=== PATIENT | female | born 1970 | race Hispanic/Latino ===

== ENCOUNTER 2019-04-11 18:42 | Emergency (ER) | payer OTHER ==
--- OUTSIDE RECORDS SUMMARY | 2019-04-11 18:44 | XMS REPORT ---
:1970 Author Organization eClinicalWorks Care Team Providers Name Role Phone Mak Flores Provider Role Unavailable Allergies, Adverse Reactions, Alerts Substance Reaction Event Type N.K.D.A. Info Not Available Non Drug Allergy Problems Problem Type Condition Code Onset Dates Condition Status Problem HTN, goal below 130/80 I10 Active Problem Type 2 diabetes mellitus with other E11.69 Active specified complication, unspecified whether insurance verifier insulin use Problem Mixed hyperlipidemia E78.2 Active Problem Chronic hepatitis C without hepatic B18.2 Active coma Problem Generalized anxiety disorder F41.1 Active Problem Body mass index (BMI) 40.0-44.9, Z68.41 Active adult Problem 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 prior episode Problem Panic disorder [episodic paroxysmal F41.0 Active anxiety] Problem Morbid (severe) obesity due to E66.01 Active excess calories Assessment Morbid (severe) obesity due to E66.01 Active excess calories Assessment Chronic hepatitis C without hepatic B18.2 Active coma Assessment Body mass index (BMI) 40.0-44.9, Z68.41 Active adult Assessment Panic disorder [episodic paroxysmal F41.0 Active anxiety] Assessment HTN, goal below 130/80 I10 Active Assessment 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 prior episode Assessment Mixed hyperlipidemia E78.2 Active Assessment Generalized anxiety disorder F41.1 Active Assessment Type 2 diabetes mellitus with other E11.69 Active specified complication, unspecified whether senior living insulin use Medications Medication Code Code Instructions Start End Status Dosage System Date Date Amlodipine ND 68104471823 10 MG Orally Active 1 tablet Besylate Once a day Benazepril HCl [facility] 56435270625 40 MG Orally Active 1 tablet Once a day Alprazolam ND 93011606927 1 MG Orally Active 1 tablet three times a day Tradjenta ND 89554495567 5 MG Orally Once Active 1 tablet a day Atorvastatin [facility] 18428366508 10 MG Orally Active 1 tablet Calcium Once a day Results No Known Results Summary Purpose eClinicalWorks Submission
--- OUTSIDE RECORDS SUMMARY | 2019-04-11 18:44 | XMS REPORT ---
[...] other E11.69 Active specified complication, unspecified whether nursing home insulin use Assessment Acute cystitis without hematuria N30.00 Active Assessment Dysuria R30.0 Active Problem Mixed hyperlipidemia E78.2 Active Problem Chronic hepatitis C without hepatic B18.2 Active coma Problem Generalized anxiety disorder F41.1 Active Problem Body mass index (BMI) 40.0-44.9, Z68.41 Active adult Problem 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 prior episode Problem Panic disorder [episodic paroxysmal F41.0 Active anxiety] Problem Morbid (severe) obesity due to E66.01 Active excess calories Medications Medication Code Code Instructions Start End Status Dosage System Date Date Atorvastatin [facility] 56561506756 10 MG Orally Active 1 tablet Calcium Once a day Macrobid [facility] 52006183395 100 MG Orally Jan 30, Feb 04, Active 1 capsule BID 2018 2018 at bedtime with food Pyridium [facility] 40211286205 200 MG Orally Jan 30, Feb 01, Active 1 tablet Three times a 2018 2018 after day meals Tradjenta [facility] 87138787045 5 MG Orally Active 1 tablet Once a day Benazepril HCl ND 26727524597 40 MG Orally Active 1 tablet Once a day Amlodipine ND 47584155777 10 MG Orally Active 1 tablet Besylate Once a day Alprazolam ND 79078103068 1 MG Orally Active 1 tablet three times a day Results No Known Results Summary Purpose eClinicalWorks Submission
--- OUTSIDE RECORDS SUMMARY | 2019-04-11 18:44 | XMS REPORT ---
:1970 Author Organization eClinicalWorks Care Team Providers Name Role Phone Mark Mak Provider Role Unavailable Allergies, Adverse Reactions, Alerts Substance Reaction Event Type N.K.D.A. Info Not Available Non Drug Allergy Problems Problem Type Condition Code Onset Dates Condition Status Problem Body mass index (BMI) 40.0-44.9, Z68.41 Active adult Problem Panic disorder [episodic paroxysmal F41.0 Active anxiety] Problem Morbid (severe) obesity due to E66.01 Active excess calories Problem 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 prior episode Assessment Body mass index (BMI) 40.0-44.9, Z68.41 Active adult Problem HTN, goal below 130/80 I10 Active Assessment Elevated alkaline phosphatase level R74.8 Active Assessment Routine gynecological examination Z01.419 Active Problem Osteoarthritis of multiple joints, M15.9 Active unspecified osteoarthritis type Problem Mixed hyperlipidemia E78.2 Active Problem Chronic hepatitis C without hepatic B18.2 Active coma Problem Type 2 diabetes mellitus with other E11.69 Active specified complication, unspecified whether parts counterman insulin use Problem Generalized anxiety disorder F41.1 Active Assessment 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 prior episode Assessment Screening mammogram, encounter for Z12.31 Active Assessment Morbid (severe) obesity due to E66.01 Active excess calories Assessment Chronic hepatitis C without hepatic B18.2 Active coma Assessment HTN, goal below 130/80 I10 Active Assessment Mixed hyperlipidemia E78.2 Active Assessment Generalized anxiety disorder F41.1 Active Assessment Type 2 diabetes mellitus with other E11.69 Active specified complication, unspecified whether parts counterman insulin use Assessment Osteoarthritis of multiple joints, M15.9 Active unspecified osteoarthritis type Assessment Panic disorder [episodic paroxysmal F41.0 Active anxiety] Medications Medication Code Code Instructions Start End Status Dosage System Date Date Tradjenta [facility] 60799915908 5 MG Orally Once Active 1 tablet a day Benazepril HCl [facility] 97712897794 40 MG Orally Active 1 tablet Once a day Alprazolam [facility] 06170908091 1 MG Orally Active 1 tablet three times a day Atorvastatin [facility] 51181628176 10 MG Orally Active 1 tablet Calcium Once a day Amlodipine [facility] 68293576692 10 MG Orally Active 1 tablet Besylate Once a day Results No Known Results Summary Purpose eClinicalWorks Submission
--- OUTSIDE RECORDS SUMMARY | 2019-04-11 18:44 | XMS REPORT ---
:1970 Author Organization eClinicalWorks Care Team Providers Name Role Phone FloresMak Provider Role Unavailable Allergies No Known Allergies Problems Problem Type Condition Code Onset Dates Condition Status Problem Body mass index (BMI) 40.0-44.9, Z68.41 Active adult Problem Panic disorder [episodic paroxysmal F41.0 Active anxiety] Problem Morbid (severe) obesity due to E66.01 Active excess calories Assessment Chronic hepatitis C without hepatic B18.2 Active coma Problem 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 prior episode Problem HTN, goal below 130/80 I10 Active Problem Osteoarthritis of multiple joints, M15.9 Active unspecified osteoarthritis type Problem Mixed hyperlipidemia E78.2 Active Problem Chronic hepatitis C without hepatic B18.2 Active coma Problem Type 2 diabetes mellitus with other E11.69 Active specified complication, unspecified whether assisted insulin use Problem Generalized anxiety disorder F41.1 Active Medications No Known Medications Results No Known Results Summary Purpose [employer] Submission
--- NOTE | 2019-04-11 20:19 | EDPHYS ---
Physician Documentation [facility] Name: Arleth Miner Age: 49 yrs Sex: Female : 1970 Arrival Date: 04/11/2019 Time: 18:47 Bed 9 Private MD: ED Physician Michael Blount HPI: 04/12 01:57 This 49 yrs old Female presents to ER via Ambulatory with complaints of Knee tw4 Pain. 01:57 The patient presents with pain, that is chronic. The complaints affect the right knee. tw4 01:58 Onset: The symptoms/episode began/occurred 1 month(s) ago. Modifying factors: The tw4 symptoms are alleviated by nothing. the symptoms are aggravated by nothing. Severity of symptoms: At their worst the symptoms were moderate, in the emergency department the symptoms. The patient has not experienced similar symptoms in the past. 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 - Social history:: Smoking status: . - Ebola Screening: : Patient negative for fever greater than or equal to 101.5 degrees Fahrenheit, and additional compatible Ebola Virus Disease symptoms Patient denies exposure to infectious person Patient denies travel to an Ebola-affected area in the 21 days before illness onset No symptoms or risks identified at this time. ROS: 04/12 01:58 Constitutional: Negative for fever, chills, and weight loss, Eyes: Negative for injury, tw4 pain, redness, and discharge, Cardiovascular: Negative for chest pain, palpitations, and edema, Respiratory: Negative for shortness of breath, cough, wheezing, and pleuritic chest pain, Abdomen/GI: Negative for abdominal pain, nausea, vomiting, diarrhea, and constipation, Skin: Negative for injury, rash, and discoloration, Neuro: Negative for headache, weakness, numbness, tingling, and seizure. MS/extremity: Positive for pain, Negative for acute changes, injury or acute deformity, abrasion, contusion, decreased range of motion, deformity, ecchymosis, erythema, puncture, rash. Exam: 01:58 Constitutional: This is a well developed, well nourished patient who is awake, alert, tw4 and in no acute distress. Head/Face: Normocephalic, atraumatic. Chest/axilla: Normal chest wall appearance and motion. Nontender with no deformity. No lesions are appreciated. Cardiovascular: Regular rate and rhythm with a normal S1 and S2. No gallops, murmurs, or rubs. Normal PMI, no JVD. No pulse deficits. Respiratory: Lungs have equal breath sounds bilaterally, clear to auscultation and percussion. No rales, rhonchi or wheezes noted. No increased work of breathing, no retractions or nasal flaring. Abdomen/GI: Soft, non-tender, with normal bowel sounds. No distension or tympany. No guarding or rebound. No evidence of tenderness throughout. MS/ Extremity: Pulses equal, no cyanosis. Neurovascular intact. Full, normal range of motion. 01:58 Musculoskeletal/extremity: Extremities: noted in the right knee: pain. Vital Signs: 04/11 19:32 BP 137 / 77; Pulse 93; Resp 16; Temp 98.2; Pulse Ox 95% on R/A; Weight 104.33 kg; iw Height 5 ft. 3 in. (160.02 cm); Pain 8/10; 19:32 Body Mass Index 40.74 (104.33 kg, 160.02 cm) iw MDM: 20:09 Patient medically screened. tw4 04/12 01:58 Differential diagnosis: dislocation. Data reviewed: vital signs, nurses notes. tw4 Counseling: I had a detailed discussion with the patient and/or guardian regarding: the historical points, exam findings, and any diagnostic results supporting the discharge/admit diagnosis. Special discussion: I discussed with the patient/guardian in detail that at this point there is no indication for admission to the hospital. It is understood, however, that if the symptoms persist or worsen the patient needs to return immediately for re-evaluation. Administered Medications: No medications were administered Disposition: 04/11/19 20:19 Discharged to Home. Impression: RHEUMATOID ARTHRITIS. - Condition is Stable. - Discharge Instructions: Arthritis. - Prescriptions for ketorolac 10 mg Oral tablet - take 1 tablet by ORAL route every 4 hours not to exceed 40 mg in 24hrs; 14 tablet. Medrol ([place]) 4 mg Oral Tablets, Dose Pack - take 1 tablet by ORAL route as directed - follow package instructions; 1 packet. - Medication Reconciliation Form, Thank You Letter, Antibiotic Education, Prescription Opioid Use form. - Follow up: Private Physician; When: Upon discharge from the Emergency Department; Reason: Recheck today's complaints, Continuance of care, Re-evaluation by your physician. - Problem is new. - Symptoms have improved. Signatures: Kamala Swanson RN RN aa1 Mar Nichols RN RN iw Michael Blount MD MD tw4 Corrections: (The following items were deleted from the chart) 04/11 20:25 20:19 04/11/2019 20:19 Discharged to Home. Impression: RHEUMATOID ARTHRITIS. Condition aa1 is Stable. Forms are Medication Reconciliation Form, Thank You Letter, Antibiotic Education, Prescription Opioid Use. Follow up: Private Physician; When: Upon discharge from the Emergency Department; Reason: Recheck today's complaints, Continuance of care, Re-evaluation by your physician. Problem is new. Symptoms have improved. tw4
--- NOTE | 2019-04-11 20:19 | ER ---
Nurse's Notes [facility] Name: Arleth Miner Age: 49 yrs Sex: Female : 1970 Arrival Date: 04/11/2019 Time: 18:47 Bed 9 Private MD: Diagnosis: RHEUMATOID ARTHRITIS Presentation: 04/11 19:28 Presenting complaint: Patient states: hx of arthritis, c/o mart knee pain and left wrist iw pain, is due to get in with pain management next month, is only taking tylenol arthritis at home per Dr. Flores, not helping. Transition of care: patient was not received from another setting of care. Onset of symptoms was March 30, 2019. Risk Assessment: Do you want to hurt yourself or someone else?. Initial Sepsis Screen: Does the patient meet any 2 criteria? No. Patient's initial sepsis screen is negative. Does the patient have a suspected source of infection? No. Patient's initial sepsis screen is negative. Care prior to arrival: None. 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 - Social history:: Smoking status: . - Ebola Screening: : Patient negative for fever greater than or equal to 101.5 degrees Fahrenheit, and additional compatible Ebola Virus Disease symptoms Patient denies exposure to infectious person Patient denies travel to an Ebola-affected area in the 21 days before illness onset No symptoms or risks identified at this time. Screenin:41 Abuse screen: Denies threats or abuse. Denies injuries from another. Nutritional iw screening: No deficits noted. Tuberculosis screening: No symptoms or risk factors identified. Fall Risk None identified. Assessment: 19:40 General: Appears in no apparent distress. Behavior is calm, cooperative. Pain: iw Complains of pain in right knee Pain currently is 8 out of 10 on a pain scale. Pain: Complains of pain in right knee. Pain: Complains of pain in left wrist. Neuro: Level of Consciousness is awake, alert, obeys commands, Oriented to person, place, time, situation, Moves all extremities. Full function. Cardiovascular: Patient's skin is warm and dry. Respiratory: Respiratory effort is even, unlabored, Respiratory pattern is regular, symmetrical. Derm: Skin is intact, is healthy with good turgor. Musculoskeletal: Range of motion: intact in all extremities. 20:24 Reassessment: Patient appears in no apparent distress at this time. Patient is alert, aa1 oriented x 3, equal unlabored respirations, skin warm/dry/pink. Discussed d/c \T\ f/u instructions with pt; denies questions or concerns at this time. Ambulatory to lobby with steady gait. Vital Signs: 19:32 BP 137 / 77; Pulse 93; Resp 16; Temp 98.2; Pulse Ox 95% on R/A; Weight 104.33 kg; iw Height 5 ft. 3 in. (160.02 cm); Pain 8/10; 19:32 Body Mass Index 40.74 (104.33 kg, 160.02 cm) iw ED Course: 18:47 Patient arrived in ED. mr 19:25 Michael Blount MD is Attending Physician. tw4 19:28 Mar Nichols, RN is Primary Nurse. iw 19:30 Triage completed. iw 19:40 Arm band placed on. iw 19:41 Patient has correct armband on for positive identification. iw 19:41 No provider procedures requiring assistance completed. Patient did not have IV access iw during this emergency room visit. Administered Medications: No medications were administered Outcome: 20:19 Discharge ordered by . tw4 20:24 Discharged to home ambulatory, with family. aa1 20:24 Condition: good 20:24 Discharge instructions given to patient, family, Instructed on discharge instructions, follow up and referral plans. medication usage, Demonstrated understanding of instructions, follow-up care, medications, Prescriptions given X 2. 20:25 Patient left the ED. aa1 Signatures: Kamala Swanson RN RN aa1 Juanjose, Mar Cota, RN Michael Chavez MD MD tw4
[2019-04-12 02:36] VITALS: BP 137/77; TEMP 98.2; O2SAT 95
== END 2019-04-11 20:25 | disposition home or self-care (01) ==
LOC: ER 18:42
DX: M06.9 Rheumatoid arthritis, unspecified (principal); I10 Essential (primary) hypertension; E78.5 Hyperlipidemia, unspecified; E11.9 Type 2 diabetes mellitus without complications
CPT/HCPCS: 99282

== ENCOUNTER 2019-05-18 08:08 | Day surgery (SDC) | payer OTHER ==
[2019-05-17 12:49] LABS: Absolute Lymphocytes (CBC) 3.7 K/uL (0.7-4.9); Basophils % 0.7 % (0-1.3); Hematocrit 38.6 % (36.0-45.0); Lymphocytes % 28.1 % (15.3-44.8); MPV 7.6 fL (7.6-11.3); RBC Red Blood Cell Count 4.73 M/uL (3.86-4.86)
[2019-05-17 13:09] LABS: Potassium 3.9 mmol/L (3.5-5.1)
--- NOTE | 2019-05-17 13:10 | RAD REPORT ---
EXAM DESCRIPTION: Carlos Enrique Wiggins (2 Views)05/17/2019 1:03 pm CLINICAL HISTORY: Preop for hernia repair COMPARISON: None FINDINGS: The lungs appear clear of acute infiltrate. The heart is normal size IMPRESSION: No acute abnormalities displayed
--- NOTE | 2019-05-17 13:17 | EKG ---
Test Date: 2019-05-17 Test Time: 12:37:39 Route Rider: LINETTE MEASUREMENT RESULTS: Intervals: Rate: 74 RI: 146 QRSD: 90 QT: 400 QTc: 444 [place]: P: 44 RI: 146 QRS: 47 T: 34 INTERPRETIVE STATEMENTS: Normal sinus rhythm Normal ECG No previous ECG available for comparison Electronically Signed On 05-17-19 13:16:09 PATIENT RELATIONS COORDINATOR by Harry Bose
--- OUTSIDE RECORDS SUMMARY | 2019-05-18 08:28 | XMS REPORT ---
[...] other E11.69 Active specified complication, unspecified whether pinner printed circuit boards insulin use Problem Mixed hyperlipidemia E78.2 Active [...] Status Dosage System Date Date Amlodipine ND 36775488774 10 MG Orally Active 1 tablet Besylate Once a day Benazepril HCl [facility] 47559252819 40 MG Orally Active 1 tablet Once a day Alprazolam ND 51382493448 1 MG Orally Active 1 tablet three times a day Tradjenta ND 17320320499 5 MG Orally Once Active 1 tablet a day Atorvastatin [facility] 96891250218 10 MG Orally Active 1 tablet Calcium Once a day Results No Known Results Summary Purpose eClinicalWorks Submission
--- OUTSIDE RECORDS SUMMARY | 2019-05-18 08:28 | XMS REPORT ---
[...] E11.69 Active specified complication, unspecified whether senior care insulin use Problem Generalized anxiety disorder F41.1 Active Medications No Known Medications Results No Known Results Summary Purpose [employer] Submission
--- OUTSIDE RECORDS SUMMARY | 2019-05-18 08:28 | XMS REPORT ---
:1970 Author Organization eClinicalWorks Care Team Providers Name Role Phone Mark Mak Provider Role Unavailable Allergies, Adverse Reactions, Alerts Substance Reaction Event Type N.K.D.A. Info Not Available Non Drug Allergy Problems Problem Type Condition Code Onset Dates Condition Status Problem Chronic hepatitis C without hepatic B18.2 Active coma Problem Generalized anxiety disorder F41.1 Active Problem Mixed hyperlipidemia E78.2 Active Problem Fatty liver K76.0 Active Problem Primary osteoarthritis of right knee M17.11 Active Problem Periumbilical hernia K42.9 Active Problem HTN, goal below 130/80 I10 Active Problem Type 2 diabetes mellitus with other E11.69 Active specified complication, unspecified whether usp insulin use Problem Osteoarthritis of multiple joints, M15.9 Active unspecified osteoarthritis type Problem 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 prior episode Assessment Osteoarthritis of multiple joints, M15.9 Active unspecified osteoarthritis type Assessment Generalized anxiety disorder F41.1 Active Assessment Fatty liver K76.0 Active Assessment Periumbilical hernia K42.9 Active Problem Body mass index (BMI) 40.0-44.9, Z68.41 Active adult Assessment Panic disorder [episodic paroxysmal F41.0 Active anxiety] Problem Morbid (severe) obesity due to E66.01 Active excess calories Assessment Primary osteoarthritis of right knee M17.11 Active Problem Panic disorder [episodic paroxysmal F41.0 Active anxiety] Medications Medication Code Code Instructions Start End Status Dosage System Date Date Tradjenta [facility] 90428999857 5 MG Orally Once Active 1 tablet a day Benazepril HCl ND 52691842675 40 MG Orally Active 1 tablet Once a day Alprazolam ND 55161534943 1 MG Orally Active 1 tablet Twice a day PRN SEVERE ANXIETY Atorvastatin [facility] 45689882967 10 MG Orally Active 1 tablet Calcium Once a day Amlodipine ND 58022546088 10 MG Orally Active 1 tablet Besylate Once a day Results No Known Results Summary Purpose eClinicalWorks Submission
--- OUTSIDE RECORDS SUMMARY | 2019-05-18 08:28 | XMS REPORT ---
[...] other E11.69 Active specified complication, unspecified whether alf insulin use Assessment Acute cystitis without hematuria [...] End Status Dosage System Date Date Atorvastatin [facility] 16153525541 10 MG Orally Active 1 tablet Calcium Once a day Macrobid [facility] 31879042766 100 MG Orally Jan 30, Feb 04, Active 1 capsule BID 2018 2018 at bedtime with food Pyridium [facility] 49419127773 200 MG Orally Jan 30, Feb 01, Active 1 tablet Three times a 2018 2018 after day meals Tradjenta [facility] 34531697290 5 MG Orally Active 1 tablet Once a day Benazepril HCl ND 72283501530 40 MG Orally Active 1 tablet Once a day Amlodipine ND 43821841441 10 MG Orally Active 1 tablet Besylate Once a day Alprazolam ND 40815470130 1 MG Orally Active 1 tablet three times a day Results No Known Results Summary Purpose eClinicalWorks Submission
--- OUTSIDE RECORDS SUMMARY | 2019-05-18 08:28 | XMS REPORT ---
[...] other E11.69 Active specified complication, unspecified whether medical terminologist insulin use Problem Generalized anxiety disorder F41.1 [...] other E11.69 Active specified complication, unspecified whether medical terminologist insulin use Assessment Osteoarthritis of multiple joints, M15.9 Active unspecified osteoarthritis type Assessment Panic disorder [episodic paroxysmal F41.0 Active anxiety] Medications Medication Code Code Instructions Start End Status Dosage System Date Date Tradjenta [facility] 17548748807 5 MG Orally Once Active 1 tablet a day Benazepril HCl [facility] 81283186286 40 MG Orally Active 1 tablet Once a day Alprazolam [facility] 11031051254 1 MG Orally Active 1 tablet three times a day Atorvastatin [facility] 88663387059 10 MG Orally Active 1 tablet Calcium Once a day Amlodipine [facility] 25331271413 10 MG Orally Active 1 tablet Besylate Once a day Results No Known Results Summary Purpose eClinicalWorks Submission
--- OUTSIDE RECORDS SUMMARY | 2019-05-18 08:29 | XMS REPORT ---
:1970 Author Organization eClinicalWorks Care Team Providers Name Role Phone Mark Mak Provider Role Unavailable Allergies No Known Allergies [...] other E11.69 Active specified complication, unspecified whether snf insulin use Problem Osteoarthritis of multiple joints, M15.9 Active unspecified osteoarthritis type Problem 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 prior episode Problem Body mass index (BMI) 40.0-44.9, Z68.41 Active adult Assessment Type 2 diabetes mellitus with other E11.69 Active specified complication, unspecified whether termite control representative insulin use Problem Morbid (severe) obesity due to E66.01 Active excess calories Assessment Mixed hyperlipidemia E78.2 Active Problem Panic disorder [episodic paroxysmal F41.0 Active anxiety] Medications No Known Medications Results No Known Results Summary Purpose [employer] Submission
--- OUTSIDE RECORDS SUMMARY | 2019-05-18 08:29 | XMS REPORT ---
:1970 Author Organization eClinicalWorks Care Team Providers Name Role Phone Mak Flores Provider Role Unavailable Allergies, Adverse Reactions, Alerts Substance Reaction Event Type N.K.D.A. Info Not Available Non Drug Allergy Problems Problem Type Condition Code Onset Dates Condition Status Assessment Osteoarthritis of multiple joints, M15.9 Active unspecified osteoarthritis type Assessment Elevated alkaline phosphatase level R74.8 Active Problem Morbid (severe) obesity due to E66.01 Active excess calories Assessment Body mass index (BMI) 40.0-44.9, Z68.41 Active adult Problem Panic disorder [episodic paroxysmal F41.0 Active anxiety] Assessment Morbid (severe) obesity due to E66.01 Active excess calories Problem Chronic hepatitis C without hepatic B18.2 Active coma Problem Generalized anxiety disorder F41.1 Active Problem Mixed hyperlipidemia E78.2 Active Problem Fatty liver K76.0 Active Problem Primary osteoarthritis of right knee M17.11 Active Assessment Generalized anxiety disorder F41.1 Active Assessment 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 prior episode Problem Periumbilical hernia K42.9 Active Assessment Chronic hepatitis C without hepatic B18.2 Active coma Problem HTN, goal below 130/80 I10 Active Problem Type 2 diabetes mellitus with other E11.69 Active specified complication, unspecified whether fci insulin use Problem Osteoarthritis of multiple joints, M15.9 Active unspecified osteoarthritis type Problem 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 prior episode Assessment Mixed hyperlipidemia E78.2 Active Assessment Acute non-recurrent maxillary J01.00 Active sinusitis Assessment Panic disorder [episodic paroxysmal F41.0 Active anxiety] Assessment HTN, goal below 130/80 I10 Active Problem Body mass index (BMI) 40.0-44.9, Z68.41 Active adult Assessment Medicare annual wellness visit, Z00.00 Active subsequent Assessment Type 2 diabetes mellitus with other E11.69 Active specified complication, unspecified whether terminal operator insulin use Medications Medication Code Code Instructions Start End Status Dosage System Date Date Radhaty [facility] 79863265688 5 MG Orally Active 1 tablet Once a day MetFORMIN HCl ER [facility] 64722518030 500 MG Orally May 09, Active 1 tablet BID 2019 with evening meal Amoxicillin-Pot [facility] 08115937961 875-125 MG May 09, Apr, Active 1 tablet Clavulanate Orally every 12 2019 2019 hrs Atorvastatin [facility] 53271510354 10 MG Orally Active 1 tablet Calcium Once a day Benazepril HCl [facility] 07427689736 40 MG Orally Active 1 tablet Once a day Amlodipine [facility] 42280185154 10 MG Orally Active 1 tablet Besylate Once a day Alprazolam [facility] 76797590499 1 MG Orally Active 1 tablet Twice a day PRN SEVERE ANXIETY Prozac [facility] 02523615332 20 MG Orally May 09, Active 1 capsule Once a day 2019 Results No Known Results Summary Purpose eClinicalWorks Submission
--- OUTSIDE RECORDS SUMMARY | 2019-05-18 08:29 | XMS REPORT ---
:1970 Author Organization eClinicalWorks Care Team Providers Name Role Phone Kumar Mckeon Provider Role Unavailable Allergies No Known Allergies Problems Problem Type Condition Code Onset Dates Condition Status Problem Chronic hepatitis C without hepatic B18.2 Active coma Problem Generalized anxiety disorder F41.1 Active Problem Mixed hyperlipidemia E78.2 Active Problem Body mass index (BMI) 40.0-44.9, Z68.41 Active adult Problem Morbid (severe) obesity due to E66.01 Active excess calories Problem Panic disorder [episodic paroxysmal F41.0 Active anxiety] Problem Fatty liver K76.0 Active Problem Primary osteoarthritis of right knee M17.11 Active Problem Periumbilical hernia K42.9 Active Problem HTN, goal below 130/80 I10 Active Problem Type 2 diabetes mellitus with other E11.69 Active specified complication, unspecified whether intermission coordinator insulin use Problem Osteoarthritis of multiple joints, M15.9 Active unspecified osteoarthritis type Problem 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 prior episode Medications No Known Medications Results No Known Results Summary Purpose [facility] [employer] Submission
[2019-05-18] MEDS ORDERED: propofoL 200 MG/20 ML VIAL IV ONE (08:32)
[2019-05-18] MEDS ORDERED: GLYCOPYRROLATE 0.2 MG/ML SYR ONE ×2 (08:33→10:31)
[2019-05-18] MEDS ORDERED: LIDOCAINE 2% MPF 5 ML VIAL ONE (08:34)
[2019-05-18] MEDS ORDERED: FENTANYL CITR 250 MCG/5 ML ONE (08:34)
[2019-05-18] MEDS ORDERED: BUPIVACAINE 0.5% PF 10 ML VIAL ONE (08:34)
[2019-05-18] MEDS ORDERED: ONDANSETRON 4 MG/2 ML VIAL ONE ×2 (08:36→11:08)
[2019-05-18] MEDS ORDERED: MIDAZOLAM HCL 2 MG/2 ML INJ ONE (08:36)
[2019-05-18] MEDS ORDERED: ROCURONIUM 50 MG/5 ML VIAL IV ONE (08:36)
[2019-05-18] MEDS ORDERED: NEOSTIGMINE 1 MG/ML -5 ML ONE (08:36)
[2019-05-18] MEDS ORDERED: SCOPOLAMINE HYDROBROMIDE PATCH TD ONE (08:38)
[2019-05-18] MEDS ORDERED: NA CHLORIDE 0.9% 1,000 ML ONE (08:38)
[2019-05-18] MEDS ORDERED: CEFAZOLIN/SWI 1gm 1 GM/10 ML SYR ONE (08:38)
[2019-05-18] MEDS ORDERED: CEFAZOLIN SODIUM 1 GM/VIAL ONE (09:33)
[2019-05-18] MEDS ORDERED: EPHEDRINE SULF 50 MG/ML VIAL ONE (09:46)
[2019-05-18] MEDS: HYDROMORPHONE HCL 2 MG/ML inj ONE ×4 (10:50→11:07)
[2019-05-18] MEDS: MEPERIDINE HCL 50 MG/ML ONE ×2 (11:12→11:17)
[2019-05-18] MEDS: HYDROMORPHONE HCL 1 MG/ML INJ ONE ×2 (11:22→11:27)
[2019-05-18] MEDS ORDERED: HYDROCODONE/APAP 7.5/325 MG TAB ONE (12:52)
[2019-05-18 14:55] VITALS: BP 118/59; TEMP 97; O2SAT 95
--- NOTE | 2019-05-18 15:59 | OP ---
Date of Procedure: 05/18/2019 Surgeon: Bjorn Taylor MD Master In Chancery: LORENA Garcia. Preoperative Diagnosis: Incarcerated umbilical hernia. Postoperative Diagnosis: Incarcerated umbilical hernia with extensive omental adhesions. Procedure Performed: Laparoscopic repair of incarcerated umbilical hernia and lysis of adhesions. Estimated Fluid Loss: Minimal. Specimen: Hernia sac. Findings: As above. Anesthesia: General. Complications: None. Disposition: Patient tolerated the procedure in stable condition, taken to Recovery in good general condition. Procedure In Detail: Patient was brought to the OR and placed in supine position. General anesthesi a begun. Patient was prepped and draped in usual sterile fashion. Marcaine 0.5% was infiltrated loc ally. A 15-blade was used to make a 1 cm left upper quadrant incision, subcu tissue divided. Fascia was identified and divided. #1 Vicryl stay suture was placed. Peritoneal cavity was entered with s harp and blunt dissection. 12 mm trocar placed into the peritoneal cavity under direct vision. Pneu moperitoneum was established. 5 mm trocar placed in the left lower quadrant. Laparoscopy revealed i ncarcerated omentum into the supraumbilical hernia defect, which was approximately 3 cm in diameter. There were extensive omental adhesions inferiorly, omental in nature. LigaSure was used for approxi mately 15 minutes to take down all these extensive adhesions, allowed room for the mesh to be placed and then omentum from the hernia sac was reduced and then a 3 cm supraumbilical midline incision made . Subcutaneous tissue divided. Hernia sac identified and excised, sent to Pathology as specimen. T hen, primary closure of the hernia defect done with #1 PDS running suture. Then pneumoperitoneum ree stablished and then mesh Bard system with the balloon system 10 x 15 cm used in the standard fashion, secured with SorbiTack all the way around with complete coverage of the hernia defect site with at l east 3 cm coverage on all margins and then the balloon system removed with all parts intact and then peritoneal cavity examined. No evidence of bleeding or bowel injury appreciated. Subsequently, all trocars were removed under direct vision. Stay sutures were tied to each other to reapproximate fasc ial defect. Subcutaneous wounds were irrigated. Bleeding controlled with cautery and then 3-0 chrom ic used to approximate subcutaneous tissue and close the skin. Sterile dressing was applied. Patien t was awakened and taken to Recovery in good general condition. Discharge Note: The patient going to Day Surgery, then home when stable. Disposition: Home. Condition: Stable. Discharge Instructions: Resume home medications and diet. Activity as tolerated. No heavy lifting. Remove outer dressing in 2 days. Shower. Keep wound clean and dry. Tylenol No. 3 one tablet p.o. q.4 p.r.n. pain. Keep Steri-Strips on at all times. Abdominal binder as ordered. Incentive spirom etry as ordered. Follow up in my office in a week. Call for appointment. /MODL Voice ID: [id number] Report ID: [id number]
== END 2019-05-18 14:50 | disposition home or self-care (01) ==
LOC: OR 08:08
PROVIDERS: ATTEND Surgery
PROC: 0DNU4ZZ Release Omentum, Percutaneous Endoscopic Approach (ICD-10-PCS; 2019-05-18)
PROC: 0WUF4JZ Supplement Abdominal Wall with Synthetic Substitute, Percutaneous Endoscopic Approach (ICD-10-PCS; principal; 2019-05-18 09:00)
DX: K42.0 Umbilical hernia with obstruction, without gangrene (principal); E11.9 Type 2 diabetes mellitus without complications; I10 Essential (primary) hypertension; Z83.3 Family history of diabetes mellitus
CPT/HCPCS: 93005; 85025; 80048; 36415; 82947 ×2; 88302; 71046; 49653; 49329; J2704; J2250; J1170 ×2; J3010; J2175; J2710; J0690 ×2; J7030; J2405 ×2

== ENCOUNTER 2019-05-25 14:54 | Emergency (ER) | payer OTHER ==
--- OUTSIDE RECORDS SUMMARY | 2019-05-25 14:57 | XMS REPORT ---
[...] E11.69 Active specified complication, unspecified whether terminal worker insulin use Problem Generalized anxiety disorder F41.1 [...] E11.69 Active specified complication, unspecified whether terminal worker insulin use Assessment Osteoarthritis of multiple joints, M15.9 Active unspecified osteoarthritis type Assessment Panic disorder [episodic paroxysmal F41.0 Active anxiety] Medications Medication Code Code Instructions Start End Status Dosage System Date Date Tradjenta [facility] 50975735365 5 MG Orally Once Active 1 tablet a day Benazepril HCl [facility] 17581974310 40 MG Orally Active 1 tablet Once a day Alprazolam [facility] 70791373794 1 MG Orally Active 1 tablet three times a day Atorvastatin [facility] 05281294401 10 MG Orally Active 1 tablet Calcium Once a day Amlodipine [facility] 95520094594 10 MG Orally Active 1 tablet Besylate Once a day Results No Known Results Summary Purpose eClinicalWorks Submission
--- OUTSIDE RECORDS SUMMARY | 2019-05-25 14:57 | XMS REPORT ---
[...] E11.69 Active specified complication, unspecified whether termite treater insulin use Problem Mixed hyperlipidemia E78.2 Active [...] other E11.69 Active specified complication, unspecified whether shelter insulin use Medications Medication Code Code Instructions Start End Status Dosage System Date Date Amlodipine ND 72050157080 10 MG Orally Active 1 tablet Besylate Once a day Benazepril HCl [facility] 35564037686 40 MG Orally Active 1 tablet Once a day Alprazolam ND 93377346942 1 MG Orally Active 1 tablet three times a day Tradjenta ND 02510244073 5 MG Orally Once Active 1 tablet a day Atorvastatin [facility] 09067373517 10 MG Orally Active 1 tablet Calcium Once a day Results No Known Results Summary Purpose eClinicalWorks Submission
--- OUTSIDE RECORDS SUMMARY | 2019-05-25 14:57 | XMS REPORT ---
:1970 Author Organization eClinicalWorks Care Team Providers Name Role Phone aMk Flores Provider Role Unavailable Allergies, Adverse Reactions, Alerts Substance Reaction Event Type N.K.D.A. Info Not Available Non Drug Allergy Problems Problem Type Condition Code Onset Dates Condition Status Problem HTN, goal below 130/80 I10 Active Problem Type 2 diabetes mellitus with other E11.69 Active specified complication, unspecified whether fci insulin use Assessment Acute cystitis without hematuria [...] End Status Dosage System Date Date Atorvastatin [facility] 22061813725 10 MG Orally Active 1 tablet Calcium Once a day Macrobid [facility] 66132020502 100 MG Orally Jan 30, Feb 04, Active 1 capsule BID 2018 2018 at bedtime with food Pyridium [facility] 21867914446 200 MG Orally Jan 30, Feb 01, Active 1 tablet Three times a 2018 2018 after day meals Tradjenta [facility] 05915914516 5 MG Orally Active 1 tablet Once a day Benazepril HCl ND 49949585672 40 MG Orally Active 1 tablet Once a day Amlodipine ND 69429276516 10 MG Orally Active 1 tablet Besylate Once a day Alprazolam ND 63901904967 1 MG Orally Active 1 tablet three times a day Results No Known Results Summary Purpose eClinicalWorks Submission
--- OUTSIDE RECORDS SUMMARY | 2019-05-25 14:57 | XMS REPORT ---
[...] other E11.69 Active specified complication, unspecified whether custodial insulin use Problem Generalized anxiety disorder F41.1 Active Medications No Known Medications Results No Known Results Summary Purpose [employer] Submission
--- OUTSIDE RECORDS SUMMARY | 2019-05-25 14:58 | XMS REPORT ---
[...] other E11.69 Active specified complication, unspecified whether president commercial bank insulin use Problem Osteoarthritis of multiple joints, M15.9 Active unspecified osteoarthritis type Problem 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 prior episode Medications No Known Medications Results No Known Results Summary Purpose [employer] Submission
--- OUTSIDE RECORDS SUMMARY | 2019-05-25 14:58 | XMS REPORT ---
[...] other E11.69 Active specified complication, unspecified whether detention insulin use Problem Osteoarthritis of multiple joints, [...] End Status Dosage System Date Date Tradjenta [facility] 01589556408 5 MG Orally Once Active 1 tablet a day Benazepril HCl ND 38498097113 40 MG Orally Active 1 tablet Once a day Alprazolam ND 20353783746 1 MG Orally Active 1 tablet Twice a day PRN SEVERE ANXIETY Atorvastatin [facility] 32961092246 10 MG Orally Active 1 tablet Calcium Once a day Amlodipine ND 95035642738 10 MG Orally Active 1 tablet Besylate Once a day Results No Known Results Summary Purpose eClinicalWorks Submission
--- OUTSIDE RECORDS SUMMARY | 2019-05-25 14:58 | XMS REPORT ---
[...] other E11.69 Active specified complication, unspecified whether fdc insulin use Problem Osteoarthritis of multiple joints, M15.9 Active unspecified osteoarthritis type Problem 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 prior episode Problem Body mass index (BMI) 40.0-44.9, Z68.41 Active adult Assessment Type 2 diabetes mellitus with other E11.69 Active specified complication, unspecified whether long term care social worker insulin use Problem Morbid (severe) obesity due to E66.01 Active excess calories Assessment Mixed hyperlipidemia E78.2 Active Problem Panic disorder [episodic paroxysmal F41.0 Active anxiety] Medications No Known Medications Results No Known Results Summary Purpose [employer] Submission
--- OUTSIDE RECORDS SUMMARY | 2019-05-25 14:58 | XMS REPORT ---
[...] other E11.69 Active specified complication, unspecified whether continuous churn buttermaker insulin use Medications Medication Code Code Instructions Start End Status Dosage System Date Date Radhaty [facility] 63965069144 5 MG Orally Active 1 tablet Once a day MetFORMIN HCl ER [facility] 52922003129 500 MG Orally May 09, Active 1 tablet BID 2019 with evening meal Amoxicillin-Pot [facility] 32656044430 875-125 MG May 09, Apr, Active 1 tablet Clavulanate Orally every 12 2019 2019 hrs Atorvastatin [facility] 97472336773 10 MG Orally Active 1 tablet Calcium Once a day Benazepril HCl [facility] 35699657150 40 MG Orally Active 1 tablet Once a day Amlodipine [facility] 22459086229 10 MG Orally Active 1 tablet Besylate Once a day Alprazolam [facility] 86264814098 1 MG Orally Active 1 tablet Twice a day PRN SEVERE ANXIETY Prozac [facility] 12179874955 20 MG Orally May 09, Active 1 capsule Once a day 2019 Results No Known Results Summary Purpose eClinicalWorks Submission
[2019-05-25] MEDS ORDERED: NA CHLORIDE 0.9% 500 ML ONE (15:42)
[2019-05-25 15:51] LABS: Urine Blood 1+ (NEG); Urine Glucose NEGATIVE (NEG); Urine Protein NEGATIVE (NEG)
[2019-05-25 15:58] LABS: Absolute Lymphocytes (CBC) 4.3 K/uL (0.7-4.9); Basophils % 0.3 % (0-1.3); Hematocrit 37.4 % (36.0-45.0); Lymphocytes % 30.1 % (15.3-44.8); MPV 7.7 fL (7.6-11.3); RBC Red Blood Cell Count 4.58 M/uL (3.86-4.86)
[2019-05-25 16:00] LABS: Potassium 3.2 mmol/L (3.5-5.1)
--- NOTE | 2019-05-25 16:08 | RAD REPORT ---
EXAM DESCRIPTION: RAD - Chest Pa And Lat (2 Views) - 05/25/2019 3:47 pm CLINICAL HISTORY: COUGH Chest pain. COMPARISON: Chest Pa And Lat (2 Views) dated 05/17/2019; Abdomen Pelvis W Contrast dated 04/20/2019 FINDINGS: The lungs are clear. The heart is normal in size. No displaced fractures. IMPRESSION: No acute or concerning finding suspected.
[2019-05-25 16:29] LABS: Urine Bacteria <20 /HPF (<20); Urine RBC <5 /HPF (NONE SEEN); Urine Trichomonas PRESENT (NONE SEEN)
--- NOTE | 2019-05-25 16:48 | ER ---
Nurse's Notes [facility] Name: Arleth Miner Age: 49 yrs Sex: Female : 1970 Arrival Date: 05/25/2019 Time: 14:58 Bed 7 Private MD: Diagnosis: Unspecified abdominal pain;Trichomoniasis Presentation: 05/24 15:01 Chief complaint: Patient states: "I had a hernia repair last week and I've been waking aa5 up feeling hot like I am running a fever and I just feel weak like I have an infection". Coronavirus screen: The patient has NOT traveled to a country currently being monitored by the [facility] within the last 14 days. The patient has NOT had contact with any known and/or suspected case of coronavirus. Ebola Screen: Patient negative for fever greater than or equal to 101.5 degrees Fahrenheit, and additional compatible Ebola Virus Disease symptoms. Initial Sepsis Screen: Does the patient meet any 2 criteria? No. Patient's initial sepsis screen is negative. Does the patient have a suspected source of infection? No. Patient's initial sepsis screen is negative. Risk Assessment: Do you want to hurt yourself or someone else? Patient reports no desire to harm self or others. 15:01 Method Of Arrival: Ambulatory aa5 15:01 Acuity: ALANNA 3 aa5 16:59 Onset of symptoms is unknown. 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 - Social history:: Smoking status: Patient denies any tobacco usage or history of. Screenin:50 Abuse screen: Denies threats or abuse. Nutritional screening: No deficits noted. tw2 Tuberculosis screening: No symptoms or risk factors identified. Fall Risk None identified. Assessment: 15:30 General: Appears in no apparent distress. uncomfortable, Behavior is calm, cooperative, jl7 appropriate for age. Pain: Complains of pain in all over Pain currently is 8 out of 10 on a pain scale. Neuro: Level of Consciousness is awake, alert, obeys commands, Oriented to person, place, time, situation. Cardiovascular: Patient's skin is warm and dry. Respiratory: Airway is patent Respiratory effort is even, unlabored, Respiratory pattern is regular, symmetrical. Derm: Skin is pink, warm \\T\\ dry. 16:36 Reassessment: Patient appears in no apparent distress at this time. No changes from tw2 previously documented assessment. Patient and/or family updated on plan of care and expected duration. Pain level reassessed. Patient is alert, oriented x 3, equal unlabored respirations, skin warm/dry/pink. Vital Signs: 15:01 BP 136 / 87; Pulse 91; Resp 16 S; Temp 97.6(O); Pulse Ox 99% on R/A; Weight 108.86 kg aa5 (R); Height 5 ft. 3 in. (160.02 cm) (R); Pain 8/10; 16:35 BP 120 / 59; Pulse 81; Resp 17; Pulse Ox 100% on R/A; tw2 15:01 Body Mass Index 42.51 (108.86 kg, 160.02 cm) aa5 ED Course: 14:58 Patient arrived in ED. fj1 15:00 [facility] la1 15:00 Buddy Alvarenga MD is Attending Physician. la1 15:01 Arm band placed on. aa5 15:04 Triage completed. aa5 15:05 Bed in low position. Call light in reach. Side rails up X2. curing room supervisor on. Pulse tw2 ox on. NIBP on. 15:07 Sarah Gonzalez RN is Primary Nurse. jl7 15:38 Initial lab(s) drawn, by me, sent to lab. Urine collected: clean catch specimen, jb1 cloudy, abhinav colored, Flu and/or RSV swab sent to lab. Inserted saline lock: 22 gauge in left antecubital area, using aseptic technique. Blood collected. 15:39 Flu Sent. jb1 16:59 No provider procedures requiring assistance completed. IV discontinued, intact, jl7 bleeding controlled, No redness/swelling at site. Pressure dressing applied. Administered Medications: 16:06 Drug: NS 0.9% 500 ml Route: IV; Rate: bolus; Site: left antecubital; jl7 16:35 Follow up: IV Status: Completed infusion; IV Intake: 500ml jl7 Intake: 16:35 IV: 500ml; Total: 500ml. jl7 Outcome: 16:47 Discharge ordered by MD. la1 16:59 Discharged to home ambulatory. jl7 16:59 Condition: stable 16:59 Discharge instructions given to patient, family, Instructed on discharge instructions, follow up and referral plans. medication usage, safe sex practices, Demonstrated understanding of instructions, follow-up care, medications, Prescriptions given X 2. 17:00 Patient left the ED. jl7 Signatures: Juancarlos Logan jb1 Tsering Curtis, RN RN aa5 Rivera Sung, TAKER OFF DRYING KILN-C TAKER OFF DRYING KILN-Cla1 Aide Moreira RN RN tw2 Sarah Gonzalez RN RN jl7 Lul Rawls fj1
--- NOTE | 2019-05-25 16:48 | EDPHYS ---
Physician Documentation [facility] Name: Arleth Miner Age: 49 yrs Sex: Female : 1970 Arrival Date: 05/25/2019 Time: 14:58 Bed 7 Private MD: CATIA Physician Buddy Alvarenga HPI: 05/24 15:29 This 49 yrs old Female presents to ER via Ambulatory with complaints of Fever, la1 General Weakness. 15:29 The patient reports fever, not measured (subjective). Onset: The symptoms/episode la1 began/occurred yesterday. Modifying factors: recent sx. Associated signs and symptoms: Pertinent positives: abdominal pain, cough. Severity of symptoms: At their worst the symptoms were mild. The patient has not experienced similar symptoms in the past. pt reports hernia repair with Dr Taylor last Tuesday, has had abd pain since the sx. Reports waking up at night feeling "warm" the last few days. Also reports cough for the last week. . [employer]: 15:04 LMP N/A - Hysterectomy aa5 Historical: - Allergies: 15:04 No Known Allergies; aa5 - Home Meds: 16:02 alprazolam 1 mg Oral Tb24 as needed [Active]; amlodipine 10 mg tab 1 tab once daily tw2 [Active]; atorvastatin 10 mg Oral tab 1 tab once daily [Active]; benazepril 40 mg Oral tab 1 tab once daily [Active]; Tradjenta 5 mg Oral tab 1 tab once daily [Active]; - PMHx: 15:04 Diabetes - NIDDM; Hyperlipidemia; Hypertension; aa5 - PSHx: 15:04 ; Hysterectomy; Cholecystectomy; Appendectomy; aa5 - Immunization history:: Adult Immunizations up to date. - Social history:: Smoking status: Patient denies any tobacco usage or history of. ROS: 15:31 Eyes: Negative for injury, pain, redness, and discharge, ENT: Negative for injury, la1 pain, and discharge, Neck: Negative for injury, pain, and swelling, Cardiovascular: Negative for chest pain, palpitations, and edema. 15:31 Back: Negative for injury and pain, MS/Extremity: Negative for injury and deformity, Skin: Negative for injury, rash, and discoloration, Neuro: Negative for headache, weakness, numbness, tingling, and seizure. 15:31 Constitutional: Positive for malaise, subjective fever. 15:31 Respiratory: Positive for cough, with no reported sputum. 15:31 Abdomen/GI: Positive for abdominal pain. Exam: 15:32 Constitutional: This is a well developed, well nourished patient who is awake, alert, la1 and in no acute distress. Head/Face: Normocephalic, atraumatic. Eyes: Pupils equal round and reactive to light, extra-ocular motions intact. Cornea within normal limits. Periorbital areas with no swelling, redness, or edema. ENT: Mucous membranes moist. Neck: Trachea midline, Chest/axilla: Normal chest wall appearance and motion. Nontender with no deformity. No lesions are appreciated. Cardiovascular: Regular rate and rhythm with a normal S1 and S2. No gallops, murmurs, or rubs. Normal PMI, no JVD. No pulse deficits. Respiratory: Lungs have equal breath sounds bilaterally, clear to auscultation Abdomen/GI: Soft, non-tender, with normal bowel sounds. No distension or tympany. No guarding or rebound. No evidence of tenderness throughout. Back: No spinal tenderness. No costovertebral tenderness. Full range of motion. MS/ Extremity: Pulses equal, no cyanosis. Neurovascular intact. Full, normal range of motion. 15:32 Skin: Wound recheck: surgical wounds x 3 to abd without redness, swelling, or drainage. No surrounding cellulitis. Abd soft and non-tender. Vital Signs: 15:01 BP 136 / 87; Pulse 91; Resp 16 S; Temp 97.6(O); Pulse Ox 99% on R/A; Weight 108.86 kg aa5 (R); Height 5 ft. 3 in. (160.02 cm) (R); Pain 8/10; 16:35 BP 120 / 59; Pulse 81; Resp 17; Pulse Ox 100% on R/A; tw2 15:01 Body Mass Index 42.51 (108.86 kg, 160.02 cm) aa5 MDM: 15:05 Patient medically screened. reed 16:45 Differential diagnosis: bacterial infection, pneumonia UTI, gastroenteritis, surgical la1 complication/infection. Data reviewed: vital signs, nurses notes, lab test result(s), radiologic studies, I have discussed the patient's presentation/case with the attending Emergency Department Physician; and as a result, I will discharge patient. Data interpreted: Pulse oximetry: on room air is 100 %. Interpretation: normal. Counseling: I had a detailed discussion with the patient and/or guardian regarding: the historical points, exam findings, and any diagnostic results supporting the discharge/admit diagnosis, lab results, radiology results, the need for outpatient follow up, a general surgeon, to return to the emergency department if symptoms worsen or persist or if there are any questions or concerns that arise at home. Special discussion: Based on the patient's Hx, exam, and Dx evaluation, there is no indication for emergent surgery or inpatient Tx. It is understood by the patient/guardian that if the Sx's persist or worsen they need to return immediately for re-evaluation. ED course: pt feeling better after fluids, no abd tenderness, incisions do not show signs of infection. Pt tolerating fluids PO, not in too much pain, states pain is primarily caused by the process of sitting up. 05/24 15:21 Order name: CBC with Diff la1 05/24 15:21 Order name: BMP la1 05/24 15:21 Order name: Flu la1 05/24 15:42 Order name: Urine Dipstick--Ancillary (enter results) eb 05/24 15:42 Order name: Urine --Ancillary (enter results) eb 05/24 15:52 Order name: Urine --Ancillary; Complete Time: 16:14 EDMS 05/24 15:21 Order name: Chest Pa And Lat (2 Views) XRAY 1 05/24 15:52 Order name: Urine Dipstick-Ancillary; Complete Time: 15:58 EDMS 05/24 15:58 Order name: Urine Microscopic Only la1 05/24 16:01 Order name: Basic Metabolic Panel; Complete Time: 16:14 EDMS 05/24 16:08 Order name: CBC with Automated Diff; Complete Time: 16:14 EDMS 05/24 16:11 Order name: RAD; Complete Time: 16:14 EDMS 05/24 16:21 Order name: Influenza Screen (A ; Complete Time: 16:37 EDMS 05/24 16:30 Order name: Urine Microscopic Only; Complete Time: 16:37 EDMS 05/24 15:21 Order name: IV; Complete Time: 15:38 la1 05/24 15:21 Order name: Urine Dipstick-Ancillary (obtain specimen); Complete Time: 15:39 la1 05/24 15:21 Order name: Urine Test (obtain specimen); Complete Time: 15:39 la1 Administered Medications: 16:06 Drug: NS 0.9% 500 ml Route: IV; Rate: bolus; Site: left antecubital; jl7 16:35 Follow up: IV Status: Completed infusion; IV Intake: 500ml jl7 Disposition: 05/25/19 16:47 Discharged to Home. Impression: Unspecified abdominal pain, Trichomoniasis. - Condition is Stable. - Discharge Instructions: Abdominal Pain, Adult, Trichomoniasis, Hernia, Adult, [id number]. - Prescriptions for Metronidazole 500 mg Oral Tablet - take 1 tablet by ORAL route every 12 hours for 7 days; 14 tablet. Medrol ([place]) 4 mg Oral Tablets, Dose Pack - take 1 tablet by ORAL route as directed - follow package instructions; 1 packet. - Medication Reconciliation Form, Thank You Letter, Antibiotic Education form. - Follow up: Private Physician; When: 2 - 3 days; Reason: Recheck today's complaints, Re-evaluation by your physician. Follow up: Emergency Department; When: As needed; Reason: Worsening of condition. - Problem is new. - Symptoms have improved. Addendum: 05/28/2019 07:32 Co-signature as Attending Physician, Buddy Alvarenga MD I agree with the assessment and c soto plan of care. Signatures: Dispatcher [employer] Buddy Sanofrd MD MD cha Calderon, Audri, RN RN aa5 Rivera Sung, DITCHING MACHINE ENGINEER-C DITCHING MACHINE ENGINEER-Cla1 Aide Moreira RN RN tw2 Sarah Gonzalez RN RN jl7 Corrections: (The following items were deleted from the chart) 05/24 17:00 16:47 05/25/2019 16:47 Discharged to Home. Impression: Unspecified abdominal pain; jl7 Trichomoniasis. Condition is Stable. Forms are Medication Reconciliation Form, Thank You Letter, Antibiotic Education, Prescription Opioid Use. Follow up: Private Physician; When: 2 - 3 days; Reason: Recheck today's complaints, Re-evaluation by your physician. Follow up: Emergency Department; When: As needed; Reason: Worsening of condition. Problem is new. Symptoms have improved. la1
[2019-05-25 17:08] VITALS: TEMP 97.6
[2019-05-25 17:09] VITALS: BP 120/59; O2SAT 100
== END 2019-05-25 17:00 | disposition home or self-care (01) ==
LOC: ER 14:54
DX: A59.9 Trichomoniasis, unspecified (principal); R10.9 Unspecified abdominal pain
CPT/HCPCS: 87088; 85025; 87086; 80048; 36415; 81025; 87804 ×2; 71046; 99284; J7040; 81003; 81015

== ENCOUNTER 2019-07-09 14:54 | Observation (INO) | payer OTHER ==
--- OUTSIDE RECORDS SUMMARY | 2019-07-09 14:56 | XMS REPORT ---
:1970 Author Organization [employer] Care Team Providers Name Role Phone Mark Mak Provider Role Unavailable Allergies, Adverse Reactions, Alerts Substance Reaction Event Type N.K.D.A. 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 prior episode Assessment Body mass index (BMI) 40.0-44.9, Z68.41 Active adult Problem HTN, goal below 130/80 I10 Activ e Assessment Elevated alkaline phosphatase level R74.8 Active Assessment Routine gynecological examination Z01.419 Active Problem Osteoarthritis of multiple joints, M15.9 Active unspecified osteoarthritis type Problem Mixed hyperlipidemia E78.2 Active Problem Chronic hepatitis C without hepatic B18.2 Active coma Problem Type 2 diabetes mellitus with other E11.69 Active specified complication, unspecified whether longterm insulin use Problem Generalized anxiety disorder F41.1 Active Assessment 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 prior episode Assessment Screening mammogram, encounter for Z12.31 Active Assessment Morbid (severe) obesity due to E66.01 Active excess calories Assessment Chronic hepatitis C without hepatic B18.2 Active coma Assessment HTN, goal below 130/80 I10 Activ e Assessment Mixed hyperlipidemia E78.2 Active Assessment Generalized anxiety disorder F41.1 Active Assessment Type 2 diabetes mellitus with other E11.69 Active specified complication, unspecified whether longterm insulin use Assessment Osteoarthritis of multiple joints, M15.9 Active unspecified osteoarthritis type Assessment Panic disorder [episodic paroxysmal F41.0 Active anxiety] Medications Medication Code Code Instructions Start End Status Dosage System Date Date Tradjenta [facility] 24988182304 5 MG Orally Once Active 1 tablet a day Benazepril HCl [facility] 17678942211 40 MG Orally Active 1 tablet Once a day Alprazolam [facility] 20637203788 1 MG Orally Active 1 tab let three times a day Atorvastatin [facility] 59306782110 10 MG Orally Active 1 tablet Calcium Once a day Amlodipine [facility] 08261715496 10 MG Orally Active 1 ta blet Besylate Once a day Results No Known Results Summary Purpose [employer] Submission
--- OUTSIDE RECORDS SUMMARY | 2019-07-09 14:56 | XMS REPORT ---
:1970 Author Organization [employer] Care Team Providers Name Role Phone Mark Mak Provider Role Unavailable Allergies, Adverse Reactions, Alerts Substance Reaction Event Type N.K.D.A. Info Not Available Non Drug Allergy Problems Problem Type Condition Code Onset Dates Condition Statu s Problem HTN, goal below 130/80 I10 Activ e Problem Type 2 diabetes mellitus with other E11.69 Active specified complication, unspecified whether laborer marine terminal insulin use Assessment Acute cystitis without hematuria [...] End Status Dosage System Date Date Atorvastatin [facility] 18553573621 10 MG Orally Active 1 tablet Calcium Once a day Macrobid [facility] 84673156999 100 MG Orally Jan 30, Feb 04, Active 1 cap martha BID 2018 2018 at bedtime with food Pyridium [facility] 05383738059 200 MG Orally Jan 30, Feb 01, Active 1 tab let Three times a 2018 2018 after day meals Tradjenta [facility] 52109128428 5 MG Orally Active 1 tabl et Once a day Benazepril HCl ND 78172490496 40 MG Orally Active 1 tablet Once a day Amlodipine ND 05154458891 10 MG Orally Active 1 ta blet Besylate Once a day Alprazolam ND 89382012962 1 MG Orally Active 1 tab let three times a day Results No Known Results Summary Purpose [employer] Submission
--- OUTSIDE RECORDS SUMMARY | 2019-07-09 14:56 | XMS REPORT ---
[...] other E11.69 Active specified complication, unspecified whether meterman insulin use Problem Mixed hyperlipidemia E78.2 Active [...] anxiety] Assessment HTN, goal below 130/80 I10 Activ e Assessment 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 prior episode Assessment Mixed hyperlipidemia E78.2 Active Assessment Generalized anxiety disorder F41.1 Active Assessment Type 2 diabetes mellitus with other E11.69 Active specified complication, unspecified whether half-way insulin use Medications Medication Code Code Instructions Start End Status Dosage System Date Date Amlodipine ND 62135353754 10 MG Orally Active 1 ta blet Besylate Once a day Benazepril HCl [facility] 31907672154 40 MG Orally Active 1 tablet Once a day Alprazolam ND 50983451578 1 MG Orally Active 1 tab let three times a day Tradjenta ND 02328963804 5 MG Orally Once Active 1 tablet a day Atorvastatin ND 34689593773 10 MG Orally Active 1 tablet Calcium Once a day Results No Known Results Summary Purpose [employer]ClinicalWorks Submission
--- OUTSIDE RECORDS SUMMARY | 2019-07-09 14:57 | XMS REPORT ---
:1970 Author Organization [facility] Address [address] [place] [address] [address] [place] [address] Care Team Providers Name Role Phone Unavailable Unavailable Unavailable Problems Condition Condition Condition Status Onset Resolution Last Treatin g Comments Name Details Category Date Date Treatment Clinician Date HTN, goal HTN, goal Problem Active below below 130/80 130/80 Type 2 Type 2 Problem Active diabetes diabetes mellitus mellitus with other with other specified specified complicatio complicatio n, n, unspecified unspecified whether whether [facility] buttermaker insulin use insulin use Mixed Mixed Problem Active hyperlipide hyperlipide valentine valentine Chronic Chronic Problem Active hepatitis C hepatitis C without without hepatic hepatic coma coma Generalized Generalized Problem Active anxiety anxiety disorder disorder Body mass Body mass Problem Active index (BMI) index (BMI) 40.0-44.9, 40.0-44.9, adult adult Current Current Problem Active mild mild episode of episode of major major depressive depressive disorder disorder without without prior prior episode episode Panic Panic Problem Active disorder disorder [episodic [episodic paroxysmal paroxysmal anxiety] anxiety] Morbid Morbid Problem Active (severe) (severe) obesity due obesity due to excess to excess calories calories Osteoarthri Osteoarthri Problem Active tis of tis of multiple multiple joints, joints, unspecified unspecified osteoarthri osteoarthri tis type tis type Fatty liver Fatty liver Problem Active Primary Primary Problem Active osteoarthri osteoarthri tis of tis of right knee right knee Periumbilic Periumbilic Problem Active al hernia al hernia Allergies, Adverse Reactions, Alerts This patient has no known allergies or adverse reactions. Medications Ordered Filled Start Stop Current Ordering Indication Dosage Frequency Signature Comments Components Medication Medication Date Date Medication? Clinician (SIG) Name Name MetFORMIN MetFORMIN 2020-0 Yes Mak 1 tablet HCl ER HCl ER 2-19 Flores with 00:00: evening 00 meal Prozac Prozac 2020-0 Yes Mak 1 capsule 2-19 Flores 00:00: 00 Amoxicillin Amoxicillin 2020-0 2020- Yes Mak 1 tabl et -Pot -Pot 05-09 Flores Clavulanate Clavulanate 00:00: 00:00 00 :00 Amlodipine Amlodipine Yes Mak 1 tablet Besylate Besylate [facility] Benazepril Benazepril Yes Mak 1 tablet HCl HCl [facility] Alprazolam Alprazolam Yes Mak 1 tablet [facility] Tradjenta Tradjenta Yes Mak 1 tablet [facility] Atorvastati Atorvastati Yes Mak 1 table t n Calcium n Calcium Flores Encounters Start End Encounter Admission Attending Care Care Encounter Date/Time Date/Time Type Type Clinicians Facility Department ID 2019-06-06 2019-06-06 [facility] [id number] 11:11:00 11:11:00 [facility] 2019-05-09 2019-05-09 [facility] [id number] 16:00:00 16:00:00 [facility] 2019-05-07 2019-05-07 [facility] [id number] 09:48:00 09:48:00 [facility] 2019-05-04 2019-05-04 [facility] [id number] 10:56:00 10:56:00 [facility] 2019-04-30 2019-04-30 [facility] [id number] 10:30:00 10:30:00 [facility] 2019-02-27 2019-02-27 [facility] [id number] 16:15:00 16:15:00 [facility] 2019-02-12 2019-02-12 [facility] [id number] 16:00:00 16:00:00 [facility] 2019-01-30 2019-01-30 [facility] [id number] 11:30:00 11:30:00 [facility] 2019-01-15 2019-01-15 [facility] [id number] 15:30:00 15:30:00 [facility]
--- OUTSIDE RECORDS SUMMARY | 2019-07-09 14:57 | XMS REPORT ---
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
--- OUTSIDE RECORDS SUMMARY | 2019-07-09 14:57 | XMS REPORT ---
[...] episode Problem HTN, goal below 130/80 I10 Activ e Problem Osteoarthritis of multiple joints, M15.9 Active unspecified osteoarthritis type Problem Mixed hyperlipidemia E78.2 Active Problem Chronic hepatitis C without hepatic B18.2 Active coma Problem Type 2 diabetes mellitus with other E11.69 Active specified complication, unspecified whether continuous churn buttermaker insulin use Problem Generalized anxiety disorder F41.1 Active Medications No Known Medications Results No Known Results Summary Purpose [employer] Submission
--- OUTSIDE RECORDS SUMMARY | 2019-07-09 14:57 | XMS REPORT ---
[...] other E11.69 Active specified complication, unspecified whether health insurance sales agent insulin use Problem Osteoarthritis of multiple joints, [...] End Status Dosage System Date Date Tradjenta [facility] 53192946605 5 MG Orally Once Active 1 tablet a day Benazepril HCl ND 09637972577 40 MG Orally Active 1 tablet Once a day Alprazolam ND 48555146707 1 MG Orally Active 1 tab let Twice a day PRN SEVERE ANXIETY Atorvastatin ND 40222223836 10 MG Orally Active 1 tablet Calcium Once a day Amlodipine ND 58243461058 10 MG Orally Active 1 ta blet Besylate Once a day Results No Known Results Summary Purpose [employer]ClinicalWorks Submission
--- OUTSIDE RECORDS SUMMARY | 2019-07-09 14:57 | XMS REPORT ---
:1970 Author Organization [employer] Care Team Providers Name Role Phone Mak Flores Provider Role Unavailable Allergies, Adverse Reactions, Alerts Substance Reaction Event Type N.K.D.A. 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 prior episode Assessment Mixed hyperlipidemia E78.2 Active Assessment Acute non-recurrent maxillary J01.00 Active sinusitis Assessment Panic disorder [episodic paroxysmal F41.0 Active anxiety] Assessment HTN, goal below 130/80 I10 Activ e Problem Body mass index (BMI) 40.0-44.9, Z68.41 Active adult Assessment Medicare annual wellness visit, Z00.00 Active subsequent Assessment Type 2 diabetes mellitus with other E11.69 Active specified complication, unspecified whether medical terminologist insulin use Medications Medication Code Code Instructions Start End Status Dosage System Date Date [facility] 20421664037 5 MG Orally Active 1 tabl et Once a day MetFORMIN HCl [facility] 32558730173 500 MG Orally May 09, Activ e 1 tablet BID 2019 with evening meal Amoxicillin-Pot [facility] 68188738740 875-125 MG May 09, Apr, Active 1 tablet Clavulanate Orally every 12 2019 2020 hrs Atorvastatin [facility] 76071234506 10 MG Orally Active 1 tablet Calcium Once a day Benazepril HCl [facility] 64981138827 40 MG Orally Active 1 tablet Once a day Amlodipine [facility] 88667098305 10 MG Orally Active 1 ta blet Besylate Once a day Alprazolam [facility] 79301341772 1 MG Orally Active 1 tab let Twice a day PRN SEVERE ANXIETY Prozac [facility] 47504822837 20 MG Orally May 09, Active 1 capsu le Once a day 2019 Results No Known Results Summary Purpose [employer]Works Submission
--- OUTSIDE RECORDS SUMMARY | 2019-07-09 14:57 | XMS REPORT ---
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
--- OUTSIDE RECORDS SUMMARY | 2019-07-09 14:57 | XMS REPORT ---
[...] complication, unspecified whether snf insulin use Problem Morbid (severe) obesity due to E66.01 Active excess calories Assessment Mixed hyperlipidemia E78.2 Active Problem Panic disorder [episodic paroxysmal F41.0 Active anxiety] Medications No Known Medications Results No Known Results Summary Purpose [employer] Submission
[2019-07-09 15:38] LABS: Absolute Lymphocytes (CBC) 3.7 K/uL (0.7-4.9); Basophils % 1.1 % (0-1.3); Hematocrit 39.9 % (36.0-45.0); Lymphocytes % 30.4 % (15.3-44.8); MPV 8.1 fL (7.6-11.3); RBC Red Blood Cell Count 4.84 M/uL (3.86-4.86)
[2019-07-09 15:39] LABS: Protime INR 1.06
--- NOTE | 2019-07-09 15:52 | RAD REPORT ---
EXAM DESCRIPTION: Carlos Enrique Single View07/09/2019 3:39 pm CLINICAL HISTORY: Chest pain COMPARISON: May 2019 FINDINGS: The lungs appear clear of acute infiltrate. The heart is upper limits normal size IMPRESSION: No acute abnormalities displayed
[2019-07-09 15:57] LABS: ALT/SGPT 42 U/L (12-78); AST/SGOT 42 U/L (15-37); Albumin 3.4 g/dL (3.4-5.0); Alkaline Phosphatase 167 U/L (45-117); BUN Blood Urea Nitrogen 9 mg/dL (7-18); Bicarbonate 27 mmol/L (21-32); Bilirubin Direct 0.1 mg/dL (0-0.2); Bilirubin Total 0.4 mg/dL (0.2-1.0); Glucose Level 156 mg/dL (74-106); NT PRO-BNP 45 pg/mL (<125); Potassium 3.4 mmol/L (3.5-5.1); Protein, Total 8.7 g/dL (6.4-8.2); Sodium Level 141 mmol/L (136-145); Troponin (Emerg Dept Use Only) < 0.02 ng/mL (0.0-0.045)
--- NOTE | 2019-07-09 17:24 | RAD REPORT ---
EXAM DESCRIPTION: CT - Stone Protocol - 07/09/2019 4:34 pm CLINICAL HISTORY: Abdominal pain. COMPARISON: March 2020 TECHNIQUE: Computed axial tomography of the abdomen pelvis was obtained without oral or IV contrast. Lack of IV and oral contrast limits evaluation of solid organs, bowel, and vessels. Coronal reformat yanick images were obtained and reviewed. All CT scans are performed using dose optimization technique as appropriate and may include automated exposure control or mA/KV adjustment according to patient size. FINDINGS: A renal calculus is not seen. An ureteral calculus is not noted. A bladder calculus is not present. Fatty liver. Cholecystectomy 15 millimeter hypodense lesion pancreatic head Spleen, and adrenals appear grossly normal There is no evidence of diverticulitis. Spondylolysis L5. Mild anterior subluxation of L5 on S1. Hemangioma is suspected within the L1 vertebral body Postsurgical changes of an umbilical hernia repair IMPRESSION: Negative for a genitourinary calculus 15 millimeter hypodense lesion pancreatic head. Enhanced MRI the abdomen recommended
[2019-07-09] MEDS ORDERED: ENOXAPARIN 100 MG/ML SYR SQ ONE (17:56)
[2019-07-09] MEDS ORDERED: ASPIRIN 81 MG CHEWABLE TABLET ONE (17:56)
[2019-07-09] MEDS ORDERED: PROMETHAZINE INJ 25 MG/ML AMP ONE (18:06)
[2019-07-09] MEDS ORDERED: MORPHINE 4 MG/ML SYR ONE (18:06)
--- NOTE | 2019-07-09 18:08 | ER ---
Nurse's Notes [facility] Name: Arleth Miner Age: 49 yrs Sex: Female : 1970 Arrival Date: 07/09/2019 Time: 14:55 Bed 14 Private MD: Mak Flores Diagnosis: Chest pain, unspecified;Pain in right shoulder;Shortness of breath Presentation: 07/08 15:04 Chief complaint: Patient states: Mid-sternal chest pressure, intermittent since ph , states, " It started in my R shoulder and I thought it was my arthritis but then it moved to my chest." Also reports SOB, denies N/V or fever. Coronavirus screen: Patient denies a cough. Patient reports shortness of breath or difficulty breathing. Patient denies measured and/or subjective temperature greater than 100.4F prior to today's visit. Patient denies travel on a cruise ship or to a country the [facility] currently lists as an affected area. Patient denies contact with known and/or suspected case of COVID-19. Ebola Screen: No symptoms or risks identified at this time. Initial Sepsis Screen: Does the patient meet any 2 criteria? No. Patient's initial sepsis screen is negative. Does the patient have a suspected source of infection? No. Patient's initial sepsis screen is negative. Risk Assessment: Do you want to hurt yourself or someone else? Patient reports no desire to harm self or others. Onset of symptoms was July 09, 2019. 15:04 Method Of Arrival: Ambulatory ph 15:04 Acuity: ALANNA 3 ph Historical: - Allergies: 20:26 No Known Allergies; jb4 - Home Meds: 15:09 alprazolam 2 mg oral tab [Active]; amlodipine 10 mg tab 1 tab once daily [Active]; ph atorvastatin 10 mg Oral tab 1 tab once daily [Active]; benazepril 40 mg Oral tab 1 tab once daily [Active]; Tradjenta 5 mg Oral tab 1 tab once daily [Active]; - PMHx: 15:09 Diabetes - NIDDM; Hyperlipidemia; Hypertension; ph - PSHx: 15:09 ; Hysterectomy; Cholecystectomy; Appendectomy; ph - Immunization history:: Adult Immunizations unknown. - Social history:: Smoking status: Patient denies any tobacco usage or history of. Screenin:14 Abuse screen: Denies threats or abuse. Nutritional screening: No deficits noted. ll1 Tuberculosis screening: No symptoms or risk factors identified. Fall Risk IV access (20 points). Total Weinstein Fall Scale indicates No Risk (0-24 pts). Assessment: 15:12 General: Appears in no apparent distress. Behavior is calm, cooperative, appropriate ll1 for age. Pain: Complains of pain in mid chest Pain does not radiate. Quality of pain is described as pressure, Pain began night. Neuro: No deficits noted. Cardiovascular: Reports chest pain, shortness of breath, Heart tones S1 S2 Capillary refill < 3 seconds Clubbing of nail beds is absent JVD is absent Patient's skin is warm and dry. Pulses are all present. Chest pain is described as mild, quality is pressure, is located in anterior. Respiratory: Reports shortness of breath intermettant Breath sounds are clear bilaterally. Onset: The symptoms/episode began/occurred . 15:12 Musculoskeletal: Circulation, motion, and sensation intact. Capillary refill < 3 ll1 seconds, Reports pain in right shoulder. 16:16 Reassessment: Patient appears in no apparent distress at this time. No changes from ll1 previously documented assessment. Patient and/or family updated on plan of care and expected duration. Pain level reassessed. Patient is alert, oriented x 3, equal unlabored respirations, skin warm/dry/pink. 17:15 Reassessment: Patient appears in no apparent distress at this time. No changes from ll1 previously documented assessment. Patient and/or family updated on plan of care and expected duration. Pain level reassessed. Patient is alert, oriented x 3, equal unlabored respirations, skin warm/dry/pink. 18:05 Reassessment: Patient appears in no apparent distress at this time. No changes from ll1 previously documented assessment. Patient and/or family updated on plan of care and expected duration. Pain level reassessed. Patient is alert, oriented x 3, equal unlabored respirations, skin warm/dry/pink. Would prefer to wait until after MRI for pain and nausea medication. 19:12 Reassessment: Patient appears in no apparent distress at this time. Patient and/or jb4 family updated on plan of care and expected duration. Pain level reassessed. Patient is alert, oriented x 3, equal unlabored respirations, skin warm/dry/pink. 20:15 Reassessment: Patient appears in no apparent distress at this time. Patient and/or jb4 family updated on plan of care and expected duration. Pain level reassessed. Patient is alert, oriented x 3, equal unlabored respirations, skin warm/dry/pink. 20:48 Reassessment: Patient appears in no apparent distress at this time. Patient and/or jb4 family updated on plan of care and expected duration. Pain level reassessed. PT transferred upstairs via stretcher with tech. Pt denies SOB and reports pain is better. IV Saline Locked. Vital Signs: 15:04 Temp 97.6(TE); Weight 108.86 kg; Height 5 ft. 3 in. (160.02 cm); Pain 6/10; ph 15:15 BP 136 / 71; Pulse 89; Resp 17; Temp 97.6(TE); Pulse Ox 100% ; lt1 16:15 BP 128 / 61; Pulse 83; Resp 19; Pulse Ox 100% ; ll1 17:23 BP 131 / 76; Pulse 79; Resp 18; Pulse Ox 99% ; ll1 18:05 BP 127 / 65; Pulse 80; Resp 18; Pulse Ox 99% ; ll1 19:15 BP 136 / 78; Pulse 91; Resp 16; Pulse Ox 100% on R/A; jb4 20:15 BP 114 / 64; Pulse 73; Resp 16; Temp 97.0(TE); Pulse Ox 96% on R/A; Pain 2/10; jb4 15:04 Body Mass Index 42.51 (108.86 kg, 160.02 cm) ph Vitals: 16:15 Cardiac Rhythm Assessment Regular Sinus rhythm. ll1 ED Course: 14:55 Patient arrived in ED. am2 14:56 Mak Flores DO is Private Physician. am2 14:57 Kong Esparza, LYNNE is Primary Nurse. ll1 14:58 Ke[facility] Patino [facility]C [facility] snw 14:58 Vladimir Walters MD is Attending Physician. snw 15:06 Triage completed. ph 15:09 Arm band placed on Patient placed in an exam room, on a stretcher. ph 15:15 Patient has correct armband on for positive identification. Bed in low position. Call ll1 light in reach. Side rails up X 1. front desk monitor on. Pulse ox on. NIBP on. 15:15 Inserted saline lock: 20 gauge in right antecubital area, using aseptic technique. ll1 Blood collected. 15:25 No provider procedures requiring assistance completed. Patient maintains SpO2 ll1 saturation greater than 95% on room air. 15:39 XRAY Chest (1 view) In Process Unspecified. EDMS 16:34 CT Stone Protocol In Process Unspecified. EDMS 18:06 Geoffrey Cope DO is Hospitalizing Provider. snw 19:07 Mri Abdomen W/Wo Cont In Process Unspecified. EDMS 20:34 Patient admitted, IV remains in place. jb4 Administered Medications: 17:57 Drug: Aspirin Chewable Tablet 324 mg Route: PO; ll1 18:20 Follow up: Response: No adverse reaction ll1 17:57 Drug: Lovenox 1 mg/kg Route: Sub-Q; Site: left lower abdomen; ll1 18:20 Follow up: Response: No adverse reaction; RASS: Alert and Calm (0) ll1 19:14 Drug: Phenergan 12.5 mg Route: IVP; Site: right forearm; ll1 20:00 Follow up: Response: No adverse reaction; Nausea is decreased jb4 19:15 Drug: morphine 4 mg {Note: RASS 0.} Route: IVP; Site: right forearm; ll1 Outcome: 18:07 Decision to Hospitalize by Provider. snw 20:32 Admitted to Med/surg accompanied by tech, via wheelchair, room 217, with chart, Report jb4 called to LYNNE Gutierrez 20:32 Condition: stable 20:32 Discharge instructions given to patient, Instructed on the need for admit, Demonstrated understanding of instructions. 20:49 Patient left the ED. jb4 Signatures: Dispatcher [employer] EDIN Keyla Patino, ORDER PROCESSING CLERK-C ORDER PROCESSING CLERK-Csnw Malathi Hooker, RN RN Curly Hall RN RN jb4 Bozena Diego am2 Margot Kahn 1 Kong Esparza, RN RN ll1 Corrections: (The following items were deleted from the chart) 19:16 19:15 morphine 4 mg IVP in right forearm ll1 ll1 20:25 20:15 BP 114 / 64; Pulse 73bpm; Resp 16bpm; Pulse Ox 96% RA; jb4 jb4
--- NOTE | 2019-07-09 18:08 | EDPHYS ---
Physician Documentation [facility] Name: Arleth Miner Age: 49 yrs Sex: Female : 1970 Arrival Date: 07/09/2019 Time: 14:55 Bed 14 Private MD: Mak Flores ED Physician Vladimir Walters HPI: 07/08 16:31 This 49 yrs old Female presents to ER via Ambulatory with complaints of Chest snw Pain. 16:31 The patient or guardian reports chest pain that is located primarily in the right chest snw wall and right shoulder. Onset: 1 week(s) ago, and became persistent. The pain radiates to chest. Associated signs and symptoms: Pertinent positives: shortness of breath. The chest pain is described as clutching. Duration: The patient or guardian reports multiple episodes. Severity of pain: At its worst the pain was mild moderate. It is unknown whether or not the patient has had similar symptoms in the past. It is unknown whether or not the patient has recently seen a physician. Historical: - Allergies: 20:26 No Known Allergies; jb4 - Home Meds: 15:09 alprazolam 2 mg oral tab [Active]; amlodipine 10 mg tab 1 tab once daily [Active]; ph atorvastatin 10 mg Oral tab 1 tab once daily [Active]; benazepril 40 mg Oral tab 1 tab once daily [Active]; Tradjenta 5 mg Oral tab 1 tab once daily [Active]; - PMHx: 15:09 Diabetes - NIDDM; Hyperlipidemia; Hypertension; ph - PSHx: 15:09 ; Hysterectomy; Cholecystectomy; Appendectomy; ph - Immunization history:: Adult Immunizations unknown. - Social history:: Smoking status: Patient denies any tobacco usage or history of. ROS: 16:30 Constitutional: Negative for fever, chills, and weight loss, Eyes: Negative for injury, snw pain, redness, and discharge, ENT: Negative for injury, pain, and discharge, Neck: Negative for injury, pain, and swelling, Abdomen/GI: Negative for abdominal pain, nausea, vomiting, diarrhea, and constipation, Back: Negative for injury and pain, : Negative for injury, bleeding, discharge, and swelling, Skin: Negative for injury, rash, and discoloration, Neuro: Negative for headache, weakness, numbness, tingling, and seizure, Psych: Negative for depression, anxiety, suicide ideation, homicidal ideation, and hallucinations. 16:30 Cardiovascular: Positive for chest pain, of the right chest. 16:30 Respiratory: Positive for shortness of breath. 16:30 MS/extremity: Positive for pain, of the right shoulder and then to right chest. Exam: 16:29 Constitutional: This is a well developed, well nourished patient who is awake, alert, snw and in no acute distress. Head/Face: Normocephalic, atraumatic. Eyes: Pupils equal round and reactive to light, extra-ocular motions intact. Lids and lashes normal. Conjunctiva and sclera are non-icteric and not injected. Cornea within normal limits. Periorbital areas with no swelling, redness, or edema. ENT: Nares patent. No nasal discharge, no septal abnormalities noted. Tympanic membranes are normal and external auditory canals are clear. Oropharynx with no redness, swelling, or masses, exudates, or evidence of obstruction, uvula midline. Mucous membranes moist. Neck: Trachea midline, no thyromegaly or masses palpated, and no cervical lymphadenopathy. Supple, full range of motion without nuchal rigidity, or vertebral point tenderness. No Meningismus. Chest/axilla: Normal chest wall appearance and motion. Nontender with no deformity. No lesions are appreciated. Cardiovascular: Regular rate and rhythm with a normal S1 and S2. No gallops, murmurs, or rubs. Normal PMI, no JVD. No pulse deficits. Respiratory: Lungs have equal breath sounds bilaterally, clear to auscultation and percussion. No rales, rhonchi or wheezes noted. No increased work of breathing, no retractions or nasal flaring. Abdomen/GI: Soft, non-tender, with normal bowel sounds. No distension or tympany. No guarding or rebound. No evidence of tenderness throughout. Obese Back: No spinal tenderness. No costovertebral tenderness. Full range of motion. Skin: Warm, dry with normal turgor. Normal color with no rashes, no lesions, and no evidence of cellulitis. MS/ Extremity: Pulses equal, no cyanosis. Neurovascular intact. Full, normal range of motion. Neuro: Awake and alert, GCS 15, oriented to person, place, time, and situation. Cranial nerves II-XII grossly intact. Motor strength 5/5 in all extremities. Sensory grossly intact. Cerebellar exam normal. Normal gait. Psych: Awake, alert, with orientation to person, place and time. Behavior, mood, and affect are within normal limits. Vital Signs: 15:04 Temp 97.6(TE); Weight 108.86 kg; Height 5 ft. 3 in. (160.02 cm); Pain 6/10; ph 15:15 BP 136 / 71; Pulse 89; Resp 17; Temp 97.6(TE); Pulse Ox 100% ; lt1 16:15 BP 128 / 61; Pulse 83; Resp 19; Pulse Ox 100% ; ll1 17:23 BP 131 / 76; Pulse 79; Resp 18; Pulse Ox 99% ; ll1 18:05 BP 127 / 65; Pulse 80; Resp 18; Pulse Ox 99% ; ll1 19:15 BP 136 / 78; Pulse 91; Resp 16; Pulse Ox 100% on R/A; jb4 20:15 BP 114 / 64; Pulse 73; Resp 16; Temp 97.0(TE); Pulse Ox 96% on R/A; Pain 2/10; jb4 15:04 Body Mass Index 42.51 (108.86 kg, 160.02 cm) ph MDM: 14:59 Patient medically screened. snw 17:56 ECG:. The patient was given aspirin in the Emergency Department. ELYSSA Risk Score: 1 - snw Three or more CAD risk factors, 1- Known CAD, 1 - Recent [<24hrs] Severe Angina. Data reviewed: vital signs, nurses notes. Data interpreted: Pulse oximetry: on room air is 99 %. Interpretation: normal. Counseling: I had a detailed discussion with the patient and/or guardian regarding: the historical points, exam findings, and any diagnostic results supporting the discharge/admit diagnosis, lab results, radiology results, the need for further work-up and treatment in the hospital. Physician consultation: Geoffrey Cope DO was called at 17:58, was contacted at 17:59, regarding admission, to the telemetry unit. 17:59 ED course: pt with continued chest pain, shortness of breath. Pt spoke with Dr. Flores, formerly [facility] PCP, and was encouraged to increase dose of benzo and follow up in three months. On evaluation of right chest pain with radiation to shoulder, pt found to have 15mm hypodense area in pancreatic head, will MR for further eval.. 07/08 15:17 Order name: Basic Metabolic Panel; Complete Time: 16:09 snw 07/08 15:17 Order name: CBC with Diff; Complete Time: 15:50 snw 07/08 15:17 Order name: LFT's; Complete Time: 16:09 snw 07/08 15:17 Order name: Magnesium; Complete Time: 16:09 snw 07/08 15:17 Order name: NT PRO-BNP; Complete Time: 16:09 snw 07/08 15:17 Order name: PT-INR; Complete Time: 15:50 snw 07/08 15:17 Order name: Troponin (emerg Dept Use Only); Complete Time: 16:09 snw 07/08 15:17 Order name: XRAY Chest (1 view); Complete Time: 16:09 snw 07/08 15:17 Order name: TSH; Complete Time: 16:09 snw 07/08 16:24 Order name: CT Stone Protocol; Complete Time: 17:28 snw 07/08 18:42 Order name: Urine Dipstick--Ancillary (enter results); Complete Time: 20:03 bd 07/08 20:13 Order name: Troponin I EDAR 07/08 15:17 Order name: EKG; Complete Time: 15:18 snw 07/08 15:17 Order name: Cardiac monitoring; Complete Time: 15:20 snw 07/08 15:17 Order name: EKG - Nurse/Tech; Complete Time: 15:20 snw 07/08 15:17 Order name: IV Saline Lock; Complete Time: 15:20 snw 07/08 15:17 Order name: Labs collected and sent; Complete Time: 15:20 snw 07/08 15:17 Order name: O2 Per Protocol; Complete Time: 16:25 snw 07/08 15:17 Order name: O2 Sat Monitoring; Complete Time: 16:25 snw 07/08 17:33 Order name: Mri Abdomen W/Wo Cont; Complete Time: 20:03 EDMS 07/08 20:13 Order name: CONS Physician Consult EDMS 07/08 20:13 Order name: Echo with Doppler EDMS 07/08 20:13 Order name: EKG Electrocardiogram EDMS 07/08 20:13 Order name: EKG Electrocardiogram EDMS Administered Medications: 17:57 Drug: Aspirin Chewable Tablet 324 mg Route: PO; ll1 18:20 Follow up: Response: No adverse reaction ll1 17:57 Drug: Lovenox 1 mg/kg Route: Sub-Q; Site: left lower abdomen; ll1 18:20 Follow up: Response: No adverse reaction; RASS: Alert and Calm (0) ll1 19:14 Drug: Phenergan 12.5 mg Route: IVP; Site: right forearm; ll1 20:00 Follow up: Response: No adverse reaction; Nausea is decreased jb4 19:15 Drug: morphine 4 mg {Note: RASS 0.} Route: IVP; Site: right forearm; ll1 Disposition: 07/09/19 18:07 Hospitalization ordered by Geoffrey Cope for Observation. Preliminary diagnosis are Chest pain, unspecified, Pain in right shoulder, Shortness of breath. - Bed requested for Telemetry/MedSurg (observation). - Status is Observation. jb4 - Condition is Stable. - Problem is new. - Symptoms are unchanged. Addendum: 07/16/2019 07:08 Co-signature as Attending Physician, Vladimir Walters MD. r n Signatures: Dispatcher [employer] EDMS Keyla Patino, REAL ESTATE AGENCY PRINCIPAL-C REAL ESTATE AGENCY PRINCIPAL-Csnw Vladimir Walters MD MD rn Hall, Patricia, RN RN Aida Menjivar RN RN cg Ti Regalado, WATER GAS OPERATOR WATER GAS OPERATOR pm1 Curly Anderson RN RN jb4 Kong Esparza RN RN ll1 Corrections: (The following items were deleted from the chart) 07/09 19: 18:07 Hospitalization Ordered by Geoffrey Cope DO for Observation. Preliminary cg diagnosis is Chest pain, unspecified; Pain in right shoulder; Shortness of breath. Bed requested for Telemetry/MedSurg (observation). Status is Observation. Condition is Stable. Problem is new. Symptoms are unchanged. snw 20:49 20:17 07/09/2019 18:07 Hospitalization Ordered by Geoffrey Cope DO for Observation. jb4 Preliminary diagnosis is Chest pain, unspecified; Pain in right shoulder; Shortness of breath. Bed requested for Telemetry/MedSurg (observation). Status is Observation. Condition is Stable. Problem is new. Symptoms are unchanged. cg
[2019-07-09 19:34] LABS: Urine Blood TRACE (NEG); Urine Glucose NEGATIVE (NEG); Urine Protein NEGATIVE (NEG); Urine Specific Gravity 1.025 (1.005-1.030); Urine pH 5.5 (5.0-7.0)
--- NOTE | 2019-07-09 19:38 | RAD REPORT ---
EXAM DESCRIPTION: MRI - Mri Abdomen W/Wo Cont - 07/09/2019 7:07 pm CLINICAL HISTORY: Pancreatic mass COMPARISON: CT abdomen July 09, 2019 TECHNIQUE: Axial and coronal magnetic resonance imaging of the pancreas obtained. 20 cc MultiHance a dministered intravenously FINDINGS: 15 millimeter mass is present within the pancreatic head. It has high signal on T2 weighte d sequences. There does appear to be mild enhancement. A 2 millimeter nodular enhancement suspected The remainder of the pancreas is unremarkable. 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 Follow up MRI in 6 months recommen ded to assess stability
[2019-07-09] MEDS ORDERED: ALPRAZOLAM 0.25 MG TABLET PO PRN (20:08)
[2019-07-09] MEDS ORDERED: ACETAMINOPHEN 500 MG TAB PO PRN (20:08)
[2019-07-09] MEDS ORDERED: MORPHINE 4 MG/ML SYR IV PRN (20:08)
[2019-07-09 21:04] VITALS: O2SAT 96
[2019-07-09] MEDS: METOPROLOL TAR 50 MG TAB PO SCH (21:29)
[2019-07-09 21:39] VITALS: BMI 42.5
[2019-07-10 04:35] LABS: Absolute Lymphocytes (CBC) 4.7 K/uL (0.7-4.9); Basophils % 0.3 % (0-1.3); Hematocrit 36.5 % (36.0-45.0); Lymphocytes % 43.4 % (15.3-44.8); MPV 7.9 fL (7.6-11.3); RBC Red Blood Cell Count 4.45 M/uL (3.86-4.86)
[2019-07-10 04:47] LABS: BUN Blood Urea Nitrogen 9 mg/dL (7-18); Bicarbonate 29 mmol/L (21-32); Glucose Level 97 mg/dL (74-106); HDL Cholesterol 44 mg/dL (40-60); LDL Cholesterol, Calculated 75 (<130); Potassium 4.3 mmol/L (3.5-5.1); Sodium Level 142 mmol/L (136-145); Troponin I < 0.02 ng/mL (0.0-0.045)
--- NOTE | 2019-07-10 07:21 | EKG ---
Test Date: 2019-07-09 Test Time: 15:08:45 Brake Press Operator: ANTHONY MEASUREMENT RESULTS: Intervals: Rate: 89 PA: 146 QRSD: 92 QT: 378 QTc: 459 [place]stock: P: 29 PA: 146 QRS: 18 T: 32 INTERPRETIVE STATEMENTS: Normal sinus rhythm Cannot rule out Anterior infarct, age undetermined Abnormal ECG Compared to ECG 05/17/2019 12:37:39 Myocardial infarct finding now present Electronically Signed On 07-10-19 07:21:00 CDT by Harry Bose
--- NOTE | 2019-07-10 07:39 | P.HP ---
Certification for Inpatient Patient admitted to: Observation With expected LOS: <2 Midnights Patient will require the following post-hospital care: None Practitioner: I am a practitioner with admitting privileges, knowledge of patient current condition, hospital course, and medical plan of care. Services: Services provided to patient in accordance with Admission requirements found in Title 42 Section 412.3 of the Code of Federal Regulations Patient History Date of Service: 07/09/19 Reason for admission: Chest pain rule out acute coronary syndrome History of Present Illness: Patient is a 49-year-old female came to the hospital with chest discomfort. Pain was mainly in the sternal region and it initially started off with pain in her right shoulder. This got a little bit better but then she started noticing that she was having sternal pain and she was short of breath. She was not getting any better in this happen repeatedly so she came into the hospital for further evaluation. She states that she has been from out of town and she moved here 7 months ago. She has not had an extensive cardiac workup ever. She has a history of hypertension and diabetes. She has had multiple family members with heart disease including 3 siblings would from heart disease and she has an older sister who has had a 5 vessel bypass. Her ex- used to smoke, but she has never smoked. In the emergency room she did have some abnormal EKG findings. Her CT of the abdomen and pelvis also revealed a small lesion on the pancreas. An MR I was done and there was no obstruction of the pancreatic duct. Pain is most likely cardiac in origin. She will get echocardiogram and stress test and will do serial troponins and EKG prior to these being done. Allergies No Known Allergies Allergy (Verified 07/09/19 21:31) Home Medications: Alprazolam [Xanax] 1 mg PO BID PRN 05/17/19 Amlodipine [Norvasc*] 10 mg PO BEDTIME 05/17/19 Atorvastatin Calcium [Lipitor*] 10 mg PO BEDTIME 05/17/19 Benazepril HCl [Lotensin] 10 mg PO BEDTIME 05/17/19 Fluoxetine HCl [Prozac] 10 mg PO DAILY 05/17/19 Linagliptin [Tradjenta] 5 mg PO BEDTIME 05/17/19 Metformin ER [Glucophage ER*] 1,000 mg PO BID 05/17/19 - Past Medical/Surgical History Has patient received pneumonia vaccine in the past: No Diabetic: Yes -: NIDDM -: HTN -: hypercholesterolemia -: Hep C -: c section x3 -: hysterectomy -: hernia repair - Family History Father Family History: Reviewed- Non-Contributory - Social History Smoking Status: Never smoker Alcohol use: No CD- Drugs: No Caffeine use: Yes Place of Residence: Home Review of Systems 10-point ROS is otherwise unremarkable Physical Examination - Vital Signs Temperature: 97.0 F Blood Pressure: 109/59 Pulse: 60 Respirations: 16 Pulse Ox (%): 96 - Physical Exam General: Alert, In no apparent distress, Oriented x3 HEENT: Atraumatic, PERRLA, Mucous membr. moist/pink, EOMI, Sclerae nonicteric Neck: Supple, 2+ carotid pulse no bruit, No LAD, Without JVD or thyroid abnormality Respiratory: Clear to auscultation bilaterally, Normal air movement Cardiovascular: Regular rate/rhythm, Normal S1 S2, No murmurs Gastrointestinal: Normal bowel sounds, Soft and benign, Non-distended, No tenderness Musculoskeletal: No clubbing, No swelling, No tenderness Integumentary: No rashes Neurological: Normal gait, Normal speech, Normal strength at 5/5 x4 extr, Normal tone, Sensation intact, Cranial nerves 3-12 intact, Normal affect Lymphatics: No axilla or inguinal lymphadenopathy - Studies Laboratory Data (last 24 hrs) 07/09/19 15:15: PT 12.5, INR 1.06 07/09/19 15:15: WBC 12.1 H, Hgb 12.9, Hct 39.9, Plt Count 369 07/09/19 15:15: Sodium 141, Potassium 3.4 L, BUN 9, Creatinine 0.79, Glucose 156 H, Magnesium 2.0, Total Bilirubin 0.4, AST 42 H, ALT 42, Alkaline Phosphatase 167 H Assessment & Plan - Problems (Diagnosis) (1) Chest pain, rule out acute myocardial infarction Current Visit: Yes Status: Acute (2) History of hepatitis C Current Visit: Yes Status: Acute (3) History of hypertension Current Visit: Yes Status: Acute (4) History of type 2 diabetes mellitus Current Visit: Yes Status: Acute (5) Family history of heart disease Current Visit: Yes Status: Acute (6) Secondhand smoke exposure Current Visit: Yes Status: Acute - Plan 1. Serial troponins and EKG 2. Cardiology consultation 3. Echocardiogram and stress test if troponins are negative 4. Anti-platelet therapy, anti coagulation, beta-magdi, statin, and O2 as needed 5. IV morphine for pain 6. Nitro p.r.n. 7. Patient will need follow-up MRI to further evaluate her small pancreatic mass that was seen on CT imaging. She will also get a CA 19 9 on this admission and this can be followed up by her GI, Dr. Chau. Discharge Plan: Home Plan to discharge in: 48 Hours - Advance Directives Does patient have a Living Will: No Does patient have a Durable POA for Healthcare: No - Code Status/Comfort Care Code Status Assessed: Yes Code Status: Full Code Critical Care: No Time Spent Managing PTS Care (In Minutes): 45
[2019-07-10] MEDS: METOPROLOL TAR 50 MG TAB PO SCH (09:00)
[2019-07-10] MEDS ORDERED: ENOXAPARIN 40 MG/0.4 ML SQ SCH (09:00)
[2019-07-10] MEDS ORDERED: ASPIRIN EC 81 MG TAB PO SCH (09:00)
[2019-07-10] MEDS ORDERED: REGADENOSON 0.4 MG/5 ML SYR IV ONE (09:12)
--- NOTE | 2019-07-10 12:30 | RAD REPORT ---
EXAM DESCRIPTION: NM - Rest Stress Cardiac Imaging - 07/10/2019 12:23 pm CLINICAL HISTORY: Chest pain. COMPARISON: None. TECHNIQUE: The patient was administered approximately 10mCi of Tc 99m Sestamibi prior to resting SPE CT imaging of the heart. The patient was then administered approximately 30 mCi of Tc 99m Sestamibi f ollowing exercise or pharmacologic stress. Multiplanar SPECT images were reviewed. FINDINGS: Small area of diminished radiotracer uptake involves the apical left ventricular myocardi um on rest and stress images. Remainder of the left ventricular myocardium demonstrates homogeneous radiotracer uptake. Left ventricular ejection fraction 60% IMPRESSION: Small area of apparent fixed perfusion defect involving the apical left ventricular myoc ardium could either be secondary to physiologic thinning or infarct. No evidence of stress-induced ischemia
--- NOTE | 2019-07-10 15:18 | P.DS ---
Admission Date: 07/09/19 Discharge Date: 07/10/19 Primary Care Provider: [facility]; Constanza Chau Disposition: ROUTINE DISCHARGE Discharge Condition: GOOD Reason for Admission: Chest pain rule out acute coronary syndrome Consultations: Cardiology Procedures: Stress test: FINDINGS: Small area of diminished radiotracer uptake involves the apical left ventricular myocardium on rest and stress images. Remainder of the left ventricular myocardium demonstrates homogeneous radiotracer uptake. Left ventricular ejection fraction 60% IMPRESSION: Small area of apparent fixed perfusion defect involving the apical left ventricular myocardium could either be secondary to physiologic thinning or infarct. No evidence of stress-induced ischemia CT: FINDINGS: A renal calculus is not seen. An ureteral calculus is not noted. A bladder calculus is not present. Fatty liver. Cholecystectomy 15 millimeter hypodense lesion pancreatic head Spleen, and adrenals appear grossly normal There is no evidence of diverticulitis. Spondylolysis L5. Mild anterior subluxation of L5 on S1. Hemangioma is suspected within the L1 vertebral body Postsurgical changes of an umbilical hernia repair IMPRESSION: Negative for a genitourinary calculus 15 millimeter hypodense lesion pancreatic head. MRI: FINDINGS: 15 millimeter mass is present within the pancreatic head. It has high signal on T2 weighted sequences. There does appear to be mild enhancement. A 2 millimeter nodular enhancement suspected The remainder of the pancreas is unremarkable. 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 Follow up MRI in 6 months recommended to assess stability Medical problem List: Chest pain with negative cardiac stress test Suspect GERD CT finding of 15 mm hypodense lesion to the pancreatic head, MRI confirms Diabetes mellitus type 2 Hypertension Hyperlipidemia Anxiety with depression History of hepatitis-C Brief History of Present Illness: 49-year-old female presented to the emergency room with chest pain. Patient with history of hypertension, hyperlipidemia, diabetes, hepatitis-C. Patient was admitted for further evaluation and treatment. Hospital Course: Patient admitted for chest pain. Patient was monitored closely. Cardiac enzymes unremarkable. Patient seen and evaluated by Cardiology. Cardiac stress test performed. Cardiac stress test showed no stress-induced ischemia. Chest pain likely GERD related. At discharge will recommend to continue Protonix 40 mg daily. Patient also had CT and MRI of abdomen due to symptoms. A 15 mm hypodense lesion to the pancreatic head was seen on CT scan and confirmed on MRI. Patient will need to evaluated further for underlying benign or malignant process. Patient may require ERCP in the near future. Other consideration is repeating MRI in the future to monitor stability. Recommend follow up with GI to further evaluate and recommendations. Patient with diabetes mellitus type 2. This has remained stable. At discharge she may continue with her current medications including Tradjenta 5 mg daily and metformin 1000 mg 1 pill twice daily. Recommend to maintain blood sugars less 140 fasting and less than 200 after meals. Further adjustment can be done by her PCP. Patient with hypertension. This has remained stable. At discharge she may continue with her medications including Norvasc 10 mg daily and benazepril 10 mg daily. Recommend to maintain blood pressure less 150/80. Further adjustment can be done by her PCP. Patient with hyperlipidemia. This has remained stable. At discharge she will continue with Lipitor 10 mg daily. Patient with depression with anxiety. At discharge she will continue with Prozac 10 mg daily and Xanax as needed for anxiety. Further adjustment can be done by her PCP. Patient with history of hepatitis-C. This can be further evaluated as an outpatient with GI. Vital Signs/Physical Exam: Temp Pulse Resp BP Pulse Ox 97.8 F 81 18 144/70 H 98 07/10/19 12:00 07/10/19 12:00 07/10/19 12:00 07/10/19 12:00 07/10/19 12:00 General: Alert, In no apparent distress, Oriented x3, Cooperative HEENT: Atraumatic Neck: Supple Respiratory: Clear to auscultation bilaterally, Normal air movement Cardiovascular: Normal pulses, Regular rate/rhythm Gastrointestinal: Normal bowel sounds, Soft and benign, Non-distended, No tenderness, No masses, No rebound, No guarding Musculoskeletal: No erythema, No tenderness, No warmth Integumentary: No tenderness/swelling, No erythema, No warmth, No cyanosis Neurological: Normal speech, Normal strength at 5/5 x4 extr, Normal tone, Normal affect Laboratory Data at Discharge: WBC 10.7 K/uL (4.3-10.9) 07/10/19 04:19 Hgb 12.0 g/dL (12.0-15.0) 07/10/19 04:19 Hct 36.5 % (36.0-45.0) 07/10/19 04:19 Plt Count 323 K/uL (152-406) 07/10/19 04:19 PT 12.5 SECONDS (9.5-12.5) 07/09/19 15:15 INR 1.06 07/09/19 15:15 Sodium 142 mmol/L (136-145) 07/10/19 04:19 Potassium 4.3 mmol/L (3.5-5.1) 07/10/19 04:19 BUN 9 mg/dL (7-18) 07/10/19 04:19 Creatinine 0.73 mg/dL (0.55-1.3) 07/10/19 04:19 Glucose 97 mg/dL (74-106) 07/10/19 04:19 Magnesium 2.0 mg/dL (1.8-2.4) 07/09/19 15:15 Total Bilirubin 0.4 mg/dL (0.2-1.0) 07/09/19 15:15 AST 42 U/L (15-37) H 07/09/19 15:15 ALT 42 U/L (12-78) 07/09/19 15:15 Alkaline Phosphatase 167 U/L (45-117) H 07/09/19 15:15 Troponin I < 0.02 ng/mL (0.0-0.045) 07/10/19 04:19 Triglycerides Cancelled 07/10/19 06:00 Cholesterol Cancelled 07/10/19 06:00 HDL Cholesterol Cancelled 07/10/19 06:00 Cholesterol/HDL Ratio Cancelled 07/10/19 06:00 Home Medications: Alprazolam [Xanax] 1 mg PO BID PRN 05/17/19 Amlodipine [Norvasc*] 10 mg PO BEDTIME 05/17/19 Atorvastatin Calcium [Lipitor*] 10 mg PO BEDTIME 05/17/19 Benazepril HCl [Lotensin] 10 mg PO BEDTIME 05/17/19 Fluoxetine HCl [Prozac] 10 mg PO DAILY 05/17/19 Linagliptin [Tradjenta] 5 mg PO BEDTIME 05/17/19 Metformin ER [Glucophage ER*] 1,000 mg PO BID 05/17/19 Aspirin [Aspirin EC 81 MG] 81 mg PO DAILY #90 tablet 07/10/19 Pantoprazole [Protonix Tab] 40 mg PO DAILY #30 tab 07/10/19 New Medications: Aspirin [Aspirin EC 81 MG] 81 mg PO DAILY #90 tablet. Pantoprazole [Protonix Tab] 40 mg PO DAILY #30 tab Patient Discharge Instructions: 1. Recommend follow up with PCP in 1 week to follow up hospitalization. 2. Patient admitted for chest pain. Patient was monitored closely. Cardiac enzymes unremarkable. Patient seen and evaluated by Cardiology. Cardiac stress test performed. Cardiac stress test showed no stress-induced ischemia. Chest pain likely GERD related. At discharge will recommend to continue Protonix 40 mg daily. Patient also had CT and MRI of abdomen due to symptoms. A 15 mm hypodense lesion to the pancreatic head was seen on CT scan and confirmed on MRI. Patient will need to evaluated further for underlying benign or malignant process. Patient may require ERCP in the near future. Other consideration is repeating MRI in the future to monitor stability. Recommend follow up with GI to further evaluate and recommendations. 3. Patient with diabetes mellitus type 2. This has remained stable. At discharge she may continue with her current medications including Tradjenta 5 mg daily and metformin 1000 mg 1 pill twice daily. Recommend to maintain blood sugars less 140 fasting and less than 200 after meals. Further adjustment can be done by her PCP. 4. Patient with hypertension. This has remained stable. At discharge she may continue with her medications including Norvasc 10 mg daily and benazepril 10 mg daily. Recommend to maintain blood pressure less 150/80. Further adjustment can be done by her PCP. 5. Patient with hyperlipidemia. This has remained stable. At discharge she will continue with Lipitor 10 mg daily. 6. Patient with depression with anxiety. At discharge she will continue with Prozac 10 mg daily and Xanax as needed for anxiety. Further adjustment can be done by her PCP. 7. Patient with history of hepatitis-C. This can be further evaluated as an outpatient with GI. Diet: ADA Activity: Ad dennis Time spent managing pt's care (in minutes): 55
[2019-07-10 17:06] VITALS: BP 144/78; TEMP 97
--- NOTE | 2019-07-10 17:34 | CON ---
Date of Consultation: 07/10/[address] Valente's service on 07/09/2019 I saw the patient on 07/10/2019. Reason For Consultation: Chest pain. History Of Present Illness: Ms. Miner is 49, has had a history of diabetes, hypertension, dyslipidem ia, anxiety, rheumatoid arthritis. She recently had an an umbilical hernia surgery done by Dr. Taylor . She has been having some continuous chest pressure that started in the right side midsternal area and radiated to the right shoulder without any nausea, vomiting, diaphoresis, PND, orthopnea, pedal e debby, palpitations, or syncope. Has been feeling more short of breath than usual. Denied any fever or chills or cough. Workup so far included negative chest x-ray. She had a pancreatic mass by abdom inal MRI that was suggested to be followed in 6 months. EKG, chest x-ray, and troponin were negative . Past Medical History: As stated above. Allergies: NONE. Review of Systems: Negative. Social History: Negative. Family History: Negative. Medications At Home: Xanax, Norvasc, Lipitor, Prozac, Lotensin, Tradjenta, and metformin. Physical Examination: General: Ms. Miner was continued to have some substernal chest pressure. Vital Signs: Stable, afebrile. HEENT: Negative. Neck: Supple with no bruit. Chest: Clear. Cardiac: Revealed a regular rhythm and rate. No murmurs, gallops, or rubs. Abdomen: Obese, but benign. Extremities: Revealed no clubbing, cyanosis, or edema. Neurologic: She was nonfocal. Skin: Dry and intact. Pulses were present bilaterally. Diagnostic Data: As stated above. Impression And Plan: Atypical chest pain and that starts on the right side, goes to the right should er, accompanied with some substernal pressure that has been going on for 2 days. I still think this is more likely to be a gastrointestinal issue. Echocardiogram and Lexiscan are pending. She had a p ancreatic mass that needs to be followed up in the next 6 months. Her diabetes, hypertension, and dy slipidemia are well controlled. She also had anxiety, rheumatoid arthritis, and obesity that are sta ble at this point. She is status post recent umbilical hernia surgery by Dr. Taylor that seems to be stable. We will see what her workup shows prior to making any final decisions. She probably should be on proton pump inhibitor in addition to her medication. I will discuss the case further with Dr. Cope afterwards. VICTOR M/DAVI Voice ID: [id number] Report ID: [id number]
--- NOTE | 2019-07-11 08:51 | ECHO ---
HEIGHT: 5 ft 3 in WEIGHT: 240 lb 0 oz DATE OF STUDY: 07/10/[address]: Suzette Valente MD 2-DIMENSIONAL: YES M.MODE: YES DOPPLER: YES COLOR FLOW: YES TDS: YES PORTABLE: NO DEFINITY: NO BUBBLE STUDY: NO DIAGNOSIS: CHEST PAIN CARDIAC HISTORY: CATHERIZATION: NO SURGERY: NO PROSTHETIC VALVE: NO PACEMAKER: NO MEASUREMENTS (cm) DIASTOLIC (NORMALS) SYSTOLIC (NORMALS) IVSd 0.9 (0.6-1.2) LA Diam 3.6 (1.9-4.0) LVEF 52% LVIDd 3.8 (3.5-5.7) LVIDs 2.8 (2.0-3.5) %FS 26% LVPWd 0.9 (0.6-1.2) Ao Diam 2.7 (2.0-3.7) 2 DIMENSIONAL ASSESSMENT: RIGHT ATRIUM: NORMAL LEFT ATRIUM: NORMAL RIGHT VENTRICLE: NORMAL LEFT VENTRICLE: NORMAL TRICUSPID VALVE: NORMAL MITRAL VALVE: NORMAL PULMONIC VALVE: NORMAL AORTIC VALVE: NORMAL PERICARDIAL EFFUSION: NONE AORTIC ROOT: NORMAL LEFT VENTRICULAR WALL MOTION: NORMAL. DOPPLER/COLOR FLOW: NORMAL. COMMENTS: NORMAL 2D ECHO WITH DOPPLER. NO WALL MOTION ABNORMALITY. NO EFFUSION. TECHNOLOGIST: DEREK RUDOLPH
--- NOTE | 2019-07-11 09:00 | TREADPHA ---
DX: CHEST PAIN Date of Study: 07/10/2019 Ht: 5' 3 " Wt: 240 lb 0 oz Consulting Physician: HARSH MEDICATIONS: TYLENOL, XANAX, ASPIRIN, LOVENOX, LOPRESSOR HISTORY: 49 YEAR OLD FEMALE WITH HISTORY OF HYPERTENSION, HIGH CHOLESTEROL AND ANXIETY ADMITTED FOR CHEST PAIN PHYSICIAL EXAMINATION: RESTING B.P.: 143/86 RESTING H.R.: 75 RESTING EKG: NORMAL, POSSIBLE OLD ANTERIOR MYOCARIDAL INFARCTION PROTOCOL: LEXISCAN EXERCISE TIME: 3:30 B.P. AT PEAK STRESS: 137/78 IMPRESSION: LEXISCAN STRESS TEST PERFORMED. CARDIOLITE INJECTED PER PROTOCOL. NO SUPRA VENTRICULAR TACHYCARDIA, NO VENTRICULAR TACHYCARDIA, NO ARRHYTMIA NOTED. PATIENT DENIED CHEST PAIN. RESPIRATORY EVEN NON LABORED TOLERATED WELL. SEE NUCLEAR MEDICINE REPORT.
== END 2019-07-10 16:45 | disposition home or self-care (01) ==
LOC: ER 14:54 → ERHOLD 20:19 → 2ND 20:32
PROVIDERS: ADMIT Hospitalist; ATTEND Hospitalist
DX: R07.9 Chest pain, unspecified (principal); E11.9 Type 2 diabetes mellitus without complications; E78.5 Hyperlipidemia, unspecified; I10 Essential (primary) hypertension; B19.20 Unspecified viral hepatitis C without hepatic coma; Z77.22 Contact with and (suspected) exposure to environmental tobacco smoke (acute) (chronic); F41.8 Other specified anxiety disorders; K86.9 Disease of pancreas, unspecified
CPT/HCPCS: 93005; 93017; 93306; 85025 ×2; 80048 ×2; 36415; 83735; 85610; 80061; 82947 ×3; 80076; 84443; 81003; 84484 ×3; 83880; 86301; 76377; 74176; 71045; 78452; 96375; 96372; 96374; 99285; J2550; J1650; J2785; A9500; G0378 ×3

== ENCOUNTER 2019-08-27 14:57 | Emergency (ER) | payer OTHER ==
[2019-08-27 16:34] LABS: Urine Blood NEGATIVE (NEG); Urine Glucose NEGATIVE (NEG); Urine Protein NEGATIVE (NEG); Urine Specific Gravity 1.025 (1.005-1.030)
--- OUTSIDE RECORDS SUMMARY | 2019-08-27 18:13 | XMS REPORT ---
:1970 Author Organization [employer] Care Team Providers Name Role Phone MckeonKumar Provider Role Unavailable Allergies, Adverse Reactions, Alerts Substance Reaction Event Type N.K.D.A. 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 knee Problem Periumbilical hernia K42.9 Active Problem HTN, goal below 130/80 I10 Activ e Problem Type 2 diabetes mellitus with other E11.69 Active specified complication, unspecified whether detention insulin use Problem Osteoarthritis of multiple joints, M15.9 Active unspecified osteoarthritis type Problem 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 prior episode Problem Body mass index (BMI) 40.0-44.9, Z68.41 Active adult Assessment 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 Lansoprazole ND 05106080836 30 MG Oral Active TAKE ONE (1) CAPSULE(S) BY MOUTH ONCE A DAY. Phenazopyridine HCl [facility] 20641053693 200 MG Oral Acti ve TAKE ONE (1) TABLET(S) BY MOUTH THREE TIMES A DAY AFTER MEALS FOR 2 DAYS. Atorvastatin Calcium ND 49229863747 10 MG Orally Ac tive 1 tablet Once a day Prozac ND 03221483427 20 MG Orally Active 1 capsu le Once a day Alprazolam [facility] 24233992372 1 MG Oral Active (Schedu le IV Drug) TAKE ONE (1) TABLET(S) BY MOUTH TWICE A DAY NEEDED FOR ANXIETY. Tradjenta [facility] 28145248614 5 MG Orally Active 1 tabl et Once a day Amoxicillin-Pot [facility] 47030400892 875-125 MG Active T JOSÉ ONE Clavulanate Oral (1) TABLET(S) BY MOUTH EVERY TWELVE HOURS FOR 10 DAYS. Lactulose [facility] 95753119690 10 GM/15ML Active TAKE 15 Oral ML(S) BY MOUTH ONCE A DAY. Metronidazole [facility] 99062697769 500 MG Oral Active TA KE ONE (1) TABLET(S) BY MOUTH EVERY TWELVE HOURS FOR 7 DAYS. Alprazolam [facility] 14864074926 1 MG Orally Active 1 tab let Twice a day PRN SEVERE ANXIETY Aspirin Low Dose [facility] 38673613664 81 MG Oral Active TAKE ONE (1) TABLET(S) BY MOUTH ONCE A DAY. MethylPREDNISolone [facility] 99729721092 4 MG Oral Active TAKE DIRECTED. Benazepril HCl [facility] 11966951112 40 MG Orally Active 1 tablet Once a day Omeprazole [facility] 18240947527 40 MG Oral Active TAKE O NE (1) CAPSULE(S) BY MOUTH TWICE A DAY 1/2 HALF HOUR BEFORE BREAKFAST AND LAST MEAL THEN TAKE ONCE DAILY. Ondansetron HCl [facility] 67323378835 4 MG Oral Active TA KE ONE (1) TABLET(S) BY MOUTH EVERY EIGHT HOURS NEEDED FOR 7 DAYS. Nitrofurantoin [facility] 92606583610 100 MG Oral Active T JOSÉ ONE Monohyd Macro (1) CAPSULE(S) BY MOUTH TWICE A DAY AT BEDTIME WITH FOOD FOR 5 DAYS. MetFORMIN HCl ER [facility] 43036265995 500 MG Orally Activ e 2 tab with BID mals Fluoxetine HCl [facility] 30133418056 20 MG Oral Active TA KE ONE (1) CAPSULE(S) BY MOUTH ONCE A DAY. Amlodipine Besylate [facility] 32753809005 10 MG Orally Act deepali 1 tablet Once a day Meloxicam [facility] 69890603884 7.5 MG Orally August 01August Active 1 ta blet Once a day 2019 Breo Ellipta [facility] 01212142893 200-25 MCG/INH Active INHALE ONE Inhalation (1) PUFF(S) BY MOUTH ONCE A DAY. Results No Known Results Summary Purpose eClinicalWorks Submission
--- OUTSIDE RECORDS SUMMARY | 2019-08-27 18:13 | XMS REPORT ---
[...] E78.2 Active Problem Fatty liver K76.0 Active Assessment Chronic hepatitis C without hepatic B18.2 Active coma Problem Primary osteoarthritis of right knee M17.11 Active Assessment Morbid (severe) obesity due to E66.01 Active excess calories Assessment Body mass index (BMI) 40.0-44.9, Z68.41 Active adult Problem Periumbilical hernia K42.9 Active Problem HTN, goal below 130/80 I10 Activ e Problem Type 2 diabetes mellitus with other E11.69 Active specified complication, unspecified whether long-term insulin use Problem Osteoarthritis of multiple joints, M15.9 Active unspecified osteoarthritis type Problem 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 prior episode Assessment Panic disorder [episodic paroxysmal F41.0 Active anxiety] Assessment HTN, goal below 130/80 I10 Activ e Assessment 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 prior episode Assessment Generalized anxiety disorder F41.1 Active Problem Body mass index (BMI) 40.0-44.9, Z68.41 Active adult Assessment Osteoarthritis of multiple joints, M15.9 Active unspecified osteoarthritis type Assessment Mixed hyperlipidemia E78.2 Active Problem Morbid (severe) obesity due to E66.01 Active excess calories Assessment Elevated alkaline phosphatase level R74.8 Active Assessment Type 2 diabetes mellitus with other E11.69 Active specified complication, unspecified whether long-term insulin use Problem Panic disorder [episodic paroxysmal F41.0 Active anxiety] Medications Medication Code Code Instructions Start End Status Dosage System Date Date Benazepril HCl [facility] 61986246043 40 MG Orally Active 1 tablet Once a day Alprazolam ND 35141418111 1 MG Orally Active 1 tab let Twice a day PRN SEVERE ANXIETY Atorvastatin [facility] 95542305101 10 MG Orally Active 1 tablet Calcium Once a day MetFORMIN HCl ER [facility] 68674775162 500 MG Orally Activ e 2 tab with BID mals Prozac [facility] 54027655828 20 MG Orally Active 1 capsu le Once a day Tradjenta [facility] 85771614415 5 MG Orally Active 1 tabl et Once a day Amlodipine [facility] 18052422218 10 MG Orally Active 1 ta blet Besylate Once a day Results No Known Results Summary Purpose [employer]ClinicalWorks Submission
--- OUTSIDE RECORDS SUMMARY | 2019-08-27 18:13 | XMS REPORT ---
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
--- OUTSIDE RECORDS SUMMARY | 2019-08-27 18:13 | XMS REPORT ---
[...] other E11.69 Active specified complication, unspecified whether truck terminal manager insulin use Problem Osteoarthritis of multiple joints, M15.9 Active unspecified osteoarthritis type Problem 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 prior episode Problem Body mass index (BMI) 40.0-44.9, Z68.41 Active adult Problem Morbid (severe) obesity due to E66.01 Active excess calories Assessment Osteoarthritis of multiple joints, M15.9 Active unspecified osteoarthritis type Problem Panic disorder [episodic paroxysmal F41.0 Active anxiety] Medications No Known Medications Results No Known Results Summary Purpose [employer]ClinicalWorks Submission
--- OUTSIDE RECORDS SUMMARY | 2019-08-27 18:13 | XMS REPORT ---
[...] other E11.69 Active specified complication, unspecified whether economics faculty member insulin use Problem Osteoarthritis of multiple joints, M15.9 Active unspecified osteoarthritis type Problem 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 prior episode Medications No Known Medications Results No Known Results Summary Purpose [employer]ClinicalWorks Submission
--- OUTSIDE RECORDS SUMMARY | 2019-08-27 18:13 | XMS REPORT | Continuity of Care Document ---
:[address] [facility] t Address [address] [place] [address] 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 insulin insulin use use Mixed Mixed Problem Active [facility] hyperlipid hyperlipid Rosey kes - emia emia Mem[facility] l Outpati ent Clinics Chronic Chronic Problem Active [facility] hepatitis hepatitis [facility] - C without C without Brennon adiel hepatic hepatic l coma coma Outpati ent Clinics Generalize Generalize Problem Active C HI [facility] d anxiety d anxiety Luke s - disorder disorder Memori a l Outpati ent Clinics Body mass Body mass Problem Active [facility] index index [facility] - (BMI) (BMI) Memoria 40.0-44.9, 40.0-44.9, l adult adult Outpati ent Clinics Current Current Problem Active [facility] mild mild [facility] - episode of episode of Me moria major major l depressive depressive Ou tpati disorder disorder ent without without Clinics prior prior episode episode Panic Panic Problem Active [facility] disorder disorder [facility] - [episodic [episodic Brennon adiel paroxysmal paroxysmal l anxiety] anxiety] Outpat i ent Clinics Morbid Morbid Problem Active [facility] (severe) (severe) [facility] - obesity obesity Memoria due to due to l excess excess Outpati calories calories ent Clinics Osteoarthr Osteoarthr Problem Active C [facility] itis of itis of [facility] - multiple multiple Memori a joints, joints, l unspecifie unspecifie Ou tpati d d ent osteoarthr osteoarthr Cl inics itis type itis type Fatty Fatty Problem Active [facility] liver liver [facility] l [facility] Primary Primary Problem Active [facility] osteoarthr osteoarthr Rosey kes - itis of itis of [facility] right knee right knee l [facility] Periumbili Periumbili Problem Active C [facility] hans hernia hans hernia Rosey kes - [facility] Allergies, Adverse Reactions, Alerts This patient has no known allergies or adverse reactions. Medications Ordered Filled Start Stop Current Ordering Indication Dosage Frequency Signature Comments Components Source Medication Medication Date Date Medication? Clinician (SIG) Name Name Meloxicam Meloxicam 2020- Yes Kumar [address] [facility] 5-14 06-13 [facility] - 00:00: 00:00 Memoria 00 :00 l [facility] MetFORMIN MetFORMIN Yes Kumar [address] [facility] HCl ER HCl ER 2-19 [facility] mals [facility] - 00:00: Memoria 00 l [facility] Prozac Prozac Yes Kumar [address] 2-19 [place] - 00:00: Memoria 00 l [facility] Amlodipine Amlodipine Yes Kumar [address] [facility] Besylate Besylate [facility] l [facility] Benazepril Benazepril Yes Kumar [address] [facility] [address] HCl HCl [facility] Alprazolam Alprazolam Yes Kumar [address] [facility] Tradjenta Tradjenta Yes Kumar [address] [facility] l [facility] Atorvastati Atorvastati Yes Kumar [address] [facility] n Calcium n Calcium [facility] Acetaminoph Acetaminoph Yes Kumar (Schedule [facility] en-Codeine en-Codeine [facility] III Drug) [facility] - #3 #3 TAKE ONE Memoria (1) l TABLET(S) Outpati BY MOUTH ent EVERY FOUR Clinics HOURS NEEDED FOR PAIN. Lansoprazol Lansoprazol Yes Kumar TAKE ONE [facility] e e [facility] (1) [facility] - CAPSULE(S) Memoria BY MOUTH l ONCE A [facility] DAY. ent Clinics Phenazopyri Phenazopyri Yes Kumar TAKE ONE [facility] dine HCl dine HCl [facility] (1) [facility] - TABLET(S) Memoria BY MOUTH l THREE Outpati TIMES A ent DAY AFTER Clinics MEALS FOR 2 DAYS. Alprazolam Alprazolam Yes Kumar (Schedule [facility] IV Drug) [facility] - TAKE ONE Memoria (1) l TABLET(S) Outpati BY MOUTH ent TWICE A Clinics DAY NEEDED FOR ANXIETY. Amoxicillin Amoxicillin Yes Kumar TAKE ONE [facility] -Pot -Pot [facility] (1) [facility] - Clavulanate Clavulanate TABLET(S) Memoria BY MOUTH l EVERY Outpati TWELVE ent HOURS FOR Clinics 10 DAYS. Lactulose Lactulose Yes Kumar TAKE [address] [place] ML(S) BY [facility] - MOUTH ONCE Memoria A DAY. l Outpati ent Clinics Metronidazo Metronidazo Yes Kumar TAKE ONE [facility] le le [facility] (1) [facility] - TABLET(S) Memoria BY MOUTH l EVERY Outpati TWELVE ent HOURS FOR Clinics 7 DAYS. Aspirin Low Aspirin Low Yes Kumar TAKE ONE [facility] Dose Dose [facility] (1) [facility] - TABLET(S) Memoria BY MOUTH l ONCE A Outpati DAY. ent Clinics MethylPREDN MethylPREDN Yes Kumar TAKE [facility] ISolone ISolone [facility] DIRECTED. Luke s - Memoria l Outpati ent Clinics Omeprazole Omeprazole Yes Kumar TAKE ONE [facility] (1) [facility] - CAPSULE(S) Memoria BY MOUTH l TWICE A Outpati DAY / ent HALF HOUR Clinics BEFORE BREAKFAST AND LAST MEAL THEN TAKE ONCE DAILY. Ondansetron Ondansetron Yes Kumar TAKE ONE [facility] HCl HCl [facility] (1) [facility] - TABLET(S) Memoria BY MOUTH l EVERY Outpati EIGHT ent HOURS Clinics NEEDED FOR 7 DAYS. Nitrofurant Nitrofurant Yes Kumar TAKE ONE [facility] oin Monohyd oin Monohyd [facility] (1) L ukes - Macro Macro CAPSULE(S) Memoria BY MOUTH l TWICE A Outpati DAY AT ent BEDTIME Clinics WITH FOOD FOR 5 DAYS. Fluoxetine Fluoxetine Yes Kumar TAKE ONE [facility] HCl HCl [facility] (1) [facility] - CAPSULE(S) Memoria BY MOUTH l ONCE A Outpati DAY. ent Clinics Breo Breo Yes Kumar INHALE ONE [facility] Ellipta Ellipta [facility] (1) [facility] - PUFF(S) BY Memoria MOUTH ONCE l A DAY. Outpati ent Clinics Procedures This patient has no known procedures. Encounters Start End Encounter Admission Attending Care Care Encounter Source Date/Time Date/Time Type Type Clinicians Facility Department ID 2019-08-23 2019-08-23 [facility] [id number] [facility] 13:58:00 13:58:00 t [facility] 2019-08-14 2019-08-14 [facility] [id number] [address] 07:34:00 07:34:00 t [facility] 2019-08-07 2019-08-07 [facility] [id number] 15:46:00 15:46:00 t [facility] 2019-08-02 2019-08-02 [facility] [id number] 14:00:00 14:00:00 t [facility] 2019-07-31 2019-07-31 [facility] [id number] 11:45:00 11:45:00 t [facility] 2019-07-09 2019-07-09 [facility] [id number] 13:00:00 13:00:00 t [facility] 2019-06-06 2019-06-06 [facility] [id number] 11:11:00 11:11:00 t [facility] 2019-05-09 2019-05-09 [facility] [id number] 16:00:00 16:00:00 t [facility] 2019-05-07 2019-05-07 [facility] [id number] 09:48:00 09:48:00 t [employer] - [employer] [facility] Outpati ent Clinics 2019-05-04 2019-05-04 [facility] [id number] 10:56:00 10:56:00 t [facility] ent Clinics 2019-04-30 2019-04-30 [facility] [id number] 10:30:00 10:30:00 t [employer] - [employer] [facility] Outpati ent Clinics 2019-02-27 2019-02-27 [facility] [id number] 16:15:00 16:15:[address] [employer] [facility] Outpati ent Clinics 2019-02-12 2019-02-12 [facility] [id number] [address] 16:00:00 16:00:00 t [employer] - [employer] [facility] Outpati ent Clinics 2019-01-30 2019-01-30 [facility] [id number] 11:30:00 11:30:00 [address] [employer] [facility] Outpati ent Clinics 2019-01-15 2019-01-15 [facility] [id number] [address] 15:30:00 15:30:00 [address] [employer] [facility] Outpati ent Clinics Results This patient has no known results.
--- OUTSIDE RECORDS SUMMARY | 2019-08-27 18:14 | XMS REPORT ---
[...] other E11.69 Active specified complication, unspecified whether exterminator insulin use Problem Osteoarthritis of multiple joints, M15.9 Active unspecified osteoarthritis type Problem 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 prior episode Medications No Known Medications Results No Known Results Summary Purpose eClinicalWorks Submission
[2019-08-27 19:01] LABS: Absolute Lymphocytes (CBC) 4.4 K/uL (0.7-4.9); Basophils % 1.2 % (0-1.3); Hematocrit 42.1 % (36.0-45.0); Lymphocytes % 26.8 % (15.3-44.8); MPV 7.6 fL (7.6-11.3); RBC Red Blood Cell Count 5.14 M/uL (3.86-4.86)
[2019-08-27 19:24] LABS: ALT/SGPT 33 U/L (12-78); AST/SGOT 31 U/L (15-37); Albumin 3.4 g/dL (3.4-5.0); Alkaline Phosphatase 220 U/L (45-117); BUN Blood Urea Nitrogen 17 mg/dL (7-18); Bicarbonate 27 mmol/L (21-32); Bilirubin Direct < 0.1 mg/dL (0-0.2); Bilirubin Total 0.2 mg/dL (0.2-1.0); Glucose Level 102 mg/dL (74-106); Magnesium 2.2 mg/dL (1.8-2.4); Potassium 3.6 mmol/L (3.5-5.1); Protein, Total 8.7 g/dL (6.4-8.2); Sodium Level 140 mmol/L (136-145); Troponin (Emerg Dept Use Only) < 0.02 ng/mL (0.0-0.045)
[2019-08-27] MEDS ORDERED: METHYLPREDNISOLONE 125 MG INJ ONE (19:40)
[2019-08-27] MEDS ORDERED: IPRATROPIUM BROM 0.5MG/2.5ML ONE (19:40)
[2019-08-27] MEDS ORDERED: ALBUTEROL 2.5 MG/3 ML NEB SOL ONE (19:40)
--- NOTE | 2019-08-27 19:44 | RAD REPORT ---
EXAM DESCRIPTION: Carlos Enrique Single View08/27/2019 7:13 pm CLINICAL HISTORY: Chest pain COMPARISON: June 2019 FINDINGS: The lungs appear clear of acute infiltrate. The heart is normal size IMPRESSION: No acute abnormalities displayed
--- NOTE | 2019-08-27 21:01 | ER ---
Nurse's Notes [facility] Name: Arleth Miner Age: 49 yrs Sex: Female : 1970 Arrival Date: 08/27/2019 Time: 15:01 Bed 24 Private MD: Mak Flores Diagnosis: Other chest pain;Shortness of breath;Elevated white blood cell count, unspecified Presentation: 08/26 15:07 Chief complaint: Patient states: Intermittent SOB and chest pain that began months ago. ss Pt reports she was in the ER and admitted, had a stress test, but everything came back okay. Saw Vest Tailor and given breathing treatments, but they do not seem to be helping. Pt reports she has been trying to get ahold of manager marketing communication, but has been unsuccessful doing so. Coronavirus screen: Proceed with normal triage. Patient denies a cough. Patient reports shortness of breath or difficulty breathing. Patient denies measured and/or subjective temperature greater than 100.4F prior to today's visit. Patient denies travel on a cruise ship or to a country the [facility] currently lists as an affected area. Patient denies contact with known and/or suspected case of COVID-19. Ebola Screen: Patient denies exposure to infectious person. Patient denies travel to an Ebola-affected area in the 21 days before illness onset. Initial Sepsis Screen: Does the patient meet any 2 criteria? No. Patient's initial sepsis screen is negative. Does the patient have a suspected source of infection? No. Patient's initial sepsis screen is negative. Risk Assessment: Do you want to hurt yourself or someone else? Patient reports no desire to harm self or others. Onset of symptoms is unknown. 15:07 Method Of Arrival: Ambulatory 15:07 Acuity: ALANNA 3 Triage Assessment: 15:47 General: Appears in no apparent distress. comfortable, Behavior is calm, cooperative, ls4 Smells of. Pain: Denies pain. Cardiovascular: Reports shortness of breath, Denies chest pain, diaphoresis, fatigue, lightheadedness, nausea, palpitations, syncope, vomiting, Capillary refill < 3 seconds Clubbing of nail beds is absent Patient's skin is warm and dry. Derm: Skin is intact, is healthy with good turgor, Skin is dry, Skin is normal. Musculoskeletal: No deficits noted. No signs and/or symptoms reported regarding the musculoskeletal system. Historical: - Allergies: 15:11 No Known Allergies; ss - PMHx: 15:11 Diabetes - NIDDM; Hyperlipidemia; Hypertension; ss - PSHx: 15:11 ; Hysterectomy; Cholecystectomy; Appendectomy; ss - Immunization history:: Adult Immunizations up to date. - Social history:: Smoking status: Patient denies any tobacco usage or history of. Screenin:59 Abuse screen: Denies threats or abuse. Denies injuries from another. Nutritional ls4 screening: No deficits noted. Tuberculosis screening: No symptoms or risk factors identified. Fall Risk None identified. Assessment: 16:49 Reassessment: Patient appears in no apparent distress at this time. Patient and/or ls4 family updated on plan of care and expected duration. Pain level reassessed. Patient is alert, oriented x 3, equal unlabored respirations, skin warm/dry/pink. Pain: Denies pain. Pain does not radiate. Pain began INTERMITTENT OVER LAST FEW MONTHS. 18:00 Reassessment: Patient appears in no apparent distress at this time. Patient and/or ls4 family updated on plan of care and expected duration. Pain level reassessed. Patient is alert, oriented x 3, equal unlabored respirations, skin warm/dry/pink. 19:00 Reassessment: Patient appears in no apparent distress at this time. Patient and/or ls4 family updated on plan of care and expected duration. Pain level reassessed. Patient is alert, oriented x 3, equal unlabored respirations, skin warm/dry/pink. 20:00 Reassessment: Patient appears in no apparent distress at this time. Patient and/or ls4 family updated on plan of care and expected duration. Pain level reassessed. Patient is alert, oriented x 3, equal unlabored respirations, skin warm/dry/pink. 21:00 Reassessment: Patient appears in no apparent distress at this time. Patient and/or ls4 family updated on plan of care and expected duration. Pain level reassessed. Patient is alert, oriented x 3, equal unlabored respirations, skin warm/dry/pink. Vital Signs: 15:07 BP 170 / 86; Pulse 95; Resp 19; Temp 97.6(TE); Pulse Ox 100% on R/A; Weight 108.86 kg; ss Height 5 ft. 3 in. (160.02 cm); Pain 8/10; 17:12 BP 130 / 67; Pulse 88; Resp 18; Pulse Ox 98% ; Pain 0/10; ls4 18:30 BP 142 / 70; Pulse 82; Resp 18; Pulse Ox 99% on R/A; Pain 0/10; ls4 19:30 BP 138 / 70; Pulse 80; Resp 18; Pulse Ox 99% on R/A; Pain 0/10; ls4 20:50 BP 135 / 74; Pulse 82; Resp 18; Pulse Ox 98% on R/A; Pain 3/10; ls4 15:07 Body Mass Index 42.51 (108.86 kg, 160.02 cm) ss ED Course: 15:01 Patient arrived in ED. mr 15:01 Mak Flores DO is Private Physician. mr 15:11 Triage completed. ss 15:11 Arm band placed on right wrist. ss 15:18 EKG done, by ED staff, reviewed by Thad Capone MD. dh3 15:49 Patient has correct armband on for positive identification. Bed in low position. Call ls4 light in reach. Side rails up X 1. library monitor on. Pulse ox on. NIBP on. 15:49 Warm blanket given. Verbal reassurance given. Diet: Patient is NPO. ls4 15:49 No provider procedures requiring assistance completed. Patient maintains SpO2 ls4 saturation greater than 95% on room air. 15:59 Renata Gandara, LYNNE is Primary Nurse. ls4 16:11 Thad Capone MD is Attending Physician. kdr 19:10 Initial lab(s) drawn, by ky, sent to lab. Inserted saline lock: 20 gauge in right ls4 antecubital area, using aseptic technique. Blood collected. 19:14 XRAY Chest (1 view) In Process Unspecified. EDMS 19:34 Buddy Turcios PA is PHCP. cp 20:59 Boris Nicole MD is Referral Physician. cp 21:20 IV discontinued, intact, bleeding controlled, No redness/swelling at site. Pressure ls4 dressing applied. Administered Medications: 19:30 Drug: SOLU-Medrol 125 mg Route: IVP; Site: right antecubital; ls4 20:00 Follow up: Response: No adverse reaction ls4 19:30 Drug: Albuterol - atroVENT (3:1) (2.5 mg - 0.5 mg) 3 ml Route: Nebulizer; ls4 20:00 Follow up: Response: No adverse reaction ls4 Outcome: 21:00 Discharge ordered by . saman 21:25 Discharged to home ambulatory. ls4 21:25 Condition: good ls4 21:25 Discharge instructions given to patient, Instructed on discharge instructions, follow up and referral plans. medication usage, Demonstrated understanding of instructions, follow-up care, medications, Prescriptions given X 2. 21:28 Patient left the ED. ls4 Signatures: Dispatcher [employer] EDMS Thad Capone MD MD [facility] Lesly Sow Shelby, RN RN ss Buddy Turcios PA PA cp Herrera, Deanna [facility] Renata Gandara RN RN ls4 Corrections: (The following items were deleted from the chart) 22:42 22:42 Response: No adverse reaction ls4 ls4 22:43 17:09 Reassessment: ls4 ls4
--- NOTE | 2019-08-27 21:02 | EDPHYS ---
Physician Documentation [facility] Name: Arleth Miner Age: 49 yrs Sex: Female : 1970 Arrival Date: 08/27/2019 Time: 15:01 Bed 24 Private MD: [facility] ED Physician Thad Capone HPI: 08/26 16:14 This 49 yrs old Female presents to ER via Ambulatory with complaints of Chest kdr Pain. 19:12 The patient or guardian reports chest pain that is located primarily in the substernal kdr area, anterior chest wall. 19:13 Onset: gradually, at an unknown time. has been ongoing for months but now kdr progeressigelyworsening. The pain radiates to the right scapula. Associated signs and symptoms: Pertinent positives: cough, shortness of breath. The chest pain is described as aching, burning. Modifying factors: The symptoms are alleviated by transient relief from medications given by Dr. Nicole. Severity of pain: At its worst the pain was mild in the emergency department the pain is unchanged. Historical: - Allergies: 15:11 No Known Allergies; ss - PMHx: 15:11 Diabetes - NIDDM; Hyperlipidemia; Hypertension; ss - PSHx: 15:11 ; Hysterectomy; Cholecystectomy; Appendectomy; ss - Immunization history:: Adult Immunizations up to date. - Social history:: Smoking status: Patient denies any tobacco usage or history of. ROS: 19:13 Constitutional: Negative for fever, chills, and weight loss, Eyes: Negative for injury, kdr pain, redness, and discharge, ENT: Negative for injury, pain, and discharge, Neck: Negative for injury, pain, and swelling, Abdomen/GI: Negative for abdominal pain, nausea, vomiting, diarrhea, and constipation, Back: Negative for injury and pain, : Negative for injury, bleeding, discharge, and swelling, MS/Extremity: Negative for injury and deformity, Skin: Negative for injury, rash, and discoloration, Neuro: Negative for headache, weakness, numbness, tingling, and seizure activity. Psych: Negative for depression, anxiety, suicide ideation, homicidal ideation, and hallucinations, Allergy/Immunology: Negative for hives, rash, and allergies, Endocrine: Negative for neck swelling, polydipsia, polyuria, polyphagia, and marked weight changes, Hematologic/Lymphatic: Negative for swollen nodes, abnormal bleeding, and unusual bruising. 19:13 Cardiovascular: Positive for chest pain, Negative for edema, orthopnea, palpitations, paroxysmal nocturnal dyspnea, acute changes. 19:13 Respiratory: Positive for cough, dyspnea on exertion, shortness of breath, wheezing. Exam: 19:13 Constitutional: This is a well developed, well nourished patient who is awake, alert, kdr and in no acute distress. Head/Face: Normocephalic, atraumatic. Eyes: Pupils equal round and reactive to light, extra-ocular motions intact. Lids and lashes normal. Conjunctiva and sclera are non-icteric and not injected. Cornea within normal limits. Periorbital areas with no swelling, redness, or edema. Neck: Trachea midline, no thyromegaly or masses palpated, and no cervical lymphadenopathy. Supple, full range of motion without nuchal rigidity, or vertebral point tenderness. No Meningismus. Chest/axilla: Normal chest wall appearance and motion. Nontender with no deformity. No lesions are appreciated. 19:13 Cardiovascular: Regular rate and rhythm with a normal S1 and S2. No gallops, murmurs, kdr or rubs. Normal PMI, no JVD. No pulse deficits. Respiratory: Lungs have equal breath sounds bilaterally, clear to auscultation and percussion. No rales, rhonchi or wheezes noted. No increased work of breathing, no retractions or nasal flaring. Abdomen/GI: Soft, non-tender, with normal bowel sounds. No distension or tympany. No guarding or rebound. No evidence of tenderness throughout. Back: No spinal tenderness. No costovertebral tenderness. Full range of motion. Skin: Warm, dry with normal turgor. Normal color with no rashes, no lesions, and no evidence of cellulitis. MS/ Extremity: Pulses equal, no cyanosis. Neurovascular intact. Full, normal range of motion. Neuro: Awake and alert, GCS 15, oriented to person, place, time, and situation. Cranial nerves II-XII grossly intact. Motor strength 5/5 in all extremities. Sensory grossly intact. Cerebellar exam normal. Normal gait. Psych: Awake, alert, with orientation to person, place and time. Behavior, mood, and affect are within normal limits. Vital Signs: 15:07 BP 170 / 86; Pulse 95; Resp 19; Temp 97.6(TE); Pulse Ox 100% on R/A; Weight 108.86 kg; ss Height 5 ft. 3 in. (160.02 cm); Pain 8/10; 17:12 BP 130 / 67; Pulse 88; Resp 18; Pulse Ox 98% ; Pain 0/10; ls4 18:30 BP 142 / 70; Pulse 82; Resp 18; Pulse Ox 99% on R/A; Pain 0/10; ls4 19:30 BP 138 / 70; Pulse 80; Resp 18; Pulse Ox 99% on R/A; Pain 0/10; ls4 20:50 BP 135 / 74; Pulse 82; Resp 18; Pulse Ox 98% on R/A; Pain 3/10; ls4 15:07 Body Mass Index 42.51 (108.86 kg, 160.02 cm) ss MDM: 18:30 Differential diagnosis: bronchitis, pneumonia cardiac arrythmia, pericarditis, reactive cp airway, costochondritis, asthma, acute AR. 19:34 Patient medically screened. 21:00 Data reviewed: vital signs, nurses notes, lab test result(s), EKG, radiologic studies, cp plain films, and as a result, I will discharge patient. 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 Response to treatment: the patient's symptoms have markedly improved after treatment, and as a result, I will discharge patient. 08/26 16:12 Order name: Urine Dipstick--Ancillary (enter results); Complete Time: 19:31 em1 08/26 18:21 Order name: Basic Metabolic Panel; Complete Time: 19:31 kdr 08/26 19:50 Interpretation: Normal except: GFR 71. cp 08/26 18:21 Order name: CBC with Diff; Complete Time: 19:31 kdr 08/26 19:49 Interpretation: Normal except: WBC 16.3; RBC 5.14; MCH 26.4; NEUT A 10.6. cp 08/26 18:21 Order name: LFT's; Complete Time: 19:31 [facility] 0608 19:50 Interpretation: Normal except: ALK 220; TP 8.7; GLOB 5.3; A/G 0.6. 06 18:21 Order name: Magnesium; Complete Time: 19:31 kdr 06/08 18:21 Order name: Troponin (emerg Dept Use Only); Complete Time: 19:31 [facility] 08/26 18:21 Order name: XRAY Chest (1 view); Complete Time: 19:49 [facility] 06/08 19:49 Interpretation: Report review. 06 18:21 Order name: EKG; Complete Time: 18:22 kdr 06 18:21 Order name: Cardiac monitoring; Complete Time: 19:42 [facility] 08/26 18:21 Order name: EKG - Nurse/Tech; Complete Time: 19:42 [facility] 06 18:21 Order name: IV Saline Lock; Complete Time: 19:42 [facility] 08/26 18:21 Order name: Labs collected and sent; Complete Time: 19:42 [facility] 08/26 18:21 Order name: O2 Per Protocol; Complete Time: 19:42 kdr 08 18:21 Order name: O2 Sat Monitoring; Complete Time: 19:42 kdr Administered Medications: 19:30 Drug: SOLU-Medrol 125 mg Route: IVP; Site: right antecubital; ls4 20:00 Follow up: Response: No adverse reaction ls4 19:30 Drug: Albuterol - atroVENT (3:1) (2.5 mg - 0.5 mg) 3 ml Route: Nebulizer; ls4 20:00 Follow up: Response: No adverse reaction ls4 Disposition: 08/27/19 21:00 Discharged to Home. Impression: Other chest pain, Shortness of breath, Elevated white blood cell count, unspecified. - Condition is Stable. - Discharge Instructions: Nonspecific Chest Pain, Shortness of Breath. - Prescriptions for Prednisone 20 mg Oral Tablet - take 2 tablet by ORAL route once daily for 5 days; 10 tablet. Albuterol Sulfate 90 mcg/actuation - inhale 1-2 puff by INHALATION route every 4-6 hours; 1 Inhaler. - Medication Reconciliation Form, Thank You Letter, Antibiotic Education, Prescription Opioid Use form. - Follow up: Boris Nicole MD; When: 2 - 3 days; Reason: Recheck today's complaints. - Problem is new. - Symptoms have improved. Addendum: 08/29/2019 13:24 Co-signature as Attending Physician, Thad Capone MD I agree with the assessment and k dr plan of care. Signatures: Dispatcher [employer] EDWY Thad Capone MD MD [facility] Yumiko Anderson RN RN ss Buddy Turcios PA PA cp Renata Gandara RN RN ls4 Corrections: (The following items were deleted from the chart) 08/26 21:01 21:00 08/27/2019 21:00 Discharged to Home. Impression: Other chest pain; Shortness of cp breath. Condition is Stable. Forms are Medication Reconciliation Form, Thank You Letter, Antibiotic Education, Prescription Opioid Use. Follow up: Boris Nicole; When: 2 - 3 days; Reason: Recheck today's complaints. Problem is new. Symptoms have improved. cp 21:28 21:01 08/27/2019 21:00 Discharged to Home. Impression: Other chest pain; Shortness of ls4 breath; Elevated white blood cell count, unspecified. Condition is Stable. Discharge Instructions: Nonspecific Chest Pain, Shortness of Breath. Prescriptions for Prednisone 20 mg Oral Tablet - take 2 tablet by ORAL route once daily for 5 days; 10 tablet, Albuterol Sulfate 90 mcg/actuation - inhale 1-2 puff by INHALATION route every 4-6 hours; 1 Inhaler. and Forms are Medication Reconciliation Form, Thank You Letter, Antibiotic Education, Prescription Opioid Use. Follow up: Boris Nicole; When: 2 - 3 days; Reason: Recheck today's complaints. Problem is new. Symptoms have improved. cp
[2019-08-27 21:33] VITALS: TEMP 97.6
[2019-08-27 21:34] VITALS: O2SAT 98
[2019-08-27 21:35] VITALS: BP 135/74
--- NOTE | 2019-08-28 06:36 | EKG ---
Test Date: 2019-08-27 Test Time: 15:18:01 Turkish Line Attendant: KRISHNA MEASUREMENT RESULTS: Intervals: Rate: 85 MD: 138 QRSD: 92 QT: 354 QTc: 421 [place]: P: 46 MD: 138 QRS: 33 T: 77 INTERPRETIVE STATEMENTS: Normal sinus rhythm Cannot rule out Anterior infarct, age undetermined Abnormal ECG Compared to ECG 07/09/2019 15:08:45 No significant changes Electronically Signed On 08-28-19 06:34:37 CDT by Harry Bose
== END 2019-08-27 21:28 | disposition home or self-care (01) ==
LOC: ER 14:57
DX: R06.02 Shortness of breath (principal); D72.829 Elevated white blood cell count, unspecified; I10 Essential (primary) hypertension
CPT/HCPCS: 93005; 85025; 80048; 36415; 83735; 80076; 81003; 84484; 71045; 96374; 99285; J2930

== ENCOUNTER 2020-04-29 18:25 | Emergency (ER) | payer OTHER ==
[2020-04-29 23:22] LABS: Protime INR 1.01
[2020-04-29 23:23] LABS: Absolute Lymphocytes (CBC) 2.2 K/uL (0.7-4.9); Hematocrit 43.6 % (36.0-45.0); Lymphocytes % 32.4 % (15.3-44.8); MPV 8.1 fL (7.6-11.3); RBC Red Blood Cell Count 5.39 M/uL (3.86-4.86)
[2020-04-29 23:41] LABS: ALT/SGPT 109 U/L (12-78); AST/SGOT 156 U/L (15-37); Albumin 3.4 g/dL (3.4-5.0); Alkaline Phosphatase 239 U/L (45-117); BUN Blood Urea Nitrogen 9 mg/dL (7-18); Bicarbonate 28 mmol/L (21-32); Bilirubin Direct < 0.1 mg/dL (0-0.2); Bilirubin Total 0.2 mg/dL (0.2-1.0); Glucose Level 210 mg/dL (74-106); Magnesium 1.9 mg/dL (1.8-2.4); NT PRO-BNP 30 pg/mL (<125); Potassium 3.6 mmol/L (3.5-5.1); Protein, Total 8.6 g/dL (6.4-8.2); Sodium Level 139 mmol/L (136-145); Troponin (Emerg Dept Use Only) < 0.02 ng/mL (0.0-0.045)
[2020-04-29] MEDS ORDERED: NITROGLYCERIN 0.4 MG/TAB SL ONE (23:49)
[2020-04-29] MEDS ORDERED: NA CHLORIDE 0.9% 500 ML ONE (23:49)
[2020-04-29] MEDS ORDERED: ASPIRIN 81 MG CHEWABLE TABLET ONE (23:49)
--- NOTE | 2020-04-30 00:25 | EDPHYS ---
Physician Documentation [facility] Name: Arleth Miner Age: 50 yrs Sex: Female : 1970 Arrival Date: 04/29/2020 Time: 18:36 Bed 7 Private MD: ED Physician Suzette Chadwick HPI: 04/29 22:15 This 50 yrs old Female presents to ER via Ambulatory with complaints of Chest cp Pain, Back Pain, Cold Symptoms, Fever. 22:15 The patient or guardian reports chest pain that is located primarily in the anterior cp chest wall, bilaterally. 22:15 Onset: 2 day(s) ago. The pain does not radiate. cp 22:15 The chest pain is described as a pressure. cp 22:15 Associated signs and symptoms: Pertinent positives: cough, shortness of breath, cp Pertinent negatives: lower extremity pain, lower extremity swelling. Duration: The patient or guardian reports a single episode, that is still ongoing. Historical: - Allergies: 18:52 No Known Allergies; ll1 - PMHx: 18:52 Diabetes - NIDDM; Hyperlipidemia; Hypertension; ll1 - PSHx: 18:52 Hysterectomy; ; Cholecystectomy; Appendectomy; Hernia repair; ll1 - Immunization history:: Flu vaccine is not up to date. - Social history:: Smoking status: Patient denies any tobacco usage or history of. ROS: 22:20 Constitutional: Negative for body aches, chills, fever, poor PO intake. cp 22:20 Eyes: Negative for injury, pain, redness, and discharge. cp 22:20 ENT: Positive for sore throat, Negative for drainage from ear(s), ear pain, difficulty swallowing, difficulty handling secretions. 22:20 Cardiovascular: Positive for chest pain, Negative for edema, palpitations. 22:20 Respiratory: Positive for cough, with no reported sputum, shortness of breath, Negative for wheezing. 22:20 Abdomen/GI: Negative for abdominal pain, nausea, vomiting, and diarrhea. 22:20 Back: Positive for pain at rest, of the bilateral medial to scapula. 22:20 Skin: Negative for cellulitis, rash. 22:20 Neuro: Negative for altered mental status, headache, syncope, weakness. 22:20 All other systems are negative. Exam: 23:30 ECG was reviewed by the Attending Physician. cp 04/30 01:52 Eyes: Pupils equal round and reactive to light, extra-ocular motions intact. Lids and jr8 lashes normal. Conjunctiva and sclera are non-icteric and not injected. Cornea within normal limits. Periorbital areas with no swelling, redness, or edema. ENT: Nares patent. No nasal discharge, no septal abnormalities noted. Tympanic membranes are normal and external auditory canals are clear. Oropharynx with no redness, swelling, or masses, exudates, or evidence of obstruction, uvula midline. Mucous membranes moist. Neck: Trachea midline, no thyromegaly or masses palpated, and no cervical lymphadenopathy. Supple, full range of motion without nuchal rigidity, or vertebral point tenderness. No Meningismus. Cardiovascular: Regular rate and rhythm with a normal S1 and S2. No gallops, murmurs, or rubs. Normal PMI, no JVD. No pulse deficits. Respiratory: Lungs have equal breath sounds bilaterally, clear to auscultation and percussion. No rales, rhonchi or wheezes noted. No increased work of breathing, no retractions or nasal flaring. Abdomen/GI: Soft, non-tender, with normal bowel sounds. No distension or tympany. No guarding or rebound. No evidence of tenderness throughout. Back: No spinal tenderness. No costovertebral tenderness. Full range of motion. Skin: Warm, dry with normal turgor. Normal color with no rashes, no lesions, and no evidence of cellulitis. MS/ Extremity: Pulses equal, no cyanosis. Neurovascular intact. Full, normal range of motion. Neuro: Awake and alert, GCS 15, oriented to person, place, time, and situation. Cranial nerves II-XII grossly intact. Motor strength 5/5 in all extremities. Sensory grossly intact. Vital Signs: 04/29 18:50 BP 156 / 78; Pulse 87; Resp 17; Temp 97.2; Pulse Ox 97% on R/A; Weight 104.33 kg; ll1 Height 5 ft. 3 in. (160.02 cm); Pain 11/28; 04/30 00:26 BP 135 / 75; Pulse 82; Resp 18; Pulse Ox 98% ; ea 03:30 BP 143 / 80; Pulse 80; Resp 18; Temp 98; Pulse Ox 99% ; ea 04/29 18:50 Body Mass Index 40.74 (104.33 kg, 160.02 cm) ll1 MDM: 04/29 21:58 Patient medically screened. cp 04/30 01:47 The patient was given aspirin in the Emergency Department. Data reviewed: vital signs, jr8 nurses notes, old medical records, lab test result(s), EKG, radiologic studies, plain films. Data interpreted: Pulse oximetry: on room air is 98 %. Interpretation: normal. 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 ED course: I took over care from Buddy Turcios PA-C. Talked with patient about presentation and labs tonight. Patient explained that the nitro did not really help. Has been having a lot of anxiety since this past Tuesday along with what she feels like is an upper respiratory infection. Patient had stress test from previous CP admission on 07/09/[address] Bose saw her at that time. Patients EKG without acute ischemic or infarction. Both troponins negative. Ativan seemed to help patient overall including CP. Patient is SARS CoV2 +. This would be the URI symptoms she has been having. Will start her on appropriate medicine for this with close f/u with FM and Cardiology. Patient knows to come back if she worsens. Patient good with plan. . 04/29 22:17 Order name: Basic Metabolic Panel cp 04/29 22:17 Order name: CBC with Diff cp 04/29 22:17 Order name: LFT's cp 04/29 22:17 Order name: Magnesium cp 04/29 22:17 Order name: NT PRO-BNP; Complete Time: 00:04 cp 04/29 22:17 Order name: PT-INR; Complete Time: 00:04 cp 04/29 22:17 Order name: Troponin (emerg Dept Use Only); Complete Time: 00:04 cp 04/29 22:17 Order name: Strep; Complete Time: 00:04 cp 04/29 22:17 Order name: Basic Metabolic Panel; Complete Time: 00:04 EDMS 02 00:04 Interpretation: Normal except: GLUC 210; GFR 81. 04/29 22:17 Order name: CBC with Automated Diff; Complete Time: 00:04 EDAK 02 00:05 Interpretation: Normal except: RBC 5.39; RDW 15.7. 04/29 22:17 Order name: Liver (Hepatic) Function; Complete Time: 00:04 EDAK 02 00:05 Interpretation: Normal except: AST 156; ALT 109; ALK 239; TP 8.6; GLOB 5.2; A/G 0.7. 04/29 22:17 Order name: Magnesium; Complete Time: 00:04 EDAK 04/29 22:17 Order name: XRAY Chest (1 view) 04/29 22:17 Order name: EKG; Complete Time: 22:18 04/29 22:17 Order name: Cardiac monitoring; Complete Time: 23:31 04/29 22:17 Order name: EKG - Nurse/Tech; Complete Time: 23:31 04/29 22:17 Order name: IV Saline Lock; Complete Time: 23:13 cp 04/29 22:17 Order name: Labs collected and sent; Complete Time: 23:13 cp 04/29 22:17 Order name: O2 Per Protocol; Complete Time: 23:13 04/29 23:56 Order name: Throat Culture EDAK 04/30 00:52 Order name: COVID-19/FLU A+B; Complete Time: 01:21 EDAK 04/30 01:23 Interpretation: Abnormal: SARSCOV2 RT PCR POSITIVE. 04/30 01:24 Order name: Troponin I: repeat \T\0200; Complete Time: 02:56 04/29 22:17 Order name: O2 Sat Monitoring; Complete Time: 23:13 cp EC/09 23:30 Rate is 79 beats/min. Rhythm is regular. MO interval is normal. QRS interval is normal. cp QT interval is normal. T waves are Inverted in lead aVR. Interpreted by me. Reviewed by me. Administered Medications: 23:30 Drug: Nitroglycerin 0.4 mg Route: Sublingual; raji 04/30 01:54 Follow up: Response: No adverse reaction 04/29 23:30 Drug: NS 0.9% 500 ml Route: IV; Rate: bolus; Site: right antecubital; ea 04/30 01:54 Follow up: IV Status: Completed infusion; IV Intake: 500ml ea 04/29 23:30 Drug: Aspirin Chewable Tablet 324 mg Route: PO; ea 04/30 01:54 Follow up: Response: No adverse reaction ea 01:23 Not Given (Physician Discretion): Nitroglycerin 0.4 mg Sublingual once cp 01:47 Drug: Ativan 0.5 mg Route: IVP; Site: right antecubital; ea 02:20 Follow up: Response: No adverse reaction ea 01:48 Drug: SOLU-Medrol 125 mg Route: IVP; Site: right antecubital; ea 01:48 Follow up: Response: No adverse reaction Disposition: 07:00 Co-signature as Attending Physician, Suzette Chadwick MD. ma2 Disposition: 04/30/20 03:15 Discharged to Home. Impression: Chest pain, unspecified, Anxiety disorder due to known physiological condition, COVID-19. - Condition is Stable. - Discharge Instructions: Panic Attacks, Nonspecific Chest Pain, COVID-19. - Prescriptions for ivermectin 3 mg Oral tablet - take 5 tablet by ORAL route Day 1 then another 5 tablets on day 3; 10 tablet. Medrol ([place]) 4 mg Oral Tablets, Dose Pack - take 1 tablet by ORAL route as directed - follow package instructions; 1 packet. Zithromax Z- [place] 250 mg Oral Tablet - take 1 tablet by ORAL route as directed for 5 days Day 1 - take two (2) tablets one time. Day 2, 3, 4 , 5 take one (1) tablet once daily.; 6 tablet. - Work release form, Medication Reconciliation Form, Thank You Letter, Antibiotic Education, Prescription Opioid Use form. - Follow up: Harry Bose MD; When: 5 - 6 days; Reason: Recheck today's complaints, Continuance of care, Re-evaluation by your physician. - Problem is new. - Symptoms have improved. - Notes: Vitamin C: 2,000mg three times a day Vitamin D: 4,000units once daily Zinc: 100 mg once daily Melatonin: 10mg at bedtime Signatures: Dispatcher [employer] EDMS Saturnino Dockery PA PA jr8 Buddy Turcios PA PA cp Antunez, Elena, RN Suzette Wolfe ea, MD MD ma2 Kong Esparza RN RN ll1 Corrections: (The following items were deleted from the chart) 02 23:38 22:17 Influenza Screen (A \T\ B)+BA.LAB.BRZ ordered. EDAK EDMS 23:38 22:17 CORONAVIRUS+MR.LAB.BRZ ordered. EDAK EDAK 04/30 01:20 00:24 Hospitalization Ordered by Charlie Mckenna for Observation. Preliminary diagnosis jr8 is Chest pain, unspecified. Bed requested for Telemetry/MedSurg (observation). Status is Observation. Condition is Stable. Problem is new. Symptoms have improved. cp 03:40 03:15 04/30/2020 03:15 Discharged to Home. Impression: Chest pain, unspecified; Anxiety ea disorder due to known physiological condition; COVID-19. Condition is Stable. Forms are Medication Reconciliation Form, Thank You Letter, Antibiotic Education, Prescription Opioid Use. Follow up: Harry Bose; When: 5 - 6 days; Reason: Recheck today's complaints, Continuance of care, Re-evaluation by your physician. Problem is new. Symptoms have improved. jr8
--- NOTE | 2020-04-30 00:25 | ER ---
Nurse's Notes [facility] [place] Name: Arleth Miner Age: 50 yrs Sex: Female : 1970 Arrival Date: 04/29/2020 Time: 18:36 Bed 7 Private MD: Diagnosis: Chest pain, unspecified;Anxiety disorder due to known physiological condition;COVID-19 Presentation: 04/29 18:50 Chief complaint: Patient states: Chest pain, anxiety, cough, feels hot for 3 days. Pain ll1 to back as well. Coronavirus screen: Client denies travel out of the [place] in the last 14 days. cough unrelated to allergies, difficulty breathing, fatigue, shortness of breath, Client presents with at least one sign or symptom that may indicate coronavirus-19. Standard/surgical mask placed on the client. Ebola Screen: Patient denies travel to an Ebola-affected area in the 21 days before illness onset. Initial Sepsis Screen: Does the patient meet any 2 criteria? No. Patient's initial sepsis screen is negative. Does the patient have a suspected source of infection? Yes: Productive cough/pneumonia. Risk Assessment: Do you want to hurt yourself or someone else? Patient reports no desire to harm self or others. Onset of symptoms was April 27, 2020. 18:50 Method Of Arrival: Ambulatory ll1 18:50 Acuity: ALANNA 3 ll1 Historical: - Allergies: 18:52 No Known Allergies; ll1 - PMHx: 18:52 Diabetes - NIDDM; Hyperlipidemia; Hypertension; ll1 - PSHx: 18:52 Hysterectomy; ; Cholecystectomy; Appendectomy; Hernia repair; ll1 - Immunization history:: Flu vaccine is not up to date. - Social history:: Smoking status: Patient denies any tobacco usage or history of. Screenin:25 Abuse screen: Denies threats or abuse. Nutritional screening: No deficits noted. sg Tuberculosis screening: No symptoms or risk factors identified. Fall Risk None identified. Assessment: 23:40 General: Appears in no apparent distress. Behavior is appropriate for age. Pain: sg Complains of pain in chest. Neuro: Level of Consciousness is awake, alert, obeys commands, Oriented to person, place, time. Cardiovascular: Patient's skin is warm and dry. Respiratory: Airway is patent Respiratory effort is even, unlabored, Respiratory pattern is regular, symmetrical. Derm: Skin is pink, warm \T\ dry. 04/30 01:55 Reassessment: Patient and/or family updated on plan of care and expected duration. Pain ea level reassessed. Patient is alert, oriented x 3, equal unlabored respirations, skin warm/dry/pink. 02:40 Reassessment: Patient and/or family updated on plan of care and expected duration. Pain ea level reassessed. Patient is alert, oriented x 3, equal unlabored respirations, skin warm/dry/pink. 03:38 Reassessment: Patient and/or family updated on plan of care and expected duration. Pain ea level reassessed. Patient is alert, oriented x 3, equal unlabored respirations, skin warm/dry/pink. Discharge instruction given to patient, verbalized the understanding of instruction. Pt left ED ambulatory accompanied by family. Vital Signs: 04/29 18:50 BP 156 / 78; Pulse 87; Resp 17; Temp 97.2; Pulse Ox 97% on R/A; Weight 104.33 kg; ll1 Height 5 ft. 3 in. (160.02 cm); Pain /10; 04/30 00:26 BP 135 / 75; Pulse 82; Resp 18; Pulse Ox 98% ; ea 03:30 BP 143 / 80; Pulse 80; Resp 18; Temp 98; Pulse Ox 99% ; ea 04/29 18:50 Body Mass Index 40.74 (104.33 kg, 160.02 cm) ll1 ED Course: 04/29 18:36 Patient arrived in ED. ds1 18:52 Triage completed. ll1 18:52 Arm band placed on. ll1 21:55 Buddy Turcios PA is PHCP. cp 21:55 Suzette Chadwick MD is Attending Physician. cp 21:55 Angely Wright, LYNNE is Primary Nurse. ea 22:35 XRAY Chest (1 view) In Process Unspecified. EDMS 23:00 Initial lab(s) drawn, by me, sent to lab. Inserted saline lock: 18 gauge in right jb4 antecubital area, using aseptic technique. Blood collected. 23:26 Patient has correct armband on for positive identification. Bed in low position. Call sg light in reach. Pulse ox on. NIBP on. 23:26 No provider procedures requiring assistance completed. Patient maintains SpO2 sg saturation greater than 95% on room air. 04/30 00:23 Charlie Mckenna is Hospitalizing Provider. cp 01:47 PHCP role handed off by Buddy Turcios PA jrTamika 01:47 Saturnino Dockery PA is PHCP. jr8 02:56 Harry Bose MD is Referral Physician. jr8 03:35 IV discontinued, intact, bleeding controlled, No redness/swelling at site. Pressure ea dressing applied. Administered Medications: 04/29 23:30 Drug: Nitroglycerin 0.4 mg Route: Sublingual; ea 04/30 01:54 Follow up: Response: No adverse reaction ea 04/29 23:30 Drug: NS 0.9% 500 ml Route: IV; Rate: bolus; Site: right antecubital; ea 04/30 01:54 Follow up: IV Status: Completed infusion; IV Intake: 500ml ea 04/29 23:30 Drug: Aspirin Chewable Tablet 324 mg Route: PO; ea 04/30 01:54 Follow up: Response: No adverse reaction ea 01:23 Not Given (Physician Discretion): Nitroglycerin 0.4 mg Sublingual once cp 01:47 Drug: Ativan 0.5 mg Route: IVP; Site: right antecubital; ea 02:20 Follow up: Response: No adverse reaction ea 01:48 Drug: SOLU-Medrol 125 mg Route: IVP; Site: right antecubital; ea 01:48 Follow up: Response: No adverse reaction ea Intake: 01:54 IV: 500ml; Total: 500ml. ea Outcome: 00:24 Decision to Hospitalize by Provider. cp 03:15 Discharge ordered by . jr8 03:39 Discharged to home ambulatory, with family. ea 03:39 Condition: stable 03:39 Discharge instructions given to patient, Instructed on discharge instructions, follow up and referral plans. medication usage, Demonstrated understanding of instructions, follow-up care, medications, Prescriptions given X 3. 03:40 Patient left the ED. ea Signatures: Dispatcher [employer] EDMS Ricardo Grullon RN RN sg Sanford, Demi ds1 Saturnino Dockery PA PA jrBuddy Ward PA PA cp Bryson, James RN LYNNE jb4 Wright, Angely, RN RN ea Isaias, Lynsay, RN RN ll1
[2020-04-30 00:52] LABS: SARS-COV-2 RT PCR POSITIVE (NEGATIVE)
[2020-04-30] MEDS ORDERED: METHYLPREDNISOLONE 125 MG INJ ONE (01:43)
[2020-04-30] MEDS ORDERED: LORazepam 2 MG/ML VIAL ONE (01:44)
[2020-04-30 03:49] VITALS: BP 143/80; TEMP 98; O2SAT 99
--- NOTE | 2020-04-30 08:03 | RAD REPORT ---
EXAM DESCRIPTION: RAD - Chest Single View - 04/29/2020 10:37 pm CLINICAL HISTORY: CHEST PAIN, back pain COMPARISON: Portable August 2019 TECHNIQUE: AP portable chest image was obtained 04/29/2020 10:37 pm . FINDINGS: Lung volumes are very low. Large body habitus contributes to limited visualization of the chest. Lung west are clear. No significant failure or volume overload. Heart and vasculature are no rmal. No measurable pleural effusion and no pneumothorax. No acute bony abnormality seen. No acute ao rtic findings suspected. IMPRESSION: Limited portable study without acute cardiopulmonary finding. No significant change from comparison study.
--- NOTE | 2020-04-30 11:53 | EKG ---
Test Date: 2020-04-29 Test Time: 23:26:45 Manufacturing Maintenance Manager: SHAILESH MEASUREMENT RESULTS: Intervals: Rate: 79 WA: 136 QRSD: 88 QT: 378 QTc: 433 [place]: P: 36 [place]: 136 QRS: 25 T: 21 INTERPRETIVE STATEMENTS: Normal sinus rhythm Cannot rule out Anterior infarct, age undetermined Abnormal ECG Compared to ECG 08/27/2019 15:18:01 No significant changes Electronically Signed On 04-30-20 11:53:17 [employer]EL [employer] MECH[employer]IC by Harry Bose
== END 2020-04-30 03:40 | disposition home or self-care (01) ==
LOC: ER 18:25
DX: U07.1 COVID-19 (principal); R07.9 Chest pain, unspecified; F41.9 Anxiety disorder, unspecified; E11.9 Type 2 diabetes mellitus without complications; E78.5 Hyperlipidemia, unspecified; I10 Essential (primary) hypertension
CPT/HCPCS: 93005; 87070; 85025; 80048; 36415; 83735; 85610; 80076; 87081; 84484 ×2; 83880; 0240U; 71045; J7040; J2930; 96361; 96374; 96375; 99284

== ENCOUNTER 2020-12-22 18:55 | Emergency (ER) | payer OTHER ==
[2020-12-22 19:54] LABS: Absolute Lymphocytes (CBC) 3.5 K/uL (0.7-4.9); Basophils % 0.6 % (0-1.3); Hematocrit 40.9 % (36.0-45.0); Lymphocytes % 29.7 % (15.3-44.8); MPV 7.7 fL (7.6-11.3); Protime INR 1.07; RBC Red Blood Cell Count 4.85 M/uL (3.86-4.86)
[2020-12-22 20:12] LABS: ALT/SGPT 48 U/L (12-78); AST/SGOT 39 U/L (15-37); Albumin 3.1 g/dL (3.4-5.0); Alkaline Phosphatase 183 U/L (45-117); BUN Blood Urea Nitrogen 13 mg/dL (7-18); Bicarbonate 28 mmol/L (21-32); Bilirubin Direct < 0.1 mg/dL (0-0.2); Bilirubin Total 0.2 mg/dL (0.2-1.0); Glucose Level 289 mg/dL (74-106); Magnesium 1.9 mg/dL (1.8-2.4); NT PRO-BNP 27 pg/mL (<125); Potassium 3.5 mmol/L (3.5-5.1); Protein, Total 7.8 g/dL (6.4-8.2); Sodium Level 140 mmol/L (136-145); Troponin (Emerg Dept Use Only) < 0.02 ng/mL (0.0-0.045)
--- NOTE | 2020-12-22 21:05 | ER ---
Nurse's Notes [facility] [place] Name: Arleth Miner Age: 50 yrs Sex: Female : 1970 Arrival Date: 12/22/2020 Time: 18:58 Bed 8 Private MD: Diagnosis: Other malaise and fatigue;Shortness of breath Presentation: 12/22 19:01 Chief complaint: Fatigue, malaise, nausea, SOB, and chest pressure at night x 4-5 days. hb On Macrobid for UTI. 19:01 Method Of Arrival: Ambulatory hb 19:01 Acuity: ALANNA 3 hb 19:03 Coronavirus screen: Client presents with at least one sign or symptom that may indicate hb coronavirus-19. Standard/surgical mask placed on the client. Provider contacted for isolation considerations. Ebola Screen: No symptoms or risks identified at this time. Initial Sepsis Screen: Does the patient meet any 2 criteria? No. Patient's initial sepsis screen is negative. Does the patient have a suspected source of infection? No. Patient's initial sepsis screen is negative. Risk Assessment: Do you want to hurt yourself or someone else? Patient reports no desire to harm self or others. Onset of symptoms was December 22, 2020. 21:32 Note PT UP FOR DISCHARGE AT THIS TIME. PT AWAKE ALERT AOX4 SPEAKING IN FULL SENTENCES. cw2 PT AMBULATORY ALONE WITH A STEADY GAIT. DISCHARGE INSTRUCTIONS DISCUSSED WITH PT. ALL QUESTIONS ANSWERED AND NO CONCERNS VERBALIZED AT THIS TIME. PT ADVISED TO RETURN TO ED AT ANYTIME. Triage Assessment: 19:24 General: Appears in no apparent distress. Behavior is calm, cooperative. Pain: Denies cw2 pain. EENT: No deficits noted. Neuro: No deficits noted. Level of Consciousness is awake, alert, obeys commands. Cardiovascular: No deficits noted. Respiratory: No deficits noted. GI: No deficits noted. Historical: - Allergies: 19:04 No Known Allergies; hb - PMHx: 19:04 Diabetes - NIDDM; Hyperlipidemia; Hypertension; hb - Immunization history:: Client reports having NOT received the Covid vaccine. - Social history:: Smoking status: Patient denies any tobacco usage or history of. - Code Status:: Full code. Screenin:27 Abuse screen: Denies threats or abuse. Nutritional screening: No deficits noted. cw2 Tuberculosis screening: No symptoms or risk factors identified. Fall Risk IV access (20 points). Assessment: 19:26 General: Appears in no apparent distress. Behavior is calm, cooperative. Neuro: Level cw2 of Consciousness is awake, alert, obeys commands, Oriented to person, place, time, situation. Cardiovascular: No deficits noted. Respiratory: No deficits noted. GI: No deficits noted. No signs and/or symptoms were reported involving the gastrointestinal system. : No deficits noted. 20:25 Reassessment: Patient appears in no apparent distress at this time. No changes from cw2 previously documented assessment. Vital Signs: 19:03 BP 174 / 88; Pulse 83; Resp 16; Temp 98.2(O); Pulse Ox 99% on R/A; Weight 108.86 kg; hb Height 5 ft. 3 in. (160.02 cm); Pain 2/10; 20:00 BP 172 / 79; Pulse 79; Resp 15; Pulse Ox 98% on R/A; Pain 0/10; cw2 19:03 Body Mass Index 42.51 (108.86 kg, 160.02 cm) hb [place] Coma Score: 19:26 Eye Response: spontaneous(4). Verbal Response: oriented(5). Motor Response: obeys cw2 commands(6). Total: 15. ED Course: 18:58 Patient arrived in ED. cf2 19:02 Triage completed. hb 19:04 Arm band placed on. hb 19:07 Saturnino Dockery PA is PHCP. jr8 19:07 Vladimir Walters MD is Attending Physician. jr8 19:11 Jak Nichols, LYNNE is Primary Nurse. cw2 19:27 No provider procedures requiring assistance completed. Initial lab(s) drawn, by ct, cw2 sent to lab. Inserted saline lock: 20 gauge in right antecubital area, using aseptic technique. Blood collected. 19:28 Patient has correct armband on for positive identification. Placed in gown. Bed in low cw2 position. Call light in reach. Side rails up X2. Door closed. Noise minimized. Lights dimmed. Moved to private room. 20:09 X-ray(s) taken. dc2 20:21 XRAY Chest (1 view) In Process Unspecified. EDMS Administered Medications: No medications were administered Outcome: 21:04 Discharge ordered by MD. jr8 22:52 Patient left the ED. cw2 Signatures: Dispatcher [employer] EDMS Saturnino Dockery PA PA jr8 Yolanda Jacobson RN RN YanGlory crane 2 Shirley Tompkins RN RN me2 Jak Nichols RN RN cw2 Corrections: (The following items were deleted from the chart) 19:04 19:01 Chief complaint: Fatigue, malaise, nausea, SOB, and chest pressure at night x 4-5 hb days. On day for UTI. hb 20:00 19:59 CORONAVIRUS+MRGILLES drawn and sent. cw2 EDMS
--- NOTE | 2020-12-22 21:06 | EDPHYS ---
Physician Documentation [facility] Name: rAleth Miner Age: 50 yrs Sex: Female : 1970 Arrival Date: 12/22/2020 Time: 18:58 Bed 8 Private MD: ED Physician Vladimir Walters HPI: 12/22 20:19 This 50 yrs old Female presents to ER via Ambulatory with complaints of jr8 Shortness Of Breath, Fatigue. 20:19 Associated signs and symptoms: The patient has no apparent associated signs or jr8 symptoms. Severity of symptoms: At their worst the symptoms were mild in the emergency department the symptoms are unchanged. The patient has not experienced similar symptoms in the past. The patient has not recently seen a physician. Is a 50-year-old female who presented to the emergency room with complaints of excessive fatigue and mild shortness of breath with chest tightness. Patient stated that this is been going on for several days denies any other complaints at this time.. Historical: - Allergies: 19:04 No Known Allergies; hb - PMHx: 19:04 Diabetes - NIDDM; Hyperlipidemia; Hypertension; hb - Immunization history:: Client reports having NOT received the Covid vaccine. - Social history:: Smoking status: Patient denies any tobacco usage or history of. - Code Status:: Full code. ROS: 20:19 Eyes: Negative for injury, pain, redness, and discharge, ENT: Negative for injury, jr8 pain, and discharge, Neck: Negative for injury, pain, and swelling, Abdomen/GI: Negative for abdominal pain, nausea, vomiting, diarrhea, and constipation, Back: Negative for injury and pain, MS/Extremity: Negative for injury and deformity, Skin: Negative for injury, rash, and discoloration, Neuro: Negative for headache, weakness, numbness, tingling, and seizure. 20:19 Constitutional: Positive for fatigue. 20:19 Cardiovascular: Positive for chest pain. 20:19 Respiratory: Positive for shortness of breath. Exam: 20:19 Constitutional: This is a well developed, well nourished patient who is awake, alert, jr8 and in no acute distress. Eyes: Pupils equal round and reactive to light, extra-ocular motions intact. Lids and lashes normal. Conjunctiva and sclera are non-icteric and not injected. Cornea within normal limits. Periorbital areas with no swelling, redness, or edema. ENT: Nares patent. No nasal discharge, no septal abnormalities noted. Tympanic membranes are normal and external auditory canals are clear. Oropharynx with no redness, swelling, or masses, exudates, or evidence of obstruction, uvula midline. Mucous membranes moist. Neck: Trachea midline, no thyromegaly or masses palpated, and no cervical lymphadenopathy. Supple, full range of motion without nuchal rigidity, or vertebral point tenderness. No Meningismus. Cardiovascular: Regular rate and rhythm with a normal S1 and S2. No gallops, murmurs, or rubs. Normal PMI, no JVD. No pulse deficits. Respiratory: Lungs have equal breath sounds bilaterally, clear to auscultation and percussion. No rales, rhonchi or wheezes noted. No increased work of breathing, no retractions or nasal flaring. Abdomen/GI: Soft, non-tender, with normal bowel sounds. No distension or tympany. No guarding or rebound. No evidence of tenderness throughout. Back: No spinal tenderness. No costovertebral tenderness. Full range of motion. Skin: Warm, dry with normal turgor. Normal color with no rashes, no lesions, and no evidence of cellulitis. MS/ Extremity: Pulses equal, no cyanosis. Neurovascular intact. Full, normal range of motion. Neuro: Awake and alert, GCS 15, oriented to person, place, time, and situation. Cranial nerves II-XII grossly intact. Motor strength 5/5 in all extremities. Sensory grossly intact. Cerebellar exam normal. Normal gait. Vital Signs: 19:03 BP 174 / 88; Pulse 83; Resp 16; Temp 98.2(O); Pulse Ox 99% on R/A; Weight 108.86 kg; hb Height 5 ft. 3 in. (160.02 cm); Pain 2/10; 20:00 BP 172 / 79; Pulse 79; Resp 15; Pulse Ox 98% on R/A; Pain 0/10; cw2 19:03 Body Mass Index 42.51 (108.86 kg, 160.02 cm) hb Sandra Coma Score: 19:26 Eye Response: spontaneous(4). Verbal Response: oriented(5). Motor Response: obeys cw2 commands(6). Total: 15. MDM: 19:08 Patient medically screened. [facility] 21:01 Data reviewed: vital signs, nurses notes, lab test result(s), EKG, radiologic studies, jr8 plain films. Data interpreted: Pulse oximetry: on room air is 98 %. Interpretation: normal. Counseling: I had a detailed discussion with the patient and/or guardian regarding: the historical points, exam findings, and any diagnostic results supporting the discharge/admit diagnosis, lab results, radiology results, the need for outpatient follow up, a family practitioner, to return to the emergency department if symptoms worsen or persist or if there are any questions or concerns that arise at home. ED course: Patient remains hemodynamically stable and afebrile. No acute findings on EKG, chest x-ray, or blood work. Recommended follow-up with PCP in the next day or so. If patient were to feel worsening point time to come back for further evaluation patient is good with the plan at this time will be discharged home.. 12/22 19:08 Order name: Basic Metabolic Panel; Complete Time: 20:18 [facility] 12/22 19:08 Order name: CBC with Diff; Complete Time: 20:12 12/22 19:08 Order name: LFT's; Complete Time: 20:18 12/22 19:08 Order name: Magnesium; Complete Time: 20:18 12/22 19:08 Order name: NT PRO-BNP; Complete Time: 20:18 12/22 19:08 Order name: PT-INR; Complete Time: 20:12 [facility] 12/22 19:08 Order name: Troponin (emerg Dept Use Only); Complete Time: 20:18 12/22 19:08 Order name: XRAY Chest (1 view); Complete Time: 21:28 12/22 19:08 Order name: EKG; Complete Time: 19:31 12/22 19:08 Order name: Cardiac monitoring; Complete Time: 19:23 12/22 19:08 Order name: EKG - Nurse/Tech; Complete Time: 19:24 12/22 19:08 Order name: IV Saline Lock; Complete Time: 19:23 [facility] 12/22 20:55 Order name: SARS-COV-2 RT PCR; Complete Time: 20:59 EDMS 12/22 19:08 Order name: Labs collected and sent; Complete Time: 19:23 jr8 12/22 19:08 Order name: O2 Per Protocol; Complete Time: 19:23 jr8 12/22 19:08 Order name: O2 Sat Monitoring; Complete Time: 19:23 jr8 Administered Medications: No medications were administered Disposition: 12/23 07:01 Co-signature as Attending Physician, Vladimir Walters MD I agree with the assessment and rn plan of care. Disposition Summary: 12/22/20 21:04 Discharge Ordered Location: Home jr Problem: new jr8 Symptoms: have improved jr8 Condition: Stable jr8 Diagnosis - Other malaise and fatigue jr8 - Shortness of breath jr8 Followup: jr8 - With: Private Physician - When: 1 - 2 days - Reason: Recheck today's complaints, Continuance of care, Re-evaluation by your physician Discharge Instructions: - Discharge Summary Sheet jr8 - Shortness of Breath, Adult jr8 - Fatigue jr8 Forms: - Medication Reconciliation Form jr8 - Thank You Letter jr8 - Antibiotic Education jr8 - Prescription Opioid Use jr8 Signatures: Dispatcher [employer] EDMS Vladimir Walters MD MD rn Roszak, Josh, PA PA jr8 Yolanda Jacobson RN RN Jak Mckeon RN RN cw2 Corrections: (The following items were deleted from the chart) 12/22 20:00 19:31 CORONAVIRUS+BRZ ordered. [facility]
--- NOTE | 2020-12-22 21:26 | RAD REPORT ---
EXAM DESCRIPTION: RAD - Chest Single View - 12/22/2020 8:22 pm CLINICAL HISTORY: DYSPNEA COMPARISON: No comparisonsChest Single View dated 04/29/2020; Chest Single View dated 08/27/2019; Chest Single View dated 07/09/2019; Chest Pa And Lat (2 Views) dated 05/25/2019 FINDINGS: Lines: None. Lungs: No evidence of edema or pneumonia. Pleural: No significant pleural effusions or pneumothorax. Cardiac: The heart size is within normal limits. Bones: No acute fractures. Other: IMPRESSION: No acute cardiopulmonary disease.
[2020-12-22 22:57] VITALS: TEMP 98.2
[2020-12-22 22:59] VITALS: BP 172/79; O2SAT 98
--- NOTE | 2020-12-23 18:09 | EKG ---
Test Date: 2020-12-22 Test Time: 19:52:45 Scrap Baller: SHAILESH MEASUREMENT RESULTS: Intervals: Rate: 82 [place]: 146 QRSD: 96 QT: 380 QTc: 443 [place]: P: 43 [place]: 146 QRS: 24 T: 31 INTERPRETIVE STATEMENTS: Normal sinus rhythm Cannot rule out Anterior infarct, age undetermined Abnormal ECG Compared to ECG 04/29/2020 23:26:45 No significant changes Electronically Signed On 12-23-20 18:05:55 CDT by Harry Bose
== END 2020-12-22 22:52 | disposition home or self-care (01) ==
LOC: ER 18:55
DX: R53.81 Other malaise (principal); R53.83 Other fatigue; I10 Essential (primary) hypertension; Z20.822 Contact with and (suspected) exposure to COVID-19
CPT/HCPCS: 93005; 85025; 80048; 36415; 83735; 85610; 80076; 84484; 83880; 71045; 99283; U0003

== ENCOUNTER 2021-07-13 15:50 | Emergency (ER) | payer OTHER ==
--- OUTSIDE RECORDS SUMMARY | 2021-07-13 15:54 | XMS REPORT | Continuity of Care Document ---
:1970 Author Organization [facility] t Address [address] [place] [address] Care Team Providers Name Role Phone Mak Flores Attending Clinician Unavailable CARISSA Attending Clinician Unavailable FLORES Admitting Clinician Unavailable Payers Payer Name Policy Type Policy Number Effective Date Expiration Date S ource [employer] SNP [id number] MEDICARE HMO-[employer] Problems This patient has no known problems. Allergies, Adverse Reactions, Alerts This patient has no known allergies or adverse reactions. Medications Ordered Filled Start Stop Current Ordering Indication Dosage Frequency Signature Comments Components Source Medication Medication Date Date Medication? Clinician (SIG) Name Name Alprazolam Alprazolam Yes Mak 1 tablet [facility] Procedures This patient has no known procedures. Encounters Start End Encounter Admission Attending Care Care Encounter Source Date/Time Date/Time Type Type Clinicians Facility Department ID 2021-07-08 Outpatient [facility] [id number] [facility] 13:30:02 [facility] 2021-04-15 Outpatient Flores [facility] [id number] [facility] [facility] 14:39:31 [facility] 2021-04-15 Outpatient Flores, [facility] [id number] 14[facility]22:13 [facility] 2021-04-15 Outpatient Flores, [place] [id number] 14:16:27 Mak [id number] [facility] 2021-04-15 Outpatient Flores, [facility] 14:12:26 Mak [id number] [facility] 2021-04-15 Outpatient Flores, [facility] 14:03:59 Mak [id number] [facility] 2021-04-15 Outpatient Flores, [facility] 13:12:53 Mak [id number] [facility] 2021-04-15 Outpatient Flores, [facility] 13:04:45 Mak [id number] [facility] 2021-04-15 Outpatient Flores, [facility] 13:04:12 Mak [id number] [facility] 2021-04-15 Outpatient Flores, [facility] 13:02:32 Mak [id number] [facility] 2021-04-15 Outpatient Flores, [facility] 13:00:23 Mak [id number] [facility] 2021-04-15 Outpatient Flores, [facility] 12:59:46 Mak [id number] [facility] 2021-04-15 Outpatient Flores, [facility] 11:56:35 Mak [id number] [facility] 2021-04-15 Outpatient Flores, [facility] 11:35:20 Mak [id number] [facility] 2021-04-15 Outpatient Flores, [facility] 11:28:11 Mak [id number] [facility] 2021-04-15 Outpatient Flores, [facility] [id number] 11:28:02 Mak [id number] [facility] 2021-04-15 Outpatient Flores, [facility] [id number] 11:21:57 Mak [id number] [facility] 2021-04-15 Outpatient Flores, [facility] [id number] [facility] 11:18:20 Mak [id number] [facility] 2021-04-15 Outpatient Flores, [facility] [id number] 11:18:03 Mak [id number] [facility] 2021-04-15 Outpatient Flores, [facility] [id number] 11:17:49 Mak [id number] [facility] 2021-04-15 Outpatient Flores, [facility] [id number] 11:08:51 Mak [id number] [facility] 2021-04-15 Outpatient Flores, [facility] [id number] 11:08:14 Mak [id number] [facility] 2021-04-15 Outpatient Flores, [facility] [id number] [facility] 11:06:23 Mak [id number] [facility] 2021-07-09 2021-07-09 amb[facility] [id number] [facility] 2021-07-09 2021-07-09 ambulatory [facility] [id number] [facility] 2021-07-09 2021-07-09 ambulatory [facility] [id number] [facility] 2021-05-13 2021-05-13 Outpatient DENIS [facility] [id number] [address] [place] [address] 08:48:16 09:03:39 [facility] 2021-04-13 2021-04-13 ambulatory [facility] [id number] [facility] 2021-04-13 2021-04-13 ambulatory [facility] [id number] [facility] 2021-03-31 2021-03-31 ambulatory [facility] [id number] [facility] 2021-03-05 2021-03-05 ambulatory [facility] [id number] [facility] 2021-02-23 2021-02-23 ambulatory [facility] [id number] [facility] 2021-02-10 2021-02-10 ambulatory [facility] [id number] [facility] 2021-02-10 2021-02-10 ambulatory [facility] [id number] [facility] 2021-01-23 2021-01-23 ambulatory [facility] [id number] [facility] 2021-01-12 2021-01-12 Outpatient [facility] [id number] [facility] 2020-12-30 2020-12-30 Outpatient [facility] [id number] [facility] 2020-12-16 2020-12-16 Outpatient [facility] [id number] [facility] 2020-11-12 2020-11-12 Outpatient [facility] [id number] [facility] 2020-10-15 2020-10-15 Outpatient [facility] [id number] [facility] 2020-10-15 2020-10-15 Outpatient [facility] [id number] [facility] 2020-09-30 2020-09-30 Outpatient [facility] [id number] [facility] 2020-09-17 2020-09-17 Outpatient [facility] [id number] [facility] 2020-08-25 2020-08-25 Outpatient [facility] [id number] [facility] 2020-08-20 2020-08-20 Outpatient [facility] [id number] [facility] 2020-08-07 2020-08-07 Outpatient [facility] [id number] [facility] 2020-08-06 2020-08-06 Outpatient [facility] [id number] [facility] 2020-08-04 2020-08-04 Outpatient [facility] [id number] [facility] 2020-07-31 2020-07-31 Outpatient [facility] [id number] [facility] 2020-07-24 2020-07-24 Outpatient [facility] [id number] [facility] 2020-07-23 2020-07-23 Outpatient [facility] [id number] [facility] 2020-07-08 2020-07-08 Outpatient [facility] [id number] [facility] 2020-05-02 2020-05-02 Outpatient [facility] [id number] [facility] 2020-04-09 2020-04-09 Outpatient [facility] [id number] [facility] 2020-03-28 2020-03-28 Outpatient [facility] [id number] [facility] 2020-03-04 2020-03-04 Outpatient [facility] [id number] [facility] 2020-03-03 2020-03-03 Outpatient [facility] [id number] [facility] 2020-02-07 2020-02-07 Outpatient [facility] [id number] [facility] 2020-01-08 2020-01-08 Outpatient [facility] [id number] [facility] 2019-12-03 2019-12-03 [facility] [id number] [facility] 17:05:00 17:05:00 t [employer] [place] [facility] Clinics 2019-10-23 2019-10-23 [facility] [id number] [facility] 16:44:00 16:44:[address] [place] [address] [place] [facility] [place] [facility] Outpati ent Clinics 2019-10-08 2019-10-08 [facility] [id number] 13:15:00 13:15:00 t [place] [employer] [facility] Outpati ent Clinics 2019-10-03 2019-10-03 [facility] [id number] [facility] 14:18:00 14:18:00 t [place] [employer] [place] [facility] Outpat[facility] ent Clinics 2019-09-11 2019-09-11 [facility] [id number] [facility] 16:14:00 16:14:00 t [employer] [facility] Outpati ent Clinics 2019-09-10 2019-09-10 [facility] [id number] [facility] 11:20:00 11:20:00 t [employer] [facility] 2019-08-23 2019-08-23 [facility] [id number] [facility] 13:58:00 13:58:00 t [facility] ent Clinics 2019-08-14 2019-08-14 [facility] [id number] 07:34:00 07:34:00 t [facility] ent Clinics 2019-08-07 2019-08-07 [facility] [id number] [facility] 15:46:00 15:46:00 t [facility] 2019-08-02 2019-08-02 [facility] [id number] [facility] 14:00:00 14:00:00 t [facility] ent Clinics 2019-07-31 2019-07-31 [facility] [id number] [facility] 11:45:00 11:45:00 t [facility] 2019-07-09 2019-07-09 [facility] [id number] [facility] 13:00:00 13:00:00 t [employer] [facility] Clinics 2019-06-06 2019-06-06 [facility] [id number] [facility] 11:11:00 11:11:00 t [facility] ent Clinics 2019-05-09 2019-05-09 [facility] [id number] 16:00:00 16:00:00 t [employer] [facility] Outpati ent Clinics 2019-05-07 2019-05-07 [facility] [id number] 09:48:00 09:48:00 t [employer] [facility] 2019-05-04 2019-05-04 [facility] [id number] [facility] 10:56:00 10:56:00 t [facility] ent Clinics 2019-04-30 2019-04-30 [facility] [id number] [facility] 10:30:00 10:30:00 t [employer] [facility] Clinics 2019-02-27 2019-02-27 [facility] [id number] 16:15:00 16:15:00 t [employer] [facility] Clinics 2019-02-12 2019-02-12 [facility] [id number] [facility] 16:00:00 16:00:00 t [employer] [facility] Clinics 2019-01-30 2019-01-30 [facility] [id number] [facility] 11:30:00 11:30:00 t [employer] [facility] Clinics 2019-01-15 2019-01-15 [facility] [id number] [facility] 15:30:00 15:30:00 [employer] [place] [employer] [facility] Clinics Results This patient has no known results.
--- NOTE | 2021-07-13 16:24 | ER ---
Nurse's Notes [facility] Name: Arleth Miner Age: 51 yrs Sex: Female : 1970 Arrival Date: 07/13/2021 Time: 15:51 Bed Waiting Private MD: Diagnosis: Muscle spasm of back Presentation: 07/13 16:07 Chief complaint: Patient states: pain to right scapular area that began 3 days. Denies aa5 injury. Pt reports movement makes the pain worse. Coronavirus screen: At this time, the client does not indicate any symptoms associated with coronavirus-19. Ebola Screen: No symptoms or risks identified at this time. Initial Sepsis Screen: Does the patient meet any 2 criteria? No. Patient's initial sepsis screen is negative. Does the patient have a suspected source of infection? No. Patient's initial sepsis screen is negative. Risk Assessment: Do you want to hurt yourself or someone else? Patient reports no desire to harm self or others. Onset of symptoms was June 2021. 16:07 Method Of Arrival: Ambulatory aa5 16:07 Acuity: ALANNA 4 aa5 Historical: - Allergies: 16:08 No Known Allergies; aa5 - PMHx: 16:08 Diabetes - NIDDM; Hyperlipidemia; Hypertension; Anxiety; Hepatitis C- inactive; aa5 Arthritis; - PSHx: 16:08 section; hysterectomy; Cholecystectomy; Appendectomy; aa5 Screenin:15 Abuse screen: Denies threats or abuse. Nutritional screening: No deficits noted. aa5 Tuberculosis screening: No symptoms or risk factors identified. Fall Risk None identified. Assessment: 16:10 General: Appears comfortable, Behavior is calm, cooperative. Pain: Complains of pain in aa5 right scapular area Pain currently is 5 out of 10 on a pain scale. Quality of pain is described as aching, Pain began 2-3 days ago. Is intermittent, Aggravated by movement. Neuro: Level of Consciousness is awake, alert, obeys commands, Oriented to person, place, time, situation. Cardiovascular: Patient's skin is warm and dry. Respiratory: Airway is patent Respiratory effort is even, unlabored, Respiratory pattern is regular, symmetrical. GI: Abdomen is round. : No signs and/or symptoms were reported regarding the genitourinary system. EENT: No signs and/or symptoms were reported regarding the EENT system. Derm: Skin is pink, warm \T\ dry. Musculoskeletal: Range of motion: intact in all extremities. Vital Signs: 16:07 BP 138 / 97; Pulse 76; Resp 16 S; Temp 97.5(TE); Pulse Ox 97% on R/A; Weight 107.05 kg aa5 (R); Height 5 ft. 3 in. (160.02 cm) (R); 16:07 Body Mass Index 41.81 (107.05 kg, 160.02 cm) aa5 ED Course: 15:51 Patient arrived in ED. as 16:07 Arm band placed on. aa5 16:07 Patient has correct armband on for positive identification. aa5 16:08 Triage completed. aa5 16:09 Saturnino Dockery PA is PHCP. jr8 16:09 Vladimir Walters MD is Attending Physician. jr8 16:20 Mak Flores DO is Referral Physician. jr8 16:31 No provider procedures requiring assistance completed. Patient did not have IV access aa5 during this emergency room visit. Administered Medications: No medications were administered Outcome: 16:23 Discharge ordered by . jr8 16:30 Discharged to home ambulatory. aa5 16:30 Condition: stable 16:30 Discharge instructions given to patient, Instructed on discharge instructions, follow up and referral plans. medication usage, Demonstrated understanding of instructions, follow-up care, medications, Prescriptions given X 2. 16:33 Patient left the ED. aa5 Signatures: Elena Delarosa Audri RN RN aa5 Saturnino Dockery PA PA jr8 Corrections: (The following items were deleted from the chart) 16:14 16:07 Acuity: ALANNA 3 aa5 aa5
--- NOTE | 2021-07-13 16:24 | EDPHYS ---
Physician Documentation [facility] Name: Arleth Miner Age: 51 yrs Sex: Female : 1970 Arrival Date: 07/13/2021 Time: 15:51 Bed Waiting Private MD: ED Physician Vladimir Walters HPI: 07/13 16:42 This 51 yrs old Female presents to ER via Ambulatory with complaints of Back jr8 Pain. 16:42 The patient presents with pain that is acute, with no known mechanism of injury. The jr8 symptoms are located in the right subscapular area and right mid back. Onset: The symptoms/episode began/occurred acutely, 3 day(s) ago. The pain does not radiate. Associated signs and symptoms: The patient has no apparent associated signs or symptoms. The problem was sustained from unknown cause. Modifying factors: The patient symptoms are alleviated by nothing, the patient symptoms are aggravated by bending, lifting, movement. Severity of symptoms: At their worst the symptoms were moderate, in the emergency department the symptoms are unchanged. The patient has not experienced similar symptoms in the past. The patient has not recently seen a physician. Historical: - Allergies: 16:08 No Known Allergies; aa5 - PMHx: 16:08 Diabetes - NIDDM; Hyperlipidemia; Hypertension; Anxiety; Hepatitis C- inactive; aa5 Arthritis; - PSHx: 16:08 section; hysterectomy; Cholecystectomy; Appendectomy; aa5 ROS: 16:42 Eyes: Negative for injury, pain, redness, and discharge, ENT: Negative for injury, jr8 pain, and discharge, Neck: Negative for injury, pain, and swelling, Cardiovascular: Negative for chest pain, palpitations, and edema, Respiratory: Negative for shortness of breath, cough, wheezing, and pleuritic chest pain, Abdomen/GI: Negative for abdominal pain, nausea, vomiting, diarrhea, and constipation, : Negative for injury, bleeding, discharge, and swelling, MS/Extremity: Negative for injury and deformity, Skin: Negative for injury, rash, and discoloration, Neuro: Negative for headache, weakness, numbness, tingling, and seizure. 16:42 Back: Positive for pain at rest, pain with movement, Negative for radiated pain. Exam: 16:42 Constitutional: This is a well developed, well nourished patient who is awake, alert, jr8 and in no acute distress. Neck: Trachea midline, no thyromegaly or masses palpated, and no cervical lymphadenopathy. Supple, full range of motion without nuchal rigidity, or vertebral point tenderness. No Meningismus. Chest/axilla: Normal chest wall appearance and motion. Nontender with no deformity. No lesions are appreciated. Cardiovascular: Regular rate and rhythm with a normal S1 and S2. No gallops, murmurs, or rubs. Normal PMI, no JVD. No pulse deficits. Respiratory: Lungs have equal breath sounds bilaterally, clear to auscultation and percussion. No rales, rhonchi or wheezes noted. No increased work of breathing, no retractions or nasal flaring. Abdomen/GI: Soft, non-tender, with normal bowel sounds. No distension or tympany. No guarding or rebound. No evidence of tenderness throughout. Skin: Warm, dry with normal turgor. Normal color with no rashes, no lesions, and no evidence of cellulitis. MS/ Extremity: Pulses equal, no cyanosis. Neurovascular intact. Full, normal range of motion. Neuro: Awake and alert, GCS 15, oriented to person, place, time, and situation. Motor strength 5/5 in all extremities. Sensory grossly intact. 16:42 Back: pain, that is mild, of the right subscapular area and right mid back, ROM is painful, with flexion, with extension, Raising right arm. normal spinal alignment noted, CVA tenderness, is absent, vertebral tenderness, is not appreciated. Vital Signs: 16:07 BP 138 / 97; Pulse 76; Resp 16 S; Temp 97.5(TE); Pulse Ox 97% on R/A; Weight 107.05 kg aa5 (R); Height 5 ft. 3 in. (160.02 cm) (R); 16:07 Body Mass Index 41.81 (107.05 kg, 160.02 cm) aa5 MDM: 16:18 Patient medically screened. jr8 16:18 Data reviewed: vital signs, nurses notes, and as a result, I will discharge patient. jr8 Data interpreted: Pulse oximetry: on room air is 97 %. Interpretation: normal. Counseling: I had a detailed discussion with the patient and/or guardian regarding: the historical points, exam findings, and any diagnostic results supporting the discharge/admit diagnosis, the need for outpatient follow up, a family practitioner, to return to the emergency department if symptoms worsen or persist or if there are any questions or concerns that arise at home. 16:42 ED course: Discussed with patient that she has reproducible pain with palpation and jr8 movement without other s/s such as abdominal pain, n/v/d, fever, flank pain, or urinary complaints. Most likely muscle in nature and will treat as such. If any other the other s/s were to occur. She needs to come back for further evaluation. Otherwise needs to f/u with PCP in 1 week. Patient understood and is good with plan . Administered Medications: No medications were administered Disposition: 18:17 Co-signature as Attending Physician, Vladimir Walters MD. rn Disposition Summary: 07/13/21 16:23 Discharge Ordered Location: Home jr8 Problem: new jr8 Symptoms: have improved jr8 Condition: Stable jr8 Diagnosis - Muscle spasm of back jr8 Followup: jr8 - With: Mak Flores, DO - When: 5 - 6 days - Reason: Recheck today's complaints, Continuance of care, Re-evaluation by your physician Discharge Instructions: - Discharge Summary Sheet jr8 - Acute Back Pain, Adult jr8 - Muscle Cramps and Spasms jr8 - Heat Therapy jr8 Forms: - Medication Reconciliation Form jr8 - Thank You Letter jr8 - Antibiotic Education jr8 - Prescription Opioid Use jr8 Prescriptions: - Mobic 7.5 mg Oral Tablet - take 1 tablet by ORAL route once daily for 7 days take with food; 7 tablet; jr8 Refills: 0, Product Selection Permitted - Skelaxin 800 mg Oral Tablet - take 1 tablet by ORAL route every 8 hours As needed; 30 tablet; Refills: 0, jr8 Product Selection Permitted Signatures: Vladimir Walters MD MD rn Calderon, Audri, RN RN aa5 Saturnino Dockery PA PA jr8
[2021-07-13 18:53] VITALS: BP 138/97; TEMP 97.5; O2SAT 97
== END 2021-07-13 16:33 | disposition home or self-care (01) ==
LOC: ER 15:50
DX: M62.830 Muscle spasm of back (principal); E11.9 Type 2 diabetes mellitus without complications; E78.5 Hyperlipidemia, unspecified; I10 Essential (primary) hypertension; F41.9 Anxiety disorder, unspecified
CPT/HCPCS: 99282

== ENCOUNTER 2023-02-02 14:02 | Emergency (ER) | payer OTHER ==
--- OUTSIDE RECORDS SUMMARY | 2023-02-02 14:12 | XMS REPORT | Continuity of Care Document ---
:1970 Author Organization [facility] t Address [address] [place]. [phone] Care Team Providers Name Role Phone Pcp, Patient Does Not Have A Primary Care Physician [phone] Dre Flores Attending Clinician Unavailable [email or web address] Attending Clinician Unavailable Brenda Ham Attending Clinician Doctor Unassigned, [place] Attending Clinician Unavailable Lisa Costa PA-C Attending Clinician LISA COSTA Attending Clinician Unavailable Trini Ferrer MD Attending Clinician [phone] TRINI FERRER Attending Clinician Unavailable Marley Lai MD Attending Clinician Gelacio Chavez CRNA Attending Clinician [phone] Dary Germain Attending Clinician [phone] Provider, Kvngsouleymane Temp Attending Clinician Unavailable DRE FLORES Admitting Clinician Unavailable [email or web address] Admitting Clinician Unavailable TRINI FERRER Admitting Clinician Unavailable Payers Payer Name Policy Type Policy Number Effective Date Expiration Date S ource [employer]-HealthSpr C1 [id number] 2019-01-14 Common Sp avis ing Medicare 00:00:00 - [facility] C1 [id number] 2019-01-14 Common Sp avis ing Medicare 00:00:00 - [facility] Cig-HealthSpr C1 [id number] 2019-01-14 Common Sp avis ing Medicare 00:00:00 - [facility] [id number] 2019-01-14 Common Sp avis ing Medicare 00:00:00 - [facility] [id number] 2019-01-14 Common Sp avis ing Medicare 00:00:00 - [facility] [id number] 2019-01-14 Common [facility] [id number] 2019-01-14 Common Sp avis ing Medicare 00:00:00 - [facility] Problems Condition Condition Condition Status Onset Resolution Last Treating Co mments Source Name Details Category Date Date Treatment Clinician Date 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 Active 2021-03 Unive rs cytologic cytologic 2-19 ity of smear of smear of 00:00: [place] vagina vagina 00 Medical Branch Cervical Cervical Disease Active 2021-03 Unive rs high risk high risk 2-06 ity of human human 00:00: [place] papillomav papillomav 00 Me dical irus (HPV) irus (HPV) Br anch DNA test DNA test positive positive Type 2 Type 2 Disease Active 2021-03 Univers diabetes diabetes 2-03 ity of mellitus mellitus 00:00: [place] with with 00 Medical obesity obesity Branch Essential Essential Disease Active 2021-03 Uni vers hypertensi hypertensi 2-03 it y of on on 00:00: [place] 00 Medical Branch History of History of Disease Active 2021-03 U nivers hysterecto hysterecto 2-03 it y of my my 00:00: [place] 00 Medical Branch Screening Screening Disease Active 2021-03 Uni vers for for 2-03 ity of osteopor[place] osteoporos [place] [id number] Generalize Problem Com mon d anxiety Spirit disorder - [facility] [id number] 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 - [facility], [facility] itis type [id number] Fatty Problem Common liver Spirit - [facility] [id number] Periumbili Problem Co mmon hans hernia [facility] [id number] Current Problem Common mild Spirit episode of - [facility] major [facility] Medical without Center prior episode [id number] HTN, goal Problem Comm on below Spirit 130/80 - [facility] [id number] [place] [address] osteoarthr Spirit itis of - [facility] right knee [facility] [id number] GERD Problem Common without Spirit esophagiti - [facility] s [facility] [id number] Right leg Problem Comm on claudicati Spirit on - [facility] [id number] Benzodiaze Problem Co mmon pine Spirit dependence - [facility] , [facility] Routine Routine Problem Common eye exam eye exam [facility] Abnormal Abnormal Problem Commo n cervical Pap smear Spiri t Papanicola of cervix - C HI ou smear [facility] Leukocytos Leukocytos Problem C ommon is is Spirit - [facility] [id number] Lymphocyto Problem Com mon sis Spirit [facility] Anxiety Anxiety Problem Common [facility] Depression Depression Problem C [facility] [id number] Decreased Problem Com mon hearing of Spirit both ears - [facility] [id number] Body mass Problem Com mon index Spirit (BMI) - [facility] 40.0-44.9, [facility] [id number] Panic Problem Common disorder Spirit [episodic - [facility] [id number] Morbid Problem Commo n 9104 (severe) Spirit obesity - [facility] due to [facility] [id number] Mixed Problem Common hyperlipid Spirit emia - [facility] [id number] Chronic Problem Commo n hepatitis Spirit C without - [facility] hepatic [facility] Diabetes Diabetes Problem Commo n mellitus mellitus Spirit type 2 type 2, - [facility] uncontroll [facility] Allergies, Adverse Reactions, Alerts Allergy Allergy Status Severity Reaction(s) Onset Inactive Treating Comm ents Source Name Type Date Date Clinician NO KNOWN Allergy Active [facility] NO KNOWN Drug [facility] Social History Social Habit Start Date Stop Date Quantity Comments Source Gender identity [facility] History of Tobacco Common Spirit - Use [facility] Sexual orientation [facility] History of Social 2022-03-17 2022-03-17 [facility] function 00:00:00 00:00:00 [facility] Alcohol intake 2022-03-17 2022-03-17 [facility] (finding[facility] Medical Center Exposure to 2022-02-26 2022-03-08 Not sure [facility] SARS-CoV-2 (event) 00:00:00 14:56:00 [facility] Tobacco use and 2022-03-08 2022-03-08 [facility] exposure 00:00:00 00:00:00 tobacco non-user [facility] Sex Ass[birth year] At [birth year] F [facility] 00:00:00 00:00:00 [facility] Smoking Status Start Date Stop Date Source Never smoked tobacco [facility] Medications Ordered Filled Start Stop Current Ordering Indication Dosage Frequency Signature Comments Components Source Medication Medication Date Date Medication? Clinician (SIG) Name Name Tracedarshana Dockery Tracedarshana 5 2022-03 No Mounjaro 5 MG/0.5ML MG/0.5ML 0-25 MG/0.5ML 00:00: 00 Mounjaro 5 Mounjaro 5 2022-03 No Mounjaro 5 MG/0.5ML MG/0.5ML 0-25 MG/0.5ML 00:00: 00 Mounjaro 5 Mounjaro 5 2022-03 No Mounjaro 5 MG/0.5ML MG/0.5ML 0-25 MG/0.5ML 00:00: 00 Mounjaro 5 Mounjaro 5 2022-03 No Mounjaro 5 MG/0.5ML MG/0.5ML 0-25 MG/0.5ML 00:00: 00 Mounjaro 5 Mounjaro 5 2022-03 No Mounjaro 5 MG/0.5ML MG/0.5ML 0-25 MG/0.5ML 00:00: 00 Mounjaro 5 Mounjaro 5 2022-03 No Mounjaro 5 MG/0.5ML MG/0.5ML 0-25 MG/0.5ML 00:00: 00 ALPRAZolam ALPRAZolam 2022-03 No 1{table ALPRAZolam 1 MG 1 MG 0-01 t} 1 MG 00:00: 00 ALPRAZolam ALPRAZolam 2022-03 No 1{table ALPRAZolam 1 MG 1 MG 0-01 t} 1 MG 00:00: 00 ALPRAZolam ALPRAZolam 2022-03 No 1{table ALPRAZolam 1 MG 1 MG 0-01 t} 1 MG 00:00: 00 ALPRAZolam ALPRAZolam 2022-03 No 1{table ALPRAZolam 1 MG 1 MG 0-01 t} 1 MG 00:00: 00 ALPRAZolam ALPRAZolam 2022-03 No 1{table ALPRAZolam 1 MG 1 MG 0-01 t} 1 MG 00:00: 00 ALPRAZolam ALPRAZolam 2022-03 No 1{table ALPRAZolam 1 MG 1 MG 0-01 t} 1 MG 00:00: 00 ALPRAZolam ALPRAZolam 2022-03 No 1{table ALPRAZolam 1 MG 1 MG 0-01 t} 1 MG 00:00: 00 ALPRAZolam ALPRAZolam 2022-03 No 1{table ALPRAZolam 1 MG 1 MG 0-01 t} 1 MG 00:00: 00 ALPRAZolam ALPRAZolam No 1{table ALPRAZolam 1 MG 1 MG 6-23 t} 1 MG 00:00: 00 Ozempic (2 Ozempic (2 No Ozempic (2 MG/DOSE) 8 MG/DOSE) 8 6-08 MG/DOSE) 8 MG/3ML MG/3ML 00:00: MG/3ML 00 Ondansetron Ondansetron No 1{table Ondansetro 4 MG 4 MG 6-05 t_on_th n 4 MG 00:00: e_tongu 00 e_and_a llow_to _dissol ve} Ondansetron Ondansetron 3-0 No 1{table Ondansetro 4 MG 4 MG 6-05 t_on_th n 4 MG 00:00: e_tongu 00 e_and_a llow_to _dissol ve} Ondansetron Ondansetron 3-0 No 1{table Ondansetro 4 MG 4 MG 6-05 t_on_th n 4 MG 00:00: e_tongu 00 e_and_a llow_to _dissol ve} Ondansetron Ondansetron 3-0 No 1{table Ondansetro 4 MG 4 MG 6-05 t_on_th n 4 MG 00:00: e_tongu e_and_a llow_to _dissol ve} Ondansetron Ondansetron 3-0 No 1{table Ondansetro 4 MG 4 MG 6-05 t_on_th n 4 MG 00:00: e_tongu e_and_a llow_to _dissol ve} Ondansetron Ondansetron 3-0 No 1{table Ondansetro 4 MG 4 MG 6-05 t_on n 4 MG 00:00: e_tongu e_and_a llow_to _dissol ve} Ondansetron Ondansetron 3-0 No 1{table Ondansetro 4 MG 4 MG 6-05 t_on_th n 4 MG 00:00: e_tongu e_and_a llow_to _dissol ve} Ondansetron Ondansetron 3-0 No 1{table Ondansetro 4 MG 4 MG 6-05 t_on_th n 4 MG 00:00: e_tongu e_and_a llow_to _dissol ve} Ondansetron Ondansetron 3-0 No 1{table Ondansetro 4 MG 4 MG 6-05 t_on_th n 4 MG 00:00: e_tongu e_and_a llow_to _dissol ve} Azithromyci Azithromyci 2023-0 No QD Azithromyc n 250 MG n 250 MG 4-07 in 250 MG 00:00: 00 Azithromyci Azithromyci 2023-0 No QD Azithromyc n 250 MG n 250 MG 4-07 in 250 MG 00:00: 00 Azithromyci Azithromyci 2023-0 No QD Azithromyc n 250 MG n 250 MG 4-07 in 250 MG 00:00: 00 Azithromyci Azithromyci 2023-0 No QD Azithromyc n 250 MG n 250 MG 4-07 in 250 MG 00:00: 00 Azithromyci Azithromyci 2023-0 No QD Azithromyc n 250 MG n 250 MG 4-07 in 250 MG 00:00: 00 Azithromyci Azithromyci 2023-0 No QD Azithromyc n 250 MG n 250 MG 4-07 in 250 MG 00:00: 00 Azithromyci Azithromyci 2023-0 No QD Azithromyc n 250 MG n 250 MG 4-07 in 250 MG 00:00: 00 Azithromyci Azithromyci 2023-0 No QD Azithromyc n 250 MG n 250 MG 4-07 in 250 MG 00:00: 00 Azithromyci Azithromyci 2023-0 No QD Azithromyc n 250 MG n 250 MG 4-07 in 250 MG 00:00: 00 Azithromyci Azithromyci 2023-0 No QD Azithromyc n 250 MG n 250 MG 4-07 in 250 MG 00:00: 00 ALPRAZolam ALPRAZolam 2022-0 No 1{table ALPRAZolam 1 MG 1 MG 4-05 t} 1 MG 00:00: 00 ALPRAZolam 2021-03 Yes 1mg Take [address] (XANAX) 1 2-28 by [facility] tablet 13:08: every Medical 24 night as Center needed for Anxiety. amLODIPine 2021-03 Yes 10mg QD Take [address] (NORVASC) 2-28 by mouth [facility] 10 MG 13:08: every Medical tablet 24 evening. Center benazepriL 2021-03 Yes 40mg QD Take [address] (LOTENSIN) 2-28 by mouth [facility] 40 MG 13:08: nightly. Medical tablet 24 [place] atorvastati 2021-03 Yes 10mg QD Take [address] n (LIPITOR) 2-28 by mouth Luke [facility] 10 MG 13:08: every Medical tablet 24 evening . [place] FLUoxetine 2021-03 Yes 40mg QD Take [address] (PROzac) 40 2-28 by mouth Luke [facility] MG capsule 13:08: every Medica l 24 evening . [place] semaglutide 2021-03 Yes Q7D Inject [facility] (OZEMPIC 2-28 subcutaneo [facility] SUBQ) 13:08: usly once Medical 24 a week Center tuesday . omeprazole 2021-03 Yes 40mg QD Take [address] (PriLOSEC) 2-28 by mouth [facility] 40 MG 13:08: every Medical capsule 24 evening . [place] linaGLIPtin 2021-03 Yes 5mg QD Take [address] (TRADJENTA) 2-28 by mouth Luke s 5 mg tablet 13:08: daily. Medi hans 24 [place] glipiZIDE 2021-03 Yes 10mg Take [address] (GLUCOTROL) 2-28 by mouth 2 [place] kes 10 MG 13:08: (two) Medical tablet 24 times Center daily before meals. ALPRAZolam 2021-03 Yes 1mg Take [address] (XANAX) 1 2-28 by mouth [facility] MG tablet 13:08: every Medical 24 night as Center needed for Anxiety. amLODIPine 2021-03 Yes 10mg QD Take [address] (NORVASC) 2-28 by mouth [facility] 10 MG 13:08: every Medical tablet 24 evening. [place] benazepriL 2021-03 Yes 40mg QD Take [address] (LOTENSIN) 2-28 by mouth [facility] 40 MG 13:08: nightly. Medical tablet 24 [place] atorvastati 2021-03 Yes 10mg QD Take [address] n (LIPITOR) 2-28 by mouth Luke s 10 MG 13:08: every Medical tablet 24 evening . [place] FLUoxetine 2021-03 Yes 40mg QD Take [address] (PROzac) 40 2-28 by mouth Luke s MG capsule 13:08: every Medica l 24 evening . [place] semaglutide 2021-03 Yes Q7D Inject [facility] (OZEMPIC 2-28 subcutaneo [facility] SUBQ) 13:08: usly once Medical 24 a week Center tuesday . omeprazole 2021-03 Yes 40mg QD Take [address] (PriLOSEC) 2-28 by mouth [facility] 40 MG 13:08: every Medical capsule 24 evening . [place] linaGLIPtin 2021-03 Yes 5mg QD Take [address] (TRADJENTA) 2-28 by mouth Luke s 5 mg tablet 13:08: daily. Medi hans 24 [place] glipiZIDE 2021-03 Yes 10mg Take [address] (GLUCOTROL) 2-28 by mouth 2 [place] kes 10 MG 13:08: (two) Medical tablet 24 times Center daily before meals. ALPRAZolam 2021-03 Yes 1mg Take [address] (XANAX) 1 2-28 by mouth [facility] MG tablet 13:08: every Medical 24 night as Center needed for Anxiety. amLODIPine 2021-03 Yes 10mg QD Take [address] (NORVASC) 2-28 by mouth [facility] 10 MG 13:08: every Medical tablet 24 evening. [place] benazepriL 2021-03 Yes 40mg QD Take [address] (LOTENSIN) 2-28 by mouth [facility] 40 MG 13:08: nightly. Medical tablet 24 [place] atorvastati 2021-03 Yes 10mg QD Take [address] n (LIPITOR) 2-28 by mouth Luke s 10 MG 13:08: every Medical tablet 24 evening . [place] FLUoxetine 2021-03 Yes 40mg QD Take [address] (PROzac) 40 2-28 by mouth Luke s MG capsule 13:08: every Medica l 24 evening . [place] semaglutide 2021-03 Yes Q7D Inject [facility] (OZEMPIC 2-28 subcutaneo [facility] SUBQ) 13:08: usly once Medical 24 a week Center tuesday . omeprazole 2021-03 Yes 40mg QD Take [address] (PriLOSEC) 2-28 by mouth [facility] 40 MG 13:08: every Medical capsule 24 evening . [place] linaGLIPtin 2021-03 Yes 5mg QD Take [address] (TRADJENTA) 2-28 by mouth Luke s 5 mg tablet 13:08: daily. [facility] 24 [place] glipiZIDE 2021-03 Yes 10mg Take [address] (GLUCOTROL) 2-28 by mouth 2 [place] kes 10 MG 13:08: (two) Medical tablet 24 times Center daily before meals. ALPRAZolam 2021-03 Yes 1mg Take [address] (XANAX) 1 2-28 by mouth [facility] MG tablet 13:08: every Medical 24 night as Center needed for Anxiety. amLODIPine 2021-03 Yes 10mg QD Take [address] (NORVASC) 2-28 by mouth [facility] 10 MG 13:08: every Medical tablet 24 evening. [place] benazepriL 2021-03 Yes 40mg QD Take [address] (LOTENSIN) 2-28 by mouth [facility] 40 MG 13:08: nightly. Medical tablet 24 [place] atorvastati 2021-03 Yes 10mg QD Take [address] n (LIPITOR) 2-28 by mouth Luke s 10 MG 13:08: every Medical tablet 24 evening . [place] FLUoxetine 2021-03 Yes 40mg QD Take [address] (PROzac) 40 2-28 by mouth Luke s MG capsule 13:08: every Medica l 24 evening . [place] semaglutide 2021-03 Yes Q7D Inject [facility] (OZEMPIC 2-28 subcutaneo [facility] SUBQ) 13:08: usly once Medical 24 a week Center tuesday . omeprazole 2021-03 Yes 40mg QD Take [address] (PriLOSEC) 2-28 by mouth [facility] 40 MG 13:08: every Medical capsule 24 evening . [place] linaGLIPtin 2021-03 Yes 5mg QD Take [address] (TRADJENTA) 2-28 by mouth Luke s 5 mg tablet 13:08: daily. [facility] 24 [place] glipiZIDE 2021-03 Yes 10mg Take [address] (GLUCOTROL) 2-28 by mouth 2 [place] kes 10 MG 13:08: (two) Medical tablet 24 times Center daily before meals. ALPRAZolam 2021-03 Yes 1mg Take [address] (XANAX) 1 2-28 by mouth [facility] MG tablet 13:08: every Medical 24 night as Center needed for Anxiety. amLODIPine 2021-03 Yes 10mg QD Take [address] (NORVASC) 2-28 by mouth [facility] 10 MG 13:08: every Medical tablet 24 evening. [place] benazepriL 2021-03 Yes 40mg QD Take [address] (LOTENSIN) 2-28 by mouth [facility] 40 MG 13:08: nightly. Medical tablet 24 [place] atorvastati 2021-03 Yes 10mg QD Take [address] [facility] (LIPITOR) 2-28 by mouth Luke s 10 MG 13:08: every Medical tablet 24 evening . [place] FLUoxetine 2021-03 Yes 40mg QD Take [address] (PROzac) 40 2-28 by mouth Luke s MG capsule 13:08: every Medica l 24 evening . [place] semaglutide 2021-03 Yes Q7D Inject [facility] (OZEMPIC 2-28 subcutaneo [facility] SUBQ) 13:08: usly once Medical 24 a week Center tuesday . omeprazole 2021-03 Yes 40mg QD Take [address] (PriLOSEC) 2-28 by mouth [facility] 40 MG 13:08: every Medical capsule 24 evening . [place] linaGLIPtin 2021-03 Yes 5mg QD Take [address] (TRADJENTA) 2-28 by mouth Luke s 5 mg tablet 13:08: daily. Medi hans 24 [place] glipiZIDE 2021-03 Yes 10mg Take [address] (GLUCOTROL) 2-28 by mouth 2 [place] kes 10 MG 13:08: (two) Medical tablet 24 times Center daily before meals. glipiZIDE 2021-03 Yes 10mg Take [address] (GLUCOTROL) 2-28 by mouth 2 [place] kes 10 MG 07:55: (two) Medical tablet 44 times Center daily before meals. ALPRAZolam 2021-03 Yes 1mg Take [address] (XANAX) 1 2-28 by mouth [facility] MG tablet 07:55: every Medical 18 night as Center needed for Anxiety. amLODIPine 2021-03 Yes 10mg QD Take [address] (NORVASC) 2-28 by mouth [facility] 10 MG 07:55: every Medical tablet 18 evening. [place] benazepriL 2021-03 Yes 40mg QD Take [address] (LOTENSIN) 2-28 by mouth [facility] 40 MG 07:55: nightly. Medical tablet 18 [place] atorvastati 2021-03 Yes 10mg QD Take [address] [facility] (LIPITOR) 2-28 by mouth Luke s 10 MG 07:55: every Medical tablet 18 evening . [place] semaglutide 2021-03 Yes Q7D Inject [facility] (OZEMPIC 2-28 subcutaneo [facility] SUBQ) 07:55: usly once Medical 18 a week [place] tuesday . omeprazole 2021-03 Yes 40mg QD Take [address] (PriLOSEC) 2-28 by mouth [facility] 40 MG 07:55: every Medical capsule 18 evening . [place] linaGLIPtin 2021-03 Yes 5mg QD Take [address] (TRADJENTA) 2-28 by mouth Luke s 5 mg tablet 07:55: daily. Medi hans 17 [place] FLUoxetine 2021-03 Yes 40mg QD Take [address] (PROzac) 40 2-28 by mouth Luke [facility] MG capsule 06:59: every Medica l 48 evening . [place] Ozempic (2 Ozempic (2 2021-03- No Ozempic (2 MG/DOSE) 8 MG/DOSE) 8 05-12 01-21 MG/DOSE) 8 MG/3ML MG/3ML 00:00: 00:00 MG/3ML 00 :00 Ozempic (2 Ozempic (2 2021-03- No Ozempic (2 MG/DOSE) 8 MG/DOSE) 8 05-12 01-21 MG/DOSE) 8 MG/3ML MG/3ML 00:00: 00:00 MG/3ML 00 :00 ALPRAZolam ALPRAZolam 2021-03 No 1{table ALPRAZolam 1 MG 1 MG 2-21 t} 1 MG 00:00: 00 ALPRAZolam ALPRAZolam 2021-03 No 1{table ALPRAZolam 1 MG 1 MG 2-21 t} 1 MG 00:00: 00 ALPRAZolam ALPRAZolam 2021-03 No 1{table ALPRAZolam 1 MG 1 MG 2-21 t} 1 MG 00:00: 00 ALPRAZolam ALPRAZolam 2021-03 No 1{table ALPRAZolam 1 MG 1 MG 2-21 t} 1 MG 00:00: 00 ALPRAZolam ALPRAZolam 2021-03 No 1{table ALPRAZolam 1 MG 1 MG 2-21 t} 1 MG 00:00: 00 atorvastati 2021-03 Yes 10mg QD Take [address] [facility] (LIPITOR) 2-19 by mouth Luke [facility] 10 MG 15:10: every Medical tablet 03 evening . [place] FLUoxetine 2021-03 Yes 40mg QD Take [address] (PROzac) 40 2-19 by mouth Luke [facility] MG capsule 15:10: every Medica l 03 evening . [place] omeprazole 2021-03 Yes 40mg QD Take [address] (PriLOSEC) 2-19 by mouth [facility] 40 MG 15:10: every Medical capsule 03 evening . [place] ALPRAZolam 2021-03 Yes 1mg Take [address] (XANAX) 1 2-19 by mouth [facility] MG tablet 15:03: every Medical 52 night as Center needed for Anxiety. amLODIPine 2021-03 Yes 10mg QD Take [address] (NORVASC) 2-19 by mouth [facility] 10 MG 14:49: every Medical tablet 01 evening. [place] benazepriL 2021-03 Yes 40mg QD Take [address] (LOTENSIN) 2-19 by mouth [facility] 40 MG 14:49: nightly. Medical tablet [place] semaglutide 2021-03 Yes Q7D Inject [facility] (OZEMPIC 2-19 subcutaneo [facility] SUBQ) 14:49: usly once Medical 01 a week Center tuesday . linagliptin 2021-03 Yes Take by Uni vers (TRADJENTA 2-03 mouth. ity of ORAL) 13:25: [address] Branch benazepril 2021-03 Yes Take by [facility] ers HCl 2-03 mouth. ity of (BENAZEPRIL 13:25: [place] ORAL) [address] [place] [address] Branch ALPRAZOLAM 2021-03 Yes Take by [facility] ers ORAL 2-03 mouth. ity of 13:25: [address] fluoxetine 2021-03 Yes Take by [facility] ers HCl (PROZAC 2-03 mouth. ity of ORAL) 13:25: [address] OMEPRAZOLE 2021-03 Yes Take by Univ ers ORAL 2-03 mouth. ity of 13:25: [address] Branch amlodipine 2021-03 Yes Take by Univ ers besylate 2-03 mouth. ity of (AMLODIPINE 13:25: [place] ORAL) [address] [place] [address] semaglutide 2021-03 Yes inject Univ ers (OZEMPIC 2-03 under the ity of [place]) 13:25: skin. [address] linagliptin 2021-03 Yes Take by Uni vers (TRADJENTA 2-03 mouth. ity of ORAL) 13:25: [address] Branch benazepril 2021-03 Yes Take by Univ ers HCl 2-03 mouth. ity of (BENAZEPRIL 13:25: [place] ORAL) [address] [place] [address] ALPRAZOLAM 2021-03 Yes Take by Univ ers ORAL 2-03 mouth. ity of 13:25: [address] fluoxetine 2021-03 Yes Take by Univ ers HCl (PROZAC 2-03 mouth. ity of ORAL) 13:25: [address] OMEPRAZOLE 2021-03 Yes Take by Univ ers ORAL 2-03 mouth. ity of 13:25: [address] amlodipine 2021-03 Yes Take by Univ ers besylate 2-03 mouth. ity of (AMLODIPINE 13:25: [place] ORAL) [address] [place] [address] semaglutide 2021-03 Yes inject Univ ers (OZEMPIC 2-03 under the ity of [place]) 13:25: skin. [address] linagliptin 2021-03 Yes Take by Uni vers (TRADJENTA 2-03 mouth. ity of ORAL) 13:25: [address] benazepril 2021-03 Yes Take by Univ ers HCl 2-03 mouth. ity of (BENAZEPRIL 13:25: [place] ORAL) [address] [place] [address] Branch ALPRAZOLAM 2021-03 Yes Take by Univ ers ORAL 2-03 mouth. ity of 13:25: [address] fluoxetine 2021-03 Yes Take by Univ ers HCl (PROZAC 2-03 mouth. ity of ORAL) 13:25: [address] OMEPRAZOLE 2021-03 Yes Take by Univ ers ORAL 2-03 mouth. ity of 13:25: [address] Branch amlodipine 2021-03 Yes Take by Univ ers besylate 2-03 mouth. ity of (AMLODIPINE 13:25: [place] ORAL) [address] [place] [address] Branch semaglutide 2021-03 Yes inject Univ ers (OZEMPIC 2-03 under the ity of [place]) 13:25: skin. [address] linagliptin 2021-03 Yes Take by Uni vers (TRADJENTA 2-03 mouth. ity of ORAL) 13:25: [address] Branch benazepril 2021-03 Yes Take by Univ ers HCl 2-03 mouth. ity of (BENAZEPRIL 13:25: [place] ORAL) [address] [place] [address] Branch ALPRAZOLAM 2021-03 Yes Take by Univ ers ORAL 2-03 mouth. ity of 13:25: [address] fluoxetine 2021-03 Yes Take by Univ ers HCl (PROZAC 2-03 mouth. ity of ORAL) 13:25: [address] OMEPRAZOLE 2021-03 Yes Take by Univ ers ORAL 2-03 mouth. ity of 13:25: [address] amlodipine 2021-03 Yes Take by Univ ers besylate 2-03 mouth. ity of (AMLODIPINE 13:25: [place] ORAL) Medical Branch semaglutide 2021-03 Yes inject Univ ers (OZEMPIC 2-03 under the ity of [place]) 13:25: skin. [address] Branch linagliptin 2021-03 Yes Take by Uni vers (TRADJENTA 2-03 mouth. ity of ORAL) 13:25: [address] Branch benazepril 2021-03 Yes Take by Univ ers HCl 2-03 mouth. ity of (BENAZEPRIL 13:25: [place] ORAL) Medical Branch ALPRAZOLAM 2021-03 Yes Take by Univ ers ORAL 2-03 mouth. ity of 13:25: [address] fluoxetine 2021-03 Yes Take by Univ ers HCl (PROZAC 2-03 mouth. ity of ORAL) 13:25: [address] Branch OMEPRAZOLE 2021-03 Yes Take by Univ ers ORAL 2-03 mouth. ity of 13:25: [address] amlodipine 2021-03 Yes Take by Univ ers besylate 2-03 mouth. ity of (AMLODIPINE 13:25: [place] ORAL) [address] [place] [address] Branch semaglutide 2021-03 Yes inject Univ ers (OZEMPIC 2-03 under the ity of [place]) 13:25: skin. [address] Branch linagliptin 2021-03 Yes Take by Uni vers (TRADJENTA 2-03 mouth. ity of ORAL) 13:25: [address] Branch benazepril 2021-03 Yes Take by Univ ers HCl 2-03 mouth. ity of (BENAZEPRIL 13:25: [place] ORAL) Medical Branch ALPRAZOLAM 2021-03 Yes Take by Univ ers ORAL 2-03 mouth. ity of 13:25: [address] Branch fluoxetine 2021-03 Yes Take by Univ ers HCl (PROZAC 2-03 mouth. ity of ORAL) 13:25: [address] Branch OMEPRAZOLE 2021-03 Yes Take by Univ ers ORAL 2-03 mouth. ity of 13:25: [address] Branch amlodipine 2021-03 Yes Take by [facility] ers besylate 2-03 mouth. ity of (AMLODIPINE 13:25: [place] ORAL) [address] [place] [address] Branch semaglutide 2021-03 Yes inject Univ ers (OZEMPIC 2-03 under the [place]y of [place]) 13:25: skin. [address] Branch linagliptin 2021-03 Yes Take by Uni vers (TRADJENTA 2-03 mouth. ity of ORAL) 13:25: [address] Branch benazepril 2021-03 Yes Take by Univ ers HCl 2-03 mouth. ity of (BENAZEPRIL 13:25: [place] ORAL) Medical Branch ALPRAZOLAM 2021-03 Yes Take by [facility] ers ORAL 2-03 mouth. ity of 13:25: [address] Branch fluoxetine 2021-03 Yes Take by Univ ers HCl (PROZAC 2-03 mouth. ity of ORAL) 13:25: [place] [address] Medical Branch OMEPRAZOLE 2021-03 Yes Take by [facility] ers ORAL 2-03 mouth. ity of 13:25: [address] Branch amlodipine 2021-03 Yes Take by [facility] ers besylate 2-03 mouth. ity of (AMLODIPINE 13:25: [place] ORAL) Medical Branch semaglutide 2021-03 Yes inject Univ ers (OZEMPIC 2-03 under the [place]) 13:25: skin. [address] linagliptin 2021-03 Yes Take by Uni vers (TRADJENTA 2-03 mouth. ity of ORAL) 13:25: [address] Branch benazepril 2021-03 Yes Take by Univ ers HCl 2-03 mouth. ity of (BENAZEPRIL 13:25: [place] ORAL) [address] [place] [address] ALPRAZOLAM 2021-03 Yes Take by Univ ers ORAL 2-03 mouth. ity of 13:25: [address] fluoxetine 2021-03 Yes Take by Univ ers HCl (PROZAC 2-03 mouth. ity of ORAL) 13:25: [address] OMEPRAZOLE 2021-03 Yes Take by Univ ers ORAL 2-03 mouth. ity of 13:25: [address] amlodipine 2021-03 Yes Take by [facility] ers besylate 2-03 mouth. ity of (AMLODIPINE 13:25: [place] ORAL) [address] [place] [address] semaglutide 2021-03 Yes inject Univ ers (OZEMPIC 2-03 under the [place]) 13:25: skin. [address] linagliptin 2021-03 Yes Take by Uni vers (TRADJENTA 2-03 mouth. ity of ORAL) 13:25: [address] benazepril 2021-03 Yes Take by Univ ers HCl 2-03 mouth. ity of (BENAZEPRIL 13:25: [place] ORAL) [address] [place] [address] ALPRAZOLAM 2021-03 Yes Take by Univ ers ORAL 2-03 mouth. ity of 13:25: [address] fluoxetine 2021-03 Yes Take by Univ ers HCl (PROZAC 2-03 mouth. ity of ORAL) 13:25: [address] OMEPRAZOLE 2021-03 Yes Take by [facility] ers ORAL 2-03 mouth. ity of 13:25: [address] amlodipine 2021-03 Yes Take by [facility] ers besylate 2-03 mouth. ity of (AMLODIPINE 13:25: [place] ORAL) [address] [place] [address] Branch semaglutide 2021-03 Yes inject Univ ers (OZEMPIC 2-03 under the [place]) 13:25: skin. [address] linagliptin 2021-03 Yes Take by Uni vers (TRADJENTA 2-03 mouth. ity of ORAL) 13:25: [place] [facility] benazepril 2021-03 Yes Take by [facility] ers HCl 2-03 mouth. ity of (BENAZEPRIL 13:25: [place] ORAL) Medical Branch ALPRAZOLAM 2021-03 Yes Take by Univ ers ORAL 2-03 mouth. ity of 13:25: [address] Branch fluoxetine 2021-03 Yes Take by Univ ers HCl (PROZAC 2-03 mouth. ity of ORAL) 13:25: [address] Branch OMEPRAZOLE 2021-03 Yes Take by Univ ers ORAL 2-03 mouth. ity of 13:25: [address] Branch amlodipine 2021-03 Yes Take by [facility] ers besylate 2-03 mouth. ity of (AMLODIPINE 13:25: [place] ORAL) Medical Branch semaglutide 2021-03 Yes inject Univ ers (OZEMPIC 2-03 under the [place]) 13:25: skin. [address] Branch linagliptin 2021-03 Yes Take by Uni vers (TRADJENTA 2-03 mouth. ity of ORAL) 13:25: [address] Branch benazepril 2021-03 Yes Take by Univ ers HCl 2-03 mouth. ity of (BENAZEPRIL 13:25: [place] ORAL) [address] [place] [address] Branch ALPRAZOLAM 2021-03 Yes Take by Univ ers ORAL 2-03 mouth. ity of 13:25: [address] fluoxetine 2021-03 Yes Take by Univ ers HCl (PROZAC 2-03 mouth. ity of ORAL) 13:25: [address] OMEPRAZOLE 2021-03 Yes Take by Univ ers ORAL 2-03 mouth. ity of 13:25: [address] Branch amlodipine 2021-03 Yes Take by [facility] ers besylate 2-03 mouth. ity of (AMLODIPINE 13:25: [place] ORAL) Medical Branch semaglutide 2021-03 Yes inject Univ ers (OZEMPIC 2-03 under the [place]) 13:25: skin. [address] Branch linagliptin 2021-03 Yes Take by Uni vers (TRADJENTA 2-03 mouth. ity of ORAL) 13:25: [address] Branch benazepril 2021-03 Yes Take by Univ ers HCl 2-03 mouth. ity of (BENAZEPRIL 13:25: [place] ORAL) [address] [place] [address] Branch ALPRAZOLAM 2021-03 Yes Take by [facility] ers ORAL 2-03 mouth. ity of 13:25: [address] fluoxetine 2021-03 Yes Take by [facility] ers HCl (PROZAC 2-03 mouth. ity of ORAL) 13:25: [address] Branch OMEPRAZOLE 2021-03 Yes Take by [facility] ers ORAL 2-03 mouth. ity of 13:25: [address] amlodipine 2021-03 Yes Take by [facility] ers besylate 2-03 mouth. ity of (AMLODIPINE 13:25: [address] Branch semaglutide 2021-03 Yes inject [facility] ers (OZEMPIC 2-03 under the [place]y [place]) 13:25: skin. [address] ALPRAZolam ALPRAZolam 2021-03 No 1{table ALPRAZolam 1 MG 1 MG 1-22 t} 1 MG 00:00: 00 ALPRAZolam ALPRAZolam 2021-03 No 1{table ALPRAZolam 1 MG 1 MG 1-22 t} 1 MG 00:00: 00 ALPRAZolam ALPRAZolam 2021-03 No 1{table ALPRAZolam 1 MG 1 MG 1-22 t} 1 MG 00:00: 00 ALPRAZolam ALPRAZolam 2021-03 No 1{table ALPRAZolam 1 MG 1 MG 1-22 t} 1 MG 00:00: 00 ALPRAZolam ALPRAZolam 2021-03 No 1{table ALPRAZolam 1 MG 1 MG 1-22 t} 1 MG 00:00: 00 Ozempic (1 Ozempic (2021-03- No Ozempic (1 MG/DOSE) 4 MG/DOSE) 4 024 12-22 MG/DOSE) 4 MG/3ML MG/3ML 00:00: 00:00 MG/3ML 00 :00 Ozempic (1 Ozempic (2021-03- No Ozempic (1 MG/DOSE) 4 MG/DOSE) 4 12-22 MG/DOSE) 4 MG/3ML MG/3ML 00:00: 00:00 MG/3ML 00 :00 Ozempic (1 Ozempic (2021-03- No Ozempic (1 MG/DOSE) 4 MG/DOSE) 4 0-24 12-22 MG/DOSE) 4 MG/3ML MG/3ML 00:00: 00:00 MG/3ML 00 :00 Ozempic (1 Ozempic (2021-03- No Ozempic (1 MG/DOSE) 4 MG/DOSE) 4 0-24 12-22 MG/DOSE) 4 MG/3ML MG/3ML 00:00: 00:00 MG/3ML 00 :00 Ozempic (1 Ozempic (2021-03- No Ozempic (1 MG/DOSE) 4 MG/DOSE) 4 0-24 12-22 MG/DOSE) 4 MG/3ML MG/3ML 00:00: 00:00 MG/3ML 00 :00 Ozempic (1 Ozempic (2021-03- No Ozempic (1 MG/DOSE) 4 MG/DOSE) 4 0-24 12-22 MG/DOSE) 4 MG/3ML MG/3ML 00:00: 00:00 MG/3ML 00 :00 ALPRAZolam ALPRAZolam 2021-0 No 1{table ALPRAZolam 1 MG 1 MG 9-21 t} 1 MG 00:00: 00 ALPRAZolam ALPRAZolam 2021-0 No 1{table ALPRAZolam 1 MG 1 MG 9-21 t} 1 MG 00:00: 00 ALPRAZolam ALPRAZolam 2021-0 No 1{table ALPRAZolam 1 MG 1 MG 9-21 t} 1 MG 00:00: 00 ALPRAZolam ALPRAZolam 2021-0 No 1{table ALPRAZolam 1 MG 1 MG 9-21 t} 1 MG 00:00: 00 ALPRAZolam ALPRAZolam 2021-0 No 1{table ALPRAZolam 1 MG 1 MG 9-21 t} 1 MG 00:00: 00 ALPRAZolam ALPRAZolam 2021-0 No 1{table ALPRAZolam 1 MG 1 MG 9-21 t} 1 MG 00:00: 00 Ozempic Ozempic 2021-0 2021- No Ozempic 0.25 or 0.5 0.25 or 0.5 9-21 12-19 0.25 or MG/DOSE MG/DOSE 00:00: 00:00 0.5 00 :00 MG/DOSE Ozempic Ozempic 2021-0 2- No Ozempic 0.25 or 0.5 0.25 or 0.5 12-09 0.25 or MG/DOSE MG/DOSE 00:00: 00:00 0.5 00 :00 MG/DOSE Ozempic Ozempic 2021-0 2- No Ozempic 0.25 or 0.5 0.25 or 0.5 12-09 0.25 or MG/DOSE MG/DOSE 00:00: 00:00 0.5 00 :00 MG/DOSE Ozempic Ozempic 2021-0 2021- No Ozempic 0.25 or 0.5 0.25 or 0.5 12-09 0.25 or MG/DOSE MG/DOSE 00:00: 00:00 0.5 00 :00 MG/DOSE Ozempic Ozempic 2021-0 2021- No Ozempic 0.25 or 0.5 0.25 or 0.5 12-09 0.25 or MG/DOSE MG/DOSE 00:00: 00:00 0.5 00 :00 MG/DOSE Ozempic Ozempic 2021-0 2021- No Ozempic 0.25 or 0.5 0.25 or 0.5 12-09 0.25 or MG/DOSE MG/DOSE 00:00: 00:00 0.5 00 :00 MG/DOSE ALPRAZolam ALPRAZolam 2021-0 No 1{table ALPRAZolam 1 MG 1 MG 7-21 t} 1 MG 00:00: 00 ALPRAZolam ALPRAZolam 2021-0 No 1{table ALPRAZolam 1 MG 1 MG 6-24 t} 1 MG 00:00: 00 ALPRAZolam ALPRAZolam 2021-0 No 1{table ALPRAZolam 1 MG 1 MG 6-24 t} 1 MG 00:00: 00 ALPRAZolam ALPRAZolam 2021-0 No 1{table ALPRAZolam 1 MG 1 MG 6-24 t} 1 MG 00:00: 00 ALPRAZolam ALPRAZolam 2021-0 No 1{table ALPRAZolam 1 MG 1 MG 4-21 t} 1 MG 00:00: 00 ALPRAZolam ALPRAZolam 2021-0 No 1{table ALPRAZolam 1 MG 1 MG 4-21 t} 1 MG 00:00: 00 ALPRAZolam ALPRAZolam 2021-0 No 1{table ALPRAZolam 1 MG 1 MG 4-21 t} 1 MG 00:00: 00 Macrobid Macrobid 2021-0 2- No BID Macrobid 100 MG 100 MG 04-13 100 MG 00:00: 00:00 00 :00 Macrobid Macrobid 2021-0 2021- No BID Macrobid 100 MG 100 MG 04-13 100 MG 00:00: 00:00 00 :00 ALPRAZolam ALPRAZolam 2021-0 No 1{table ALPRAZolam 1 MG 1 MG 1-11 t} 1 MG 00:00: 00 ALPRAZolam ALPRAZolam 2021-0 No 1{table ALPRAZolam 1 MG 1 MG 1-11 t} 1 MG 00:00: 00 ALPRAZolam ALPRAZolam 2021-0 No 1{table ALPRAZolam 1 MG 1 MG 1-11 t} 1 MG 00:00: 00 ALPRAZolam ALPRAZolam 2020-1 No 1{table ALPRAZolam 1 MG 1 MG 0-25 t} 1 MG 00:00: 00 ALPRAZolam ALPRAZolam 2020-1 No 1{table 1 MG 1 MG 0-25 t} 00:00: 00 Macrobid Macrobid 2020-0 2020- No BID Macrobid 100 MG 100 MG 12-1603 100 MG 00:00: 00:00 00 :00 ALPRAZolam ALPRAZolam 2020-0 No 1{table ALPRAZolam 1 MG 1 MG 8-25 t} 1 MG 00:00: 00 ALPRAZolam ALPRAZolam 2020-0 No 1{table ALPRAZolam 1 MG 1 MG 8-25 t} 1 MG 00:00: 00 ProAir HFA ProAir HFA 2020-0 No 2{puffs ProAir HFA 108 (90 108 (90 2-11 _as_nee 108 (90 Base) Base) 00:00: ded} Base) MCG/ACT MCG/ACT 00 MCG/ACT ProAir HFA ProAir HFA No 2{puffs ProAir HFA 108 (90 108 (90 2-11 _as_nee 108 (90 Base) Base) 00:00: ded} Base) MCG/ACT MCG/ACT 00 MCG/ACT ProAir HFA ProAir HFA No 2{puffs ProAir HFA 108 (90 108 (90 2-11 _as_nee 108 (90 Base) Base) 00:00: ded} Base) MCG/ACT MCG/ACT 00 MCG/ACT ProAir HFA ProAir HFA No 2{puffs ProAir HFA 108 (90 108 (90 2-11 _as_nee 108 (90 Base) Base) 00:00: ded} Base) MCG/ACT MCG/ACT 00 MCG/ACT ProAir HFA ProAir HFA No 2{puffs ProAir HFA 108 (90 108 (90 2-11 _as_nee 108 (90 Base) Base) 00:00: ded} Base) MCG/ACT MCG/ACT 00 MCG/ACT ProAir HFA ProAir HFA No 2{puffs ProAir HFA 108 (90 108 (90 2-11 _as_nee 108 (90 Base) Base) 00:00: ded} Base) MCG/ACT MCG/ACT 00 MCG/ACT ProAir HFA ProAir HFA No 2{puffs ProAir HFA 108 (90 108 (90 2-11 _as_nee 108 (90 Base) Base) 00:00: ded} Base) MCG/ACT MCG/ACT 00 MCG/ACT ProAir HFA ProAir HFA No 2{puffs ProAir HFA 108 (90 108 (90 2-11 _as_nee 108 (90 Base) Base) 00:00: ded} Base) MCG/ACT MCG/ACT 00 MCG/ACT ProAir HFA ProAir HFA No 2{puffs ProAir HFA 108 (90 108 (90 2-11 _as_nee 108 (90 Base) Base) 00:00: ded} Base) MCG/ACT MCG/ACT 00 MCG/ACT ProAir HFA ProAir HFA 2021-0 No 2{puffs ProAir HFA 108 (90 108 (90 2-11 _as_nee 108 (90 Base) Base) 00:00: ded} Base) MCG/ACT MCG/ACT 00 MCG/ACT ProAir HFA ProAir HFA No 2{puffs ProAir HFA 108 (90 108 (90 2-11 _as_nee 108 (90 Base) Base) 00:00: ded} Base) MCG/ACT MCG/ACT 00 MCG/ACT ProAir HFA ProAir HFA No 2{puffs ProAir HFA 108 (90 108 (90 2-11 _as_nee 108 (90 Base) Base) 00:00: ded} Base) MCG/ACT MCG/ACT 00 MCG/ACT ProAir HFA ProAir HFA No 2{puffs ProAir HFA 108 (90 108 (90 2-11 _as_nee 108 (90 Base) Base) 00:00: ded} Base) MCG/ACT MCG/ACT 00 MCG/ACT ProAir HFA ProAir HFA No 2{puffs 108 (90 108 (90 2-11 _as_nee Base) Base) 00:00: ded} MCG/ACT MCG/ACT 00 ProAir HFA ProAir HFA No 2{puffs ProAir HFA 108 (90 108 (90 2-11 _as_nee 108 (90 Base) Base) 00:00: ded} Base) MCG/ACT MCG/ACT 00 MCG/ACT ProAir HFA ProAir HFA No 2{puffs ProAir HFA 108 (90 108 (90 2-11 _as_nee 108 (90 Base) Base) 00:00: ded} Base) MCG/ACT MCG/ACT 00 MCG/ACT ProAir HFA ProAir HFA No 2{puffs ProAir HFA 108 (90 108 (90 2-11 _as_nee 108 (90 Base) Base) 00:00: ded} Base) MCG/ACT MCG/ACT 00 MCG/ACT ProAir HFA ProAir HFA 0 No 2{puffs 108 (90 108 (90 2-11 _as_nee Base) Base) 00:00: ded} MCG/ACT MCG/ACT 00 ProAir HFA ProAir HFA No 2{puffs ProAir HFA 108 (90 108 (90 2-11 _as_nee 108 (90 Base) Base) 00:00: ded} Base) MCG/ACT MCG/ACT 00 MCG/ACT ProAir HFA ProAir HFA No 2{puffs ProAir HFA 108 (90 108 (90 2-11 _as_nee 108 (90 Base) Base) 00:00: ded} Base) MCG/ACT MCG/ACT 00 MCG/ACT ProAir HFA ProAir HFA No 2{puffs ProAir HFA 108 (90 108 (90 2-11 _as_nee 108 (90 Base) Base) 00:00: ded} Base) MCG/ACT MCG/ACT 00 MCG/ACT ProAir HFA ProAir HFA No 2{puffs ProAir HFA 108 (90 108 (90 2-11 _as_nee 108 (90 Base) Base) 00:00: ded} Base) MCG/ACT MCG/ACT 00 MCG/ACT ProAir HFA ProAir HFA No 2{puffs ProAir HFA 108 (90 108 (90 2-11 _as_nee 108 (90 Base) Base) 00:00: ded} Base) MCG/ACT MCG/ACT 00 MCG/ACT ProAir HFA ProAir HFA No 2{puffs ProAir HFA 108 (90 108 (90 2-11 _as_nee 108 (90 Base) Base) 00:00: ded} Base) MCG/ACT MCG/ACT 00 MCG/ACT ProAir HFA ProAir HFA No 2{puffs ProAir HFA 108 (90 108 (90 2-11 _as_nee 108 (90 Base) Base) 00:00: ded} Base) MCG/ACT MCG/ACT 00 MCG/ACT ProAir HFA ProAir HFA No 2{puffs ProAir HFA 108 (90 108 (90 2-11 _as_nee 108 (90 Base) Base) 00:00: ded} Base) MCG/ACT MCG/ACT 00 MCG/ACT ProAir HFA ProAir HFA No 2{puffs ProAir HFA 108 (90 108 (90 2-11 _as_nee 108 (90 Base) Base) 00:00: ded} Base) MCG/ACT MCG/ACT 00 MCG/ACT ProAir HFA ProAir HFA No 2{puffs ProAir HFA 108 (90 108 (90 2-11 _as_nee 108 (90 Base) Base) 00:00: ded} Base) MCG/ACT MCG/ACT 00 MCG/ACT ProAir HFA ProAir HFA No 2{puffs ProAir HFA 108 (90 108 (90 2-11 _as_nee 108 (90 Base) Base) 00:00: ded} Base) MCG/ACT MCG/ACT 00 MCG/ACT ProAir HFA ProAir HFA No 2{puffs ProAir HFA 108 (90 108 (90 2-11 _as_nee 108 (90 Base) Base) 00:00: ded} Base) MCG/ACT MCG/ACT 00 MCG/ACT ProAir HFA ProAir HFA No 2{puffs ProAir HFA 108 (90 108 (90 2-11 _as_nee 108 (90 Base) Base) 00:00: ded} Base) MCG/ACT MCG/ACT 00 MCG/ACT ProAir HFA ProAir HFA No 2{puffs ProAir HFA 108 (90 108 (90 2-11 _as_nee 108 (90 Base) Base) 00:00: ded} Base) MCG/ACT MCG/ACT 00 MCG/ACT ProAir HFA ProAir HFA No 2{puffs ProAir HFA 108 (90 108 (90 2-11 _as_nee 108 (90 Base) Base) 00:00: ded} Base) MCG/ACT MCG/ACT 00 MCG/ACT ProAir HFA ProAir HFA No 2{puffs ProAir HFA 108 (90 108 (90 2-11 _as_nee 108 (90 Base) Base) 00:00: ded} Base) MCG/ACT MCG/ACT 00 MCG/ACT ProAir HFA ProAir HFA No 2{puffs ProAir HFA 108 (90 108 (90 2-11 _as_nee 108 (90 Base) Base) 00:00: ded} Base) MCG/ACT MCG/ACT 00 MCG/ACT ProAir HFA ProAir HFA No 2{puffs ProAir HFA 108 (90 108 (90 2-11 _as_nee 108 (90 Base) Base) 00:00: ded} Base) MCG/ACT MCG/ACT 00 MCG/ACT Atorvastati Atorvastati No 1{table QD Atorvastat n Calcium n Calcium t} in Calcium 10 MG 10 MG 10 MG glipiZIDE glipiZIDE No 1{table BID glipiZIDE ER 10 MG ER 10 MG t_with_ ER 10 MG food} Ozempic (1 Ozempic (1 No Ozempic (1 MG/DOSE) 4 MG/DOSE) 4 MG/DOSE) 4 MG/3ML MG/3ML MG/3ML Aspirin Low Aspirin Low No Aspirin Dose 81 MG Dose 81 MG Low Dose 81 MG Omeprazole Omeprazole No QD Omeprazole 40 MG 40 MG 40 MG amLODIPine amLODIPine No 1{table QD amLODIPine Besylate 10 Besylate 10 t} Besylate MG MG 10 MG PROzac 40 PROzac 40 No 1{capsu QD PROzac 40 MG MG le} MG FLUoxetine FLUoxetine No FLUoxetine HCl 20 MG HCl 20 MG HCl 20 MG Breo Breo No Breo Ellipta Ellipta Ellipta 200-25 200-25 200-25 MCG/INH MCG/INH MCG/INH glipiZIDE glipiZIDE No glipiZIDE ER 10 MG ER 10 MG ER 10 MG Benazepril Benazepril No Benazepril HCl 40 MG HCl 40 MG HCl 40 MG amLODIPine amLODIPine No amLODIPine Besylate 10 Besylate 10 Besylate MG MG 10 MG Albuterol Albuterol No Albuterol Sulfate HFA Sulfate HFA Sulfate 108 (90 108 (90 HFA 108 Base) Base) (90 Base) MCG/ACT MCG/ACT MCG/ACT Benazepril Benazepril No 1{table QD Benazepril HCl 40 MG HCl 40 MG t} HCl 40 MG Tradjenta 5 Tradjenta 5 No Tradjenta MG MG 5 MG Contour Contour No Contour Next Test - Next Test - Next Test - metFORMIN metFORMIN No BID metFORMIN HCl ER 500 HCl ER 500 HCl ER 500 MG MG MG ALPRAZolam ALPRAZolam No ALPRAZolam 1 MG 1 MG 1 MG Breo Breo No 1{puff} QD Breo Ellipta Ellipta Ellipta 200-25 200-25 200-25 MCG/INH MCG/INH MCG/INH Microlet Microlet No Microlet Lancets - Lancets - Lancets - Atorvastati Atorvastati No 1{table QD Atorvastat n Calcium n Calcium t} in Calcium 10 MG 10 MG 10 MG glipiZIDE glipiZIDE No 1{table BID glipiZIDE ER 10 MG ER 10 MG t_with_ ER 10 MG food} Ozempic (1 Ozempic (1 No Ozempic (1 MG/DOSE) 4 MG/DOSE) 4 MG/DOSE) 4 MG/3ML MG/3ML MG/3ML Aspirin Low Aspirin Low No Aspirin Dose 81 MG Dose 81 MG Low Dose 81 MG Omeprazole Omeprazole No QD Omeprazole 40 MG 40 MG 40 MG amLODIPine amLODIPine No 1{table QD amLODIPine Besylate 10 Besylate 10 t} Besylate MG MG 10 MG PROzac 40 PROzac 40 No 1{capsu QD PROzac 40 MG MG le} MG FLUoxetine FLUoxetine No FLUoxetine HCl 20 MG HCl 20 MG HCl 20 MG Breo Breo No Breo Ellipta Ellipta Ellipta 200-25 200-25 200-25 MCG/INH MCG/INH MCG/INH glipiZIDE glipiZIDE No glipiZIDE ER 10 MG ER 10 MG ER 10 MG Benazepril Benazepril No Benazepril HCl 40 MG HCl 40 MG HCl 40 MG amLODIPine amLODIPine No amLODIPine Besylate 10 Besylate 10 Besylate MG MG 10 MG Contour Contour No Contour Next Test - Next Test - Next Test - ALPRAZolam ALPRAZolam No ALPRAZolam 1 MG 1 MG 1 MG Breo Breo No Breo Ellipta Ellipta Ellipta 200-25 200-25 200-25 MCG/INH MCG/INH MCG/INH Microlet Microlet No Microlet Lancets - Lancets - Lancets - Benazepril Benazepril No Benazepril HCl 40 MG HCl 40 MG HCl 40 MG glipiZIDE glipiZIDE No 1{table BID glipiZIDE ER 10 MG ER 10 MG t_with_ ER 10 MG food} Omeprazole Omeprazole No QD Omeprazole 40 MG 40 MG 40 MG Atorvastati Atorvastati No 1{table QD Atorvastat n Calcium n Calcium t} in Calcium 10 MG 10 MG 10 MG amLODIPine amLODIPine No 1{table QD amLODIPine Besylate 10 Besylate 10 t} Besylate MG MG 10 MG FLUoxetine FLUoxetine No FLUoxetine HCl 20 MG HCl 20 MG HCl 20 MG PROzac 40 PROzac 40 No 1{capsu QD PROzac 40 MG MG le} MG Benazepril Benazepril No 1{table QD Benazepril HCl 40 MG HCl 40 MG t} HCl 40 MG Tradjenta 5 Tradjenta 5 No Tradjenta MG MG 5 MG Aspirin Low Aspirin Low No Aspirin Dose 81 MG Dose 81 MG Low Dose 81 MG amLODIPine amLODIPine No amLODIPine Besylate 10 Besylate 10 Besylate MG MG 10 MG glipiZIDE glipiZIDE No glipiZIDE ER 10 MG ER 10 MG ER 10 MG Ozempic (1 Ozempic (1 No Ozempic (1 MG/DOSE) 4 MG/DOSE) 4 MG/DOSE) 4 MG/3ML MG/3ML MG/3ML metFORMIN metFORMIN No BID metFORMIN HCl ER 500 HCl ER 500 HCl ER 500 MG MG MG Albuterol Albuterol No Albuterol Sulfate HFA Sulfate HFA Sulfate 108 (90 108 (90 HFA 108 Base) Base) (90 Base) MCG/ACT MCG/ACT MCG/ACT Contour Contour No Contour Next Test - Next Test - Next Test - ALPRAZolam ALPRAZolam No ALPRAZolam 1 MG 1 MG 1 MG Breo Breo No Breo Ellipta Ellipta Ellipta 200-25 200-25 200-25 MCG/INH MCG/INH MCG/INH Microlet Microlet No Microlet Lancets - Lancets - Lancets - Benazepril Benazepril No Benazepril HCl 40 MG HCl 40 MG HCl 40 MG glipiZIDE glipiZIDE No 1{table BID glipiZIDE ER 10 MG ER 10 MG t_with_ ER 10 MG food} Omeprazole Omeprazole No QD Omeprazole 40 MG 40 MG 40 MG Atorvastati Atorvastati No 1{table QD Atorvastat n Calcium n Calcium t} in Calcium 10 MG 10 MG 10 MG amLODIPine amLODIPine No 1{table QD amLODIPine Besylate 10 Besylate 10 t} Besylate MG MG 10 MG FLUoxetine FLUoxetine No FLUoxetine HCl 20 MG HCl 20 MG HCl 20 MG PROzac 40 PROzac 40 No 1{capsu QD PROzac 40 MG MG le} MG Benazepril Benazepril No 1{table QD Benazepril HCl 40 MG HCl 40 MG t} HCl 40 MG Tradjenta 5 Tradjenta 5 No Tradjenta MG MG 5 MG Aspirin Low Aspirin Low No Aspirin Dose 81 MG Dose 81 MG Low Dose 81 MG amLODIPine amLODIPine No amLODIPine Besylate 10 Besylate 10 Besylate MG MG 10 MG glipiZIDE glipiZIDE No glipiZIDE ER 10 MG ER 10 MG ER 10 MG Ozempic (1 Ozempic (1 No Ozempic (1 MG/DOSE) 4 MG/DOSE) 4 MG/DOSE) 4 MG/3ML MG/3ML MG/3ML metFORMIN metFORMIN No BID metFORMIN HCl ER 500 HCl ER 500 HCl ER 500 MG MG MG Albuterol Albuterol No Albuterol Sulfate HFA Sulfate HFA Sulfate 108 (90 108 (90 HFA 108 Base) Base) (90 Base) MCG/ACT MCG/ACT MCG/ACT Aspirin Low Aspirin Low No Aspirin Dose 81 MG Dose 81 MG Low Dose 81 MG Tradjenta 5 Tradjenta 5 No Tradjenta MG MG 5 MG ALPRAZolam ALPRAZolam No ALPRAZolam 1 MG 1 MG 1 MG glipiZIDE glipiZIDE No glipiZIDE ER 10 MG ER 10 MG ER 10 MG Atorvastati Atorvastati No 1{table QD Atorvastat n Calcium n Calcium t} in Calcium 10 MG 10 MG 10 MG Omeprazole Omeprazole No QD Omeprazole 40 MG 40 MG 40 MG FLUoxetine FLUoxetine No FLUoxetine HCl 20 MG HCl 20 MG HCl 20 MG amLODIPine amLODIPine No amLODIPine Besylate 10 Besylate 10 Besylate MG MG 10 MG Benazepril Benazepril No 1{table QD Benazepril HCl 40 MG HCl 40 MG t} HCl 40 MG Benazepril Benazepril No Benazepril HCl 40 MG HCl 40 MG HCl 40 MG metFORMIN metFORMIN No BID metFORMIN HCl ER 500 HCl ER 500 HCl ER 500 MG MG MG Contour Contour No Contour Next Test - Next Test - Next Test - Breo Breo No 1{puff} QD Breo Ellipta Ellipta Ellipta 200-25 200-25 200-25 MCG/INH MCG/INH MCG/INH Albuterol Albuterol No Albuterol Sulfate HFA Sulfate HFA Sulfate 108 (90 108 (90 HFA 108 Base) Base) (90 Base) MCG/ACT MCG/ACT MCG/ACT amLODIPine amLODIPine No 1{table QD amLODIPine Besylate 10 Besylate 10 t} Besylate MG MG 10 MG Breo Breo No Breo Ellipta Ellipta Ellipta 200-25 200-25 200-25 MCG/ACT MCG/ACT MCG/ACT Microlet Microlet No Microlet Lancets - Lancets - Lancets - Breo Breo No Breo Ellipta Ellipta Ellipta 200-25 200-25 200-25 MCG/INH MCG/INH MCG/INH PROzac 20 PROzac 20 No 1{capsu BID PROzac 20 MG MG le} MG glipiZIDE glipiZIDE No 1{table BID glipiZIDE ER 5 MG ER 5 MG t_with_ ER 5 MG food} Ozempic (1 Ozempic (1 No Ozempic (1 MG/DOSE) 4 MG/DOSE) 4 MG/DOSE) 4 MG/3ML MG/3ML MG/3ML metFORMIN metFORMIN No BID metFORMIN HCl ER 500 HCl ER 500 HCl ER 500 MG MG MG Breo Breo No Breo Ellipta Ellipta Ellipta 200-25 200-25 200-25 MCG/ACT MCG/ACT MCG/ACT Atorvastati Atorvastati No 1{table QD Atorvastat n Calcium n Calcium t} in Calcium 10 MG 10 MG 10 MG Omeprazole Omeprazole No QD Omeprazole 40 MG 40 MG 40 MG Albuterol Albuterol No Albuterol Sulfate HFA Sulfate HFA Sulfate 108 (90 108 (90 HFA 108 Base) Base) (90 Base) MCG/ACT MCG/ACT MCG/ACT Benazepril Benazepril No 1{table QD Benazepril HCl 40 MG HCl 40 MG t} HCl 40 MG Ozempic (1 Ozempic (1 No Ozempic (1 MG/DOSE) 4 MG/DOSE) 4 MG/DOSE) 4 MG/3ML MG/3ML MG/3ML Microlet Microlet No Microlet Lancets - Lancets - Lancets - Breo Breo No 1{puff} QD Breo Ellipta Ellipta Ellipta 200-25 200-25 200-25 MCG/INH MCG/INH MCG/INH amLODIPine amLODIPine No 1{table QD amLODIPine Besylate 10 Besylate 10 t} Besylate MG MG 10 MG PROzac 20 PROzac 20 No 1{capsu BID PROzac 20 MG MG le} MG Contour Contour No Contour Next Test - Next Test - Next Test - Benazepril Benazepril No 1{table QD Benazepril HCl 40 MG HCl 40 MG t} HCl 40 MG Omeprazole Omeprazole No QD Omeprazole 40 MG 40 MG 40 MG Contour Contour No Contour Next Test - Next Test - Next Test - Albuterol Albuterol No Albuterol Sulfate HFA Sulfate HFA Sulfate 108 (90 108 (90 HFA 108 Base) Base) (90 Base) MCG/ACT MCG/ACT MCG/ACT Microlet Microlet No Microlet Lancets - Lancets - Lancets - Breo Breo No 1{puff} QD Breo Ellipta Ellipta Ellipta 200-25 200-25 200-25 MCG/INH MCG/INH MCG/INH Atorvastati Atorvastati No 1{table QD Atorvastat n Calcium n Calcium t} in Calcium 10 MG 10 MG 10 MG amLODIPine amLODIPine No 1{table QD amLODIPine Besylate 10 Besylate 10 t} Besylate MG MG 10 MG PROzac 20 PROzac 20 No 1{capsu BID PROzac 20 MG MG le} MG metFORMIN metFORMIN No BID metFORMIN HCl ER 500 HCl ER 500 HCl ER 500 MG MG MG Breo Breo No Breo Ellipta Ellipta Ellipta 200-25 200-25 200-25 MCG/ACT MCG/ACT MCG/ACT Ozempic (2 Ozempic (2 No Ozempic (2 MG/DOSE) 8 MG/DOSE) 8 MG/DOSE) 8 MG/3ML MG/3ML MG/3ML Benazepril Benazepril No 1{table QD Benazepril HCl 40 MG HCl 40 MG t} HCl 40 MG Omeprazole Omeprazole No QD Omeprazole 40 MG 40 MG 40 MG Contour Contour No Contour Next Test - Next Test - Next Test - Albuterol Albuterol No Albuterol Sulfate HFA Sulfate HFA Sulfate 108 (90 108 (90 HFA 108 Base) Base) (90 Base) MCG/ACT MCG/ACT MCG/ACT Microlet Microlet No Microlet Lancets - Lancets - Lancets - Breo Breo No 1{puff} QD Breo Ellipta Ellipta Ellipta 200-25 200-25 200-25 MCG/INH MCG/INH MCG/INH Atorvastati Atorvastati No 1{table QD Atorvastat n Calcium n Calcium t} in Calcium 10 MG 10 MG 10 MG amLODIPine amLODIPine No 1{table QD amLODIPine Besylate 10 Besylate 10 t} Besylate MG MG 10 MG PROzac 20 PROzac 20 No 1{capsu BID PROzac 20 MG MG le} MG metFORMIN metFORMIN No BID metFORMIN HCl ER 500 HCl ER 500 HCl ER 500 MG MG MG Breo Breo No Breo Ellipta Ellipta Ellipta 200-25 200-25 200-25 MCG/ACT MCG/ACT MCG/ACT Breo Breo No 1{puff} QD Breo Ellipta Ellipta Ellipta 200-25 200-25 200-25 MCG/INH MCG/INH MCG/INH Ozempic (2 Ozempic (2 No Ozempic (2 MG/DOSE) 8 MG/DOSE) 8 MG/DOSE) 8 MG/3ML MG/3ML MG/3ML glipiZIDE glipiZIDE No glipiZIDE ER 10 MG ER 10 MG ER 10 MG Benazepril Benazepril No 1{table QD Benazepril HCl 40 MG HCl 40 MG t} HCl 40 MG Omeprazole Omeprazole No QD Omeprazole 40 MG 40 MG 40 MG Contour Contour No Contour Next Test - Next Test - Next Test - Albuterol Albuterol No Albuterol Sulfate HFA Sulfate HFA Sulfate 108 (90 108 (90 HFA 108 Base) Base) (90 Base) MCG/ACT MCG/ACT MCG/ACT Microlet Microlet No Microlet Lancets - Lancets - Lancets - Breo Breo No 1{puff} QD Breo Ellipta Ellipta Ellipta 200-25 200-25 200-25 MCG/INH MCG/INH MCG/INH Atorvastati Atorvastati No 1{table QD Atorvastat n Calcium n Calcium t} in Calcium 10 MG 10 MG 10 MG amLODIPine amLODIPine No 1{table QD amLODIPine Besylate 10 Besylate 10 t} Besylate MG MG 10 MG PROzac 20 PROzac 20 No 1{capsu BID PROzac 20 MG MG le} MG Breo Breo No Breo Ellipta Ellipta Ellipta 200-25 200-25 200-25 MCG/INH MCG/INH MCG/INH metFORMIN metFORMIN No BID metFORMIN HCl ER 500 HCl ER 500 HCl ER 500 MG MG MG Breo Breo No Breo Ellipta Ellipta Ellipta 200-25 200-25 200-25 MCG/ACT MCG/ACT MCG/ACT Ozempic (2 Ozempic (2 No Ozempic (2 MG/DOSE) 8 MG/DOSE) 8 MG/DOSE) 8 MG/3ML MG/3ML MG/3ML ALPRAZolam ALPRAZolam No ALPRAZolam 1 MG 1 MG 1 MG Benazepril Benazepril No 1{table QD Benazepril HCl 40 MG HCl 40 MG t} HCl 40 MG Omeprazole Omeprazole No QD Omeprazole 40 MG 40 MG 40 MG Contour Contour No Contour Next Test - Next Test - Next Test - Albuterol Albuterol No Albuterol Sulfate HFA Sulfate HFA Sulfate 108 (90 108 (90 HFA 108 Base) Base) (90 Base) MCG/ACT MCG/ACT MCG/ACT Microlet Microlet No Microlet Lancets - Lancets - Lancets - Breo Breo No 1{puff} QD Breo Ellipta Ellipta Ellipta 200-25 200-25 200-25 MCG/INH MCG/INH MCG/INH Atorvastati Atorvastati No 1{table QD Atorvastat n Calcium n Calcium t} in Calcium 10 MG 10 MG 10 MG amLODIPine amLODIPine No 1{table QD amLODIPine Besylate 10 Besylate 10 t} Besylate MG MG 10 MG PROzac 20 PROzac 20 No 1{capsu BID PROzac 20 MG MG le} MG metFORMIN metFORMIN No BID metFORMIN HCl ER 500 HCl ER 500 HCl ER 500 MG MG MG Breo Breo No Breo Ellipta Ellipta Ellipta 200-25 200-25 200-25 MCG/ACT MCG/ACT MCG/ACT Ozempic (2 Ozempic (2 No Ozempic (2 MG/DOSE) 8 MG/DOSE) 8 MG/DOSE) 8 MG/3ML MG/3ML MG/3ML FLUoxetine FLUoxetine No FLUoxetine HCl 20 MG HCl 20 MG HCl 20 MG Benazepril Benazepril No 1{table QD Benazepril HCl 40 MG HCl 40 MG t} HCl 40 MG Omeprazole Omeprazole No QD Omeprazole 40 MG 40 MG 40 MG Contour Contour No Contour Next Test - Next Test - Next Test - Albuterol Albuterol No Albuterol Sulfate HFA Sulfate HFA Sulfate 108 (90 108 (90 HFA 108 Base) Base) (90 Base) MCG/ACT MCG/ACT MCG/ACT Microlet Microlet No Microlet Lancets - Lancets - Lancets - Breo Breo No 1{puff} QD Breo Ellipta Ellipta Ellipta 200-25 200-25 200-25 MCG/INH MCG/INH MCG/INH Atorvastati Atorvastati No 1{table QD Atorvastat n Calcium n Calcium t} in Calcium 10 MG 10 MG 10 MG amLODIPine amLODIPine No 1{table QD amLODIPine Besylate 10 Besylate 10 t} Besylate MG MG 10 MG Albuterol Albuterol No Albuterol Sulfate HFA Sulfate HFA Sulfate 108 (90 108 (90 HFA 108 Base) Base) (90 Base) MCG/ACT MCG/ACT MCG/ACT PROzac 20 PROzac 20 No 1{capsu BID PROzac 20 MG MG le} MG metFORMIN metFORMIN No BID metFORMIN HCl ER 500 HCl ER 500 HCl ER 500 MG MG MG Breo Breo No Breo Ellipta Ellipta Ellipta 200-25 200-25 200-25 MCG/ACT MCG/ACT MCG/ACT Ozempic (2 Ozempic (2 No Ozempic (2 MG/DOSE) 8 MG/DOSE) 8 MG/DOSE) 8 MG/3ML MG/3ML MG/3ML Benazepril Benazepril No 1{table QD Benazepril HCl 40 MG HCl 40 MG t} HCl 40 MG Benazepril Benazepril No 1{table QD Benazepril HCl 40 MG HCl 40 MG t} HCl 40 MG Omeprazole Omeprazole No QD Omeprazole 40 MG 40 MG 40 MG Contour Contour No Contour Next Test - Next Test - Next Test - Albuterol Albuterol No Albuterol Sulfate HFA Sulfate HFA Sulfate 108 (90 108 (90 HFA 108 Base) Base) (90 Base) MCG/ACT MCG/ACT MCG/ACT Microlet Microlet No Microlet Lancets - Lancets - Lancets - Breo Breo No 1{puff} QD Breo Ellipta Ellipta Ellipta 200-25 200-25 200-25 MCG/INH MCG/INH MCG/INH Atorvastati Atorvastati No 1{table QD Atorvastat n Calcium n Calcium t} in Calcium 10 MG 10 MG 10 MG Omeprazole Omeprazole No QD Omeprazole 40 MG 40 MG 40 MG amLODIPine amLODIPine No 1{table QD amLODIPine Besylate 10 Besylate 10 t} Besylate MG MG 10 MG PROzac 20 PROzac 20 No 1{capsu BID PROzac 20 MG MG le} MG metFORMIN metFORMIN No BID metFORMIN HCl ER 500 HCl ER 500 HCl ER 500 MG MG MG Breo Breo No Breo Ellipta Ellipta Ellipta 200-25 200-25 200-25 MCG/ACT MCG/ACT MCG/ACT Ozempic (2 Ozempic (2 No Ozempic (2 MG/DOSE) 8 MG/DOSE) 8 MG/DOSE) 8 MG/3ML MG/3ML MG/3ML Contour Contour No Contour Next Test - Next Test - Next Test - metFORMIN metFORMIN No BID metFORMIN HCl ER 500 HCl ER 500 HCl ER 500 MG MG MG Benazepril Benazepril No 1{table QD Benazepril HCl 40 MG HCl 40 MG t} HCl 40 MG Omeprazole Omeprazole No QD Omeprazole 40 MG 40 MG 40 MG Contour Contour No Contour Next Test - Next Test - Next Test - Albuterol Albuterol No Albuterol Sulfate HFA Sulfate HFA Sulfate 108 (90 108 (90 HFA 108 Base) Base) (90 Base) MCG/ACT MCG/ACT MCG/ACT Microlet Microlet No Microlet Lancets - Lancets - Lancets - Breo Breo No 1{puff} QD Breo Ellipta Ellipta Ellipta 200-25 200-25 200-25 MCG/INH MCG/INH MCG/INH Atorvastati Atorvastati No 1{table QD Atorvastat n Calcium n Calcium t} in Calcium 10 MG 10 MG 10 MG glipiZIDE glipiZIDE No 1{table BID glipiZIDE ER 10 MG ER 10 MG t_with_ ER 10 MG food} amLODIPine amLODIPine No 1{table QD amLODIPine Besylate 10 Besylate 10 t} Besylate MG MG 10 MG PROzac 20 PROzac 20 No 1{capsu BID PROzac 20 MG MG le} MG metFORMIN metFORMIN No BID metFORMIN HCl ER 500 HCl ER 500 HCl ER 500 MG MG MG Breo Breo No Breo Ellipta Ellipta Ellipta 200-25 200-25 200-25 MCG/ACT MCG/ACT MCG/ACT Ozempic (2 Ozempic (2 No Ozempic (2 MG/DOSE) 8 MG/DOSE) 8 MG/DOSE) 8 MG/3ML MG/3ML MG/3ML Tradjenta 5 Tradjenta 5 No Tradjenta MG MG 5 MG amLODIPine amLODIPine No amLODIPine Besylate 10 Besylate 10 Besylate MG MG 10 MG Benazepril Benazepril No 1{table QD Benazepril HCl 40 MG HCl 40 MG t} HCl 40 MG Omeprazole Omeprazole No QD Omeprazole 40 MG 40 MG 40 MG Contour Contour No Contour Next Test - Next Test - Next Test - Albuterol Albuterol No Albuterol Sulfate HFA Sulfate HFA Sulfate 108 (90 108 (90 HFA 108 Base) Base) (90 Base) MCG/ACT MCG/ACT MCG/ACT Microlet Microlet No Microlet Lancets - Lancets - Lancets - PROzac 40 PROzac 40 No 1{capsu QD PROzac 40 MG MG le} MG Breo Breo No 1{puff} QD Breo Ellipta Ellipta Ellipta 200-25 200-25 200-25 MCG/INH MCG/INH MCG/INH Atorvastati Atorvastati No 1{table QD Atorvastat n Calcium n Calcium t} in Calcium 10 MG 10 MG 10 MG amLODIPine amLODIPine No 1{table QD amLODIPine Besylate 10 Besylate 10 t} Besylate MG MG 10 MG PROzac 20 PROzac 20 No 1{capsu BID PROzac 20 MG MG le} MG metFORMIN metFORMIN No BID metFORMIN HCl ER 500 HCl ER 500 HCl ER 500 MG MG MG Breo Breo No Breo Ellipta Ellipta Ellipta 200-25 200-25 200-25 MCG/ACT MCG/ACT MCG/ACT Ozempic (2 Ozempic (2 No Ozempic (2 MG/DOSE) 8 MG/DOSE) 8 MG/DOSE) 8 MG/3ML MG/3ML MG/3ML Atorvastati Atorvastati No 1{table QD Atorvastat n Calcium n Calcium t} in Calcium 10 MG 10 MG 10 MG Benazepril Benazepril No Benazepril HCl 40 MG HCl 40 MG HCl 40 MG Tradjenta 5 Tradjenta 5 No 1{table QD Tradjenta MG MG t} 5 MG Aspirin Low Aspirin Low No Aspirin Dose 81 MG Dose 81 MG Low Dose 81 MG amLODIPine amLODIPine No 1{table QD amLODIPine Besylate 10 Besylate 10 t} Besylate MG MG 10 MG ALPRAZolam ALPRAZolam No ALPRAZolam 1 MG 1 MG 1 MG Breo Breo No 1{puff} QD Breo Ellipta Ellipta Ellipta 200-25 200-25 200-25 MCG/INH MCG/INH MCG/INH Omeprazole Omeprazole No QD Omeprazole 40 MG 40 MG 40 MG amLODIPine amLODIPine No 1{table QD amLODIPine Besylate 10 Besylate 10 t} Besylate MG MG 10 MG glipiZIDE glipiZIDE No 1{table BID glipiZIDE ER 10 MG ER 10 MG t_with_ ER 10 MG food} Tradjenta 5 Tradjenta 5 No 1{table QD Tradjenta MG MG t} 5 MG FLUoxetine FLUoxetine No FLUoxetine HCl 20 MG HCl 20 MG HCl 20 MG glipiZIDE glipiZIDE No glipiZIDE ER 10 MG ER 10 MG ER 10 MG Atorvastati Atorvastati No 1{table QD Atorvastat n Calcium n Calcium t} in Calcium 10 MG 10 MG 10 MG amLODIPine amLODIPine No amLODIPine Besylate 10 Besylate 10 Besylate MG MG 10 MG Tradjenta 5 Tradjenta 5 No Tradjenta MG MG 5 MG Breo Breo No Breo Ellipta Ellipta Ellipta 200-25 200-25 200-25 MCG/INH MCG/INH MCG/INH Benazepril Benazepril No Benazepril HCl 40 MG HCl 40 MG HCl 40 MG Albuterol Albuterol No Albuterol Sulfate HFA Sulfate HFA Sulfate 108 (90 108 (90 HFA 108 Base) Base) (90 Base) MCG/ACT MCG/ACT MCG/ACT metFORMIN metFORMIN No BID metFORMIN HCl ER 500 HCl ER 500 HCl ER 500 MG MG MG Aspirin Low Aspirin Low No Aspirin Dose 81 MG Dose 81 MG Low Dose 81 MG PROzac 40 PROzac 40 No 1{capsu QD PROzac 40 MG MG le} MG Benazepril Benazepril No 1{table QD Benazepril HCl 40 MG HCl 40 MG t} HCl 40 MG Contour Contour No Contour Next Test - Next Test - Next Test - ALPRAZolam ALPRAZolam No ALPRAZolam 1 MG 1 MG 1 MG Breo Breo No 1{puff} QD Breo Ellipta Ellipta Ellipta 200-25 200-25 200-25 MCG/INH MCG/INH MCG/INH Omeprazole Omeprazole No QD Omeprazole 40 MG 40 MG 40 MG amLODIPine amLODIPine No 1{table QD amLODIPine Besylate 10 Besylate 10 t} Besylate MG MG 10 MG glipiZIDE glipiZIDE No 1{table BID glipiZIDE ER 10 MG ER 10 MG t_with_ ER 10 MG food} Tradjenta 5 Tradjenta 5 No 1{table QD Tradjenta MG MG t} 5 MG FLUoxetine FLUoxetine No FLUoxetine HCl 20 MG HCl 20 MG HCl 20 MG glipiZIDE glipiZIDE No glipiZIDE ER 10 MG ER 10 MG ER 10 MG Atorvastati Atorvastati No 1{table QD Atorvastat n Calcium n Calcium t} in Calcium 10 MG 10 MG 10 MG amLODIPine amLODIPine No amLODIPine Besylate 10 Besylate 10 Besylate MG MG 10 MG Tradjenta 5 Tradjenta 5 No Tradjenta MG MG 5 MG Breo Breo No Breo Ellipta Ellipta Ellipta 200-25 200-25 200-25 MCG/INH MCG/INH MCG/INH Benazepril Benazepril No Benazepril HCl 40 MG HCl 40 MG HCl 40 MG Albuterol Albuterol No Albuterol Sulfate HFA Sulfate HFA Sulfate 108 (90 108 (90 HFA 108 Base) Base) (90 Base) MCG/ACT MCG/ACT MCG/ACT metFORMIN metFORMIN No BID metFORMIN HCl ER 500 HCl ER 500 HCl ER 500 MG MG MG Aspirin Low Aspirin Low No Aspirin Dose 81 MG Dose 81 MG Low Dose 81 MG PROzac 40 PROzac 40 No 1{capsu QD PROzac 40 MG MG le} MG Benazepril Benazepril No 1{table QD Benazepril HCl 40 MG HCl 40 MG t} HCl 40 MG Contour Contour No Contour Next Test - Next Test - Next Test - Atorvastati Atorvastati No 1{table QD Atorvastat n Calcium n Calcium t} in Calcium 10 MG 10 MG 10 MG FLUoxetine FLUoxetine No FLUoxetine HCl 20 MG HCl 20 MG HCl 20 MG metFORMIN metFORMIN No BID metFORMIN HCl ER 500 HCl ER 500 HCl ER 500 MG MG MG Breo Breo No Breo Ellipta Ellipta Ellipta 200-25 200-25 200-25 MCG/INH MCG/INH MCG/INH PROzac 20 PROzac 20 No 1{capsu QD PROzac 20 MG MG le} MG Benazepril Benazepril No 1{table QD Benazepril HCl 40 MG HCl 40 MG t} HCl 40 MG Aspirin Low Aspirin Low No Aspirin Dose 81 MG Dose 81 MG Low Dose 81 MG ALPRAZolam ALPRAZolam No ALPRAZolam 1 MG 1 MG 1 MG glipiZIDE glipiZIDE No 1{table BID glipiZIDE ER 10 MG ER 10 MG t_with_ ER 10 MG food} Contour Contour No Contour Next Test - Next Test - Next Test - Omeprazole Omeprazole No Omeprazole 40 MG 40 MG 40 MG Tradjenta 5 Tradjenta 5 No 1{table QD Tradjenta MG MG t} 5 MG Tradjenta 5 Tradjenta 5 No Tradjenta MG MG 5 MG amLODIPine amLODIPine No 1{table QD amLODIPine Besylate 10 Besylate 10 t} Besylate MG MG 10 MG Breo Breo No Breo Ellipta Ellipta Ellipta 200-25 200-25 200-25 MCG/INH MCG/INH MCG/INH Atorvastati Atorvastati No 1{table QD Atorvastat n Calcium n Calcium t} in Calcium 10 MG 10 MG 10 MG metFORMIN metFORMIN No BID metFORMIN HCl ER 500 HCl ER 500 HCl ER 500 MG MG MG PROzac 20 PROzac 20 No 1{capsu QD PROzac 20 MG MG le} MG Benazepril Benazepril No 1{table QD Benazepril HCl 40 MG HCl 40 MG t} HCl 40 MG Aspirin Low Aspirin Low No Aspirin Dose 81 MG Dose 81 MG Low Dose 81 MG ALPRAZolam ALPRAZolam No ALPRAZolam 1 MG 1 MG 1 MG glipiZIDE glipiZIDE No 1{table BID glipiZIDE ER 10 MG ER 10 MG t_with_ ER 10 MG food} amLODIPine amLODIPine No 1{table QD amLODIPine Besylate 10 Besylate 10 t} Besylate MG MG 10 MG Omeprazole Omeprazole No Omeprazole 40 MG 40 MG 40 MG Contour Contour No Contour Next Test - Next Test - Next Test - Tradjenta 5 Tradjenta 5 No 1{table QD Tradjenta MG MG t} 5 MG Tradjenta 5 Tradjenta 5 No Tradjenta MG MG 5 MG FLUoxetine FLUoxetine No FLUoxetine HCl 20 MG HCl 20 MG HCl 20 MG glipiZIDE glipiZIDE No 1{table BID glipiZIDE ER 10 MG ER 10 MG t_with_ ER 10 MG food} Atorvastati Atorvastati No 1{table QD Atorvastat n Calcium n Calcium t} in Calcium 10 MG 10 MG 10 MG Tradjenta 5 Tradjenta 5 No 1{table QD Tradjenta MG MG t} 5 MG ALPRAZolam ALPRAZolam No ALPRAZolam 1 MG 1 MG 1 MG PROzac 40 PROzac 40 No 1{capsu QD PROzac 40 MG MG le} MG Contour Contour No Contour Next Test - Next Test - Next Test - Tradjenta 5 Tradjenta 5 No Tradjenta MG MG 5 MG amLODIPine amLODIPine No 1{table QD amLODIPine Besylate 10 Besylate 10 t} Besylate MG MG 10 MG Benazepril Benazepril No 1{table QD Benazepril HCl 40 MG HCl 40 MG t} HCl 40 MG Aspirin Low Aspirin Low No Aspirin Dose 81 MG Dose 81 MG Low Dose 81 MG Omeprazole Omeprazole No Omeprazole 40 MG 40 MG 40 MG Breo Breo No Breo Ellipta Ellipta Ellipta 200-25 200-25 200-25 MCG/INH MCG/INH MCG/INH Breo Breo No 1{puff} QD Breo Ellipta Ellipta Ellipta 200-25 200-25 200-25 MCG/INH MCG/INH MCG/INH FLUoxetine FLUoxetine No FLUoxetine HCl 20 MG HCl 20 MG HCl 20 MG metFORMIN metFORMIN No BID metFORMIN HCl ER 500 HCl ER 500 HCl ER 500 MG MG MG Benazepril Benazepril No 1{table QD HCl 40 MG HCl 40 MG t} Breo Breo No Ellipta Ellipta 200-25 200-25 MCG/INH MCG/INH glipiZIDE glipiZIDE No 1{table BID ER 10 MG ER 10 MG t_with_ food} FLUoxetine FLUoxetine No HCl 20 MG HCl 20 MG Breo Breo No 1{puff} QD Ellipta Ellipta 200-25 200-25 MCG/INH MCG/INH ALPRAZolam ALPRAZolam No 1 MG 1 MG PROzac 40 PROzac 40 No 1{capsu QD MG MG le} Omeprazole Omeprazole No 40 MG 40 MG Tradjenta 5 Tradjenta 5 No 1{table QD MG MG t} Contour Contour No Next Test - Next Test - Tradjenta 5 Tradjenta 5 No MG MG Aspirin Low Aspirin Low No Dose 81 MG Dose 81 MG metFORMIN metFORMIN No BID HCl ER 500 HCl ER 500 MG MG Atorvastati Atorvastati No 1{table QD n Calcium n Calcium t} 10 MG 10 MG amLODIPine amLODIPine No 1{table QD Besylate 10 Besylate 10 t} MG MG amLODIPine amLODIPine No 1{table QD amLODIPine Besylate 10 Besylate 10 t} Besylate MG MG 10 MG ALPRAZolam ALPRAZolam No ALPRAZolam 1 MG 1 MG 1 MG Albuterol Albuterol No Albuterol Sulfate HFA Sulfate HFA Sulfate 108 (90 108 (90 HFA 108 Base) Base) (90 Base) MCG/ACT MCG/ACT MCG/ACT PROzac 40 PROzac 40 No 1{capsu QD PROzac 40 MG MG le} MG Atorvastati Atorvastati No 1{table QD Atorvastat n Calcium n Calcium t} in Calcium 10 MG 10 MG 10 MG Aspirin Low Aspirin Low No Aspirin Dose 81 MG Dose 81 MG Low Dose 81 MG glipiZIDE glipiZIDE No 1{table BID glipiZIDE ER 10 MG ER 10 MG t_with_ ER 10 MG food} Breo Breo No 1{puff} QD Breo Ellipta Ellipta Ellipta 200-25 200-25 200-25 MCG/INH MCG/INH MCG/INH Tradjenta 5 Tradjenta 5 No Tradjenta MG MG 5 MG ALPRAZolam ALPRAZolam No 1{table ALPRAZolam 1 MG 1 MG t} 1 MG Omeprazole Omeprazole No Omeprazole 40 MG 40 MG 40 MG Benazepril Benazepril No 1{table QD Benazepril HCl 40 MG HCl 40 MG t} HCl 40 MG metFORMIN metFORMIN No BID metFORMIN HCl ER 500 HCl ER 500 HCl ER 500 MG MG MG Tradjenta 5 Tradjenta 5 No 1{table QD Tradjenta MG MG t} 5 MG Breo Breo No Breo Ellipta Ellipta Ellipta 200-25 200-25 200-25 MCG/INH MCG/INH MCG/INH FLUoxetine FLUoxetine No FLUoxetine HCl 20 MG HCl 20 MG HCl 20 MG Contour Contour No Contour Next Test - Next Test - Next Test - amLODIPine amLODIPine No 1{table QD amLODIPine Besylate 10 Besylate 10 t} Besylate MG MG 10 MG ALPRAZolam ALPRAZolam No ALPRAZolam 1 MG 1 MG 1 MG Albuterol Albuterol No Albuterol Sulfate HFA Sulfate HFA Sulfate 108 (90 108 (90 HFA 108 Base) Base) (90 Base) MCG/ACT MCG/ACT MCG/ACT PROzac 40 PROzac 40 No 1{capsu QD PROzac 40 MG MG le} MG Atorvastati Atorvastati No 1{table QD Atorvastat n Calcium n Calcium t} in Calcium 10 MG 10 MG 10 MG Aspirin Low Aspirin Low No Aspirin Dose 81 MG Dose 81 MG Low Dose 81 MG glipiZIDE glipiZIDE No 1{table BID glipiZIDE ER 10 MG ER 10 MG t_with_ ER 10 MG food} Breo Breo No 1{puff} QD Breo Ellipta Ellipta Ellipta 200-25 200-25 200-25 MCG/INH MCG/INH MCG/INH Tradjenta 5 Tradjenta 5 No Tradjenta MG MG 5 MG ALPRAZolam ALPRAZolam No 1{table ALPRAZolam 1 MG 1 MG t} 1 MG Omeprazole Omeprazole No Omeprazole 40 MG 40 MG 40 MG Benazepril Benazepril No 1{table QD Benazepril HCl 40 MG HCl 40 MG t} HCl 40 MG metFORMIN metFORMIN No BID metFORMIN HCl ER 500 HCl ER 500 HCl ER 500 MG MG MG Tradjenta 5 Tradjenta 5 No 1{table QD Tradjenta MG MG t} 5 MG Breo Breo No Breo Ellipta Ellipta Ellipta 200-25 200-25 200-25 MCG/INH MCG/INH MCG/INH FLUoxetine FLUoxetine No FLUoxetine HCl 20 MG HCl 20 MG HCl 20 MG Contour Contour No Contour Next Test - Next Test - Next Test - amLODIPine amLODIPine No 1{table QD amLODIPine Besylate 10 Besylate 10 t} Besylate MG MG 10 MG ALPRAZolam ALPRAZolam No ALPRAZolam 1 MG 1 MG 1 MG Albuterol Albuterol No Albuterol Sulfate HFA Sulfate HFA Sulfate 108 (90 108 (90 HFA 108 Base) Base) (90 Base) MCG/ACT MCG/ACT MCG/ACT PROzac 40 PROzac 40 No 1{capsu QD PROzac 40 MG MG le} MG Atorvastati Atorvastati No 1{table QD Atorvastat n Calcium n Calcium t} in Calcium 10 MG 10 MG 10 MG Aspirin Low Aspirin Low No Aspirin Dose 81 MG Dose 81 MG Low Dose 81 MG glipiZIDE glipiZIDE No 1{table BID glipiZIDE ER 10 MG ER 10 MG t_with_ ER 10 MG food} Breo Breo No 1{puff} QD Breo Ellipta Ellipta Ellipta 200-25 200-25 200-25 MCG/INH MCG/INH MCG/INH Tradjenta 5 Tradjenta 5 No Tradjenta MG MG 5 MG ALPRAZolam ALPRAZolam No 1{table ALPRAZolam 1 MG 1 MG t} 1 MG Omeprazole Omeprazole No Omeprazole 40 MG 40 MG 40 MG Benazepril Benazepril No 1{table QD Benazepril HCl 40 MG HCl 40 MG t} HCl 40 MG metFORMIN metFORMIN No BID metFORMIN HCl ER 500 HCl ER 500 HCl ER 500 MG MG MG Tradjenta 5 Tradjenta 5 No 1{table QD Tradjenta MG MG t} 5 MG Breo Breo No Breo Ellipta Ellipta Ellipta 200-25 200-25 200-25 MCG/INH MCG/INH MCG/INH FLUoxetine FLUoxetine No FLUoxetine HCl 20 MG HCl 20 MG HCl 20 MG Contour Contour No Contour Next Test - Next Test - Next Test - Breo Breo No Ellipta Ellipta 200-25 200-25 MCG/INH MCG/INH ALPRAZolam ALPRAZolam No 1 MG 1 MG Benazepril Benazepril No 1{table QD HCl 40 MG HCl 40 MG t} FLUoxetine FLUoxetine No HCl 20 MG HCl 20 MG Tradjenta 5 Tradjenta 5 No MG MG metFORMIN metFORMIN No BID HCl ER 500 HCl ER 500 MG MG Albuterol Albuterol No Sulfate HFA Sulfate HFA 108 (90 108 (90 Base) Base) MCG/ACT MCG/ACT Breo Breo No 1{puff} QD Ellipta Ellipta 200-25 200-25 MCG/INH MCG/INH Atorvastati Atorvastati No 1{table QD n Calcium n Calcium t} 10 MG 10 MG Contour Contour No Next Test - Next Test - Omeprazole Omeprazole No 40 MG 40 MG Aspirin Low Aspirin Low No Dose 81 MG Dose 81 MG ALPRAZolam ALPRAZolam No 1{table 1 MG 1 MG t} glipiZIDE glipiZIDE No 1{table BID ER 10 MG ER 10 MG t_with_ food} amLODIPine amLODIPine No 1{table QD Besylate 10 Besylate 10 t} MG MG PROzac 40 PROzac 40 No 1{capsu QD MG MG le} Contour Contour No Contour Next Test - Next Test - Next Test - Breo Breo No Breo Ellipta Ellipta Ellipta 200-25 200-25 200-25 MCG/INH MCG/INH MCG/INH Aspirin Low Aspirin Low No Aspirin Dose 81 MG Dose 81 MG Low Dose 81 MG FLUoxetine FLUoxetine No FLUoxetine HCl 20 MG HCl 20 MG HCl 20 MG PROzac 40 PROzac 40 No 1{capsu QD PROzac 40 MG MG le} MG Omeprazole Omeprazole No QD Omeprazole 40 MG 40 MG 40 MG metFORMIN metFORMIN No BID metFORMIN HCl ER 500 HCl ER 500 HCl ER 500 MG MG MG glipiZIDE glipiZIDE No 1{table BID glipiZIDE ER 10 MG ER 10 MG t_with_ ER 10 MG food} Tradjenta 5 Tradjenta 5 No Tradjenta MG MG 5 MG Benazepril Benazepril No 1{table QD Benazepril HCl 40 MG HCl 40 MG t} HCl 40 MG Albuterol Albuterol No Albuterol Sulfate HFA Sulfate HFA Sulfate 108 (90 108 (90 HFA 108 Base) Base) (90 Base) MCG/ACT MCG/ACT MCG/ACT Tradjenta 5 Tradjenta 5 No 1{table QD Tradjenta MG MG t} 5 MG amLODIPine amLODIPine No 1{table QD amLODIPine Besylate 10 Besylate 10 t} Besylate MG MG 10 MG Breo Breo No 1{puff} QD Breo Ellipta Ellipta Ellipta 200-25 200-25 200-25 MCG/INH MCG/INH MCG/INH ALPRAZolam ALPRAZolam No ALPRAZolam 1 MG 1 MG 1 MG Atorvastati Atorvastati No 1{table QD Atorvastat n Calcium n Calcium t} in Calcium 10 MG 10 MG 10 MG Omeprazole Omeprazole No QD Omeprazole 40 MG 40 MG 40 MG Tradjenta 5 Tradjenta 5 No Tradjenta MG MG 5 MG Breo Breo No 1{puff} QD Breo Ellipta Ellipta Ellipta 200-25 200-25 200-25 MCG/INH MCG/INH MCG/INH Aspirin Low Aspirin Low No Aspirin Dose 81 MG Dose 81 MG Low Dose 81 MG glipiZIDE glipiZIDE No 1{table BID glipiZIDE ER 10 MG ER 10 MG t_with_ ER 10 MG food} Breo Breo No Breo Ellipta Ellipta Ellipta 200-25 200-25 200-25 MCG/INH MCG/INH MCG/INH amLODIPine amLODIPine No 1{table QD amLODIPine Besylate 10 Besylate 10 t} Besylate MG MG 10 MG Atorvastati Atorvastati No 1{table QD Atorvastat n Calcium n Calcium t} in Calcium 10 MG 10 MG 10 MG ALPRAZolam ALPRAZolam No ALPRAZolam 1 MG 1 MG 1 MG Benazepril Benazepril No 1{table QD Benazepril HCl 40 MG HCl 40 MG t} HCl 40 MG Albuterol Albuterol No Albuterol Sulfate HFA Sulfate HFA Sulfate 108 (90 108 (90 HFA 108 Base) Base) (90 Base) MCG/ACT MCG/ACT MCG/ACT Tradjenta 5 Tradjenta 5 No 1{table QD Tradjenta MG MG t} 5 MG PROzac 40 PROzac 40 No 1{capsu QD PROzac 40 MG MG le} MG Contour Contour No Contour Next Test - Next Test - Next Test - FLUoxetine FLUoxetine No FLUoxetine HCl 20 MG HCl 20 MG HCl 20 MG metFORMIN metFORMIN No BID metFORMIN HCl ER 500 HCl ER 500 HCl ER 500 MG MG MG Omeprazole Omeprazole No QD Omeprazole 40 MG 40 MG 40 MG Tradjenta 5 Tradjenta 5 No Tradjenta MG MG 5 MG Breo Breo No 1{puff} QD Breo Ellipta Ellipta Ellipta 200-25 200-25 200-25 MCG/INH MCG/INH MCG/INH Aspirin Low Aspirin Low No Aspirin Dose 81 MG Dose 81 MG Low Dose 81 MG glipiZIDE glipiZIDE No 1{table BID glipiZIDE ER 10 MG ER 10 MG t_with_ ER 10 MG food} Breo Breo No Breo Ellipta Ellipta Ellipta 200-25 200-25 200-25 MCG/INH MCG/INH MCG/INH amLODIPine amLODIPine No 1{table QD amLODIPine Besylate 10 Besylate 10 t} Besylate MG MG 10 MG Atorvastati Atorvastati No 1{table QD Atorvastat n Calcium n Calcium t} in Calcium 10 MG 10 MG 10 MG ALPRAZolam ALPRAZolam No ALPRAZolam 1 MG 1 MG 1 MG Benazepril Benazepril No 1{table QD Benazepril HCl 40 MG HCl 40 MG t} HCl 40 MG Albuterol Albuterol No Albuterol Sulfate HFA Sulfate HFA Sulfate 108 (90 108 (90 HFA 108 Base) Base) (90 Base) MCG/ACT MCG/ACT MCG/ACT Tradjenta 5 Tradjenta 5 No 1{table QD Tradjenta MG MG t} 5 MG PROzac 40 PROzac 40 No 1{capsu QD PROzac 40 MG MG le} MG Contour Contour No Contour Next Test - Next Test - Next Test - FLUoxetine FLUoxetine No FLUoxetine HCl 20 MG HCl 20 MG HCl 20 MG metFORMIN metFORMIN No BID metFORMIN HCl ER 500 HCl ER 500 HCl ER 500 MG MG MG FLUoxetine FLUoxetine No FLUoxetine HCl 20 MG HCl 20 MG HCl 20 MG Breo Breo No Breo Ellipta Ellipta Ellipta 200-25 200-25 200-25 MCG/INH MCG/INH MCG/INH Tradjenta 5 Tradjenta 5 No Tradjenta MG MG 5 MG Tradjenta 5 Tradjenta 5 No 1{table QD Tradjenta MG MG t} 5 MG metFORMIN metFORMIN No BID metFORMIN HCl ER 500 HCl ER 500 HCl ER 500 MG MG MG glipiZIDE glipiZIDE No 1{table BID glipiZIDE ER 10 MG ER 10 MG t_with_ ER 10 MG food} Omeprazole Omeprazole No QD Omeprazole 40 MG 40 MG 40 MG Breo Breo No 1{puff} QD Breo Ellipta Ellipta Ellipta 200-25 200-25 200-25 MCG/INH MCG/INH MCG/INH Albuterol Albuterol No Albuterol Sulfate HFA Sulfate HFA Sulfate 108 (90 108 (90 HFA 108 Base) Base) (90 Base) MCG/ACT MCG/ACT MCG/ACT Atorvastati Atorvastati No 1{table QD Atorvastat n Calcium n Calcium t} in Calcium 10 MG 10 MG 10 MG Benazepril Benazepril No 1{table QD Benazepril HCl 40 MG HCl 40 MG t} HCl 40 MG ALPRAZolam ALPRAZolam No ALPRAZolam 1 MG 1 MG 1 MG amLODIPine amLODIPine No 1{table QD amLODIPine Besylate 10 Besylate 10 t} Besylate MG MG 10 MG Contour Contour No Contour Next Test - Next Test - Next Test - PROzac 40 PROzac 40 No 1{capsu QD PROzac 40 MG MG le} MG Aspirin Low Aspirin Low No Aspirin Dose 81 MG Dose 81 MG Low Dose 81 MG FLUoxetine FLUoxetine No FLUoxetine HCl 20 MG HCl 20 MG HCl 20 MG Breo Breo No Breo Ellipta Ellipta Ellipta 200-25 200-25 200-25 MCG/INH MCG/INH MCG/INH Tradjenta 5 Tradjenta 5 No Tradjenta MG MG 5 MG Tradjenta 5 Tradjenta 5 No 1{table QD Tradjenta MG MG t} 5 MG metFORMIN metFORMIN No BID metFORMIN HCl ER 500 HCl ER 500 HCl ER 500 MG MG MG glipiZIDE glipiZIDE No 1{table BID glipiZIDE ER 10 MG ER 10 MG t_with_ ER 10 MG food} Omeprazole Omeprazole No QD Omeprazole 40 MG 40 MG 40 MG Breo Breo No 1{puff} QD Breo Ellipta Ellipta Ellipta 200-25 200-25 200-25 MCG/INH MCG/INH MCG/INH Albuterol Albuterol No Albuterol Sulfate HFA Sulfate HFA Sulfate 108 (90 108 (90 HFA 108 Base) Base) (90 Base) MCG/ACT MCG/ACT MCG/ACT Atorvastati Atorvastati No 1{table QD Atorvastat n Calcium n Calcium t} in Calcium 10 MG 10 MG 10 MG Benazepril Benazepril No 1{table QD Benazepril HCl 40 MG HCl 40 MG t} HCl 40 MG ALPRAZolam ALPRAZolam No ALPRAZolam 1 MG 1 MG 1 MG amLODIPine amLODIPine No 1{table QD amLODIPine Besylate 10 Besylate 10 t} Besylate MG MG 10 MG Contour Contour No Contour Next Test - Next Test - Next Test - PROzac 40 PROzac 40 No 1{capsu QD PROzac 40 MG MG le} MG Aspirin Low Aspirin Low No Aspirin Dose 81 MG Dose 81 MG Low Dose 81 MG FLUoxetine FLUoxetine No FLUoxetine HCl 20 MG HCl 20 MG HCl 20 MG Breo Breo No Breo Ellipta Ellipta Ellipta 200-25 200-25 200-25 MCG/INH MCG/INH MCG/INH Tradjenta 5 Tradjenta 5 No Tradjenta MG MG 5 MG Tradjenta 5 Tradjenta 5 No 1{table QD Tradjenta MG MG t} 5 MG metFORMIN metFORMIN No BID metFORMIN HCl ER 500 HCl ER 500 HCl ER 500 MG MG MG glipiZIDE glipiZIDE No 1{table BID glipiZIDE ER 10 MG ER 10 MG t_with_ ER 10 MG food} Omeprazole Omeprazole No QD Omeprazole 40 MG 40 MG 40 MG Breo Breo No 1{puff} QD Breo Ellipta Ellipta Ellipta 200-25 200-25 200-25 MCG/INH MCG/INH MCG/INH Albuterol Albuterol No Albuterol Sulfate HFA Sulfate HFA Sulfate 108 (90 108 (90 HFA 108 Base) Base) (90 Base) MCG/ACT MCG/ACT MCG/ACT Atorvastati Atorvastati No 1{table QD Atorvastat n Calcium n Calcium t} in Calcium 10 MG 10 MG 10 MG Benazepril Benazepril No 1{table QD Benazepril HCl 40 MG HCl 40 MG t} HCl 40 MG ALPRAZolam ALPRAZolam No ALPRAZolam 1 MG 1 MG 1 MG amLODIPine amLODIPine No 1{table QD amLODIPine Besylate 10 Besylate 10 t} Besylate MG MG 10 MG Contour Contour No Contour Next Test - Next Test - Next Test - PROzac 40 PROzac 40 No 1{capsu QD PROzac 40 MG MG le} MG Aspirin Low Aspirin Low No Aspirin Dose 81 MG Dose 81 MG Low Dose 81 MG Tradjenta 5 Tradjenta 5 No 1{table QD Tradjenta MG MG t} 5 MG FLUoxetine FLUoxetine No FLUoxetine HCl 20 MG HCl 20 MG HCl 20 MG Atorvastati Atorvastati No 1{table QD Atorvastat n Calcium n Calcium t} in Calcium 10 MG 10 MG 10 MG Breo Breo No Breo Ellipta Ellipta Ellipta 200-25 200-25 200-25 MCG/INH MCG/INH MCG/INH metFORMIN metFORMIN No BID metFORMIN HCl ER 500 HCl ER 500 HCl ER 500 MG MG MG glipiZIDE glipiZIDE No 1{table BID glipiZIDE ER 10 MG ER 10 MG t_with_ ER 10 MG food} Omeprazole Omeprazole No QD Omeprazole 40 MG 40 MG 40 MG Breo Breo No 1{puff} QD Breo Ellipta Ellipta Ellipta 200-25 200-25 200-25 MCG/INH MCG/INH MCG/INH Contour Contour No Contour Next Test - Next Test - Next Test - Albuterol Albuterol No Albuterol Sulfate HFA Sulfate HFA Sulfate 108 (90 108 (90 HFA 108 Base) Base) (90 Base) MCG/ACT MCG/ACT MCG/ACT amLODIPine amLODIPine No amLODIPine Besylate 10 Besylate 10 Besylate MG MG 10 MG Aspirin Low Aspirin Low No Aspirin Dose 81 MG Dose 81 MG Low Dose 81 MG Tradjenta 5 Tradjenta 5 No Tradjenta MG MG 5 MG ALPRAZolam ALPRAZolam No ALPRAZolam 1 MG 1 MG 1 MG PROzac 40 PROzac 40 No 1{capsu QD PROzac 40 MG MG le} MG Benazepril Benazepril No Benazepril HCl 40 MG HCl 40 MG HCl 40 MG Tradjenta 5 Tradjenta 5 No 1{table QD Tradjenta MG MG t} 5 MG FLUoxetine FLUoxetine No FLUoxetine HCl 20 MG HCl 20 MG HCl 20 MG Atorvastati Atorvastati No 1{table QD Atorvastat n Calcium n Calcium t} in Calcium 10 MG 10 MG 10 MG Breo Breo No Breo Ellipta Ellipta Ellipta 200-25 200-25 200-25 MCG/INH MCG/INH MCG/INH metFORMIN metFORMIN No BID metFORMIN HCl ER 500 HCl ER 500 HCl ER 500 MG MG MG glipiZIDE glipiZIDE No 1{table BID glipiZIDE ER 10 MG ER 10 MG t_with_ ER 10 MG food} Omeprazole Omeprazole No QD Omeprazole 40 MG 40 MG 40 MG Breo Breo No 1{puff} QD Breo Ellipta Ellipta Ellipta 200-25 200-25 200-25 MCG/INH MCG/INH MCG/INH Contour Contour No Contour Next Test - Next Test - Next Test - Albuterol Albuterol No Albuterol Sulfate HFA Sulfate HFA Sulfate 108 (90 108 (90 HFA 108 Base) Base) (90 Base) MCG/ACT MCG/ACT MCG/ACT amLODIPine amLODIPine No amLODIPine Besylate 10 Besylate 10 Besylate MG MG 10 MG Aspirin Low Aspirin Low No Aspirin Dose 81 MG Dose 81 MG Low Dose 81 MG Tradjenta 5 Tradjenta 5 No Tradjenta MG MG 5 MG ALPRAZolam ALPRAZolam No ALPRAZolam 1 MG 1 MG 1 MG PROzac 40 PROzac 40 No 1{capsu QD PROzac 40 MG MG le} MG Benazepril Benazepril No Benazepril HCl 40 MG HCl 40 MG HCl 40 MG Tradjenta 5 Tradjenta 5 No Tradjenta MG MG 5 MG Breo Breo No Breo Ellipta Ellipta Ellipta 200-25 200-25 200-25 MCG/INH MCG/INH MCG/INH Albuterol Albuterol No Albuterol Sulfate HFA Sulfate HFA Sulfate 108 (90 108 (90 HFA 108 Base) Base) (90 Base) MCG/ACT MCG/ACT MCG/ACT metFORMIN metFORMIN No BID metFORMIN HCl ER 500 HCl ER 500 HCl ER 500 MG MG MG glipiZIDE glipiZIDE No 1{table BID glipiZIDE ER 10 MG ER 10 MG t_with_ ER 10 MG food} Omeprazole Omeprazole No QD Omeprazole 40 MG 40 MG 40 MG Breo Breo No 1{puff} QD Breo Ellipta Ellipta Ellipta 200-25 200-25 200-25 MCG/INH MCG/INH MCG/INH ALPRAZolam ALPRAZolam No ALPRAZolam 1 MG 1 MG 1 MG Contour Contour No Contour Next Test - Next Test - Next Test - amLODIPine amLODIPine No amLODIPine Besylate 10 Besylate 10 Besylate MG MG 10 MG Benazepril Benazepril No Benazepril HCl 40 MG HCl 40 MG HCl 40 MG Atorvastati Atorvastati No 1{table QD Atorvastat n Calcium n Calcium t} in Calcium 10 MG 10 MG 10 MG Aspirin Low Aspirin Low No Aspirin Dose 81 MG Dose 81 MG Low Dose 81 MG PROzac 40 PROzac 40 No 1{capsu QD PROzac 40 MG MG le} MG FLUoxetine FLUoxetine No FLUoxetine HCl 20 MG HCl 20 MG HCl 20 MG Aspirin Low Aspirin Low No Aspirin Dose 81 MG Dose 81 MG Low Dose 81 MG Benazepril Benazepril No Benazepril HCl 40 MG HCl 40 MG HCl 40 MG ALPRAZolam ALPRAZolam No ALPRAZolam 1 MG 1 MG 1 MG amLODIPine amLODIPine No 1{table QD amLODIPine Besylate 10 Besylate 10 t} Besylate MG MG 10 MG Contour Contour No Contour Next Test - Next Test - Next Test - PROzac 40 PROzac 40 No 1{capsu QD PROzac 40 MG MG le} MG Albuterol Albuterol No Albuterol Sulfate HFA Sulfate HFA Sulfate 108 (90 108 (90 HFA 108 Base) Base) (90 Base) MCG/ACT MCG/ACT MCG/ACT Omeprazole Omeprazole No QD Omeprazole 40 MG 40 MG 40 MG metFORMIN metFORMIN No BID metFORMIN HCl ER 500 HCl ER 500 HCl ER 500 MG MG MG glipiZIDE glipiZIDE No 1{table BID glipiZIDE ER 10 MG ER 10 MG t_with_ ER 10 MG food} Tradjenta 5 Tradjenta 5 No Tradjenta MG MG 5 MG FLUoxetine FLUoxetine No FLUoxetine HCl 20 MG HCl 20 MG HCl 20 MG Benazepril Benazepril No 1{table QD Benazepril HCl 40 MG HCl 40 MG t} HCl 40 MG amLODIPine amLODIPine No amLODIPine Besylate 10 Besylate 10 Besylate MG MG 10 MG Atorvastati Atorvastati No 1{table QD Atorvastat n Calcium n Calcium t} in Calcium 10 MG 10 MG 10 MG Breo Breo No 1{puff} QD Breo Ellipta Ellipta Ellipta 200-25 200-25 200-25 MCG/INH MCG/INH MCG/INH Tradjenta 5 Tradjenta 5 No 1{table QD Tradjenta MG MG t} 5 MG Breo Breo No Breo Ellipta Ellipta Ellipta 200-25 200-25 200-25 MCG/INH MCG/INH MCG/INH Breo Breo No 1{puff} QD Breo Ellipta Ellipta Ellipta 200-25 200-25 200-25 MCG/INH MCG/INH MCG/INH glipiZIDE glipiZIDE No glipiZIDE ER 10 MG ER 10 MG ER 10 MG Breo Breo No Breo Ellipta Ellipta Ellipta 200-25 200-25 200-25 MCG/INH MCG/INH MCG/INH ALPRAZolam ALPRAZolam No ALPRAZolam 1 MG 1 MG 1 MG FLUoxetine FLUoxetine No FLUoxetine HCl 20 MG HCl 20 MG HCl 20 MG Albuterol Albuterol No Albuterol Sulfate HFA Sulfate HFA Sulfate 108 (90 108 (90 HFA 108 Base) Base) (90 Base) MCG/ACT MCG/ACT MCG/ACT Benazepril Benazepril No 1{table QD Benazepril HCl 40 MG HCl 40 MG t} HCl 40 MG Omeprazole Omeprazole No QD Omeprazole 40 MG 40 MG 40 MG Contour Contour No Contour Next Test - Next Test - Next Test - metFORMIN metFORMIN No BID metFORMIN HCl ER 500 HCl ER 500 HCl ER 500 MG MG MG glipiZIDE glipiZIDE No 1{table BID glipiZIDE ER 10 MG ER 10 MG t_with_ ER 10 MG food} Tradjenta 5 Tradjenta 5 No Tradjenta MG MG 5 MG amLODIPine amLODIPine No amLODIPine Besylate 10 Besylate 10 Besylate MG MG 10 MG PROzac 40 PROzac 40 No 1{capsu QD PROzac 40 MG MG le} MG Atorvastati Atorvastati No 1{table QD Atorvastat n Calcium n Calcium t} in Calcium 10 MG 10 MG 10 MG Benazepril Benazepril No Benazepril HCl 40 MG HCl 40 MG HCl 40 MG Tradjenta 5 Tradjenta 5 No 1{table QD Tradjenta MG MG t} 5 MG Aspirin Low Aspirin Low No Aspirin Dose 81 MG Dose 81 MG Low Dose 81 MG amLODIPine amLODIPine No 1{table QD amLODIPine Besylate 10 Besylate 10 t} Besylate MG MG 10 MG ALPRAZolam ALPRAZolam No ALPRAZolam 1 MG 1 MG 1 MG Breo Breo No 1{puff} QD Breo Ellipta Ellipta Ellipta 200-25 200-25 200-25 MCG/INH MCG/INH MCG/INH Omeprazole Omeprazole No QD Omeprazole 40 MG 40 MG 40 MG amLODIPine amLODIPine No 1{table QD amLODIPine Besylate 10 Besylate 10 t} Besylate MG MG 10 MG glipiZIDE glipiZIDE No 1{table BID glipiZIDE ER 10 MG ER 10 MG t_with_ ER 10 MG food} Tradjenta 5 Tradjenta 5 No 1{table QD Tradjenta MG MG t} 5 MG FLUoxetine FLUoxetine No FLUoxetine HCl 20 MG HCl 20 MG HCl 20 MG glipiZIDE glipiZIDE No glipiZIDE ER 10 MG ER 10 MG ER 10 MG Atorvastati Atorvastati No 1{table QD Atorvastat n Calcium n Calcium t} in Calcium 10 MG 10 MG 10 MG amLODIPine amLODIPine No amLODIPine Besylate 10 Besylate 10 Besylate MG MG 10 MG Tradjenta 5 Tradjenta 5 No Tradjenta MG MG 5 MG Breo Breo No Breo Ellipta Ellipta Ellipta 200-25 200-25 200-25 MCG/INH MCG/INH MCG/INH Benazepril Benazepril No Benazepril HCl 40 MG HCl 40 MG HCl 40 MG Albuterol Albuterol No Albuterol Sulfate HFA Sulfate HFA Sulfate 108 (90 108 (90 HFA 108 Base) Base) (90 Base) MCG/ACT MCG/ACT MCG/ACT metFORMIN metFORMIN No BID metFORMIN HCl ER 500 HCl ER 500 HCl ER 500 MG MG MG Aspirin Low Aspirin Low No Aspirin Dose 81 MG Dose 81 MG Low Dose 81 MG PROzac 40 PROzac 40 No 1{capsu QD PROzac 40 MG MG le} MG Benazepril Benazepril No 1{table QD Benazepril HCl 40 MG HCl 40 MG t} HCl 40 MG Contour Contour No Contour Next Test - Next Test - Next Test - ALPRAZolam ALPRAZolam No ALPRAZolam 1 MG 1 MG 1 MG Breo Breo No 1{puff} QD Breo Ellipta Ellipta Ellipta 200-25 200-25 200-25 MCG/INH MCG/INH MCG/INH Omeprazole Omeprazole No QD Omeprazole 40 MG 40 MG 40 MG amLODIPine amLODIPine No 1{table QD amLODIPine Besylate 10 Besylate 10 t} Besylate MG MG 10 MG glipiZIDE glipiZIDE No 1{table BID glipiZIDE ER 10 MG ER 10 MG t_with_ ER 10 MG food} Tradjenta 5 Tradjenta 5 No 1{table QD Tradjenta MG MG t} 5 MG FLUoxetine FLUoxetine No FLUoxetine HCl 20 MG HCl 20 MG HCl 20 MG glipiZIDE glipiZIDE No glipiZIDE ER 10 MG ER 10 MG ER 10 MG Atorvastati Atorvastati No 1{table QD Atorvastat n Calcium n Calcium t} in Calcium 10 MG 10 MG 10 MG amLODIPine amLODIPine No amLODIPine Besylate 10 Besylate 10 Besylate MG MG 10 MG Tradjenta 5 Tradjenta 5 No Tradjenta MG MG 5 MG Breo Breo No Breo Ellipta Ellipta Ellipta 200-25 200-25 200-25 MCG/INH MCG/INH MCG/INH Benazepril Benazepril No Benazepril HCl 40 MG HCl 40 MG HCl 40 MG Albuterol Albuterol No Albuterol Sulfate HFA Sulfate HFA Sulfate 108 (90 108 (90 HFA 108 Base) Base) (90 Base) MCG/ACT MCG/ACT MCG/ACT metFORMIN metFORMIN No BID metFORMIN HCl ER 500 HCl ER 500 HCl ER 500 MG MG MG Aspirin Low Aspirin Low No Aspirin Dose 81 MG Dose 81 MG Low Dose 81 MG PROzac 40 PROzac 40 No 1{capsu QD PROzac 40 MG MG le} MG Benazepril Benazepril No 1{table QD Benazepril HCl 40 MG HCl 40 MG t} HCl 40 MG Contour Contour No Contour Next Test - Next Test - Next Test - Breo Breo No Breo Ellipta Ellipta Ellipta 200-25 200-25 200-25 MCG/INH MCG/INH MCG/INH metFORMIN metFORMIN No BID metFORMIN HCl ER 500 HCl ER 500 HCl ER 500 MG MG MG Tradjenta 5 Tradjenta 5 No 1{table QD Tradjenta MG MG t} 5 MG Benazepril Benazepril No Benazepril HCl 40 MG HCl 40 MG HCl 40 MG Omeprazole Omeprazole No QD Omeprazole 40 MG 40 MG 40 MG Breo Breo No 1{puff} QD Breo Ellipta Ellipta Ellipta 200-25 200-25 200-25 MCG/INH MCG/INH MCG/INH glipiZIDE glipiZIDE No glipiZIDE ER 10 MG ER 10 MG ER 10 MG Benazepril Benazepril No 1{table QD Benazepril HCl 40 MG HCl 40 MG t} HCl 40 MG glipiZIDE glipiZIDE No 1{table BID glipiZIDE ER 10 MG ER 10 MG t_with_ ER 10 MG food} amLODIPine amLODIPine No 1{table QD amLODIPine Besylate 10 Besylate 10 t} Besylate MG MG 10 MG amLODIPine amLODIPine No amLODIPine Besylate 10 Besylate 10 Besylate MG MG 10 MG Albuterol Albuterol No Albuterol Sulfate HFA Sulfate HFA Sulfate 108 (90 108 (90 HFA 108 Base) Base) (90 Base) MCG/ACT MCG/ACT MCG/ACT Contour Contour No Contour Next Test - Next Test - Next Test - Tradjenta 5 Tradjenta 5 No Tradjenta MG MG 5 MG FLUoxetine FLUoxetine No FLUoxetine HCl 20 MG HCl 20 MG HCl 20 MG ALPRAZolam ALPRAZolam No ALPRAZolam 1 MG 1 MG 1 MG ALPRAZolam ALPRAZolam No 1{table ALPRAZolam 1 MG 1 MG t} 1 MG PROzac 40 PROzac 40 No 1{capsu QD PROzac 40 MG MG le} MG Atorvastati Atorvastati No 1{table QD Atorvastat n Calcium n Calcium t} in Calcium 10 MG 10 MG 10 MG Aspirin Low Aspirin Low No Aspirin Dose 81 MG Dose 81 MG Low Dose 81 MG Microlet Microlet No Microlet Lancets - Lancets - Lancets - Microlet Microlet No Microlet Lancets - Lancets - Lancets - Contour Contour No Contour Next Test - Next Test - Next Test - metFORMIN metFORMIN No BID metFORMIN HCl ER 500 HCl ER 500 HCl ER 500 MG MG MG Aspirin Low Aspirin Low No Aspirin Dose 81 MG Dose 81 MG Low Dose 81 MG Breo Breo No Breo Ellipta Ellipta Ellipta 200-25 200-25 200-25 MCG/INH MCG/INH MCG/INH Benazepril Benazepril No 1{table QD Benazepril HCl 40 MG HCl 40 MG t} HCl 40 MG Omeprazole Omeprazole No QD Omeprazole 40 MG 40 MG 40 MG amLODIPine amLODIPine No 1{table QD amLODIPine Besylate 10 Besylate 10 t} Besylate MG MG 10 MG Atorvastati Atorvastati No 1{table QD Atorvastat n Calcium n Calcium t} in Calcium 10 MG 10 MG 10 MG Benazepril Benazepril No Benazepril HCl 40 MG HCl 40 MG HCl 40 MG FLUoxetine FLUoxetine No FLUoxetine HCl 20 MG HCl 20 MG HCl 20 MG glipiZIDE glipiZIDE No 1{table BID glipiZIDE ER 10 MG ER 10 MG t_with_ ER 10 MG food} amLODIPine amLODIPine No amLODIPine Besylate 10 Besylate 10 Besylate MG MG 10 MG glipiZIDE glipiZIDE No glipiZIDE ER 10 MG ER 10 MG ER 10 MG Albuterol Albuterol No Albuterol Sulfate HFA Sulfate HFA Sulfate 108 (90 108 (90 HFA 108 Base) Base) (90 Base) MCG/ACT MCG/ACT MCG/ACT Tradjenta 5 Tradjenta 5 No 1{table QD Tradjenta MG MG t} 5 MG Tradjenta 5 Tradjenta 5 No Tradjenta MG MG 5 MG PROzac 40 PROzac 40 No 1{capsu QD PROzac 40 MG MG le} MG Breo Breo No 1{puff} QD Breo Ellipta Ellipta Ellipta 200-25 200-25 200-25 MCG/INH MCG/INH MCG/INH ALPRAZolam ALPRAZolam No ALPRAZolam 1 MG 1 MG 1 MG Microlet Microlet No Microlet Lancets - Lancets - Lancets - Contour Contour No Contour Next Test - Next Test - Next Test - metFORMIN metFORMIN No BID metFORMIN HCl ER 500 HCl ER 500 HCl ER 500 MG MG MG Aspirin Low Aspirin Low No Aspirin Dose 81 MG Dose 81 MG Low Dose 81 MG Breo Breo No Breo Ellipta Ellipta Ellipta 200-25 200-25 200-25 MCG/INH MCG/INH MCG/INH Benazepril Benazepril No 1{table QD Benazepril HCl 40 MG HCl 40 MG t} HCl 40 MG Omeprazole Omeprazole No QD Omeprazole 40 MG 40 MG 40 MG amLODIPine amLODIPine No 1{table QD amLODIPine Besylate 10 Besylate 10 t} Besylate MG MG 10 MG Atorvastati Atorvastati No 1{table QD Atorvastat n Calcium n Calcium t} in Calcium 10 MG 10 MG 10 MG Benazepril Benazepril No Benazepril HCl 40 MG HCl 40 MG HCl 40 MG FLUoxetine FLUoxetine No FLUoxetine HCl 20 MG HCl 20 MG HCl 20 MG glipiZIDE glipiZIDE No 1{table BID glipiZIDE ER 10 MG ER 10 MG t_with_ ER 10 MG food} amLODIPine amLODIPine No amLODIPine Besylate 10 Besylate 10 Besylate MG MG 10 MG glipiZIDE glipiZIDE No glipiZIDE ER 10 MG ER 10 MG ER 10 MG Albuterol Albuterol No Albuterol Sulfate HFA Sulfate HFA Sulfate 108 (90 108 (90 HFA 108 Base) Base) (90 Base) MCG/ACT MCG/ACT MCG/ACT Tradjenta 5 Tradjenta 5 No 1{table QD Tradjenta MG MG t} 5 MG Tradjenta 5 Tradjenta 5 No Tradjenta MG MG 5 MG PROzac 40 PROzac 40 No 1{capsu QD PROzac 40 MG MG le} MG Breo Breo No 1{puff} QD Breo Ellipta Ellipta Ellipta 200-25 200-25 200-25 MCG/INH MCG/INH MCG/INH ALPRAZolam ALPRAZolam No ALPRAZolam 1 MG 1 MG 1 MG Microlet Microlet No Microlet Lancets - Lancets - Lancets - Contour Contour No Contour Next Test - Next Test - Next Test - metFORMIN metFORMIN No BID metFORMIN HCl ER 500 HCl ER 500 HCl ER 500 MG MG MG Aspirin Low Aspirin Low No Aspirin Dose 81 MG Dose 81 MG Low Dose 81 MG Breo Breo No Breo Ellipta Ellipta Ellipta 200-25 200-25 200-25 MCG/INH MCG/INH MCG/INH Benazepril Benazepril No 1{table QD Benazepril HCl 40 MG HCl 40 MG t} HCl 40 MG Omeprazole Omeprazole No QD Omeprazole 40 MG 40 MG 40 MG amLODIPine amLODIPine No 1{table QD amLODIPine Besylate 10 Besylate 10 t} Besylate MG MG 10 MG Atorvastati Atorvastati No 1{table QD Atorvastat n Calcium n Calcium t} in Calcium 10 MG 10 MG 10 MG Benazepril Benazepril No Benazepril HCl 40 MG HCl 40 MG HCl 40 MG FLUoxetine FLUoxetine No FLUoxetine HCl 20 MG HCl 20 MG HCl 20 MG glipiZIDE glipiZIDE No 1{table BID glipiZIDE ER 10 MG ER 10 MG t_with_ ER 10 MG food} amLODIPine amLODIPine No amLODIPine Besylate 10 Besylate 10 Besylate MG MG 10 MG glipiZIDE glipiZIDE No glipiZIDE ER 10 MG ER 10 MG ER 10 MG Albuterol Albuterol No Albuterol Sulfate HFA Sulfate HFA Sulfate 108 (90 108 (90 HFA 108 Base) Base) (90 Base) MCG/ACT MCG/ACT MCG/ACT Tradjenta 5 Tradjenta 5 No 1{table QD Tradjenta MG MG t} 5 MG Tradjenta 5 Tradjenta 5 No Tradjenta MG MG 5 MG PROzac 40 PROzac 40 No 1{capsu QD PROzac 40 MG MG le} MG Breo Breo No 1{puff} QD Breo Ellipta Ellipta Ellipta 200-25 200-25 200-25 MCG/INH MCG/INH MCG/INH ALPRAZolam ALPRAZolam No ALPRAZolam 1 MG 1 MG 1 MG Microlet Microlet No Microlet Lancets - Lancets - Lancets - Contour Contour No Contour Next Test - Next Test - Next Test - metFORMIN metFORMIN No BID metFORMIN HCl ER 500 HCl ER 500 HCl ER 500 MG MG MG Aspirin Low Aspirin Low No Aspirin Dose 81 MG Dose 81 MG Low Dose 81 MG Breo Breo No Breo Ellipta Ellipta Ellipta 200-25 200-25 200-25 MCG/INH MCG/INH MCG/INH Benazepril Benazepril No 1{table QD Benazepril HCl 40 MG HCl 40 MG t} HCl 40 MG Omeprazole Omeprazole No QD Omeprazole 40 MG 40 MG 40 MG amLODIPine amLODIPine No 1{table QD amLODIPine Besylate 10 Besylate 10 t} Besylate MG MG 10 MG Atorvastati Atorvastati No 1{table QD Atorvastat n Calcium n Calcium t} in Calcium 10 MG 10 MG 10 MG Benazepril Benazepril No Benazepril HCl 40 MG HCl 40 MG HCl 40 MG FLUoxetine FLUoxetine No FLUoxetine HCl 20 MG HCl 20 MG HCl 20 MG glipiZIDE glipiZIDE No 1{table BID glipiZIDE ER 10 MG ER 10 MG t_with_ ER 10 MG food} amLODIPine amLODIPine No amLODIPine Besylate 10 Besylate 10 Besylate MG MG 10 MG glipiZIDE glipiZIDE No glipiZIDE ER 10 MG ER 10 MG ER 10 MG Albuterol Albuterol No Albuterol Sulfate HFA Sulfate HFA Sulfate 108 (90 108 (90 HFA 108 Base) Base) (90 Base) MCG/ACT MCG/ACT MCG/ACT Tradjenta 5 Tradjenta 5 No 1{table QD Tradjenta MG MG t} 5 MG Tradjenta 5 Tradjenta 5 No Tradjenta MG MG 5 MG PROzac 40 PROzac 40 No 1{capsu QD PROzac 40 MG MG le} MG Breo Breo No 1{puff} QD Breo Ellipta Ellipta Ellipta 200-25 200-25 200-25 MCG/INH MCG/INH MCG/INH ALPRAZolam ALPRAZolam No ALPRAZolam 1 MG 1 MG 1 MG Alprazolam Alprazolam Yes Dre 1 tablet [facility] Microlet Microlet No Microlet Lancets - Lancets - Lancets - Contour Contour No Contour Next Test - Next Test - Next Test - metFORMIN metFORMIN No BID metFORMIN HCl ER 500 HCl ER 500 HCl ER 500 MG MG MG Aspirin Low Aspirin Low No Aspirin Dose 81 MG Dose 81 MG Low Dose 81 MG Breo Breo No Breo Ellipta Ellipta Ellipta 200-25 200-25 200-25 MCG/INH MCG/INH MCG/INH Benazepril Benazepril No 1{table QD Benazepril HCl 40 MG HCl 40 MG t} HCl 40 MG Omeprazole Omeprazole No QD Omeprazole 40 MG 40 MG 40 MG amLODIPine amLODIPine No 1{table QD amLODIPine Besylate 10 Besylate 10 t} Besylate MG MG 10 MG Atorvastati Atorvastati No 1{table QD Atorvastat n Calcium n Calcium t} in Calcium 10 MG 10 MG 10 MG Benazepril Benazepril No Benazepril HCl 40 MG HCl 40 MG HCl 40 MG FLUoxetine FLUoxetine No FLUoxetine HCl 20 MG HCl 20 MG HCl 20 MG glipiZIDE glipiZIDE No 1{table BID glipiZIDE ER 10 MG ER 10 MG t_with_ ER 10 MG food} amLODIPine amLODIPine No amLODIPine Besylate 10 Besylate 10 Besylate MG MG 10 MG glipiZIDE glipiZIDE No glipiZIDE ER 10 MG ER 10 MG ER 10 MG Albuterol Albuterol No Albuterol Sulfate HFA Sulfate HFA Sulfate 108 (90 108 (90 HFA 108 Base) Base) (90 Base) MCG/ACT MCG/ACT MCG/ACT Tradjenta 5 Tradjenta 5 No 1{table QD Tradjenta MG MG t} 5 MG Tradjenta 5 Tradjenta 5 No Tradjenta MG MG 5 MG PROzac 40 PROzac 40 No 1{capsu QD PROzac 40 MG MG le} MG Breo Breo No 1{puff} QD Breo Ellipta Ellipta Ellipta 200-25 200-25 200-25 MCG/INH MCG/INH MCG/INH ALPRAZolam ALPRAZolam No ALPRAZolam 1 MG 1 MG 1 MG ALPRAZolam ALPRAZolam No ALPRAZolam 1 MG 1 MG 1 MG Albuterol Albuterol No Albuterol Sulfate HFA Sulfate HFA Sulfate 108 (90 108 (90 HFA 108 Base) Base) (90 Base) MCG/ACT MCG/ACT MCG/ACT Microlet Microlet No Microlet Lancets - Lancets - Lancets - Aspirin Low Aspirin Low No Aspirin Dose 81 MG Dose 81 MG Low Dose 81 MG Contour Contour No Contour Next Test - Next Test - Next Test - Omeprazole Omeprazole No QD Omeprazole 40 MG 40 MG 40 MG Breo Breo No Breo Ellipta Ellipta Ellipta 200-25 200-25 200-25 MCG/INH MCG/INH MCG/INH glipiZIDE glipiZIDE No 1{table BID glipiZIDE ER 10 MG ER 10 MG t_with_ ER 10 MG food} Breo Breo No 1{puff} QD Breo Ellipta Ellipta Ellipta 200-25 200-25 200-25 MCG/INH MCG/INH MCG/INH Atorvastati Atorvastati No 1{table QD Atorvastat n Calcium n Calcium t} in Calcium 10 MG 10 MG 10 MG FLUoxetine FLUoxetine No FLUoxetine HCl 20 MG HCl 20 MG HCl 20 MG Benazepril Benazepril No Benazepril HCl 40 MG HCl 40 MG HCl 40 MG amLODIPine amLODIPine No amLODIPine Besylate 10 Besylate 10 Besylate MG MG 10 MG glipiZIDE glipiZIDE No glipiZIDE ER 10 MG ER 10 MG ER 10 MG metFORMIN metFORMIN No BID metFORMIN HCl ER 500 HCl ER 500 HCl ER 500 MG MG MG amLODIPine amLODIPine No 1{table QD amLODIPine Besylate 10 Besylate 10 t} Besylate MG MG 10 MG Tradjenta 5 Tradjenta 5 No Tradjenta MG MG 5 MG Ozempic (1 Ozempic (1 No Ozempic (1 MG/DOSE) 4 MG/DOSE) 4 MG/DOSE) 4 MG/3ML MG/3ML MG/3ML PROzac 40 PROzac 40 No 1{capsu QD PROzac 40 MG MG le} MG Benazepril Benazepril No 1{table QD Benazepril HCl 40 MG HCl 40 MG t} HCl 40 MG Albuterol Albuterol No Albuterol Sulfate HFA Sulfate HFA Sulfate 108 (90 108 (90 HFA 108 Base) Base) (90 Base) MCG/ACT MCG/ACT MCG/ACT Benazepril Benazepril No 1{table QD Benazepril HCl 40 MG HCl 40 MG t} HCl 40 MG Tradjenta 5 Tradjenta 5 No Tradjenta MG MG 5 MG Contour Contour No Contour Next Test - Next Test - Next Test - metFORMIN metFORMIN No BID metFORMIN HCl ER 500 HCl ER 500 HCl ER 500 MG MG MG ALPRAZolam ALPRAZolam No ALPRAZolam 1 MG 1 MG 1 MG Breo Breo No 1{puff} QD Breo Ellipta Ellipta Ellipta 200-25 200-25 200-25 MCG/INH MCG/INH MCG/INH Microlet Microlet No Microlet Lancets - Lancets - Lancets - Breo Breo 2022- No 1{puff} QD Breo Ellipta Ellipta 04-10 Ellipta 200-25 200-25 00:00 200-25 MCG/INH MCG/INH :00 MCG/INH Breo Breo 2022- No 1{puff} QD Breo Ellipta Ellipta 04-10 Ellipta 200-25 200-25 00:00 200-25 MCG/INH MCG/INH :00 MCG/INH Immunizations Ordered Filled Date Status Comments Source Immunization Name Immunization Name Moderna COVID-19 Moderna COVID-19 2021-03-04 Completed [facility] - Vaccine Vaccine 16:33:00 [facility] [place] Moderna COVID-19 Moderna COVID-19 2021-03-04 Completed [facility] - Vaccine Vaccine 16:33:00 [facility] [place] Moderna COVID-19 Moderna COVID-19 2021-03-04 Completed [facility] - Vaccine Vaccine 16:33:00 [facility] [place] Moderna COVID-19 Moderna COVID-19 2021-03-04 Completed [facility] - Vaccine Vaccine 16:33:00 [facility] [place] Moderna COVID-19 Moderna COVID-19 2021-03-04 Completed [facility] - Vaccine Vaccine 16:33:00 [facility] [place] Moderna COVID-19 Moderna COVID-19 2021-03-04 Completed [facility] - Vaccine Vaccine 16:33:00 [facility] [place] Moderna COVID-19 Moderna COVID-19 2021-03-04 Completed [facility] - Vaccine Vaccine 16:33:00 [facility] [place] Moderna COVID-19 Moderna COVID-19 2021-03-04 Completed [facility] Vaccine 16:33:00 [facility] Moderna COVID-19 Moderna COVID-19 2021-03-04 Completed [facility] Vaccine Vaccine 16:33:00 [facility] Moderna COVID-19 Moderna COVID-19 2021-03-04 Completed [facility] Vaccine Vaccine 16:33:00 [facility] Moderna COVID-19 Moderna COVID-19 2021-03-04 Completed [facility] Vaccine Vaccine 16:33:00 [facility] Moderna COVID-19 Moderna COVID-19 2021-03-04 Completed [facility] Vaccine Vaccine 16:33:00 [facility] Moderna COVID-19 Moderna COVID-19 2021-03-04 Completed [facility] Vaccine Vaccine 16:33:00 [facility] Moderna COVID-19 Moderna COVID-19 2021-03-04 Completed [facility] Vaccine Vaccine 16:33:00 [facility] Moderna COVID-19 Moderna COVID-19 2021-03-04 Completed [facility] Vaccine Vaccine 16:33:00 [facility] Moderna COVID-19 Moderna COVID-19 2021-03-04 Completed [facility] Vaccine Vaccine 16:33:00 [facility] Moderna COVID-19 Moderna COVID-19 2021-03-04 Completed [facility] Vaccine Vaccine 16:33:00 [facility] Moderna COVID-19 Moderna COVID-19 2021-03-04 Completed [facility] Vaccine Vaccine 16:33:00 [facility] Moderna COVID-19 Moderna COVID-19 2021-03-04 Completed [facility] Vaccine Vaccine 16:33:00 [facility] Moderna COVID-19 Moderna COVID-19 2021-03-04 Completed [facility] Vaccine Vaccine 16:33:00 [facility] Moderna COVID-19 Moderna COVID-19 2021-03-04 Completed [facility] Vaccine Vaccine 16:33:00 [facility] Moderna COVID-19 Moderna COVID-19 2021-03-04 Completed [facility] Vaccine Vaccine 16:33:00 [facility] Moderna COVID-19 Moderna COVID-19 2021-03-04 Completed [facility] Vaccine Vaccine 16:33:00 [facility] Moderna COVID-19 Moderna COVID-19 2021-03-04 Completed [facility] Vaccine Vaccine 16:33:00 [facility] Moderna COVID-19 Moderna COVID-19 2021-03-04 Completed [facility] Vaccine Vaccine 16:33:00 [facility] Moderna COVID-19 Moderna COVID-19 2021-03-04 Completed [facility] Vaccine Vaccine 16:33:00 [facility] Moderna COVID-19 Moderna COVID-19 2021-03-04 Completed [facility] Vaccine Vaccine 16:33:00 [facility] Moderna COVID-19 Moderna COVID-19 2021-03-04 Completed [facility] Vaccine Vaccine 16:33:00 [facility] Moderna COVID-19 Moderna COVID-19 2021-03-04 Completed [facility] Vaccine Vaccine 16:33:00 [facility] Moderna COVID-19 Moderna COVID-19 2021-03-04 Completed [facility] Vaccine Vaccine 16:33:00 [facility] SARS-COV-2 COVID-19 2021-03-04 Completed [facility] 12+ YRS 00:00:00 [place] [facility] VACCINE [facility] SARS-COV-2 COVID-19 2021-03-04 Completed [facility] of [facility] 12+ YRS 00:00:[address] [facility] ical VACCINE Branch SARS-COV-2 COVID-19 2021-03-04 Completed [facility] of [facility] 12+ YRS 00:00:[address] [facility] ical VACCINE Branch SARS-COV-2 COVID-19 2021-03-04 Completed [facility] of [facility] 12+ YRS 00:00:[address] [facility] ical VACCINE Branch SARS-COV-2 COVID-19 2021-03-04 Completed [facility] of [facility] 12+ YRS 00:00:[address] [facility] ical VACCINE Branch SARS-COV-2 COVID-19 2021-03-04 Completed [facility] of [facility] 12+ YRS 00:00:[address] [facility] ical VACCINE Branch Moderna COVID-19 Moderna COVID-19 2021-01-23 Completed [facility] Vaccine Vaccine 10:49:00 [facility] Moderna COVID-19 Moderna COVID-19 2021-01-23 Completed [facility] Vaccine Vaccine 10:49:00 [facility] Moderna COVID-19 Moderna COVID-19 2021-01-23 Completed [facility] Vaccine Vaccine 10:49:00 [facility] Moderna COVID-19 Moderna COVID-19 2021-01-23 Completed [facility] Vaccine Vaccine 10:49:00 [facility] Moderna COVID-19 Moderna COVID-19 2021-01-23 Completed [facility] Vaccine Vaccine 10:49:00 [facility] Moderna COVID-19 Moderna COVID-19 2021-01-23 Completed [facility] Vaccine Vaccine 10:49:00 [facility] Moderna COVID-19 Moderna COVID-19 2021-01-23 Completed [facility] Vaccine Vaccine 10:49:00 [facility] Moderna COVID-19 Moderna COVID-19 2021-01-23 Completed [facility] Vaccine Vaccine 10:49:00 [facility] Moderna COVID-19 Moderna COVID-19 2021-01-23 Completed [facility] - Vaccine Vaccine 10:49:00 [facility] Moderna COVID-19 Moderna COVID-19 2021-01-23 Completed [facility] - Vaccine Vaccine 10:49:00 [facility] Moderna COVID-19 Moderna COVID-19 2021-01-23 Completed [facility] - Vaccine Vaccine 10:49:00 [facility] Moderna COVID-19 Moderna COVID-19 2021-01-23 Completed [facility] - Vaccine Vaccine 10:49:00 [facility] Moderna COVID-19 Moderna COVID-19 2021-01-23 Completed [facility] - Vaccine Vaccine 10:49:00 [facility] Moderna COVID-19 Moderna COVID-19 2021-01-23 Completed [facility] Vaccine Vaccine 10:49:00 [facility] Moderna COVID-19 Moderna COVID-19 2021-01-23 Completed [facility] - Vaccine Vaccine 10:49:00 [facility] Moderna COVID-19 Moderna COVID-19 2021-01-23 Completed [facility] - Vaccine Vaccine 10:49:00 [facility] Moderna COVID-19 Moderna COVID-19 2021-01-23 Completed [facility] - Vaccine Vaccine 10:49:00 [facility] Moderna COVID-19 Moderna COVID-19 2021-01-23 Completed [facility] - Vaccine Vaccine 10:49:00 [facility] Moderna COVID-19 Moderna COVID-19 2021-01-23 Completed [facility] - Vaccine Vaccine 10:49:00 [facility] Moderna COVID-19 Moderna COVID-19 2021-01-23 Completed [facility] - Vaccine Vaccine 10:49:00 [facility] Moderna COVID-19 Moderna COVID-19 2021-01-23 Completed [facility] - Vaccine Vaccine 10:49:00 [facility] Moderna COVID-19 Moderna COVID-19 2021-01-23 Completed [facility] - Vaccine Vaccine 10:49:00 [facility] Moderna COVID-19 Moderna COVID-19 2021-01-23 Completed [facility] - Vaccine Vaccine 10:49:00 [facility] Moderna COVID-19 Moderna COVID-19 2021-01-23 Completed [facility] - Vaccine Vaccine 10:49:00 [facility] Moderna COVID-19 Moderna COVID-19 2021-01-23 Completed [facility] - Vaccine Vaccine 10:49:00 [facility] Moderna COVID-19 Moderna COVID-19 2021-01-23 Completed [facility] - Vaccine Vaccine 10:49:00 [facility] Moderna COVID-19 Moderna COVID-19 2021-01-23 Completed [facility] - Vaccine Vaccine 10:49:00 [facility] Moderna COVID-19 Moderna COVID-19 2021-01-23 Completed [facility] - Vaccine Vaccine 10:49:00 [facility] Moderna COVID-19 Moderna COVID-19 2021-01-23 Completed [facility] - Vaccine Vaccine 10:49:00 [facility] Moderna COVID-19 Moderna COVID-19 2021-01-23 Completed [facility] - Vaccine Vaccine 10:49:00 [facility] Moderna COVID-19 Moderna COVID-19 2021-01-23 Completed [facility] - Vaccine Vaccine 10:49:00 [facility] Moderna COVID-19 Moderna COVID-19 2021-01-23 Completed [facility] - Vaccine Vaccine 10:49:00 [facility] Moderna COVID-19 Moderna COVID-19 2021-01-23 Completed [facility] - Vaccine Vaccine 10:49:00 [facility] Moderna COVID-19 Moderna COVID-19 2021-01-23 Completed [facility] - Vaccine Vaccine 10:49:00 [facility] SARS-COV-2 COVID-19 2021-01-23 Completed [facility] 12+ YRS 00:00:00 [place] [facility] VACCINE [facility] SARS-COV-2 COVID-19 2021-01-23 Completed [facility] 12+ YRS 00:00:00 [place] [facility] VACC[facility] SARS-COV-2 COVID-19 2021-01-23 Completed [facility] 12+ YRS 00:00:00 [place] [facility] V[facility] SARS-COV-2 COVID-19 2021-01-23 Completed [facility] of [facility] 12+ YRS 00:00:00 [place] [facility] VACCINE [facility] SARS-COV-2 COVID-19 2021-01-23 Completed [facility] of [facility] 12+ YRS 00:00:00 [place] [facility] VACCINE [facility] SARS-COV-2 COVID-19 2021-01-23 Completed [facility] of [facility] 12+ YRS 00:00:00 [place] [facility] VACCINE [facility] Afluria Afluria 2021-01-12 Completed [facility] 13:40:00 [facility] Afluria Afluria 2021-01-12 Completed [facility] 13:40:00 [facility] Afluria Afluria 2021-01-12 Completed [facility] 13:40:00 [facility] Afluria Afluria 2021-01-12 Completed [facility] 13:40:00 [facility] Afluria Afluria 2021-01-12 Completed [facility] 13:40:00 [facility] Afluria Afluria 2021-01-12 Completed [facility] 13:40:00 [facility] Afluria Afluria 2021-01-12 Completed [facility] 13:40:00 [facility] Afluria Afluria 2021-01-12 Completed [facility] 13:40:00 [facility] Afluria Afluria 2021-01-12 Completed [facility] 13:40:00 [facility] Afluria Afluria 2021-01-12 Completed [facility] 13:40:00 [facility] Afluria Afluria 2021-01-12 Completed [facility] 13:40:00 [facility] Afluria Afluria 2021-01-12 Completed [facility] 13:40:00 [facility] Afluria Afluria 2021-01-12 Completed [facility] 13:40:00 [facility] Afluria Afluria 2021-01-12 Completed [facility] 13:40:00 [facility] Afluria Afluria 2021-01-12 Completed [facility] 13:40:00 [facility] Afluria Afluria 2021-01-12 Completed [facility] 13:40:00 [facility] Afluria Afluria 2021-01-12 Completed [facility] 13:40:00 [facility] Afluria Afluria 2021-01-12 Completed [facility] 13:40:00 [facility] Afluria Afluria 2021-01-12 Completed [facility] 13:40:00 [facility] Afluria Afluria 2021-01-12 Completed [facility] 13:40:00 [facility] Afluria Afluria 2021-01-12 Completed [facility] 13:40:00 [facility] Afluria Afluria 2021-01-12 Completed [facility] 13:40:00 [facility] Afluria Afluria 2021-01-12 Completed [facility] 13:40:00 [facility] Afluria Afluria 2021-01-12 Completed [facility] 13:40:00 [facility] Afluria Afluria 2021-01-12 Completed [facility] 13:40:00 [facility] Afluria Afluria 2021-01-12 Completed [facility] 13:40:00 [facility] Afluria Afluria 2021-01-12 Completed [facility] 13:40:00 [facility] Afluria Afluria 2021-01-12 Completed [facility] 13:40:00 [facility] Afluria Afluria 2021-01-12 Completed [facility] 13:40:00 [facility] Afluria Afluria 2021-01-12 Completed [facility] 13:40:00 [facility] Afluria Afluria 2021-01-12 Completed [facility] 13:40:00 [facility] Afluria Afluria 2021-01-12 Completed [facility] 13:40:00 [facility] Afluria Afluria 2021-01-12 Completed [facility] 13:40:00 [facility] Afluria Afluria 2021-01-12 Completed [facility] 13:40:00 [facility] Afluria Afluria 2021-01-12 Completed [facility] 13[facility]40:00 [facility] Flu Trivalent 2021-01-12 Completed [facility] 00:[facility]00 [facility] Moderna COVID-19 Moderna COVID-19 Unknown Completed [facility] Vaccine Vaccine [facility] Moderna COVID-19 Moderna COVID-19 Unknown Completed [facility] - Vaccine Vaccine [facility] Afluria Afluria Unknown Completed [facility] Moderna COVID-19 Moderna COVID-19 Unknown Completed [facility] - Vaccine Vaccine [facility] Moderna COVID-19 Moderna COVID-19 Unknown Completed [facility] - Vaccine Vaccine [facility] Afluria Afluria Unknown Completed [facility] Moderna COVID-19 Moderna COVID-19 Unknown Completed [facility] - Vaccine Vaccine [facility] Moderna COVID-19 Moderna COVID-19 Unknown Completed [facility] - Vaccine Vaccine [facility] Afluria Afluria Unknown Completed [facility] Afluria Afluria Unknown Completed [facility] Moderna COVID-19 Moderna COVID-19 Unknown Completed [facility] - Vaccine Vaccine [facility] Moderna COVID-19 Moderna COVID-19 Unknown Completed [facility] - Vaccine Vaccine [facility] Moderna COVID-19 Moderna COVID-19 Unknown Completed [facility] Vaccine Vaccine [facility] Moderna COVID-19 Moderna COVID-19 Unknown Completed [facility] Vaccine Vaccine [facility] Afluria Afluria Unknown Completed [facility] Moderna COVID-19 Moderna COVID-19 Unknown Completed [facility] Vaccine Vaccine [facility] Moderna COVID-19 Moderna COVID-19 Unknown Completed [facility] Vaccine Vaccine [facility] Afluria Afluria Unknown Completed [facility] Moderna COVID-19 Moderna COVID-19 Unknown Completed [facility] Vaccine Vaccine [facility] Moderna COVID-19 Moderna COVID-19 Unknown Completed [facility] Vaccine Vaccine [facility] Afluria Afluria Unknown Completed [facility] Moderna COVID-19 Moderna COVID-19 Unknown Completed [facility] Vaccine Vaccine [facility] SARS-COV-2 COVID-19 Unknown Completed [facility] of [facility]+ [facility] ical VACCINE Branch Moderna COVID-19 Moderna COVID-19 Unknown Completed [facility] Vaccine Vaccine [facility] Afluria Afluria Unknown Completed [facility] SARS-COV-2 COVID-19 Unknown Completed [facility] 12+ Y[facility] ical VACCINE Branch Flu Trivalent Unknown Completed [facility] SARS-COV-2 COVID-19 Unknown Completed [facility] of [facility] 12+ Y[facility] ical VACCINE Branch SARS-COV-2 COVID-19 Unknown Completed [facility] of [facility] 12+ YRS [facility] ical VACCINE Branch Flu Trivalent Unknown Completed [facility] SARS-COV-2 COVID-19 Unknown Completed [facility] of [facility] 12+ YRS [facility] ical VACCINE Branch SARS-COV-2 COVID-19 Unknown Completed [facility] 12+ YRS [facility] ical VACCINE Branch Flu Trivalent Unknown Completed [facility] SARS-COV-2 COVID-19 Unknown Completed [facility] 12+ YRS [facility] ical VACCINE Branch SARS-COV-2 COVID-19 Unknown Completed [facility] 12+ YRS [facility] ica VACCINE Branch Flu Trivalent Unknown Completed [facility] Vital Signs Vital Name Observation Time Observation Value Comments Source height 2022-06-23 16:00:00 63 [in_i] [facility] weight 2022-06-23 16:00:00 221 [lb_av] [facility] temperature 2022-06-23 16:00:00 98 [degF] [facility] bmi 2022-06-23 16:00:00 39.14 kg/m2 [facility] blood pressure 2022-06-23 16:00:00 122 mm[Hg] [facility] - systolic [facility] blood pressure 2022-06-23 16:00:00 76 mm[Hg] [facility] - diastolic [facility] height 2022-05-04 15:50:00 63 [in_i] [facility] weight 2022-05-04 15:50:00 231.1 [lb_av] [facility] temperature 2022-05-04 15:50:00 97.0 [degF] [facility] bmi 2022-05-04 15:50:00 40.93 kg/m2 [facility] oximetry 2022-05-04 15:50:00 99 % [facility] respiratory rate 2022-05-04 15:50:00 18 /min Comm on [facility] blood pressure 2022-05-04 15:50:00 126 mm[Hg] [facility] systolic [facility] blood pressure 2022-05-04 15:50:00 71 mm[Hg] [facility] - diastolic [facility] HEIGHT 2022-03-17 08:03:00 160 cm HEIGHT 2022-03-08 14:56:00 160 cm WEIGHT 2022-03-08 14:56:00 104.327 kg HEIGHT 2022-03-17 08:03:00 160 cm HEIGHT 2022-03-08 14:56:00 160 cm WEIGHT 2022-03-08 14:56:00 104.327 kg HEIGHT 2022-03-17 08:03:00 160 cm HEIGHT 2022-03-08 14:56:00 160 cm WEIGHT 2022-03-08 14:56:00 104.327 kg height 2022-03-10 13:40:00 63 [in_i] [facility] weight 2022-03-10 13:40:00 238 [lb_av] [facility] temperature 2022-03-10 13:40:00 98 [degF] [facility] bmi 2022-03-10 13:40:00 42.16 kg/m2 [facility] blood pressure 2022-03-10 13:40:00 132 mm[Hg] [facility] systolic [facility] blood pressure 2022-03-10 13:40:00 76 mm[Hg] [facility] - diastolic [facility] Systolic blood 2022-02-20 19:06:00 139 mm[Hg] [facility] Diastolic blood 2022-02-20 19:06:00 75 mm[Hg] [facility] Heart rate 2022-02-20 19:06:00 82 /min [facility] Body temperature 2022-02-20 19:06:00 36.22 [facility] 2022-02-20 19:06:00 20 /min [facility] height 2022-02-20 19:06:00 160 cm [facility] Body weight 2022-02-20 19:06:00 105.325 kg [facility] BMI 2022-02-20 19:06:00 41.13 kg/m2 [facility] height 2022-01-11 15:30:00 63 [in_i] [facility] weight 2022-01-11 15:30:00 234.2 [lb_av] [facility] temperature 2022-01-11 15:30:00 97.3 [degF] [facility] bmi 2022-01-11 15:30:00 41.48 kg/m2 [facility] oximetry 2022-01-11 15:30:00 96 % [facility] respiratory rate 2022-01-11 15:30:00 17 /min Comm on [facility] blood pressure 2022-01-11 15:30:00 134 mm[Hg] [facility] - systolic [facility] blood pressure 2022-01-11 15:30:00 73 mm[Hg] [facility] - diastolic [facility] height 2021-12-11 09:00:00 63 [in_i] [facility] weight 2021-12-11 09:00:00 236 [lb_av] [facility] temperature 2021-12-11 09:00:00 97.5 [degF] [facility] bmi 2021-12-11 09:00:00 41.8 kg/m2 [facility] oximetry 2021-12-11 09:00:00 96 % [facility] respiratory rate 2021-12-11 09:00:00 18 /min Comm on [facility] blood pressure 2021-12-11 09:00:00 130 mm[Hg] [facility] - systolic [facility] blood pressure 2021-12-11 09:00:00 77 mm[Hg] [facility] height 2021-12-09 14:00:00 63 [in_i] [facility] weight 2021-12-09 14:00:00 237 [lb_av] [facility] temperature 2021-12-09 14:00:00 97.6 [degF] [facility] bmi 2021-12-09 14:00:00 41.98 kg/m2 [facility] oximetry 2021-12-09 14:00:00 95 % [facility] respiratory rate 2021-12-09 14:00:00 16 /min Comm on [facility] blood pressure 2021-12-09 14:00:00 132 mm[Hg] [facility] - systolic [facility] blood pressure 2021-12-09 14:00:00 76 mm[Hg] [facility] - diastolic [facility] height 2021-10-08 14:50:00 63 [in_i] [facility] weight 2021-10-08 14:50:00 235.6 [lb_av] [facility] temperature 2021-10-08 14:50:00 98.4 [degF] [facility] bmi 2021-10-08 14:50:00 41.73 kg/m2 [facility] oximetry 2021-10-08 14:50:00 96 % [facility] respiratory rate 2021-10-08 14:50:00 17 /min Comm on [facility] blood pressure 2021-10-08 14:50:00 114 mm[Hg] [facility] - systolic [facility] blood pressure 2021-10-08 14:50:00 68 mm[Hg] [facility] - diastolic [facility] height 2021-07-09 15:50:00 63 [in_i] [facility] weight 2021-07-09 15:50:00 237.1 [lb_av] [facility] temperature 2021-07-09 15:50:00 97.9 [degF] [facility] bmi 2021-07-09 15:50:00 42 kg/m2 [facility] oximetry 2021-07-09 15:50:00 97 % [facility] respiratory rate 2021-07-09 15:50:00 17 /min Comm on [facility] blood pressure 2021-07-09 15:50:00 137 mm[Hg] [facility] systolic [facility] blood pressure 2021-07-09 15:50:00 67 mm[Hg] [facility] diastolic [facility] height 2021-07-09 16:00:00 63 [in_i] [facility] weight 2021-07-09 16:00:00 237.1 [lb_av] [facility] temperature 2021-07-09 16:00:00 97.9 [degF] [facility] bmi 2021-07-09 16:00:00 42 kg/m2 [facility] oximetry 2021-07-09 16:00:00 97 % [facility] respiratory rate 2021-07-09 16:00:00 17 /min Comm on [facility] blood pressure 2021-07-09 16:00:00 137 mm[Hg] [facility] systolic [facility] blood pressure 2021-07-09 16:00:00 67 mm[Hg] [facility] diastolic [facility] height 2021-04-13 14:50:00 63 [in_i] [facility] weight 2021-04-13 14:50:00 242.7 [lb_av] [facility] temperature 2021-04-13 14:50:00 97.7 [degF] [facility] bmi 2021-04-13 14:50:00 42.99 kg/m2 [facility] oximetry 2021-04-13 14:50:00 96 % [facility] respiratory rate 2021-04-13 14:50:00 17 /min Comm on [facility] blood pressure 2021-04-13 14:50:00 135 mm[Hg] [facility] - systolic [facility] blood pressure 2021-04-13 14:50:00 65 mm[Hg] [facility] [facility] [place] height 2021-03-31 11:00:00 63 [in_i] [facility] - [facility] weight 2021-03-31 11:00:00 243 [lb_av] [facility] - [facility] [place] temperature 2021-03-31 11:00:00 97 [degF] [facility] - [facility] [place] bmi 2021-03-31 11:00:00 43.04 kg/m2 [facility] - [facility] [place] blood pressure 2021-03-31 11:00:00 132 mm[Hg] [facility] - systolic [facility] [place] blood pressure 2021-03-31 11:00:00 73 mm[Hg] [facility] - diastolic [facility] [place] height 2021-02-10 13:10:00 63 [in_i] Common S pirit [facility] weight 2021-02-10 13:10:00 245 [lb_av] Common [facility] - [facility] [place] temperature 2021-02-10 13:10:00 98 [degF] [facility] - [facility] [place] bmi 2021-02-10 13:10:00 43.4 kg/m2 [facility] - [facility] [place] blood pressure 2021-02-10 13:10:00 126 mm[Hg] [facility] - systolic [facility] [place] blood pressure 2021-02-10 13:10:00 69 mm[Hg] [facility] - diastolic [facility] [place] height 2021-01-12 13:20:00 63 [in_i] [facility] - [facility] [place] weight 2021-01-12 13:20:00 243.5 [lb_av] [facility] temperature 2021-01-12 13:20:00 98.1 [degF] Common S pirit [facility] bmi 2021-01-12 13:20:00 43.13 kg/m2 Common S pirit [facility] oximetry 2021-01-12 13:20:00 96 % Common S pirit [facility] respiratory rate 2021-01-12 13:20:00 17 /min Comm on [facility] blood pressure 2021-01-12 13:20:00 138 mm[Hg] [facility] - systolic [facility] [place] blood pressure 2021-01-12 13:20:00 74 mm[Hg] Common [facility] - diastolic [facility] [place] height 2020-12-16 13:30:00 63 [in_i] [facility] weight 2020-12-16 13:30:00 237.6 [lb_av] [facility] temperature 2020-12-16 13:30:00 98.1 [degF] [facility] bmi 2020-12-16 13:30:00 42.08 kg/m2 [facility] respiratory rate 2020-12-16 13:30:00 18 /min Comm on [facility] blood pressure 2020-12-16 13:30:00 134 mm[Hg] [facility] - systolic [facility] [place] blood pressure 2020-12-16 13:30:00 79 mm[Hg] [facility] - diastolic [facility] [place] Systolic blood 2022-03-17 10:44:00 110 mm[Hg] [facility] Diastolic blood 2022-03-17 10:44:00 56 mm[Hg] [facility] Heart rate 2022-03-17 10:44:00 76 /min [facility] Body temperature 2022-03-17 10:44:00 36.5 Jayleen [facility] [place] Respiratory rate 2022-03-17 10:44:00 18 /min [facility] [place] Oxygen saturation in 2022-03-17 10:44:00 95 /min [facility] Arterial blood by Medical Ce nter Pulse oximetry Systolic blood 2022-03-17 09:45:00 91 mm[Hg] [facility] Diastolic blood 2022-03-17 09:45:00 53 mm[Hg] [facility] Heart rate 2022-03-17 09:45:00 82 /min [facility] Body temperature 2022-03-17 09:45:00 36.22 Jayleen [facility] [place] Respiratory rate 2022-03-17 09:45:00 17 /min [facility] [place] Oxygen saturation in 2022-03-17 09:45:00 100 /min [facility] Arterial blood by Medical Ce nter Pulse oximetry Body height 2022-03-17 08:03:00 160 cm [facility] BMI 2022-03-08 14:56:00 40.74 kg/m2 [facility] Body height 2022-03-08 14:56:00 160 cm [facility] Body weight 2022-03-08 14:56:00 104.327 kg [facility] Procedures Procedure Date / Time Performed Performing Clinician [facility] e REFERRAL- 2022-12-22 05:01:00 Doctor Unassigned, No [facility] REQUEST/RESPONSE Name Medical Branch POCT-GLUCOSE METER 2022-03-17 09:48:00 Rosa [facility] REPORT OF PROCEDURE - 2022-03-17 09:45:10 Rosa [facility] ENDOSCOPY URL [facility] FINE NEEDLE ASPIRATION 2022-03-17 09:29:00 Rosa [facility] BY CLINICIAN [facility] FINE NEEDLE ASPIRATE 2022-03-17 09:29:00 Rosa [facility] ([facility]) REQUEST [facility] ESOPHAGOGASTRODUODENOS 2022-03-17 09:09:00 Rosa [facility] Medical COPY, WITH ENDOSCOPIC [facility] US ULTRASOUND, UPPER GI 2022-03-17 09:09:00 Rosa [facility] TRACT, ENDOSCOPIC, [facility] WITH FINE NEEDLE ASPIRATION ESOPHAGOGASTRODUODENOS 2022-03-17 09:00:00 Rosa [facility] Medical COPY, WITH ENDOSCOPIC [facility] US ULTRASOUND, UPPER GI 2022-03-17 09:00:00 Rosa [facility]LE [facility]IR[facility] POCT , URINE 2022-03-17 08:02:00 Marley Lai [facility] [place] POCT-GLUCOSE METER 2022-03-17 07:51:00 Trini Ferrer [facility] Plan of Care Planned Activity Planned Date Details Comments Source Future Scheduled 2025-02-20 Screening for malignant [facility] 00:00:00 neoplasm of cervix Medical C enter (procedure) [code = 041154504] Future Scheduled 2025-02-20 Screening for malignant [facility] 00:00:00 neoplasm of cervix Medical C enter (procedure) [code = 967419154] Future Scheduled 2025-02-20 Screening for malignant [facility] 00:00:00 neoplasm of cervix Medical C enter (procedure) [code = 361495599] Future Scheduled 2025-02-20 Screening for malignant [facility] 00:00:00 neoplasm of cervix Medical C enter (procedure) [code = 301132847] Future Scheduled 2025-02-20 Screening for malignant [facility] 00:00:00 neoplasm of cervix Medical C enter (procedure) [code = 694179491] Future Scheduled 2025-02-20 Screening for malignant [facility] 00:00:00 neoplasm of cervix Medical C enter (procedure) [code = 977370146] Future Scheduled 2025-02-20 Screening for malignant [facility] 00:00:00 neoplasm of cervix Medical C enter (procedure) [code = 526268405] Future Scheduled 2023-03-[address] [facility] 00:00:00 Counseling and Screening [facility] (12+) [code = Tobacco Cessation Counseling and Screening (12+)] Future Scheduled 2023-03-[address] [facility] 00:00:00 Counseling and Screening [facility] (12+) [code = Tobacco Cessation Counseling and Screening (12+)] Future Scheduled 2023-03-[address] [facility] 00:00:00 Counseling and Screening [facility] (12+) [code = Tobacco Cessation Counseling and Screening (12+)] Future Scheduled 2023-03-[address] [facility] 00:00:00 Counseling and Screening [facility] (12+) [code = Tobacco Cessation Counseling and Screening (12+)] Future Scheduled 2023-03-[address] [facility] 00:00:00 Counseling and Screening [facility] ical Center (12+) [code = Tobacco Cessation Counseling and Screening (12+)] Future Scheduled 2023-03-[address] [facility] 00:00:00 Counseling and Screening Med ical Center (12+) [code = Tobacco Cessation Counseling and Screening (12+)] Future Scheduled 2023-03-[address] [facility] 00:00:00 Counseling and Screening Med ical Center (12+) [code = Tobacco Cessation Counseling and Screening (12+)] Future Scheduled 2022-11-19 Influenza Vaccine (#1) [facility]00 [code = Influenza Vaccine Me dical Center (#1)] Future Scheduled 2022-11-19 Influenza Vaccine (#1) [facility] 00:00:00 [code = Influenza Vaccine Me dical Center (#1)] Future Scheduled 2022-11-19 Influenza Vaccine (#1) [facility] 00:00:00 [code = Influenza Vaccine Me dical Center (#1)] Future Scheduled 2022-11-19 Influenza Vaccine (#1) [facility] 00:00:00 [code = Influenza Vaccine Me dical Center (#1)] Future Scheduled 2022-03-22 MEDICARE ANNUAL WELLNESS [facility] 00:00:00 (YEAR 2 or FIRST YEAR if Med ical Center no IPPE) [code = MEDICARE ANNUAL WELLNESS (YEAR 2 or FIRST YEAR if no IPPE)] Future Scheduled 2022-03-22 MEDICARE ANNUAL WELLNESS [facility] 00:00:00 (YEAR 2 or FIRST YEAR if Med ical Center no IPPE) [code = MEDICARE ANNUAL WELLNESS (YEAR 2 or FIRST YEAR if no IPPE)] Future Scheduled 2022-03-22 MEDICARE ANNUAL WELLNESS [facility] 00:00:00 (YEAR 2 or FIRST YEAR if Med ical Center no IPPE) [code = MEDICARE ANNUAL WELLNESS (YEAR 2 or FIRST YEAR if no IPPE)] Future Scheduled 2022-03-22 MEDICARE ANNUAL WELLNESS [facility] 00:00:00 (YEAR 2 or FIRST YEAR if Med ical Center no IPPE) [code = MEDICARE ANNUAL WELLNESS (YEAR 2 or FIRST YEAR if no IPPE)] Future Scheduled 2022-03-[address] [facility] 00:00:00 (12+) [code = DEPRESSION Med ical Center SCREENING (12+)] Future Scheduled 2022-03-[address] [facility] 00:00:00 (12+) [code = DEPRESSION Med ical Center SCREENING (12+)] Future Scheduled 2022-03-[address] [facility] 00:00:00 (12+) [code = DEPRESSION Med ical Center SCREENING (12+)] Future Scheduled 2022-03-[address] [facility] 00:00:00 (12+) [code = DEPRESSION Med ical Center SCREENING (12+)] Future Scheduled 2021-11-19 INFLUENZA VACCINE (#1) [facility]:00[facility]00 [code = INFLUENZA VACCINE Me dical Center (#1)] Future Scheduled 2021-11-19 INFLUENZA VACCINE (#1) [facility] 00:00:00 [code = INFLUENZA VACCINE Me dical Center (#1)] Future Scheduled 2021-11-19 INFLUENZA VACCINE (#1) [facility] 00:00:00 [code = INFLUENZA VACCINE Me dical Center (#1)] Future Scheduled 2021-08-02 COVID-19 VACCINE (3 - [facility] series) [code = COVID-19 VACCINE (3 - Booster for [employer] series)] Future Scheduled 2021-08-02 COVID-19 VACCINE (3 - [facility]00 [facility] series) [code = COVID-19 VACCINE (3 - Booster for [employer] series)] Future Scheduled 2021-08-02 COVID-19 VACCINE (3 - [facility]00 [facility] series) [code = COVID-19 VACCINE (3 - Booster for [employer] series)] Future Scheduled 2021-04-29 COVID-19 VACCINE (3 - [facility]:00 Moderna series) [code = [facility] COVID-19 VACCINE (3 - Moderna series)] Future Scheduled 2021-04-29 COVID-19 VACCINE (3 - [facility]:00 [facility] series) [code = COVID-19 VACCINE (3 - Booster for [employer] series)] Future Scheduled 2021-04-29 COVID-19 VACCINE (3 - [facility]:00 [facility] series) [code = COVID-19 VACCINE (3 - Booster for [employer] series)] Future Scheduled 2021-04-29 COVID-19 VACCINE (3 - [facility]:00 [facility] series) [code = COVID-19 VACCINE (3 - Booster for [employer] series)] Future Scheduled 2021-03-[address] [facility] 00:00:00 (12+) [code = DEPRESSION Med ical Center SCREENING (12+)] Future Scheduled 2021-03-21 Medicare IPPE (WELCOME TO [facility] 00:00:00 MEDICARE) [code = Medical Ce nter Medicare IPPE (WELCOME TO MEDICARE)] Future Scheduled 2021-03-[address] [facility] 00:00:00 (12+) [code = DEPRESSION Med ical Center SCREENING (12+)] Future Scheduled 2021-03-21 Medicare IPPE (WELCOME TO [facility] 00:00:00 MEDICARE) [code = Medical Ce nter Medicare IPPE (WELCOME TO MEDICARE)] Future Scheduled 2021-03-[address] [facility] 00:00:00 (12+) [code = DEPRESSION Med ical Center SCREENING (12+)] Future Scheduled 2021-03-21 Medicare IPPE (WELCOME TO [facility] 00:00:00 MEDICARE) [code = Medical Ce nter Medicare IPPE (WELCOME TO MEDICARE)] Future Scheduled 2018 SHINGLES VACCINES ([address] [facility] 00:00:00 2) [code = SHINGLES Medical Center VACCINES (1 of 2)] Future Scheduled 2018 SHINGLES VACCINES ([address] [facility] 00:00:00 2) [code = SHINGLES Medical Center VACCINES (1 of 2)] Future Scheduled 2018 SHINGLES VACCINES ([address] [facility] 00:00:00 2) [code = SHINGLES Medical Center VACCINES (1 of 2)] Future Scheduled 2018 SHINGLES VACCINES ([address] [facility] 00:00:00 2) [code = SHINGLES Medical Center VACCINES (1 of 2)] Future Scheduled 2018 SHINGLES VACCINES ([address] [facility] 00:00:00 2) [code = SHINGLES Medical Center VACCINES (1 of 2)] Future Scheduled 2018 SHINGLES VACCINES ([address] [facility] 00:00:00 2) [code = SHINGLES Medical Center VACCINES (1 of 2)] Future Scheduled 2018 SHINGLES VACCINES ([address] [facility] 00:00:00 2) [code = SHINGLES [facility] Center VACCINES (1 of 2)] Future Scheduled 2013 Lipid panel (procedure) [facility] 00:00:00 [code = [id number]] Medical Ce nter Future Scheduled 2013 Lipid panel (procedure) [facility] 00:00:00 [code = 21660371] Medical Ce nter Future Scheduled 2013 Lipid panel (procedure) [facility] 00:00:00 [code = 24946149] Medical Ce nter Future Scheduled 2013 Lipid panel (procedure) [facility] 00:00:00 [code = 42478115] Medical Ce nter Future Scheduled 2013 Lipid panel (procedure) [facility] 00:00:00 [code = 81635437] Medical Ce nter Future Scheduled 2013 Lipid panel (procedure) [facility] 00:00:00 [code = 23737681] Medical Ce nter Future Scheduled 2013 Lipid panel (procedure) [facility] 00:00:00 [code = 28122914] Medical Ce nter Future Scheduled 1987 DTAP/TDAP/TD VACCINES ([address] [facility] 00:00:00 - Tdap) [code = Medical Cent er DTAP/TDAP/TD VACCINES (1 - Tdap)] Future Scheduled 1987 DTAP/TDAP/TD VACCINES ([address] [facility] 00:00:00 - Tdap) [code = Medical Cent er DTAP/TDAP/TD VACCINES (1 - Tdap)] Future Scheduled 1987 DTAP/TDAP/TD VACCINES ([address] [facility] 00:00:00 - Tdap) [code = Medical Cent er DTAP/TDAP/TD VACCINES (1 - Tdap)] Future Scheduled 1987 DTAP/TDAP/TD VACCINES ([address] [facility] 00:00:00 - Tdap) [code = Medical Cent er DTAP/TDAP/TD VACCINES (1 - Tdap)] Future Scheduled 1987 DTAP/TDAP/TD VACCINES ([address] [facility] 00:00:00 - Tdap) [code = Medical Cent er DTAP/TDAP/TD VACCINES (1 - Tdap)] Future Scheduled 1987 DTAP/TDAP/TD VACCINES ([address] [facility] 00:00:00 - Tdap) [code = Medical Cent er DTAP/TDAP/TD VACCINES (1 - Tdap)] Future Scheduled 1987 DTAP/TDAP/TD VACCINES ([address] [facility] 00:00:00 - Tdap) [code = Medical Cent er DTAP/TDAP/TD VACCINES (1 - Tdap)] Future Scheduled 1986 HEPATITIS C [facility]CRE[facility]ING [facility]:00:00 [code = HEPATITIS C Medical Center SCREENING] Future Scheduled 1986 HEPATITIS C [facility]ING [facility]:00:00 [code = HEPATITIS C Medical Center SCREENING] Future Scheduled 1986 HEPATITIS C [facility]ING [facility]:00:00 [code = HEPATITIS C Medical Center SCREENING] Future Scheduled 1986 HEPATITIS C [facility]ING [facility]:00:00 [code = HEPATITIS C Medical Center SCREENING] Future Scheduled 1986 HEPATITIS C [facility]ING [facility]:00:00 [code = HEPATITIS C Medical Center SCREENING] Future Scheduled 1986 HEPATITIS C [facility]ING [facility] 00:00:00 [code = HEPATITIS C Medical Center SCREENING] Future Scheduled 1986 HEPATITIS C [facility]ING [facility]:00:00 [code = HEPATITIS C Medical Center SCREENING] Future Scheduled [address] Human immunodeficiency [facility] 00:[facility]:00 virus screening Medical Cent er (procedure) [code = 201168937] Future Scheduled [address] Human immunodeficiency [facility] 00:00:00 virus screening Medical Cent er (procedure) [code = 916015782] Future Scheduled [address] Human immunodeficiency [facility] 00:00:00 virus screening Medical Cent er (procedure) [code = 723318528] Future Scheduled [address] Human immunodeficiency [facility] 00:00:00 virus screening Medical Cent er (procedure) [code = 433657968] Future Scheduled 1968 Screening for malignant [facility] 00:00:00 neoplasm of breast Medical C enter (procedure) [code = 291798491] Future Scheduled 1968 CT Colonography (combo) [facility] 00:00:00 [code = CT Colonography [facility] (combo)] Future Scheduled 1968 Screening for malignant [facility] 00:00:00 neoplasm of colon Medical Ce nter (procedure) [code = 046580699] Future Scheduled 1968 Screening for malignant [facility] 00:00:00 neoplasm of colon Medical Ce nter (procedure) [code = 527738947] Future Scheduled 1968 Screening for malignant [facility] 00:00:00 neoplasm of colon Medical Ce nter (procedure) [code = 170290189] Future Scheduled 1968 Screening for malignant [facility] 00:00:00 neoplasm of colon Medical Ce nter (procedure) [code = 597153852] Future Scheduled 1968 Sigmoidoscopy [code = [facility] S[facility]oidoscopy] Medical Cente r Future Scheduled 1968 Screening for malignant [facility] 00:00:00 neoplasm of breast Medical C enter (procedure) [code = 419691541] Future Scheduled 1968 CT Colonography (combo) [facility] 00:00:00 [code = CT Colonography [facility] (combo)] Future Scheduled 1968 Screening for malignant [facility] 00:00:00 neoplasm of colon Medical Ce nter (procedure) [code = 198992254] Future Scheduled 1968 Screening for malignant [facility] 00:00:00 neoplasm of colon Medical Ce nter (procedure) [code = 109375329] Future Scheduled 1968 Screening for malignant [facility] 00:00:00 neoplasm of colon Medical Ce nter (procedure) [code = 311084416] Future Scheduled 1968 Screening for malignant [facility] 00:00:00 neoplasm of colon Medical Ce nter (procedure) [code = 978817241] Future Scheduled 1968 Sigmoidoscopy [code = [facility] S[facility]oidoscopy] Medical Cente r Future Scheduled 1968 Screening for malignant [facility] 00:00:00 neoplasm of breast Medical C enter (procedure) [code = 451621174] Future Scheduled 1968 CT Colonography (combo) [facility] 00:00:00 [code = CT Colonography [facility] (combo)] Future Scheduled 1968 Screening for malignant [facility] 00:00:00 neoplasm of colon Medical Ce nter (procedure) [code = 425990239] Future Scheduled 1968 Screening for malignant [facility] 00:00:00 neoplasm of colon Medical Ce nter (procedure) [code = 639737547] Future Scheduled 1968 Screening for malignant [facility] 00:00:00 neoplasm of colon Medical Ce nter (procedure) [code = 609653174] Future Scheduled 1968 Screening for malignant [facility] 00:00:00 neoplasm of colon Medical Ce nter (procedure) [code = 879826238] Future Scheduled 1968 Sigmoidoscopy [code = [facility] S[facility]oidoscopy] Medical Cente r Future Scheduled 1968 Screening for malignant [facility] 00:00:00 neoplasm of breast Medical C enter (procedure) [code = 079377663] Future Scheduled 1968 CT Colonography (combo) [facility] 00:00:00 [code = CT Colonography [facility] (combo)] Future Scheduled 1968 Screening for malignant [facility] 00:00:00 neoplasm of breast Medical C enter (procedure) [code = 718193199] Future Scheduled 1968 CT Colonography (combo) [facility] 00:00:00 [code = CT Colonography [facility] (combo)] Future Scheduled 1968 Screening for malignant [facility] 00:00:00 neoplasm of colon Medical Ce nter (procedure) [code = 747105829] Future Scheduled 1968 Screening for malignant [facility] 00:00:00 neoplasm of colon Medical Ce nter (procedure) [code = 807957146] Future Scheduled 1968 Screening for malignant [facility] 00:00:00 neoplasm of colon Medical Ce nter (procedure) [code = 338740229] Future Scheduled 1968 Screening for malignant [facility] 00:00:00 neoplasm of colon Medical Ce nter (procedure) [code = 874703838] Future Scheduled 1968 Screening for malignant [facility] 00:00:00 neoplasm of colon Medical Ce nter (procedure) [code = 181954758] Future Scheduled 1968 Sigmoidoscopy [code = [facility] S[facility]oidoscopy] Medical Cente r Future Scheduled 1968 Screening for malignant [facility] 00:00:00 neoplasm of colon Medical Ce nter (procedure) [code = 229278275] Future Scheduled 1968 Screening for malignant [facility] 00:00:00 neoplasm of colon Medical Ce nter (procedure) [code = 743957046] Future Scheduled 1968 Screening for malignant [facility] 00:00:00 neoplasm of breast Medical C enter (procedure) [code = 142880619] Future Scheduled 1968 CT Colonography (combo) [facility] 00:00:00 [code = CT Colonography [facility] (combo)] Future Scheduled 1968 Screening for malignant [facility] 00:00:00 neoplasm of colon Medical Ce nter (procedure) [code = 729882938] Future Scheduled 1968 Screening for malignant [facility] 00:00:00 neoplasm of colon Medical Ce nter (procedure) [code = 702521318] Future Scheduled 1968 Screening for malignant [facility] 00:00:00 neoplasm of colon Medical Ce nter (procedure) [code = 014036869] Future Scheduled 1968 Screening for malignant [facility] 00:00:00 neoplasm of colon Medical Ce nter (procedure) [code = 638645871] Future Scheduled 1968 Screening for malignant [facility] 00:00:00 neoplasm of colon Medical Ce nter (procedure) [code = 402420456] Future Scheduled 1968 Sigmoidoscopy [code = [facility] S[facility]oscopy] Medical Cente r Future Scheduled 1968 Sigmoidoscopy [code = [facility] Sigmoidoscopy] Medical Cente r Future Scheduled 1968 Screening for malignant [facility] 00:00:00 neoplasm of breast Medical C enter (procedure) [code = 212223171] Future Scheduled 1968 CT Colonography (combo) [facility] 00:00:00 [code = CT Colonography [facility] (combo)] Future Scheduled 1968 Screening for malignant [facility] 00:00:00 neoplasm of colon Medical Ce nter (procedure) [code = 146710690] Future Scheduled 1968 Screening for malignant [facility] 00:00:00 neoplasm of colon Medical Ce nter (procedure) [code = 233052532] Future Scheduled 1968 Screening for malignant [facility] 00:00:00 neoplasm of colon Medical Ce nter (procedure) [code = 152839634] Future Scheduled 1968 Screening for malignant [facility] 00:00:00 neoplasm of colon Medical Ce nter (procedure) [code = 915421511] Future Scheduled 1968 Sigmoidoscopy [code = [facility] S[facility]oscopy] Medical Cente r Encounters Start End Encounter Admission Attending Care Care Encounter Source Date/Time Date/Time Type Type Clinicians Facility Department ID 2022-03-08 Outpatient Flores, [facility] [id number] Common 11:39:00 [facility]ly [facility] [id number] [facility] 2022-01-07 Outpatient Flores, [facility] ST[facility] [id number] Common 10:55:00 Dre [facility] 2021-07-08 Outpatient Flores, STLMLC STLC [id number] Common 13:30:02 Dre [facility] 2021-04-15 Outpatient Flores, [facility] [id number] Common 14:39:31 Dre [facility] 2021-04-15 Outpatient Flores, [facility] ST[facility] [id number] Common 14:22:13 Dre [id number] [facility] 2021-04-15 Outpatient Flores, [facility] [id number] Common 14:16:27 Dre [id number] [facility] 2021-04-15 Outpatient Flores, [facility] ST[facility] [id number] Common 14:12:26 Dre [id number] [facility] 2021-04-15 Outpatient Flores, [facility] [id number] Common 14:03:59 Dre [id number] [facility] 2021-04-15 Outpatient Flores, [facility] [id number] Common 13:12:53 Dre [id number] [facility] 2021-04-15 Outpatient Flores, [facility] ST[facility] [id number] Common 13:04:45 Dre [id number] [facility] 2021-04-15 Outpatient Flores, [facility] [id number] Common 13:04:12 Dre [id number] [facility] 2021-04-15 Outpatient Flores, [facility] [id number] Common 13:02:32 Dre [id number] [facility] 2021-04-15 Outpatient Flores, [facility] ST[facility] [id number] Common 13:00:23 Dre [id number] [facility] 2021-04-15 Outpatient Flores, STLMLC STLC [id number] Common 12:59:46 Dre [id number] [facility] 2021-04-15 Outpatient Flores, STLMLC STLMLC [id number] Common 11:56:35 Dre 22721 [facility] 2021-04-15 Outpatient Flores, STLMLC STLC [id number] Common 11:35:20 Dre [id number] [facility] 2021-04-15 Outpatient Flores, STLMLC STLMLC [id number] Common 11:28:11 Dre [id number] [facility] 2021-04-15 Outpatient Flores, STLMLC STLMLC [id number] Common 11:28:02 Dre [id number] [facility] 2021-04-15 Outpatient Flores, STLMLC STLMLC [id number] Common 11:21:57 Dre [id number] [facility] 2021-04-15 Outpatient Flores, STLMLC STLC [id number] Common 11:18:20 Dre [id number] [facility] 2021-04-15 Outpatient Flores, STLMLC STLC [id number] Common 11:18:03 Dre [id number] [facility] 2021-04-15 Outpatient Flores, STLMLC STLC [id number] Common 11:17:49 Dre [id number] [facility] 2021-04-15 Outpatient Flores, STLMLC STLC [id number] Common 11:08:51 Dre [id number] [facility] 2021-04-15 Outpatient Flores, STLMLC STLC [id number] Common 11:08:14 Dre [id number] [facility] 2021-04-15 Outpatient Flores, STLMLC STLC [id number] Common 11:06:23 Dre [id number] [facility] 2023-01-19 2023-01-19 Outpatient GC_GCBZW_Ka PRIV PRIV [id number] [facility] 00:00:00 00:00:00 james_Sylwia [id number] [facility] 2023-01-11 2023-01-11 MEHDI Hardy [id number] Univers 00:00:00 00:00:00 Management [facility] 350.1.13.10 [place] [id number] [facility] [address] 2022-12-22 2022-12-22 Orders Doctor PATT 1.2.840.114 [id number] Univers 00:00:00 00:00:00 Only Unassigned, JAYLIN 350.1.13.10 ity of [place] [facility] 4.2.7.2.686 Jorden as [phone] [place] [address] [address] 2022-12-21 2022-12-21 Outpatient R [facility] [id number] Univers 09:30:00 09:30:00 ity of [facility] 2022-10-12 2022-10-12 Telephone ELLA Romero 1.2.840.114 [id number] Univers 00:00:00 00:00:00 [facility] 350.1.13.10 i ty [place] [id number] [place] [address] [address] 2022-06-25 2022-06-25 (WEB) STLMLC STLMLC [id number] Co mmon 00:00:00 00:00:00 [facility] 2022-06-23 2022-06-23 OFFICE STLMLC STLMLC [id number] Co mmon 00:00:00 00:00:00 VISIT [facility] LEVEL 4 [facility] 2022-06-21 2022-06-21 (TEL) STLMLC STLMLC [id number] Co mmon 00:00:00 00:00:00 [facility] 2022-06-01 2022-06-01 (WEB) STLMLC STLMLC [id number] Co mmon 00:00:00 00:00:00 [facility] 2022-05-28 2022-05-28 (WEB) STLMLC STLMLC [id number] Co mmon 00:00:00 00:00:00 [facility] 2022-05-28 2022-05-28 (TEL) STLMLC STLMLC [id number] Co mmon 00:00:00 00:00:00 [facility] 2022-05-11 2022-05-11 Telephone Julissa NHCLARICE [id number] Univers 00:00:00 00:00:00 Lisa NIGHT COORDINATOR 350.1.13.10 it y of REGIONAL 4.2.7.2.686 [place]orden as MATERNAL [phone] Med ical & CHILD [address] [place] [address] 2022-05-11 2022-05-11 (WEB) STLMLC STLMLC [id number] Co mmon 00:00:00 00:00:00 [facility] 2022-05-04 2022-05-04 Outpatient R [facility] [id number] Univers 10:00:00 10:00:00 [facility] 2022-05-04 2022-05-04 OFFICE STLMLC STLMLC [id number] Co mmon 00:00:00 00:00:00 VISIT [facility] LEVEL 4 [facility] 2022-04-29 2022-04-29 (WEB) STLMLC STLMLC [id number] Co mmon 00:00:00 00:00:00 [facility] 2022-04-29 2022-04-29 (WEB) STLMLC STLMLC [id number] Co mmon 00:00:00 00:00:00 [facility] 2022-04-05 2022-04-05 (TEL) STLMLC STLMLC [id number] Co mmon 00:00:00 00:00:00 [facility] 2022-03-29 2022-03-29 Outpatient R JULISSA [facility] [id number] Univers 00:00:00 00:00:00 LISA [facility] 2022-03-17 2022-03-[address] [facility] [id number] 06:59:00 12:43:00 Encounter Trini cortez [facility] 2022-03-17 2022-03-17 [facility] [id number] 06:59:00 12:43:00 Encounter Trini Miner [facility] 2022-03-17 2022-03-17 Outpatient EL HERSON FERRER Surgery [id number] [facility] 06:59:00 12:43:00 [facility] 2022-03-17 2022-03-17 Surgery Otrafat, [facility] [id number] 09:00:00 10:00:00 [facility] Abdoulaye Ferrer [facility] 2022-03-17 2022-03-17 Surgery Rosa, [facility] [id number] 09:00:00 10:00:00 Trini miguel Miner [facility] 2022-03-17 2022-03-17 Anesthesia Marley Lai [facility] [id number] 09:09:00 09:47:00 Event Kathy [facility] 2022-03-17 2022-03-17 Anesthesia Marley Lai [facility] [id number] 09:09:00 09:47:00 [facility]-10 2022-03-10 Telephone Nilesh, [facility] 1.2.840.114 [id number] Univers 00:00:00 00:00:00 Dary Castillo NIGHT COORDINATOR 350.1.13.10 ity [facility] 4.2.7.2.686 Jorden as MATERNAL [phone] Med ical & CHILD [address] [place] [address] 2022-03-10 2022-03-10 OFFICE [facility] [id number] Co mmon 00:00:00 00:00:00 VISIT Spirit ESTAB PT - CHI LEVEL 4 [facility] 2022-03-10 2022-03-10 [facility] [id number] Co mmon 00:00:00 00:00:00 [facility] - [facility] 2022-03-09 2022-03-09 Patient Doctor [facility] 1.2.840.114 [id number] Univers 00:00:00 00:00:00 Secure Msg Unassigned, NIGHT COORDINATOR 350.1.13.10 ity of [place] [facility] 4.2.7.2.686 Jorden as MATERNAL [phone] Med ical & CHILD 122 [facility] 2022-03-08 2022-03-08 Outpatient EL SLE [facility] [id number] [facility] 15:15:38 23:59:00 2022-03-08 2022-03-08 [facility] [id number] 14:45:00 23:59:00 Encounter [facility] 2022-03-08 2022-03-08 [facility] [id number] 14:45:00 23:59:00 Encounter [facility] 2022-03-08 2022-03-08 Travel [facility] [id number] [facility] 00:[facility]00 00:00:00 [facility] 2022-03-08 2022-03-08 Travel [facility] [id number] [facility] 00:[facility]:00 00:00:00 [facility] 2022-03-03 2022-03-03 (TEL) [facility] [id number] Co mmon 00:00:00 00:00:00 [facility] - [facility] 2022-02-22 2022-02-22 Patient Doctor PATT 1.2.840.114 [id number] Univers 00:00:00 00:00:00 Secure Msg Unassigned, JAYLIN 350.1.13.10 ity of [place] [facility] 4.2.7.2.686 Jorden as [id number] [address] 2022-02-20 2022-02-20 Office Provider, Klaus-Rmchp [facility] 1 .2.840.114 [id number] [facility] 13:15:00 14:09:12 Visit Lisa Costa NIGHT COORDINATOR 350.1.13.10 ity of [facility] 4.2.7.2.686 Jorden as MATERNAL [id number] Med ical & CHILD [address] [place] [address] 2022-02-20 2022-02-20 Outpatient Bryan COSTA [facility] [id number] Univers 13:15:00 14:09:[address] [facility] [place] [place] 2022-02-09 2022-02-09 (WEB) STLMLC STLMLC [id number] Co mmon 00:00:00 00:00:00 [facility] 2022-02-09 2022-02-09 (WEB) STLMLC STLMLC [id number] Co mmon 00:00:00 00:00:00 [facility] 2022-02-09 2022-02-09 (WEB) STLMLC STLMLC [id number] Co mmon 00:00:00 00:00:00 [facility] 2022-02-09 2022-02-09 (WEB) STLMLC STLMLC [id number] Co mmon 00:00:00 00:00:00 [facility] 2022-01-11 2022-01-11 OFFICE STLMLC STLMLC [id number] Co mmon 00:00:00 00:00:00 VISIT Spirit ESTAB PT - CHI LEVEL 4 [facility] 2021-12-16 2021-12-16 (TEL) STLMLC STLMLC [id number] Co mmon 00:00:00 00:00:00 [facility] 2021-12-11 2021-12-11 OFFICE STLMLC STLMLC [id number] Co mmon 00:00:00 00:00:00 VISIT Spirit ESTAB PT - CHI LEVEL 2 [facility] 2021-12-09 2021-12-09 OFFICE STLMLC STLMLC [id number] Co mmon 00:00:00 00:00:00 VISIT Spirit ESTAB PT - CHI LEVEL 4 [facility] 2021-10-08 2021-10-08 OFFICE STLMLC STLMLC [id number] Co mmon 00:00:00 00:00:00 VISIT Spirit ESTAB PT - CHI LEVEL 4 [facility] 2021-09-29 2021-09-29 (TEL) STLMLC STLMLC [id number] Co mmon 00:00:00 00:00:00 [facility] 2021-09-17 2021-09-17 (TEL) STLMLC STLMLC [id number] Co mmon 00:00:00 00:00:00 [facility] 2021-09-10 2021-09-10 (TEL) STLMLC STLMLC [id number] Co mmon 00:00:00 00:00:00 Spirit [facility] 2021-07-14 2021-07-14 (TEL) STLMLC STLMLC [id number] Co mmon 00:00:00 00:00:00 [facility] 2021-07-09 2021-07-09 OFFICE STLMLC STLMLC [id number] Co mmon 00:00:00 00:00:[address] [facility] ESTAB PT - CHI LEVEL 4 [facility] 2021-07-09 2021-07-09 (TEL) STLMLC STLMLC [id number] Co mmon 00:00:00 00:00:00 [facility] 2021-07-09 2021-07-09 SUB ANNUAL STLMLC STLMLC [id number] Common 00:00:00 00:00:[address] [facility] VISIT [facility] 2021-04-13 2021-04-13 (TEL) STLMLC STLMLC [id number] Co mmon 00:00:00 00:00:00 [facility] 2021-04-13 2021-04-13 OFFICE STLMLC STLMLC [id number] Co mmon 00:00:00 00:00:00 VISIT EST Spir it PT LEVEL 3 - [facility] 2021-03-31 2021-03-31 OFFICE STLMLC STLMLC [id number] Co mmon 00:00:00 00:00:[address] [facility] ESTAB PT - CHI LEVEL 4 [facility] 2021-03-05 2021-03-05 (TEL) STLMLC STLMLC [id number] Co mmon 00:00:00 00:00:00 [facility] 2021-03-04 2021-03-04 (COVID STLMLC STLMLC [id number] Co mmon 00:00:00 00:00:00 Inj) COVID Spi rit Injection - [facility] 2021-02-23 2021-02-23 (TEL) STLMLC STLMLC [id number] Co mmon 00:00:00 00:00:00 [facility] 2021-02-10 2021-02-10 OFFICE STLMLC STLMLC [id number] Co mmon 00:00:00 00:00:00 VISIT [facility] PT - CHI LEVEL 4 [facility] 2021-02-10 2021-02-10 (TEL) STLMLC STLMLC [id number] Co mmon 00:00:00 00:00:00 [facility] 2021-01-23 2021-01-23 (COVID STLMLC STLMLC [id number] Co mmon 00:00:00 00:00:00 Inj) COVID Spi rit [facility] 2021-01-12 2021-01-12 OFFICE STLMLC STLMLC [id number] Co mmon 00:00:00 00:00:00 VISIT [facility] PT - CHI LEVEL 4 [facility] 2020-12-30 2020-12-30 (TEL) STLMLC STLMLC [id number] Co mmon 00:00:00 00:00:00 [facility] 2020-12-16 2020-12-16 OFFICE STLMLC STLMLC [id number] Co mmon 00:00:00 00:00:00 VISIT [facility] PT - CHI LEVEL 2 [facility] 2020-11-12 2020-11-12 Outpatient STLMLC STLMLC [id number] Common 00:00:00 00:00:00 [facility] 2020-10-15 2020-10-15 Outpatient STLMLC STLMLC [id number] Common 00:00:00 00:00:00 [facility] 2020-10-15 2020-10-15 Outpatient STLMLC STLMLC [id number] Common 00:00:00 00:00:00 [facility] 2020-09-30 2020-09-30 Outpatient STLMLC STLMLC [id number] Common 00:00:00 00:00:00 [facility] 2020-09-17 2020-09-17 Outpatient STLMLC STLMLC [id number] Common 00:00:00 00:00:00 [facility] 2020-08-25 2020-08-25 Outpatient STLMLC STLMLC [id number] Common 00:00:00 00:00:00 [facility] 2020-08-20 2020-08-20 Outpatient STLMLC STLMLC [id number] Common 00:00:00 00:00:00 [facility] 2020-08-07 2020-08-07 Outpatient STLMLC STLMLC [id number] Common 00:00:00 00:00:00 [facility] 2020-08-06 2020-08-06 Outpatient STLMLC STLMLC [id number] Common 00:00:00 00:00:00 [facility] 2020-08-04 2020-08-04 Outpatient STLMLC STLMLC [id number] Common 00:00:00 00:00:00 [facility] 2020-07-31 2020-07-31 Outpatient STLMLC STLMLC [id number] Common 00:00:00 00:00:00 [facility] 2020-07-24 2020-07-24 Outpatient STLMLC STLMLC [id number] Common 00:00:00 00:00:00 [facility] 2020-07-23 2020-07-23 Outpatient STLMLC STLMLC [id number] Common 00:00:00 00:00:00 [facility] 2020-07-08 2020-07-08 Outpatient STLMLC STLMLC [id number] Common 00:00:00 00:00:00 [facility] 2020-05-02 2020-05-02 Outpatient STLMLC STLMLC [id number] Common 00:00:00 00:00:00 [facility] 2020-04-09 2020-04-09 Outpatient STLMLC STLMLC [id number] Common 00:00:00 00:00:00 [facility] 2020-03-28 2020-03-28 Outpatient STLMLC STLMLC [id number] Common 00:00:00 00:00:00 [facility] 2020-03-04 2020-03-04 Outpatient STLMLC STLMLC [id number] Common 00:00:00 00:00:00 [facility] 2020-03-03 2020-03-03 Outpatient STLMLC STLMLC [id number] Common 00:00:00 00:00:00 [facility] 2020-02-07 2020-02-07 Outpatient STLMLC STLMLC [id number] Common 00:00:00 00:00:00 [facility] 2020-01-08 2020-01-08 Outpatient STLMLC STLMLC [id number] Common 00:00:00 00:00:00 [facility] 2019-12-03 2019-12-03 [id number] Common 17:05:00 17:05:[address] [facility] 2019-10-23 2019-10-23 [facility] [id number] Common 16:44:00 16:44:[address] [facility] 2019-10-08 2019-10-08 [facility] [id number] Common 13:15:00 13:15:[address] [facility] 2019-10-03 2019-10-03 [facility] [id number] Common 14:18:00 14:18:[address] [facility] 2019-09-11 2019-09-11 [facility] [id number] Common 16:14:00 16:14:[address] [facility] 2019-09-10 2019-09-10 [facility] [id number] Common 11:20:00 11:20:[address] [facility] 2019-08-23 2019-08-23 [facility] [id number] Common 13:58:00 13:58:00 [facility] 2019-08-14 2019-08-14 [facility] [id number] Common 07:34:00 07:34:00 t [facility] 2019-08-07 2019-08-07 [facility] [id number] Common 15:46:00 15:46:00 t [facility] [address] [facility] 2019-08-02 2019-08-02 [facility] [id number] Common 14:00:00 14:00:00 t [facility] Sp[facility] t and Joint [facility] 2019-07-31 2019-07-31 [facility] [id number] Common 11:45:00 11:45:00 t [facility] [address] [facility] 2019-07-09 2019-07-09 [facility] [id number] Common 13:00:00 13:00:00 t Fitzgerald [employer] [address] [facility] 2019-06-06 2019-06-06 [facility] [id number] Common 11:11:00 11:11:00 t [facility] Sp[facility] t [facility] Joint [facility] 2019-05-09 2019-05-09 [facility] [id number] Common 16:00:00 16:00:[address] [facility] 2019-05-07 2019-05-07 [facility] [id number] Common 09:48:00 09:48:[address] [facility] 2019-05-04 2019-05-04 [facility] [id number] Common 10:56:00 10:56:00 t [facility] Bone [facility] Sp[facility] t and Joint [facility] 2019-04-30 2019-04-30 [facility] [id number] Common 10:30:00 10:30:[address] [facility] 2019-02-27 2019-02-27 [facility] [id number] Common 16:15:00 16:15:[address] [facility] 2019-02-12 2019-02-12 [facility] [id number] Common 16:00:00 16:00:[address] [facility] 2019-01-30 2019-01-30 [facility] [id number] Common 11:30:00 11:30:[address] [facility] 2019-01-15 2019-01-15 [facility] [id number] Common 15:30:00 15:30:[address] [facility] Results Test Description Test Time Test Comments Results Result Comments Source CBC W/AUTO DIFF 2022-08-17 00:00:00 Test Item Value Reference Range Interpretation Comme nts NUCLEATED RBCS (test code 0.0 /100 WBC'S See_Comment [Automated message] The = 77983-1) system which ge nerated this result transmit yanick reference range: 0.0 /100 WBC'S. The reference range was not used to interpret th is result as normal/abnormal . ABSOLUTE EOSINOPHILS (test 0.21 K/UL See_Comment [Automated message] The code = 48313-2) system which generated this result transmit yanick reference range: 0.00-0.5 0 K/UL. The reference range was not used to interpret th is result as normal/abnormal . ABSOLUTE LYMPHOCYTES (test 4.67 K/UL See_Comment H [Automated message] The code = 62228-8) system which generated this result transmit yanick reference range: 1.00-4.0 0 K/UL. The reference range was not used to interpret th is result as normal/abnormal . ABSOLUTE MONOCYTES (test 0.46 K/UL See_Comment [A utomated message] The code = 60232-6) system which generated this result transmit yanick reference range: 0.20-1.0 0 K/UL. The reference range was not used to interpret th is result as normal/abnormal . ABSOLUTE NEUTROPHILS (test 6.80 K/UL See_Comment [Automated message] The code = 73393-3) system which generated this result transmit yanick reference range: 1.50-7.5 0 K/UL. The reference range was not used to interpret th is result as normal/abnormal . BASOPHILS (test code = 0.4 % 13362-6) EOSINOPHILS (test code = 1.7 % 54998-3) HEMATOCRIT (test code = 38.2 % See_Comment [Au tomated message] The 14949-2) system which ge nerated this result transmit yanick reference range: 34.0-45. 0 %. The reference range was not used to interpret th is result as normal/abnormal . HEMOGLOBIN (test code = 12.8 G/DL See_Comment [Au tomated message] The 718-7) system which [employer] nerated this result transmit yanick reference range: 11.5-15. 5 G/DL. The reference range was not used to interpret th is result as normal/abnormal . LYMPHOCYTES (test code = 38.2 % 11035-6) MCH (test code = 51293-9) 28.4 PG See_Comment [ Automated message] The system which [employer] nerated this result transmit yanick reference range: 25.0-33. 0 PG. The reference range was not used to interpret th is result as normal/abnormal . MCHC (test code = 84396-5) 33.5 G/DL See_Comment [Automated message] The system which [employer] nerated this result transmit yanick reference range: 31.0-36. 0 G/DL. The reference range was not used to interpret th is result as normal/abnormal . MCV (test code = 95760-3) 84.9 fL See_Comment [ Automated message] The system which [employer] nerated this result transmit yanick reference range: 80.0-99. 0 fL. The reference range was not used to interpret th is result as normal/abnormal . MONOCYTES (test code = 3.8 % 01948-6) NEUTROPHILS (test code = 55.6 % 01273-3) PLATELET COUNT (test code 317 K/UL See_Comment [ Automated message] The = 63648-6) system which [employer] nerated this result transmit yanick reference range: 130-400 K/UL. The reference range was not used to interpret th is result as normal/abnormal . RBC (test code = 32305-3) 4.50 M/UL See_Comment [ Automated message] The system which [employer] nerated this result transmit yanick reference range: 3.80-5.4 0 M/UL. The reference range was not used to interpret th is result as normal/abnormal . RDW (test code = 90576-7) 14.5 % See_Comment [ Automated message] The system which [employer] nerated this result transmit yanick reference range: 11.5-15. 0 %. The reference range was not used to interpret th is result as normal/abnormal . WBC (test code = 30156-0) 12.2 K/UL See_Comment H [ Automated message] The system which [employer] nerated this result transmit yanick reference range: 3.5-11.0 K/UL. The reference range was not used to interpret th is result as normal/abnormal . HEMOGLOBIN [id number] 00:00:00 Test Item Value Reference Range Interpretation Comments HEMOGLOBIN A1c (test 6.2 % See_Comment H [Autom ated message] The code = 4548-4) system which generated this result tra nsmitted reference range : 4.2-5.6 %. The referenc e range was not used to interpret this result as normal/abnormal . LIPID PANEL WITH REFLEX DIRECT [id number] 00:00:00 Test Item Value Reference Range Interpretation Comments CALC LDL CHOL (test 98 MG/DL See_Comment [Automa yanick message] code = 59081-4) The system w [facility] generated this result transmit yanick reference range : <100 MG/DL. The reference range was not used to interpret this result as normal/abnormal . CHOLESTEROL (test code 173 MG/DL See_Comment [Aut omated message] = 2093-3) The system [facility] h generated this result transmit yanick reference range : <200 MG/DL. The reference range was not used to interpret this result as normal/abnormal . HDL CHOLESTEROL (test 51 MG/DL See_Comment [Auto mated message] code = 2085-9) The system [facility] generated this result transmit yanick reference range : >39 MG/DL. The refe rence range was not u sed to interpret th is result as normal/abnormal . RISK RATIO LDL/HDL 1.92 RATIO See_Comment [Automat ed message] (test code = 97672-8) The sy stem which generated this result transmit yanick reference range : <3.22 RATIO. Th e reference range was not used to interpret this result as normal/abnormal . TRIGLYCERIDES (test 141 MG/DL See_Comment [Automa yanick message] code = 2571-8) The system [facility] generated this result transmit yanick reference range : <150 MG/DL. The reference range was not used to interpret this result as normal/abnormal . ALBUMIN/CREATININE RATIO, RANDOM [id number] 00:00:00 Test Item Value Reference Range Interpretation Comments ALBUMIN, URINE, 1.4 MG/DL NOT ESTAB MG/DL RANDOM (test code = 74295-9) CALC ALBUMIN/CREAT, 16 MG/G See_Comment [Automa yanick message] The RND (test code = system [employer] generated 85545-9) this result tra nsmitted reference range : <30 MG/G. The refer ence range was not u sed to interpret this result as normal/abnormal . CREATININE, URINE, 89.5 MG/DL NOT ESTAB MG/DL CONC. (test code = 2161-8) COMPREHENSIVE METABOLIC [id number] 00:00:00 Test Item Value Reference Range Interpretation Comments ALBUMIN (test code = 3.9 G/DL See_Comment [Autom ated message] 1751-7) The system [employer] generated this result transmit yanick reference range : 3.5-5.2 G/DL. T he reference range was not used to interpret this result as normal/abnormal . ALKALINE PHOSPHATASE 165 U/L See_Comment H [Autom ated message] (test code = 6768-6) The sys tem which generated this result transmit yanick reference range : 40-133 U/L. The reference range was not used to interpret this result as normal/abnormal . BILIRUBIN, TOTAL 0.2 MG/DL See_Comment [Automated message] (test code = 1975-2) The sys tem which generated this result transmit yanick reference range : <=1.2 MG/DL. Th e reference range was not used to interpret this result as normal/abnormal . BUN (test code = 15 MG/DL See_Comment [Automated message] 3094-0) The system [employer] generated this result transmit yanick reference range : 6-20 MG/DL. The reference range was not used to interpret this result as normal/abnormal . CALCIUM (test code = 9.3 MG/DL See_Comment [Autom ated message] 51452-5) The system [facility] generated this result transmit yanick reference range : 8.5-10.5 MG/DL. The reference range was not used to interpret this result as normal/abnormal . CALC A/G RATIO (test 1.3 RATIO See_Comment [Autom ated message] code = 1759-0) The [facility] generated this result transmit yanick reference range : 1.0-2.6 RATIO. The reference range was not used to interpret this result as normal/abnormal . CALC BUN/CREAT (test 19 RATIO See_Comment [Autom ated message] code = 3097-3) The [facility] generated this result transmit yanick reference range : 6-28 RATIO. The reference range was not used to interpret this result as normal/abnormal . CALC GLOBULIN (test 3.1 G/DL See_Comment [Automa yanick message] code = 35972-2) The system [facility] generated this result transmit yanick reference range : 1.9-3.7 G/DL. T he reference range was not used to interpret this result as normal/abnormal . CARBON DIOXIDE (test 26 MEQ/L See_Comment [Autom ated message] code = 1963-8) The [facility] generated this result transmit yanick reference range : 19-31 MEQ/L. Th e reference range was not used to interpret this result as normal/abnormal . CHLORIDE (test code 106 MEQ/L See_Comment [Automa yanick message] = 5-0) The system [facility] generated this result transmit yanick reference range : 95-107 MEQ/L. T he reference range was not used to interpret this result as normal/abnormal . CREATININE (test 0.79 MG/DL See_Comment [Automated message] code = 2160-0) The [facility] generated this result transmit yanick reference range : 0.60-1.30 MG/DL . The reference range was not used to interpret this result as normal/abnormal . eGFR (2020 CKD-EPI) 89 ML/MIN/1.73 See_Comment [Auto mated message] (test code = The system [facility] 74135-0) generated this result transmit yanick reference range : >60 ML/MIN/1.73. Th e reference range was not used to interpret this result as normal/abnormal . GLUCOSE (test code = 140 MG/DL See_Comment H [Autom ated message] 1558-6) The system [employer] generated this result transmit yanick reference range : 70-99 MG/DL. Th e reference range was not used to interpret this result as normal/abnormal . POTASSIUM (test code 3.9 MEQ/L See_Comment [Autom ated message] = 6343-3) The system [employer] generated this result transmit yanick reference range : 3.5-5.4 MEQ/L. The reference range was not used to interpret this result as normal/abnormal . PROTEIN, TOTAL (test 7.0 G/DL See_Comment [Autom ated message] code = 2885-2) The system [employer] generated this result transmit yanick reference range : 6.1-8.3 G/DL. T he reference range was not used to interpret this result as normal/abnormal . AST (test code = 25 U/L See_Comment [Automated message] 1920-8) The system [employer] generated this result transmit yanick reference range : 9-40 U/L. The reference range was not used to interpret this result as normal/abnormal . ALT (test code = 23 U/L See_Comment [Automated message] 1742-6) The system [employer] generated this result transmit yanick reference range : 5-40 U/L. The reference range was not used to interpret this result as normal/abnormal . SODIUM (test code = 144 MEQ/L See_Comment [Automa yanick message] 2311-2) The system [employer] generated this result transmit yanick reference range : 133-146 MEQ/L. The reference range was not used to interpret this result as normal/abnormal . Fine Needle Aspirate by [id number] 17:15:17 Test Item Value Reference Range Interpretation Comments Case Report (test code Medical Cytology = 104) Report Case: [id number] Authorizing Provider: Trini Ferrer, Collected: 03/17/2022 09:29 AM Ordering Location: [facility] Received: 03/17/2022 01:18 PM Pathologist: Sada Augustine MD Specimen: Pancreas DIAGNOSIS (test code = [id number] 3220) ShayyMzNcZnRuYmpcdWMx IHtccnRmMVxlcGljOTYwMl sfosHiMJYagHBcG3Mchiti QBvfXI7iNZ1zdWcfpEIssE ZpMCQdWnXhf8xyp380zEDr l7taURIQceuytKf4cSnhD3 5ha6Y2XfvwG20ovYZzVEA3 YJEoJBHkjPIbGSTfZWM0CC GmdYCdC3lgLZZoQA6oltrr CRdzXDmfCLVmfIA5MDCckI NyK9BoBUMpBUkzEIJkejl7 WuMpWf1lxBJwiBuuTHcgIQ JkXHBsYWluXGZzMjAgUEFO J2RHWLEhSe4RKUHPOUOLQR CZKYmFLULTWHtHMNEGQ7HZ TlMpOlxwYXIgICAgLSBTQ0 FOVCBDRUxMVUxBUklUWVxw YXIgICAgLSBORUdBVElWRS EZH4TzYZWOFSwUYA6XEQPi C6ZBUCUZET3AOdVlELAtwt 38KBP4QgUpe1X2QFE9VXUq URHqc1etXYGyeHAnXjVjGi NcZnRuYmpcdWMxXGRlZmYw z3tdn731yLUhj3zzHNMlOk O6kYUjNUPkeIXeD824IHJg SHuiw0ofq2PuLKNemFFpc0 I6MLOPyidxvJf0uRdxX03u b6V7WkwsN2yjTBEjRMYjB6 XrPF8cESVnPai7CEB1AJU3 LSJvPYUvD9JkKO7cSQKoeR SnTPz4q5wpiIyeYHJrNCX0 x8mgWNvxunQsOQ2gir0vrJ w0b8omwuEiSMAlGPMkiOXN LEAbZ2OthDsqMp7izTk2tT mnRdsnWIM4Gcy3XF9krf88 cha9sKcwHXDkiiclBxS3NX atSGSafphfZUf1JYjfXQKl aRM0ERXtzMLxA9IpKNGnPL 9kywd8QZF6BHnwAUJvDuW3 NDBcaGVhZGVyeTcyMFxmb2 42GTC2WuVjLA6mI4Bjw7D1 dQ1cjPRiCZDmbLBtFbXxWD Jmwz2isGYyRPdfv2WcGVX4 niQ8wZIuoYJsHELsUsN2EP hmRR6hip08JMQhXEF1gi3x bGNccGdicmRyaGVhZFxwZ2 WhCPZpo817ERScN3KeUIGz t8Y1waRhEuJxNXMqgZX6oy K3CPIqJJ2emlqfc1tkEWhc UAgwOEIaceL6llR9DWTbmO ZoD8VvsE9jTBSgGF6knzhm b3ddHKX3JAgqDPRnAGF5Ca XqXHRjt7Hfquw0YeDcv8Nc iEGzBMxhB96ac040FJDxpy JyV3gmpSMpogdkqCSqvnjk KQpncpU4QFVhSDlbiyraKP TnBMmyV1mhJvQwPFRunEkg RRsid6LvZWQxRCQcVpTymT PpVACgFma0QHInrXKqOPAd DoKxZ8rwebxhVkYOAHRed0 dcX0ezrPCTeDDqC2YuHMbo jvPySXjyZAsoRgPiOHr3XT 06LhYaHfcmHGD5iJ== COMMENT (test code = o5cysHXiJXUqnSW6SbGiHI 8325) Mss7nrb5SfbAXcdQNvLSpl xDHtuePpsg34hKI4sR04RO 5sPIPdUvT6EPEvloG0Tip2 HWGwKJXarMVbS137l7hul0 myjcAqdVR8uDczDTQzpbrx RwV9IUfbPXHeznveVAl3RH frIOOhmHH7BNNxaLGmJ2Tg MHArFN2ydhk9HYP7VRjcNS JsRdB2WEDfuXMsCNZphFym MHnju555XNJ0SwCgLFTkfq HowWiymK5uJrWeUHNTuVVm n9UtH3tdHO8rzYSbl8Fpwg RseSBjZWxsdWxhciBhbmQg oOWjKBEqjcWxW4BejBZvCJ 9mIGJlbmlnbiBhcHBlYXJp bmcgZXBpdGhlbGlhbCBjZW nceg1fCCq5UEUmaW1gsCIa xFE9aD0wDDobOJKvCZ7ikM 0nrLizSDYlR3tjln09ffPi IFxwYXJccGFyIENlbGlhIE 8ltlkyvzDpjvwoMEYmL86z Q4MxyjB0mZGlTYMiYYKveL 8dtH6qwg8qyLGsfY== CPT Code(s) (test code r2wunOUmNMJbpJK6OuLtAG = 3357) Nrk1jle1NirIKleBCxEIwl mPBtprDeoo67gYW6pE97HN 0jDMTkJoO9OWRzuyZ9Ltu6 DJOqRBMkjIPrI585s2pdg0 epggDsvAR3tJkoZXEhjggt AuS4UOlsRCQzzdueLHu4KA rpSSVksNM5MZIyyUIlA5Mx PTCbFZ7dvdz9EGQ1WOlhWV IfOeE4ASZudLIcSMXeyScb SSnha364KUF3RgZkQGDwaz RqlWwqdR3gRdDqMPC9XOTw OFxwYXJ9 CLINICAL DATA (test u2oqvOApQFImfZB1IjMgWI code = 3353) Kec3jos6IzsPFeaTDzNXlz tMZtzaGtaw81qUQ1lA67WX 9eETQjIjW6NWLrurW1Ixg7 GDGzKFDsuJXiS055p0znr0 gqlzFjdAH8wFkoMIUroqsd CtG2WJafWMJkbxucPDp7PW xmRRGhwOH4EDIddVSqZ2Cn FTDfSD5gqae2TFF5SFrbPN BkLvH7JCEgyYEhPPQskWev GGora854AMK9DmYiMJVwyv ElwWahhV1bYeSjLSBUhxJa ogLukU5zScRaJWFyf35bg9 ZrY8LmqKf4XSThJfKdFDR0 p8Dno0FcXDzfZX85kHGkAL IykO9ifXrvYWHbvtBdNZF6 iIOkVq4vbM9gJXMcX66jpI VuaWNhdGVzIHdpdGggdGhl RDNhjsUpVEF7yOOofPRdNH G1Z2NuWRQrLTZeLWCcf20h tCMli0LrUGIfCgPkzG6bNw yjRlDebH2iwO6ujXO9yM0j kFSklp1pxl8dLRF0lA2vDQ kmZAmjlHI6MTEhJFBqLOAy IHdhcyBhIHNpbmdsZSBjb2 6lBLB0fXMfhCrhHOJse4h8 eA99pJYpVTB3CQEuRMDhWG DztWOdjuG2NSydYN1gKNTw NAMjAKKor13wb7BhAU4kkM PgBLDkXtRKaZJnQFK7SUBh uk0hRLShn1RgTSGiFTCnNJ NzLlxwYXJ9 SPECIMEN SOURCE (test z4yzjMIaZKOfuGZ3IuIdQP code = 3377) Qay6xve1OcuTNbsMAsFSww mCJimhZacn49pRY0jE77QJ 2bCEYsVfV4FPArsbL0Auq2 QWSuBBApjJLlW016i0kwz3 bxvdVjfED9sIvvTOTaaolx OmE8QMofGBOsjcmrJHo0AL zhDKBgrTK2PBHthPVnD5Kc VVHpWU6zpwi5UQF5PTamXK TlFjA3ZZSpvIQcWLBwbKee FXapu971SHO1WeMyLBXumt MvjXhxkC9yXjRpPIKYPI2T MjMOChIYD1PJGWQCO1UyXC NQSVJBVEVccGFyfQ== GROSS DESCRIPTION (test x5qcyDSmTIEnmHOXNWFfB5 code = [id number]) lzhoIxVTLwzWKmL3Yzchag MDisNF1rTL6pxBacdNZrtK SvYG4FIORjMtJsCHHmgMPe vgMjUzSxTEXbjGIccHH0VQ EfRH1xxaqxKFrfQNqmJMUf hzY3IOJgpSNwM7EgXKFwTT 6awpeiZGY3XSveiV5tyyBX ShocSm0ecNOomLeqTvArKc NoYXJzZXQwXGZuaWwgQXJp NQi6kN1CQkkfZYU6FESNEq esZNDfBS4Cm9hnBOBfsOBz ZUM5ZExskSZmQXGpQAJhYH j9OUIyFVviaWNzOM0yfVvo WxfmgRkpu6QxvMSqKGsbHJ JfNWAqJRapKFXrPW3JAxIx VJRuLyT3PpTxPAx9HOz7BL 6ZWeJzOOVyVBkvWjV9YMQj KQs8SIfcSP1YKQV2PyjmAQ m9YMT1TSY7OZMwJKRfIeJh XGYgQXJpYWwgXFxmbCBcXG 6ohVmclLIsclOEHbOINS5p gaDlpj4wkRKeRE3VTEQsiN NILTU9WC6vRJLZFuxglVGy FGVhwZzcAFykeD2kGL2MWR f6uzYpBPXuEuVxSfMfOMm6 RCGpUMExqEteAFlbXRI5tQ 9yaWNoIHJlZDsgcHJlcGFy VXYtEDEvqFTlb8MldlKLHi xwbGFpblxlcGljTmVzdERv ArZxdYfjrF13HFZjmGGnFB N1FX5iNHYwlyixHBHnLEAk GDH5VSpdcW36qCXwXVZsUX HnvOFekS1AIBHyNYS1FKil iR86uQWwKF2CJZDhVCO1EA KxpVFfHOI9BD6ooJ6TuW== MICROSCOPIC DESCRIPTION b5phxIVcBROygYX3JrTrOT (test code = 3371) Nem0rtw0SyiZXimNPwMOyo gGXbrpOiwq84gCH2jI41GP 9uNQPcWkJ6EPLsucN0Dyy2 DLKdLFVxvKVuV139x1qkd4 wqqgTeoOJ8pPadYKBqtprg TfK0PCakMSTecapwLTv8ZA meWHUwyJW2FHTgfQOnN1Ci BARyTH9soae8JME4MEwiVD RoZhY2WMSibMTaFOEokSjg DWmvj764VLE3OwDrQJPkwp NkpVxpkM1pDuEnAFXTDVAm c1WtUGHlBQeyTIR7 Gross assessment was [facility] performed at ([facility], = 2777) Department of Pathology, [address] [place] [address], Technical component was [facility] performed at ([facility], = 2778) Department of Pathology, [address] [place] [id number], Professional component [facility] was performed at ([facility], code = 2779) Department of Pathology, [address] [place] [address], [facility] by [id number] 17:15:17 Test Item Value Reference Range Interpretation Comments Case Report (test code Medical Cytology = 104) Report Case: [id number] Authorizing Provider: Trini Ferrer, Collected: 03/17/2022 09:29 AM Ordering Location: [facility] Received: 03/17/2022 01:18 PM Pathologist: Sada Augustine MD Specimen: Pancreas DIAGNOSIS (test code = [id number] 3220) FuZzEwMzNcZnRuYmpcdWMx IHtccnRmMVxlcGljOTYwMl pfszBcILMpdRWgS1Xgboia RWvoKW3sYM6nwMwqaANbiH UxPRXgGbCur4geb539kQUn c8wqNAVKibzcoGm0vAnsG2 4hs6O1MsslO78glOSnLRM3 IFNyNXZvoBOxNOXsEHK9IL UunQZyG7frEMTrNL5yzzsc UJsaNNdpEDJutOS3RLObiS QyS3GkKLGnITptHDUrcmh0 SsJlRx0oqYDweExuFZdoMZ JkXHBsYWluXGZzMjAgUEFO R2GZCVZdTd8WGZMGZLWZIF XIJLvYMOUNRCgTIKWSY9UD TlMpOlxwYXIgICAgLSBTQ0 FOVCBDRUxMVUxBUklUWVxw YXIgICAgLSBORUdBVElWRS MKQ8LjKIQZQOzCGK5YAEQj P2ZGCOIQGC0QFyGtRBHxcl 66CTL1PyUgh9X9IXR1QXTn SFFja2jmWECfxLOxReMhEy NcZnRuYmpcdWMxXGRlZmYw q5xxu255qHZgv9mbKJMfQm W8lQGwRMDjwUCmM126QRGp CWcsw6vco6XnSXFrtGMcg7 L2XUQPoddjvSv8fGpeM96l v9I3IrecB1hhSNUmBLLuQ5 HdSX7kZPOhIuv0LSL3QSI9 RFGmMVSsL5DsQS6lZYQwnB UzEAl9j0zplQkgKMAlMGM2 j9neJImjsuJpZA0faz5etF p6p3ysnrFwZJEqAZHpbOBR UCIkQ1IwyQdkMs5wrOt5mZ wsGcglPFJ0Ysy8LZ2keb29 tpr0rRiiFYVaimafTzI2TF xtWKTejvbbYCq6CCbrJSTf nPH2GUGlzFQdO0PlLNAdDR 7strp4GEL4UCeiOXYiZwM2 NDBcaGVhZGVyeTcyMFxmb2 81JEJ8EgVuBY4fO8Nxp4E3 aY8lvXIqLDSuiGMrYlIvDT Cnzp2fkAMlXBetn2ZbLFP6 lwG3rGZyiPGcQWSbJmV0MJ mcRJ1qua00MOViEDD5ms7e bGNccGdicmRyaGVhZFxwZ2 UaXEPga839MMIiN6FpSQTp c7E5ghBbMaHgBJRmmAI6dd J2JBHdIU9kbwqjf2pvDFyz KLdmOHNwduQ4irO6BTDluK VvE2VlsS6gTTSsUI3jqmwy u1ydSGN0JRvoVQOsHAX1Mk QxHHZnn8Cezdh2GeCiw8If aRWoXSzqC56fo937SXTnau BiY9uwsTMnpdxtuJZsreir YCtrdcO9QFReEEapxbvkZP ZnQJyvL6zqChGgAMCeqCdt QTpjv6CtTZSkHZVbAlRhwD QzXQCaWan6NUDeaMYhTPMp PpGaA1ooyjjySiGHQSWvq4 zcY3jviSMGyIOyU9JvJJdz msOqKPrbTFxeCgIuAFj3GY 72RqYfRrxkJZU0kN== COMMENT (test code = n9jgtHLjMAQmfUN8JkIsQJ 3353) Qur2dzv5HnpOJnbVTtOBqa lZUfsaReij39iHU5jU93XS 1qKZUwFgJ4EZSkhyC6Kat0 HWVqFZBdvAUyN249o7kyg0 tamoBjgAH1bOmoQDXntufj LpR2ANyoLKXzjryqNLa2PG faBAWjpLT8EIQtyOPdF5Wf OBVrIK3woqh6JUQ2ALugPO BtVxJ9ITIwdZDrKBSutSmx CMzhn814YGT3JxQhOPChze UjpDezvM9sNiSjBJRHkKFc w6FoU1deBD0fnIZbo2Fqdb RseSBjZWxsdWxhciBhbmQg lKJbNGEnvfFeO3HrxTRoBA 9mIGJlbmlnbiBhcHBlYXJp bmcgZXBpdGhlbGlhbCBjZW zzaa8jKYx0UVKacS0ciCCi fFG8dS3gBBtxMRDkCK8bsP 5mhGpcJMFpB6hxpi45mfDz IFxwYXJccGFyIENlbGlhIE 0gywuxbyTuiltyQGPlL30x D6EnlaJ3uQRoMRNrPLDglY 5kqU1vvh7tjXAsmJ== CPT Code(s) (test code x4tzoLHaBMPliXH4BeQmJK = 3486) Tjs6jda7MprNOofBRiRPfg bDWxgtOeph02yDA1hD21YP 0cJMSyCsX5EDWrgxW9Won6 DBXdNDZctTGoO027c4knl0 psutPirNL5fTijVLDmmvng ZhF4NFuwUIZicnmsOOe3PG yfQJApiAV6AZGfiVMrC2Ye UCJaYV2owtv3FHK5RMtwVZ JfZgJ2AZKckZAbMMAxzAtu DJybn333AGZ4SdFfGGBnon ChbNesbY3zBsJmSKB4VKTu OFxwYXJ9 CLINICAL DATA (test l2tllVKtEQVwmSG6NfRjBD code = 3355) Yqh8ffl1LnuPGtcJFuHOiv nORuhqKgvs73hXN0wF86JB 0jPGKnEoF0LXWorfI3Wlg6 RJAcZSGcqQZiQ648t6eyc0 qgqqQhoZE6qBlnCSUqenru FoB2RKlkHHYqjxuiFYw6ZG xxNVHswFP4JQFsnZCcV3Qy RTMaBK6gpsb1KTK2TGdoFO QhXtB1ZWOmsQInKOWtuOry AKlfa300OQC4YbPiSZEtty GbbYxcmQ9hQkScUQTZbaMs cuLvkX4tFwGsCCTzc77oc9 OjX1SxlOl9GUSeIyLyLMA3 o2Rrd1BkMFfhFE63rIUeSC YkgO2saTxrOLWnykYvBKO7 wMFgXa7leR8sPOMtU43xcH VuaWNhdGVzIHdpdGggdGhl WPRibrTyZRK6jJIlaWWwSP N3C4GjAWEePDSpPGHxx60a eWDus3TyXJSzIxLtfC6pBe ulQkFzjY3ylZ8ejFX0iV5a dTTafe7fqu5cRPW9eO9qHK geWZjwfWD3TUItXFJrJFUr IHdhcyBhIHNpbmdsZSBjb2 0vQZR4zNOluMypMUWyy0l8 pM87bZVtZNA6TTWnZKItNC MxjZSlicY2FFxlGR5jUZBt CMAxJRQiy19ff0EsMW7jgC WvMIWmVtHQpGBjVDJ8HWCi bn5cXWRgo2IyMAUmMMNeLW NzLlxwYXJ9 SPECIMEN SOURCE (test c7pysURwKQCjwHT7XnHaRS code = 3377) Ige9wdf2HbzDQdiYPfNMcf cYFgpiDzhe01kKX2lQ16UO 3mOADvUuC1WJJffjN7Swv5 MSOmAUArnLFkC118d4hxa9 hswyHgiGS8jYdiLMVckdtb PbO1ANowMHDvcemaEFy8LI nqLLYrmVA1KAUrbKKvN3Ug QIFkGE0rvqh8YOL2EBqkSJ MkWgA5ZJUbtOGbESRdbAmc EMvib635MZG1GjLmHUEaid ZfhMyleT4iPbImAFFMMN5L NdZXKsYNS5WYQNJWZ1SlAF NQSVJBVEVccGFyfQ== GROSS DESCRIPTION (test a8grfGCrOWPqfLMCIBWhP8 code = 9039459846) cagfMuMFMnvZSeD0Yiybfm TZniCP1gDI7yfNmpwSBstD MwAK0PDVVlHgGqEEZwoNLc xeVtSfTjLZLzgGVjsRW7FO OjLT4qutobWQpfZTdkWFDg myV7CYKcwURuK4LvLCUpIC 3icidkQEZ5TAbulZ3jqpWJ SyuhLb1idSVrfBmeYoVfMi NoYXJzZXQwXGZuaWwgQXJp BFz8yM4GYsinHLJ2GGEHOu mfYKPrST9Nt8kyOZOafFAm ZJJ7XLmgjXXgZKDpQMCgYF z7QRThPOwegVFoHF7lmXmn FoeomKiub4HvgHWdVPliRH UeDLBlYPinITNePT8VTsOd FAVaEiN3XrAaFOl9SVj4UC 1NMpJmONJgQFauNiK2LUYx WYt1ZFftID8UKBQ1HyqaBW m9BMD2AXK7QHKhRWNnVtMc XGYgQXJpYWwgXFxmbCBcXG 3txAfxmLRdgkMCOcGFSH9i qcPclj2mrEImHV0ATYLvgM XNURO3YB2wIEMANnxjtVCx ZJJclWhyWJurkY6uAE4TOX g9buJuXYIwHtGfWoJaIEj5 MSIwHWSunPjyEBflATF5iG 9yaWNoIHJlZDsgcHJlcGFy ZOJtBPVoiDLax7CpfbNXFd xwbGFpblxlcGljTmVzdERv AaJfhBsvmG33XGTtxAGdNF R8PV1aBTZysvxzTXEkDPHd IYA2MPdehQ31kRHzICLkDO KuaCLasF3UJQDoTFO9CYpi pB32bPGxHS1VBLUxWCX5MR CojBFtGYR3QP8vsK9GiR== MICROSCOPIC DESCRIPTION z3uoaDLnBDDmnBT2YoVbAO (test code = 3371) Qed3otz9ZztFQniDIiRUin nPSizqVggk38rLP6dN71KZ 4nNIMcQnR1COCpefB5Oar2 HUWiQIBmkYRrP392q8vxl2 txoaLdcNP0lXofSZKahqqx HgQ9YGndZKDmathuVVz2PC xaHZKrwAW1KCGpdMCaB3Dx WSKyOY0rvoy8TSX5XHdcTG NpCuZ8OJYpnKKmEWTxhEdd PBcrt589GSE5EyXhKOKzvr MjvBnukK4rRuMaSWFLYRZy s1JeDXZdBNrdTRG9 Gross assessment was [facility] performed at (test [facility], = 4699) Department of Pathology, [address] [place] [address], [place] [address], Technical component was [facility] performed at ([facility], = 6632) Department of Pathology, [address] [place] [address], Professional component [facility] was performed at ([facility], code = 2779) Department of Pathology, [address] [place] [address], [facility] by [id number] 17:15:17 Test Item Value Reference Range Interpretation Comments Case Report (test code Medical Cytology = 104) Report Case: [id number] Authorizing Provider: Trini Ferrer, Collected: 03/17/2022 09:29 AM Ordering Location: [facility] Received: 03/17/2022 01:18 PM Pathologist: Sada Augustine MD Specimen: Pancreas DIAGNOSIS (test code = [id number] 3220) FuZzEwMzNcZnRuYmpcdWMx IHtccnRmMVxlcGljOTYwMl updcGyWGGhxHUhV8Ojtqpv AMqnVF3aSW0bfUbhdABzuN VwLUBrByEqs3nzq330pVWr x2poZCWNpqakyCk0dExuV2 2ig4S0DtirJ80jrAUgGIX2 VUHxZFUmbBPuTLPrEAO0DO GczKSnS1ytDKKgWP2jcywu YAghJUhfFLNpqMH7MOWvpW PbM6XuHIWnZAxxSMTfycm4 SsCdWh9ytKPqkYijRAtyMY JkXHBsYWluXGZzMjAgUEFO D7JTLDQvRn7MRXOEEQKFUE YHFFvPIWXBBMvBLWOQR8LB TlMpOlxwYXIgICAgLSBTQ0 FOVCBDRUxMVUxBUklUWVxw YXIgICAgLSBORUdBVElWRS ROD5FpVHCQDXuZBY6ZAXSp C2SXYELWMQ3NNiVwJYDaaz 61HJZ5QoHnv9H0UZH7OHXm GYErh7yzFTCpxTEfKfVlLb NcZnRuYmpcdWMxXGRlZmYw y8amr488zPOzc7nmNYAvLb D4qUZjMCByaWBsR390DYUr CIczl3jge5QmLPYckTHdx1 E1JVDHuxevtJx6uXxzL16j r1F5SnapT4ypSKQaKSPfE9 BvST6tXDBtOxi5XBM6SEG3 PYOgGLOaW5UtRR0lCCPduH VmGQv7x9aupDaeBXUpBJX6 k3vbHAtlsxBeBK9fje1mjK d5v1dcmtFgFUGmUTJogTKV OGEeS7RgqJxnQk3aoQu1gY gsTfwaRNL5Wbx3AZ2snt57 ahj7pZgiIHCgfbozKnV0XE wwREGtjzmfZNd0ZJnmJLMi nEY1FZRxbNWdY0MgWRXySY 3hxwb7HWC4STztCTOuRkW2 NDBcaGVhZGVyeTcyMFxmb2 65ECM7WuDqMR4nJ8Eoe4V4 mR4hyVMaMOVsbQAcCxCgAA Dmqi0jiZKrHXasn2McSKN9 rdN0wOJjcVJtOHNmKdM2KR ijOP8qli46TJGtIXQ6ed8j bGNccGdicmRyaGVhZFxwZ2 WhPPUlv997BDRcT8CsWFYh s9X7zoJjEtQcPYGtoOR0sg W6MFRaUL8nirktn3sjLSzr CHhfGPUfacL2deR6MZAvdP AaW5OevZ7fKTYbLW5qbfrj r0daUIH5IKjoSXPgMOA6Mu HkBZFdn0Tpriw5KjTli2Rg lFBnYDrrE25an956EOXvil PlD0mhmVNipnfcpXFlachw DOtqxmL6RIWoMMjoccvlYV QpIDayK1svRtIcGYHieMvb XNojz6AmUQOiWXHiKyDudQ JrTATiBxo7LIBwhDMnLVAi TyBaY4tleehjXuPOLHWrw2 smQ5xbtBZXnUZxU8OcJLsx uhMkREyrJEjnXqHbPBl1XR 90FyNcInotRVE6oL== COMMENT (test code = k8cjgEThSPDmoXR6VgKpAZ 3355) Alw0bsl4EkuLIziOElYDke yYVkpoAsvd64eVB9hW24DC 1mENJhVeA3RLOhpnS4Bdy8 IQTfDNRomGIcF385p2kgm0 euygXxmIC8tWnqIWWxsmim VkS8XUytYUVpxuklPXq9SS qzPIXpmIS9IBTdgTLbO6Zb YSBvZJ6udzj7AKF5YZwyUG NaHrN2HZHprWSyQHIwqFwz VUecu586LIE3GuSxOQZtfb MuyEngxN6iIrThTILHvPEv l7BhT7egLH2zePIbw1Jodt RseSBjZWxsdWxhciBhbmQg wOXxPJWqmnPoS1TerKSlAL 9mIGJlbmlnbiBhcHBlYXJp bmcgZXBpdGhlbGlhbCBjZW pycf3sVMp5GMYtbH1icPFl lCF6nV4qEKnwWHDzIO3ooD 3bqGeiKDTrM3ybfe08ewZa IFxwYXJccGFyIENlbGlhIE 7gzmixulXnyyojUSTgD95c U1WvibT1uMGmSKWqLYXwwE 9piY6cem4tsKUfdN== CPT Code(s) (test code x3trgQSyKYFvmUG3GmAvNK = 6119) Psd7cmg5UtrQAwaKYzZOys kTPnuuDqij22mMS4sH82HT 5vFTZnCsU9MXMgofS5Zpo5 PJZgMFBmzJUqM232h9ubz8 ipemQrkMY1yGnbDVVcxknu IzQ8NWnaCATyusozZRs8MJ jxUFZtwFW7LGGclRLuC0Nj EHJhFG2bzmh0QST6PQpoTF EfWnZ5KSUjhBTxFDIyaQnp NQgxd371EFS8RwCaVIZmao OmkMdsrG7eArKxUDS9RKXa OFxwYXJ9 CLINICAL DATA (test o7qtjUWxWUAkvVL9FdRnMD code = 335) Ngb7xjh8SujRFziGFyNCzu wFIjyyMgdp44iDU2hX86CG 8sGVEyVaA1TBIuokW3Pgr6 IMVuYPJizKEcV845q4xlh1 jzqfXylYI0gLqrLDYrjbct YtA6XHgsWRRyafpzLZu1LY tnKOSpmCE9LEIljWFdG0Zk QYWbAU3lehu7JQQ0DJskQB DdKjT4TIKutZSsBYJxwZbr VIrbo367PIV7ZaYcSLFvsx RgnWikoR9bHjJqWDASbkIg rbXdlR1nXtEjNWFkk14ij7 LhC3DicNv4AREyMkMxLRZ2 q4Vsg9WeZBhyLJ61sIJfZC NxwZ3nqZsvTCIaotYoHZZ1 tUCsRh5zlZ8yUSYaL64egE VuaWNhdGVzIHdpdGggdGhl BGOzdtVuFGT8tJEdaJOqJS X2X2MdPJJcEMWcTDTjc39v oOChr8KbPJPoZuKdiB9xNd saNoIocR5xyV7spYN2iC6i iNGoeh9hnf8tWWW7wO3bSF uoJNfkbLV6PDObLDRzEQPx IHdhcyBhIHNpbmdsZSBjb2 9eTKB9iKRajTzpXVKhy4q4 nF08bXYfLWC1KKQyBETfBL UrnHPzrwZ6LDdyAA4mKZGx ERLkJJIpr53so8ZjCX4bmU LwPDWvRwVQzLXtRUE2GAUr xt9xTIAia1UeBZIlGQYaJQ NzLlxwYXJ9 SPECIMEN SOURCE (test l5ucxZSfBMNigPQ4DlTkBY code = 3377) Wyz5qtt8NbhWNfuSMmRFit vWPfehNfzv36rYB3oS43ZP 4dJQTlPfE7WXXrxpW0Usv7 YFBkTOLzhKDpW180p9fqd6 vnckRreCI1oUgzIAKyuvjm QiP0ABymJQAskcfuDTx8AF dqQGMdiEJ8LTRvhXHxF0Af MUKbYT6qmvt6STU8OApvWI CwDiN8XBIynTQfJWHzqPpi SLasi531SBM9HaBwZYRvzc CzbBeldM7jSgXaZIFHCU3J AnOAPkBWR3LNIBDTZ4NnHW NQSVJBVEVccGFyfQ== GROSS DESCRIPTION (test e5nfsGZuCJWqxXVVDUYkD0 code = [id number]) bqsjRsHRKdlHOjZ6Qvaeku CEtsDA6jJO9deFdwaDRwxF DyRU7MBTFbGqYvOESanDIo wvQpQgGkUODduKUfwNE8SM AcSM2xrbnuQWgoKOmiUMMa agX3ZUGpqRGfR7HzZRDkLK 3cjjslZDZ7SPycpL2zwjFZ DszpPs0rzAQaxKuqEpMaUu NoYXJzZXQwXGZuaWwgQXJp SDn7uT6ARwxoMFK5RNIIVf taDDNfXQ5Kj3kaQHDufJJh AOH6GYzngVUvDNXhVHZhIV v1DVTtZMqowERwDC8igAce SpqskKiva8EzqWPpGMokRL PvAPNgBNhmMZSgLG9QHcHa MXJeUjI5NiQkUUw4QZi1PN 6MPeViWBEnJNqeIkI3USPy LHs3PYbuJI5QYLL4SuqwUI z8NJI7RGZ6KRBpSXPgYuDj XGYgQXJpYWwgXFxmbCBcXG 7cfDubiPCluyFDXzKBHY6j gcBmxi3paKRsJL1UFBXrpU PLGFI6ZZ8mMKWEFiwzgZXj PAXacPjkKDpkzF5iQT0NXK m1hzSnDHGvTkIbTaGrWJx1 NLHiKKMisMvpALrrRCS8xJ 9yaWNoIHJlZDsgcHJlcGFy JWJhURLowBUre4SptiZVJn xwbGFpblxlcGljTmVzdERv VdMlrHpjkP96ESGiuQQhMJ E9AR1jAZMpzhprJOLaSAWn LVR9SRwmrL31uYUnGNJjHQ WkyBEqvC8ZUMUkCVN9NGjj wY00xOYkKQ8TIACmGMM2QV OvaCEwTIZ6KF8rhW4SdG== MICROSCOPIC DESCRIPTION a2komNOtDDCyrQJ0VqEbYN (test code = 3371) Pfu5erl0JnxJZwuZRoLMvb tOXgprYvyi91mOC0yS32OI 4fBFXhBsU0OUCjhxX4Juz6 NVBbZSGhfRFdK711z2tca3 cxwvJfhFW5xRyoSHRzzsty HgV8GTudANSmicitUJi9DB pwIUVyoEE9KALopKTkZ8Uf LUTlHG5ynax5QTR8OKdkRH CcYbK1JLUruUDpKUYqgCyh CIsnz608KJD8CvRxWRQrve UmoJrkaG1aQxWoXZYRNENu n6LqFNIxOBvhUPQ5 Gross assessment was [facility] performed at ([facility], = 2777) Department of Pathology, [address] [place] [id number], Technical component was [facility] performed at ([facility], = 2778) Department of Pathology, [address] [place] [id number], Professional component [facility] was performed at ([facility], code = 2779) Department of Pathology, [address] [place] [id number], [facility] by [id number] 17:15:17 Test Item Value Reference Range Interpretation Comments Case Report (test code Medical Cytology = 104) Report Case: [id number] Authorizing Provider: Trini Ferrer, Collected: 03/17/2022 09:29 AM Ordering Location: [facility] Received: 03/17/2022 01:18 PM Pathologist: Sada Augustine MD Specimen: Pancreas DIAGNOSIS (test code = [id number] 3220) FuZzEwMzNcZnRuYmpcdWMx IHtccnRmMVxlcGljOTYwMl valwBnCQJkdVEfZ1Gytwlj SZelHK2cQF1rlMrbmSMxgH PeUVLlCaHie0ojc049dTUi z5raSMUTpadgyVk2lUsaK1 2hp3A7XlgfX74urCEgZPE5 HBWnYNVwuQDuPRMdDPG9BO FsoUZyM2adWDMxEJ2fdnzh PNvdFPikSDJhvVP9OYVbnC LqS8LaAZByCNkdBXOfumj4 MnGhCx8xiRHhmGfdTPfnII JkXHBsYWluXGZzMjAgUEFO Q5ABYXVjIr0UZSBCZORTNO ZQRWnHKWYNDEcGAOJSQ8GU TlMpOlxwYXIgICAgLSBTQ0 FOVCBDRUxMVUxBUklUWVxw YXIgICAgLSBORUdBVElWRS DVI2KkNUGIJGrUWI5PBXHq M7TUUWINSX2LYhPkDMOojj 73PTY6EaUce2U6YUC9HDQm OSZue7vbPHWfmZBmIxVeWz NcZnRuYmpcdWMxXGRlZmYw o3mid539sIXqc0giINGlXs E3cHYpUVBbjJMsC382VQAl WRtfy7pdz0FyOSIgxGLot8 Z0LKGPlsnusCb0hActR60x o4R6XwxrR6hhMBBuKSXxK2 ZuRW4yVXJkXky7UVT2JVI5 NEHmSXAeJ8WtMW9rTZWccW OuKLf1x8bhsLscIEGyNHB4 p4wnBDgpvfUqQN5zrp4cjH g8y6vdaqChONFbOSIwhXGY OGCeZ8ZhtTefJk5wrDx3uC ntXxevCLA9Nrf6SU6ypd71 goa1nJznJRBqtptiChQ5EP byMMPvgrdcASs9OMfzIDAz mEK9PAXthFKtH5HaISBbWG 8aytn4LUU3CRrpLCMoBcT9 NDBcaGVhZGVyeTcyMFxmb2 97CVG5LfPmWH8wT7Kdk1Q9 lN7mdNDrLJMuaEEzVeNiVS Jbwe2xzGYyAOuoe5GnGKS4 dzH7zNQgoEEsSQXxEcS0ZY xfOB1jap90CKRdESR5xz6h bGNccGdicmRyaGVhZFxwZ2 RwYJCdk914CVFvI9GoYOKj s3T2lzDzZfCxKQVqmAC9jh H5OATsDF4htonlt4neVAwe GCbzEUDdreR0ptQ0DVWqoG TsH4HdfZ9fJKDgZY9gbfwa q9zwVXC5BFlhZPXrOJC5La YnSLTiq8Lngkr3JeFcf8Kg yMJeZTbqJ98um363FQShkw TfM4abyDPdxdabsWMzljul CUraioT0WLOsIZxbmjasFQ WkOYicX0fqWbCrTILujVcq NLhhj4KfKQFmNJAmByElfP PsMAOmNwn1RBFqeWUoAELk YcDpD4bmpymhDpNXEEFgw6 oqP5uhdIGGsFJbT5LaNNta gwHjONccSRbyNtRwDCr8KB 87ZnRcBnizQSK8dM== COMMENT (test code = v5smpPKcTSWytLI7HxCcRH 4649) Ess1wji7WfvNHkuJTgMPqe oRSnuxBvdo49bEE6tD40ND 3oNQCzDtB4WWRzbfK4Ptm6 HWLfRRVusNSdM076q7wxf8 yibfRbgHI3sVpdNVCusvbw YsA0XPnjKYSrxilwLRj2NP dxUKUxeRY4AOPyxKCzG1Il NCSzSI2cvmo5BUL9SKcqYT TlVzG5QHFluYYdKYUvyFnk ZGaqo783EPB9CoXmFLWync SrxXysvV5mUbFbYHMCiPVw z4YwV3aoKS6xpVSqt8Cvbo RseSBjZWxsdWxhciBhbmQg aTXxSLHpdbQrT3PkuJMqNH 9mIGJlbmlnbiBhcHBlYXJp bmcgZXBpdGhlbGlhbCBjZW oefa1wTFx2FTVmmZ9rmYMk nBC3wG8tQZzwUCLxVQ2hzX 4qiHxfUYAnX2fytu38nwGm IFxwYXJccGFyIENlbGlhIE 0bxsfyeeDannwoABHoO14z T8AxovJ2xNOtUYWxZCRflB 3dpJ6nsw6ohEJgcS== CPT Code(s) (test code x2tunHBmRZOhuGT0HpNwZR = 3357) Nmw7auw1FizCAszVRbLNks bREtcgItlj28rNY6wC32ZQ 0yBVZoBkG0WCKxinK9Vey8 LRXsYEJheGHsI400z7dzm4 nbcgNusAS5nCviSAPrgsjn PhH5KDtcOTUxppneNWr1VO xiWLLgrRS7HGWmvXGsC1Er PTOuYJ5fnvt1XDT9AYgkSK TsKqT1XESowIMtYEHilJql JVmen210SGV9OsWkBUCgzh YlcRbvwE6hMcToIRA6QOVf OFxwYXJ9 CLINICAL DATA (test d1arfANtJLEyiUQ9WuOuWE code = 3359) Wns5rgg6FkgDQbzFItEIaf tOSmbdGncy64eKE3zK89EN 1hNKVzWbZ6OFTrftQ8Jpc8 BWTfFGDhiQCbR041w2sdl9 jrtgNtoPH9kZcdVGWndfyt YgX1KNivBJWfkxjiKBq4TT ilWOUcmWP5ANAioBNnL9Dn FDXeXM6cgzi9WHJ0KFjxPG NhOdS1GQLlvYKbFCCueHob UOixi042YRJ8MeSyQOYxub UgpTfhzJ6bQbAfNXKWlrMx onKynO2jKqGzREHwz92un8 GpJ5OhpTu9VUHwJfAjHLP8 b3Gqv9BrVNcjZB14fZWwSZ AfkQ2zrCzxXKNphlZiLQS9 zVVhNq6heT3tSGQuZ51izM VuaWNhdGVzIHdpdGggdGhl WDHspuZvUEC3cYToaUPgVM Y1Q6UkOVAeHNJcBTUxv25x jWYik4XtACHyXfTejD8oAy uzFrXsxO2azO1unMH8rO8f oMRyfa7ema8kLQH7eE7hEF knIIpxgZS3XJJtRZKmUZUr IHdhcyBhIHNpbmdsZSBjb2 9xFYL2yICtuKenSNGlh3p6 iZ13iZSpVST3QVYnFGHxLO YghCKwdmO9WAlvEB6mUIFm CWTwIIWqm25iq2ViYQ5fsN DeTDJaLoOBwVVnSBH6HQBh as8rGPDao0OiJUGgLHBqFY NzLlxwYXJ9 SPECIMEN SOURCE (test e9falNUtGLGgvZR2WiUsXB code = 3377) Aod9ysd9UwiOSjaCLpKYgi nKUdnmKjcx49sET2cB30BE 6oZLPpHrN2TKRowcJ8Fri8 APByNCJqjJOoT375i6yiv1 rxouZoyVQ7kWtjHROshpkg AeD7XXqyGTFbidovHUj4BE xzUYSugJQ4RLWdzJIjL6Kn ZTSiFP6kfgu3KOA9FYhrYO YdVqL4PFGhjJYtHMSisVnq XYbji469LXV9OeKvIVDhld UqcDvaqK0zMbScSHQKYH3M SmQACpOVB8OLBJTLJ1IfDY NQSVJBVEVccGFyfQ== GROSS DESCRIPTION (test c4odnYYjANKeiYEVYXGzN4 code = 4042681060) dpjiXgQNNwfFDqE9Roxnbm ZDdpFB4uVO1ifKqcnSKwqP XlNH9QVQBrMrXcLBXreCMz zkCqJgIvCGSobXOnxBM7FS RkXK5nauskAGufYDvcIJMo gfE3GIXzcNSvI9JjMXXfCB 4kbjcxYHM6LLfupL5uohPK BzvnYn7idVObfBbuTrZvWm NoYXJzZXQwXGZuaWwgQXJp LSa6wZ8XEqvaVYJ0PTZWTe amUBDwPE7En6ckPXXbzCSt YQE8IRxqjZQpOOQhSHHeKZ q1BEYuWEjlvTTeFH5xpCuo JypoaDmie0VejJHlRQcdMU UfLRUiUBexSAIrGC0MTnGc ZMYhZsY3UiQiINr4DMi6TM 7IAbGfLLRrOMimYaH5DWJf NKs5NPplOT0CLUX1VdfpYF m4LOM7PEF9EAYlBMOaDeYx XGYgQXJpYWwgXFxmbCBcXG 2glEgkiIGdcpLCVtEUJP0b poWtwy4qjSShBF8QIJNykI WPLZM1TK5dFEBJPdcclWRu YGHiyKelHAgifG3fXU6EUR l7jzUsRWVjXpIeOhGkBCh2 GVLgGUXxmBzmNLdhPWV2zM 9yaWNoIHJlZDsgcHJlcGFy REJtYVNdgSGpz7AtumSNFa xwbGFpblxlcGljTmVzdERv BhIumTzjsA85IRDbvICxVV O8YF6tJXYhvzluJILwRYWn NLN0HOtrbD15aTYpYZBlLV QpcGUyuW9ZWWZtMOX6CHbe hK45yLHmNL8AQYYyNYJ4ET XafGRgVEL7GU6ddO4ChC== MICROSCOPIC DESCRIPTION a3qqfLGeJQEmaPA6QpQfRB (test code = 3371) Iye9drk1XcxSMogGYlWCzk rSUrztKxof53hUL0mD57VV 2eJBLiWcF1BPUduqB8Lrj0 CINpQZWacLLtE916i8nvt3 hqhqPrrGM0nPviRJGtpcid NqX4PHwsGZAzroikLQy0UC mxQXIjiLN6ANHtbFFuC8Ff IIExVM7ztye5XXO3XEajCG TjRxX0BSCevDGiAFSlpQce SIqsn881STZ4YuYbUGWeuo EjiImddJ8aIuIjZOJCETIi d7PfJZOmXDxpEZS6 Gross assessment was [facility] performed at ([facility], = 2777) Department of Pathology, [address] [place] [address], Technical component was [facility] performed at ([facility], = 2778) Department of Pathology, [address] [place] [address], Professional component [facility] was performed at ([facility], code = 2779) Department of Pathology, [address] [place] [address], [facility] BY [id number] 17:15:17Medical Cytology Report Case: [id number] Authorizing Provider: Trini Ferrer, Collected: 03/17/2022 09:29 AM Ordering Location: [facility] Received: 03/17/2022 01:18 PM Pathologist: Sada Augustine MD Specimen: Pancreas PANCREAS BODY CYST ASPIRATE (CYTOSPINS): - SCANT CELLULARITY - NEGATIVE FOR MALIGNANCY (SEE COMMENT) Signing Pathologist Direct Phone Line: [phone] signed by Sada Augustine MD on 03/26/2022 at 5:15 PMThe specimen is scantly cellular and has rare groups of benign appearing epithelial cells. Mixed inflammation is seen in the background. Josselyn Ramsey MD concurs with the findings.[id number] anechoic lesion suggestive of a cyst was identified in the pancreatic body. It communicates with the pancreaticduct. The lesion measured 22 mm by 20 mm in maximal cross-sectional diameter. There was a single compartmentwithout septae. The outer wall of the lesion was not seen. There was no associated mass.PANCREAS BODY CYST ASPIRATEA. Pancreas.Received 15 mls in cytorich red; prepared [address] [facility], Department [facility]ology, [address] [place] [address], [facility], [address] [place] [address], [facility], [facility], [address] [place] [address], [facility] [id number] 15:15:19 Test Item Value Reference Range Interpretation Comments Cytology (test code = See Separate Report 2629) [facility] Needle [id number] 15:15:19 Test Item Value Reference Range Interpretation Comments Cytology (test code = See Separate Report 2629) [facility] Needle [id number] 15:15:19 Test Item Value Reference Range Interpretation Comments Cytology (test code = See Separate Report 2629) [facility] Needle [id number] 15:15:19 Test Item Value Reference Range Interpretation Comments Cytology (test code = See Separate Report 2629) [facility] Needle [id number] 15:15:19 Test Item Value Reference Range Interpretation Comments Cytology (test code = See Separate Report 2629) [facility] NEEDLE ASPIRATE (FNA) [id number] 15:15:19 Test Item Value Reference Range Interpretation Comments CYTOLOGY RESULT POINTER See Separate Report (BEAKER) (test code = 2629) POC-Glucose [id number] 10:00:16 Test Item Value Reference Range Interpretation Comments POC-Glucose Meter (test 113 mg/dL 70-110 H : TE STED AT [facility] code = 1538) [address] [place] [address], 770 30: Fishing Tool Supervisor/Techni staci ID = [id number] for SALIMA BRAMBILA Lab Interpretation (test Abnormal code = 51645-1) [facility] [id number] 10:00:16 Test Item Value Reference Range Interpretation Comments POC-Glucose Meter (test 113 mg/dL 70-110 H : TE STED AT [facility] code = 1538) [address] [place] [address], [facility] 30: Fishing Tool Supervisor/Techni staci ID = [id number] for BRAMBILA, CAN DACE Lab Interpretation (test Abnormal code = 13001-6) [facility]-Glucose [id number] 10:00:16 Test Item Value Reference Range Interpretation Comments POC-Glucose Meter (test 113 mg/dL 70-110 H : TE STED AT [facility] code = 1538) [address] [place] [address], [facility] 30: Fishing Tool Supervisor/Techni staci ID = [id number] for BRAMBILA, CAN DACE Lab Interpretation (test Abnormal code = 67063-0) [facility]-Glucose [id number] 10:00:16 Test Item Value Reference Range Interpretation Comments POC-Glucose Meter (test 113 mg/dL 70-110 H : TE STED AT [facility] code = 1538) [address] [place] [address], [facility] 30: Fishing Tool Supervisor/Techni staci ID = [id number] for BRAMBILA, CAN DACE Lab Interpretation (test Abnormal code = 83565-7) [facility]-Glucose [id number] 10:00:16 Test Item Value Reference Range Interpretation Comments POC-Glucose Meter (test 113 mg/dL 70-110 H : TE STED AT [facility] code = 1538) [address] [place] [address], [facility] 30: Fishing Tool Supervisor/Techni staci ID = [id number] for BRAMBILA, CAN DACE Lab Interpretation (test Abnormal code = 24751-4) [facility]-Glucose [id number] 10:00:16 Test Item Value Reference Range Interpretation Comments POC-Glucose Meter (test 113 mg/dL 70-110 H : TE STED AT [facility] code = 1538) [address] [place] [address], [facility] 30: Fishing Tool Supervisor/Techni staci ID = [id number] for BRAMBILA, CAN DACE Lab Interpretation (test Abnormal code = 65043-5) [facility]-GLUCOSE [id number] 10:00:16 Test Item Value Reference Range Interpretation Comments POC-GLUCOSE METER 113 mg/dL 70-110 H : TESTED A T [facility] 6720 (BEAKER) (test code = TAMMI [place], 1538) [address]: Fishing Tool Supervisor/Techni staci ID = [id number] for SALIMA BRAMBILA POCT-GLUCOSE [id number] 08:03:01 Test Item Value Reference Range Interpretation Comments POC-GLUCOSE METER 116 mg/dL 70-110 H : TESTED A T [facility] 6720 (BEAKER) (test code = TAMMI [place], 1538) [address]: Fishing Tool Supervisor/Techni staci ID = [id number] for FAHAD DELGADO (V)TOMI POCT , [id number] 08:02:00 Test Item Value Reference Range Interpretation Comments Test Urine, POC (test Negative code = 6635169) Control line present?, POC (test Yes code = 5521881) Background clear?, POC (test code Yes = 3920784) UPT Cassette Lot #, POC (test code [id number] = [id number]) UPT Cassette Expiration Date, POC 04/20/2023 (test code = 9294625) [facility] , [id number] 08:02:00 Test Item Value Reference Range Interpretation Comments Test Urine, POC (test Negative code = 2203761) Control line present?, POC (test Yes code = 6491252) Background clear?, POC (test code Yes = 8560549) UPT Cassette Lot #, POC (test code [id number] = 4781010) UPT Cassette Expiration Date, POC 04/20/2023 (test code = 1750040) [facility] , [id number] 08:02:00 Test Item Value Reference Range Interpretation Comments Test Urine, POC (test Negative code = 5381002) Control line present?, POC (test Yes code = 8209416) Background clear?, POC (test code Yes = 1039662) UPT Cassette Lot #, POC (test code [id number] = 3211711) UPT Cassette Expiration Date, POC 04/20/2023 (test code = 7014078) [facility] , [id number] 08:02:00 Test Item Value Reference Range Interpretation Comments Test Urine, POC (test Negative code = 8273052) Control line present?, POC (test Yes code = 9094492) Background clear?, POC (test code Yes = 6585880) UPT Cassette Lot #, POC (test code [id number] = 0369231) UPT Cassette Expiration Date, POC 04/20/2023 (test code = 6367245) [facility] , [id number] 08:02:00 Test Item Value Reference Range Interpretation Comments Test Urine, POC (test Negative code = 3161213) Control line present?, POC (test Yes code = 9742775) Background clear?, POC (test code Yes = 4428923) UPT Cassette Lot #, POC (test code [id number] = 8617094) UPT Cassette Expiration Date, POC 04/20/2023 (test code = 8786923) [facility] , [id number] 08:02:00 Test Item Value Reference Range Interpretation Comments Test Urine, POC (test Negative code = 0763004) Control line present?, POC (test Yes code = 3247278) Background clear?, POC (test code Yes = 4654791) UPT Cassette Lot #, POC (test code [id number] = 4969027) UPT Cassette Expiration Date, POC 04/20/2023 (test code = 8325322) [facility] [id number] 00:00:00 Test Item Value Reference Range Interpretation Comments A1C (test code = 4548-4) 8.3
--- NOTE | 2023-02-02 14:45 | RAD REPORT ---
EXAM DESCRIPTION: RAD - Chest Single View - 02/02/2023 2:28 pm CLINICAL HISTORY: CHEST PAIN COMPARISON: Chest Single View dated 12/22/2020; Chest Single View dated 04/29/2020; Chest Single View d ated 08/27/2019; Chest Single View dated 07/09/2019 FINDINGS: Lines: None. Lungs: No evidence of edema or pneumonia. Pleural: No significant pleural effusions or pneumothorax. Cardiac: The heart size is within normal limits. Mediastinum: Within normal limits. Bones: No acute fractures. Other: None IMPRESSION: No acute cardiopulmonary disease.
[2023-02-02 15:21] LABS: Absolute Lymphocytes (CBC) 3.3 K/uL (0.7-4.9); Hematocrit 40.9 % (36.0-45.0); Lymphocytes % 29.7 % (15.3-44.8); MPV 7.5 fL (7.6-11.3); Platelets 330 thou/uL (152-406); RBC Red Blood Cell Count 4.76 M/uL (3.86-4.86)
[2023-02-02] MEDS ORDERED: KETOROLAC 30 MG/ML INJ ONE (15:56)
[2023-02-02] MEDS ORDERED: DIPHENHYDRAMINE 50 MG/ML VIAL ONE (15:56)
[2023-02-02 16:08] LABS: Potassium 3.8 mEq/L (3.5-5.1); Troponin High Sensitivity 3.5 pg/mL (<58.9)
--- NOTE | 2023-02-02 16:33 | EDPHYS ---
Physician Documentation [facility] [place], [place] Name: Arleth Miner Age: 52 yrs Sex: Female : 1970 Arrival Date: 02/02/2023 Time: 14:02 Bed 6 Private MD: ED Physician Jj Galicia HPI: 02/02 14:13 This 52 yrs old Female presents to ER via Ambulatory with complaints of Chest ec2 Pain. 14:13 Patient with history of anxiety, hypertension, hyperlipidemia, diabetes arrives today ec2 due to concern for chest pain as well as multiple other symptoms including head pain and bilateral eye pressure and drowsiness and fatigue. She states that she could be her anxiety acting up however wanted to have her heart evaluated. 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 Patient reports no difficulty breathing, denies any significant change in leg swelling. Denies any abdominal pain, or vomiting. Does endorse nausea.. Historical: - Allergies: 14:09 No Known Allergies; mb9 - PMHx: 14:09 Anxiety; Arthritis; Diabetes - NIDDM; Hepatitis C- inactive; Hyperlipidemia; mb9 Hypertension; - PSHx: 14:09 section; Appendectomy; Cholecystectomy; hysterectomy; mb9 - Immunization history:: Adult Immunizations up to date. - Social history:: Smoking status: Patient reports the use of cigarette tobacco products. ROS: 14:13 Constitutional: as per hpi ec2 Exam: 14:13 Constitutional: GEN: NAD Head: atraumatic Eyes: EOMI Ears: External ears are ec2 normal. CV: regular rate LUNGS: no respiratory distress, no wheezes, no rales, no rhonchi ABD: non-distended, soft, nontender, no guarding, nonrigid SKIN: no evidence of rashes MSK: no evidence of trauma NEURO: moves all extremities equally, cranial nerves II through XII intact, strength intact throughout all 4 extremities, sensation intact throughout. Vital Signs: 14:07 BP 159 / 86; Pulse 94; Resp 18; Temp 98; Pulse Ox 100% on R/A; Weight 102.51 kg; Height mb9 5 ft. 3 in. ; 15:55 BP 125 / 60; Pulse 73; Resp 16; Pulse Ox 97% on R/A; iw 14:07 Body Mass Index 40.03 (102.51 kg, 160.02 cm) mb9 NIH Stroke Scale Scores: 14:10 NIHSS Score: 0 mb9 MDM: 14:05 Patient medically screened. ec2 14:13 Data reviewed: vital signs. ED course: Patient arrives today for evaluation of multiple ec2 complaints. Examination remarkable for nontoxic individual is otherwise in no acute distress with reassuring cardiopulmonary examination as well as a reassuring neurologic examination. Will obtain lab work, EKG, chest x-ray for further assessment of the patient complaint. Currently considering process such as ACS, electrolyte disturbances, arrhythmia, will suspicion for PE, low suspicion for dissection, low suspicion for intracranial brain process. . 14:25 ED course: EKG independently reviewed and interpreted by me, shows normal sinus rhythm, ec2 rate of 86, no acute ST segment elevations, nonconcerning intervals. . 15:01 ED course: Chest x-ray independently reviewed and interpreted by me, shows no acute ec2 thoracic process. . 16:29 ED course: Metabolic profile is reassuring, CBC without anemia or marked leukocytosis. ec2 Troponin within normal ranges. . 16:31 ED course: On reassessment patient reports marked improvement in her symptoms. Will ec2 discharge home and have her follow-up with a primary care doctor. Return precautions given.. 02/02 14:05 Order name: Basic Metabolic Panel; Complete Time: 16:28 ec2 02/02 14:05 Order name: CBC with Diff; Complete Time: 16:28 ec2 02/02 14:05 Order name: Troponin HS; Complete Time: 16:28 ec2 02/02 14:05 Order name: XRAY Chest (1 view); Complete Time: 15:01 ec2 02/02 14:05 Order name: EKG; Complete Time: 14:06 ec2 02/02 14:05 Order name: Cardiac monitoring; Complete Time: 15:56 ec2 02/02 14:05 Order name: EKG - Nurse/Tech; Complete Time: 14:36 ec2 02/02 14:05 Order name: IV Saline Lock; Complete Time: 15:09 ec2 02/02 14:05 Order name: Labs collected and sent; Complete Time: 15:09 ec2 02/02 14:05 Order name: O2 Per Protocol; Complete Time: 15:56 ec2 02/02 14:05 Order name: O2 Sat Monitoring; Complete Time: 15:56 ec2 Administered Medications: 15:55 Drug: NS 0.9% IV 1000 ml IV at 1 bolus Per protocol; 1000 mL bolus Route: IV; Rate: 1 iw bolus; Site: left antecubital; 16:40 Follow up: IV Status: Completed infusion iw 15:55 Drug: metoCLOPramide IVP 10 mg IVP once; over 1 to 2 minutes Route: IVP; Site: left iw antecubital; 15:55 Drug: diphenhydrAMINE IVP 25 mg IVP once Route: IVP; Site: left antecubital; iw 15:55 Drug: Ketorolac IVP 15 mg IVP once Route: IVP; Site: left antecubital; iw Disposition Summary: 02/02/23 16:32 Discharge Ordered Notes: Location: Home ec2 Condition: Stable ec2 Diagnosis - Chest pain, unspecified ec2 - Headache ec2 - Anxiety disorder, unspecified ec2 Discharge Instructions: - Discharge Summary Sheet ec2 - Nonspecific Chest Pain, Adult, Sszj-as-Lsjh ec2 Forms: - Medication Reconciliation Form ec2 - Thank You Letter ec2 - Antibiotic Education ec2 - Prescription Opioid Use ec2 - Patient Portal Instructions ec2 - Leadership Thank You Letter ec2 NIH Stroke Scale - NIH Stroke Score Date: 02/02/2023 Time: 14:10 Total Score = 0 10. Dysarthria (speech clarity - read or repeat words) - 0(Normal) 11. Extinction and Inattention (visual/tactile/auditory/spatial/personal) - 0(No abnormality) 1a. Level of Consciousness (LOC) - 0(Alert) 1b. Level of Consciousness (LOC) (Month \T\ Age) - 0(Both) 1c. LOC Commands (Open \T\ Closes Eyes/Security Operations Engineer) - 0(Both) 2. Best Gaze (Lateral Gaze Paresis) - 0(Normal) 3. Visual Field Loss - 0(No visual loss) 4. Facial Palsy - 0(Normal) 5a. Left Arm: Motor (10-second hold) - 0(No drift) 5b. Right Arm: Motor (10-second hold) - 0(No drift) 6a. Left Leg: Motor (5-second hold - always test supine) - 0(No drift) 6b. Right Leg: Motor (5-second hold - always test supine) - 0(No drift) 7. Limb Ataxia (finger/nose \T\ heel/mukherjee - test with eyes open) - 0(Absent) 8. Sensory Loss (pinprick arms/legs/face) - 0(Normal) 9. Best Language: Aphasia (description/naming/reading) - 0(No aphasia) Initials: mb9 Signatures: Dispatcher [employer] Mar Maddox RN RN iw Breneman, Mary Beth, RN RN mb9 Jj Galicia MD MD ec2
--- NOTE | 2023-02-02 16:33 | ER ---
Nurse's Notes [facility] Name: Arleth Miner Age: 52 yrs Sex: Female : 1970 Arrival Date: 02/02/2023 Time: 14:02 Bed 6 Private MD: Diagnosis: Chest pain, unspecified;Headache;Anxiety disorder, unspecified Presentation: 02/02 14:07 Chief complaint: Patient states: "For the past week, I feel off. My vision goes foggy, mb9 nauseous, and having a lot of headaches. I have pressure in my head and spaced out. I have anxiety and my chest has been hurting.". Coronavirus screen: Vaccine status: Patient reports receiving the 2nd dose of the covid vaccine. Ebola Screen: No symptoms or risks identified at this time. Initial Sepsis Screen: Does the patient meet any 2 criteria? No. Patient's initial sepsis screen is negative. Does the patient have a suspected source of infection? No. Patient's initial sepsis screen is negative. Risk Assessment: Do you want to hurt yourself or someone else? Patient reports no desire to harm self or others. Onset of symptoms was February 02, 2023. 14:07 Method Of Arrival: Ambulatory mb9 14:07 Acuity: ALANNA 3 mb9 Triage Assessment: 14:10 General: Appears in no apparent distress. Behavior is calm, cooperative. Pain: mb9 Complains of pain in chest Quality of pain is described as pressure. EENT: No signs and/or symptoms were reported regarding the EENT system. Neuro: Quinn Agitation-Sedation Scale (RASS): 0 - Alert and Calm Level of Consciousness is awake, alert, obeys commands, Oriented to person, place, time, situation, Appropriate for age Reports blurred vision. Cardiovascular: Reports chest pain. Respiratory: Airway is patent Respiratory effort is even, unlabored, Respiratory pattern is regular, symmetrical. GI: Reports nausea. : No signs and/or symptoms were reported regarding the genitourinary system. Derm: Skin is pink, warm \\T\\ dry. Musculoskeletal: Range of motion: intact in all extremities. Historical: - Allergies: 14:09 No Known Allergies; mb9 - PMHx: 14:09 Anxiety; Arthritis; Diabetes - NIDDM; Hepatitis C- inactive; Hyperlipidemia; mb9 Hypertension; - PSHx: 14:09 section; Appendectomy; Cholecystectomy; hysterectomy; mb9 - Immunization history:: Adult Immunizations up to date. - Social history:: Smoking status: Patient reports the use of cigarette tobacco products. Screenin:55 [facility] ED Fall Risk Assessment (Adult) Score/Fall Risk Level 0 - 2 = Low Risk. Abuse iw screen: Denies threats or abuse. Denies injuries from another. Nutritional screening: No deficits noted. Tuberculosis screening: No symptoms or risk factors identified. Assessment: 14:12 Reassessment: EKG completed in triage. mb9 16:10 Reassessment: Patient appears in no apparent distress at this time. Patient and/or iw family updated on plan of care and expected duration. Pain level reassessed. Patient is alert, oriented x 3, equal unlabored respirations, skin warm/dry/pink. Vital Signs: 14:07 BP 159 / 86; Pulse 94; Resp 18; Temp 98; Pulse Ox 100% on R/A; Weight 102.51 kg; Height mb9 5 ft. 3 in. ; 15:55 BP 125 / 60; Pulse 73; Resp 16; Pulse Ox 97% on R/A; iw 14:07 Body Mass Index 40.03 (102.51 kg, 160.02 cm) mb9 NIH Stroke Scale Scores: 14:10 NIHSS Score: 0 mb9 ED Course: 14:05 Patient arrived in ED. im 14:05 Jj Galicia MD is Attending Physician. ec2 14:09 Triage completed. mb9 14:09 Arm band placed on. mb9 14:30 XRAY Chest (1 view) In Process Unspecified. EDMS 14:58 Patient placed in an exam room, on a stretcher. ll1 15:09 Basic Metabolic Panel Sent. bc6 15:09 CBC with Diff Sent. bc6 15:09 Troponin HS Sent. bc6 15:09 Inserted saline lock: 20 gauge in left antecubital area, using aseptic technique. Blood bc6 collected. 15:39 Mar Nichols, RN is Primary Nurse. iw 16:55 Patient has correct armband on for positive identification. Provided Education on: . iw Pulse ox on. NIBP on. 16:55 No provider procedures requiring assistance completed. IV discontinued, intact, iw bleeding controlled, No redness/swelling at site. Pressure dressing applied. Patient maintains SpO2 saturation greater than 95% on room air. Administered Medications: 15:55 Drug: NS 0.9% IV 1000 ml IV at 1 bolus Per protocol; 1000 mL bolus Route: IV; Rate: 1 iw bolus; Site: left antecubital; 16:40 Follow up: IV Status: Completed infusion iw 15:55 Drug: metoCLOPramide IVP 10 mg IVP once; over 1 to 2 minutes Route: IVP; Site: left iw antecubital; 15:55 Drug: diphenhydrAMINE IVP 25 mg IVP once Route: IVP; Site: left antecubital; iw 15:55 Drug: Ketorolac IVP 15 mg IVP once Route: IVP; Site: left antecubital; iw Medication: 16:55 VIS not applicable for this client. iw Outcome: 16:32 Discharge ordered by . ec2 16:55 Discharged to home ambulatory, with family, iw 16:55 Condition: good 16:55 Discharge instructions given to patient, Instructed on discharge instructions, follow up and referral plans. Demonstrated understanding of instructions, follow-up care, 16:55 Patient left the ED. NIH Stroke Scale - NIH Stroke Score Date: 02/02/2023 Time: 14:10 Total Score = 0 10. Dysarthria (speech clarity - read or repeat words) - 0(Normal) 11. Extinction and Inattention (visual/tactile/auditory/spatial/personal) - 0(No abnormality) 1a. Level of Consciousness (LOC) - 0(Alert) 1b. Level of Consciousness (LOC) (Month \\T\\ Age) - 0(Both) 1c. LOC Commands (Open \\T\\ Closes Eyes/Labeling Associate) - 0(Both) 2. Best Gaze (Lateral Gaze Paresis) - 0(Normal) 3. Visual Field Loss - 0(No visual loss) 4. Facial Palsy - 0(Normal) 5a. Left Arm: Motor (10-second hold) - 0(No drift) 5b. Right Arm: Motor (10-second hold) - 0(No drift) 6a. Left Leg: Motor (5-second hold - always test supine) - 0(No drift) 6b. Right Leg: Motor (5-second hold - always test supine) - 0(No drift) 7. Limb Ataxia (finger/nose \\T\\ heel/mukherjee - test with eyes open) - 0(Absent) 8. Sensory Loss (pinprick arms/legs/face) - 0(Normal) 9. Best Language: Aphasia (description/naming/reading) - 0(No aphasia) Initials: mb9 Signatures: Dispatcher [employer] Mar Maddox RN RN iw Kong Esparza RN RN ll1 Lesly Roth RN RN mb9 Ana Maria Mejia 6 Corina Schwartz Edwin, MD MD ec2 Corrections: (The following items were deleted from the chart) 14:12 14:07 BP 159 / 86; Pulse 94bpm; Resp 18bpm; Pulse Ox 100% RA; Temp 98F; mb9 mb9
[2023-02-02 17:30] VITALS: TEMP 98
[2023-02-02 17:31] VITALS: BP 125/60; O2SAT 97
--- NOTE | 2023-02-02 17:37 | EKG ---
Test Date: 2023-02-02 Test Time: 14:15:19 Tribunal Member: MB MEASUREMENT RESULTS: Intervals: Rate: 86 CT: 150 QRSD: 86 QT: 358 QTc: 428 Graton: P: 39 CT: 150 QRS: 7 T: 39 INTERPRETIVE STATEMENTS: Normal sinus rhythm Cannot rule out Anterior infarct, age undetermined Abnormal ECG Compared to ECG 12/22/2020 19:52:45 No significant changes Electronically Signed On 02-02-23 17:26:24 CHIEF ARCHITECT by Nicanor Schroeder
== END 2023-02-02 16:55 | disposition home or self-care (01) ==
LOC: ER 14:02
DX: R07.9 Chest pain, unspecified (principal); R51.9 Headache, unspecified; F41.9 Anxiety disorder, unspecified; I10 Essential (primary) hypertension; Z72.0 Tobacco use
CPT/HCPCS: 96361; 93005; 85025; 80048; 36415; 84484; 71045; 96375; 96374; 99285; J1200